=== PATIENT | male | born 1975 | race African-American/Black ===

== ENCOUNTER 2018-08-05 14:28 | Inpatient (IN) | payer MEDICARE, MEDICAID ==
[~2018-08-05] VITALS: Ht 175.3 cm; Wt 105.7 kg
[2018-08-05 16:40] VITALS: BP 159/115
[2018-08-05] MEDS ORDERED: CLONIDINE0.1 MG GT (16:44)
[2018-08-05] MEDS ORDERED: ASPIRIN-LOW81 MG ORAL (16:45)
[2018-08-05] MEDS ORDERED: FUROSEMIDE20 M1 ORAL (16:45)
[2018-08-05] MEDS ORDERED: COREG25 MG ORAL (16:46)
[2018-08-05] MEDS ORDERED: ZYLOPRIM300 MG ORAL (16:47)
[2018-08-05] MEDS ORDERED: LISINOPRIL20 MG ORAL (16:47)
[2018-08-05] MEDS ORDERED: LIPITOR80 MG ORAL (16:48)
[2018-08-05] MEDS ORDERED: ISOSORBIDE DINI20 M2 PO (16:48)
[2018-08-05] MEDS ORDERED: APRESOLINE50 MG ORAL (16:49)
[2018-08-05] MEDS ORDERED: ADVAIR 250-501 EACH INH (16:50)
--- NOTE | 2018-08-05 17:26 | History & Physical ---
History and Physical History & Physicial Dictated for Int Med-Dr jc no. [id number]. Dario Meza MD Aug 05, 2018 17:26
[2018-08-05] MEDS ORDERED: Albuterol/Ipratropium 3ml neb HHN PRN (18:30)
[2018-08-05] MEDS ORDERED: HYDROmorphone 1mg/ml Carpuject IVP PRN (18:30)
--- NOTE | 2018-08-05 18:45 | History and Physical Report ---
DATE OF ADMISSION: 08/05/2018 CHIEF COMPLAINT: The patient is a 43-year-old male, who presents with a chief complaint of shortness of breath and chest pain. HISTORY OF PRESENT ILLNESS: The patient has a history of congestive heart failure. The patient states his ejection fraction is 18%. The patient began to experience shortness of breath right after Labor Day. The patient returned from [place]. Since that time, the patient has become increasingly short of breath. The patient has a nonproductive cough. The patient has subjective fevers and chills. The patient presented initially to [facility] emergency room. The patient is transferred to [facility] for insurance purposes. The patient is admitted for shortness of breath to rule out congestive heart failure. PAST MEDICAL HISTORY: 1. Significant for congestive heart failure with an ejection fraction of 18% per the patient. 2. Chronic obstructive pulmonary disease. 3. Hypertension. 4. History of coronary artery disease, status post myocardial infarction at age 22 and again in 2013. PAST SURGICAL HISTORY: The patient denies. CURRENT MEDICATIONS: 1. Albuterol nebulized q.6 hours p.r.n. 2. ProAir 2 puffs p.o. q.i.d. p.r.n. 3. Carvedilol 25 mg p.o. twice daily. 4. Spironolactone 25 mg p.o. daily. 5. Lisinopril 20 mg p.o. twice daily. 6. Hydrochlorothiazide 25 mg p.o. daily. 7. Aspirin 81 mg p.o. daily. 8. Atorvastatin 40 mg p.o. daily. 9. Aspirin 81 mg p.o. daily. 10. Nitroglycerin 0.4 mg sublingual p.r.n. ALLERGIES: No known drug allergies. SOCIAL HISTORY: The patient is single and is disabled. The patient admits to tobacco use of one-half pack per day. The patient admits to alcohol use of 2 drinks twice weekly. The patient denies drug abuse. REVIEW OF SYSTEMS: CONSTITUTIONAL: The patient denies weight loss or weight gain. The patient complains of subjective fevers and chills as above. HEENT: The patient denies ear or throat pain. The patient denies headache. CARDIOVASCULAR: The patient complains of substernal chest pain without radiation as above. The patient denies palpitations. ABDOMEN: The patient denies nausea, vomiting, diarrhea, or constipation. GENITOURINARY: The patient denies dysuria or increased frequency of urination. NEUROMUSCULAR: The patient denies seizures or generalized weakness. PHYSICAL EXAMINATION: VITAL SIGNS: Temperature 97.4, respirations 18, pulse tachycardic at 94 to 113, and blood pressure 154 to 160/117 to 130. GENERAL: The patient is a well-developed and well-nourished male, in no apparent distress. HEENT: Eyes, pupils equal and responsive to light and accommodation. Extraocular movements are intact. NECK: Supple without lymphadenopathy. CHEST: Lungs are clear to auscultation bilaterally without wheezes or rales. CARDIOVASCULAR: Regular rhythm and rate. S1 and S2 are normal without murmurs, rubs, or gallops. ABDOMEN: Soft, nontender, and nondistended. Positive bowel sounds. No evidence of hepatosplenomegaly. Currently, no rebound or guarding noted. EXTREMITIES: Negative for clubbing, cyanosis, or edema. RECTAL/GENITAL: Refused. NEUROLOGIC: Cranial nerves II through XII are grossly intact without focal deficits. Motor strength is 5/5 bilaterally. Deep tendon reflexes are 2+ plantar. LABORATORY DATA: WBC 6.2, hemoglobin 14.7, hematocrit 43.8, and platelets 264,000. Sodium 140, potassium 3.5, chloride 109, CO2 23, BUN 18, and creatinine 1.13. Troponin 0.06. BNP elevated at 632. A chest x-ray is pending. ASSESSMENT: This is a 43-year-old male. 1. Shortness of breath. 2. Chest pain. 3. Congestive heart failure. 4. Chronic obstructive pulmonary disease. 5. Hypertension. 6. History of coronary artery disease. TREATMENT: 1. Shortness of breath. This may be secondary to an acute exacerbation of congestive heart failure. This could also be chronic obstructive pulmonary disease. A Pulmonary consultation has been obtained with Dr. Angel Diaz. A Cardiology consultation is pending with Dr. Schumacher. The patient may require an automatic implanted cardioverter defibrillator implant. 2. Chest pain. This is probably secondary to congestive heart failure as above. 3. Chronic obstructive pulmonary disease. As above, a Pulmonary consultation has been obtained with Dr. Angel Diaz. The patient will receive DuoNebs p.r.n. during the hospitalization. 4. Hypertension. Continue Coreg as above. 5. History of coronary artery disease. As above, a Cardiology consultation has been obtained with Dr. Stanley Schumacher. Serial BMP levels will be performed. Dario Meza M.D. DR: TUCKER JOB#: [id number] CC:
[2018-08-05 19:43] LABS: BASOPHILS % (AUTO) 1.4 % (0.0-2.0); EOSINOPHILS % (AUTO) 1.8 % (0.0-3.0); HEMATOCRIT 45.2 % (42.0-52.0); HEMOGLOBIN 15.5 G/DL (14.2-18.0); LYMPHOCYTES % (AUTO) 22.1 % (20.0-45.0); MEAN CORPUSCULAR VOLUME 87 FL (80-99); MONOCYTES % (AUTO) 6.9 % (1.0-10.0); NEUTROPHILS % (AUTO) 67.8 % (45.0-75.0); PLATELET COUNT 273 K/UL (150-450); RED BLOOD COUNT 5.18 M/UL (4.70-6.10); RED CELL DISTRIBUTION WIDTH 15.1 % (11.6-14.8); WHITE BLOOD COUNT 4.9 K/UL (4.8-10.8)
[2018-08-05 19:55] LABS: INR 1.1 (0.9-1.1)
[2018-08-05 20:00] VITALS: BP 154/113
[2018-08-05 20:01] LABS: ALANINE AMINOTRANSFERASE 20 U/L (12-78); ALBUMIN 3.8 G/DL (3.4-5.0); ALBUMIN/GLOBULIN RATIO 1.2 (1.0-2.7); ALKALINE PHOSPHATASE 65 U/L (46-116); ANION GAP 9 mmol/L (5-15); ASPARTATE AMINO TRANSFERASE 13 U/L (15-37); BILIRUBIN,TOTAL 1.5 MG/DL (0.2-1.0); BLOOD UREA NITROGEN 19 mg/dL (7-18); CALCIUM 8.9 MG/DL (8.5-10.1); CARBON DIOXIDE 28 MMOL/L (21-32); CHLORIDE 105 MMOL/L (98-107); CHOLESTEROL 225 MG/DL (< 200); CREATININE 1.4 MG/DL (0.55-1.30); HDL CHOLESTEROL 58 MG/DL (40-60); POTASSIUM 3.2 MMOL/L (3.5-5.1); SODIUM 142 MMOL/L (136-145); TRIGLYCERIDES 109 MG/DL (30-150)
[2018-08-05 20:04] LABS: BILIRUBIN,DIRECT 0.2 MG/DL (0.0-0.3)
[2018-08-05] MEDS: Carvedilol 25mg Tab ORAL SCH (20:38)
[2018-08-05] MEDS: Heparin 5000 units/ml inj SUBQ SCH (20:38)
[2018-08-05] MEDS: Atorvastatin 20mg tab ORAL SCH (20:39)
[2018-08-05] MEDS ORDERED: Zolpidem 5mg tab ORAL PRN ×2 (21:00)
[2018-08-05 22:14] LABS: APPEARANCE,URINE CLEAR; BILIRUBIN, URINE NEGATIVE (NEGATIVE); COLOR,URINE PALE YELLOW; GLUCOSE, URINE (UA) NEGATIVE (NEGATIVE); KETONES,URINE NEGATIVE (NEGATIVE); LEUKOCYTE ESTERASE ,URINE NEGATIVE (NEGATIVE); NITRITE,URINE NEGATIVE (NEGATIVE); PH,URINE 7 (4.5-8.0); PROTEIN,URINE NEGATIVE (NEGATIVE); UROBILINOGEN,URINE NORMAL MG/DL (0.0-1.0)
[2018-08-06] VITALS: BP 155/115
[2018-08-06 04:00] VITALS: BP 144/108
[2018-08-06 07:14] LABS: BASOPHILS % (AUTO) 1.6 % (0.0-2.0); EOSINOPHILS % (AUTO) 2.9 % (0.0-3.0); HEMATOCRIT 45.7 % (42.0-52.0); LYMPHOCYTES % (AUTO) 15.7 % (20.0-45.0); MEAN CORPUSCULAR VOLUME 88 FL (80-99); MONOCYTES % (AUTO) 9.2 % (1.0-10.0); NEUTROPHILS % (AUTO) 70.6 % (45.0-75.0); PLATELET COUNT 242 K/UL (150-450); RED BLOOD COUNT 5.21 M/UL (4.70-6.10); RED CELL DISTRIBUTION WIDTH 14.8 % (11.6-14.8); WHITE BLOOD COUNT 5.5 K/UL (4.8-10.8)
[2018-08-06 07:32] LABS: ANION GAP 9 mmol/L (5-15); BLOOD UREA NITROGEN 24 mg/dL (7-18); CALCIUM 9.1 MG/DL (8.5-10.1); CARBON DIOXIDE 26 MMOL/L (21-32); CHLORIDE 105 MMOL/L (98-107); CREATININE 1.3 MG/DL (0.55-1.30); POTASSIUM 3.7 MMOL/L (3.5-5.1); SODIUM 140 MMOL/L (136-145)
[2018-08-06 08:00] VITALS: BP 133/106
[2018-08-06] MEDS: Heparin 5000 units/ml inj SUBQ SCH ×3 (08:35→20:57)
[2018-08-06] MEDS: Lisinopril 20mg tab ORAL SCH (08:36)
[2018-08-06] MEDS: Spironolactone 25mg tab ORAL SCH (08:36)
[2018-08-06] MEDS: Carvedilol 25mg Tab ORAL SCH ×2 (08:36→20:57)
[2018-08-06] MEDS: Aspirin Baby 81mg ORAL SCH (08:36)
--- NOTE | 2018-08-06 10:03 | Diagnostic Imaging Report ---
Indication: Cough Technique: 2 views of the chest Comparison: None Findings: Lungs pleural spaces are clear. The heart is enlarged. The bones are unremarkable.. Impression: Cardiomegaly. No acute process
[2018-08-06 12:00] VITALS: BP 141/95
--- NOTE | 2018-08-06 12:35 | Consultation ---
History of Present Illness General Date patient seen: Aug 06, 2018 Present Illness HPI 43 year old male with hx of CHF, cardiomyopathy, COPD, DC, CAD was taken to [facility] by paramedics with CC of worsening sob for the last two weeks. He was rule out for DC and transferred to [facility] for further treatment. He is sitting up in the chair, looks asymptomatic and chest tightness resolved already. Allergies: Coded Allergies: No Known Allergies (Unverified , 08/05/18) Medication History Scheduled Allopurinol* (Zyloprim*), 300 MG ORAL DAILY, (Reported) Aspirin (Aspirin EC), 81 MG ORAL DAILY, (Reported) Atorvastatin (Lipitor), 40 MG ORAL BEDTIME, (Reported) Carvedilol (Coreg), 25 MG ORAL EVERY 12 HOURS, (Reported) Clonidine HCl (Clonidine HCl), 0.1 MG GT BID, (Reported) Fluticasone/Salmeterol (Advair 250-50 Diskus), 1 PUFF INH EVERY 12 HOURS, ( Reported) Furosemide* (Lasix*), 20 MG ORAL DAILY, (Reported) Hydralazine HCl (Hydralazine HCl), 50 MG ORAL EVERY 8 HOURS, (Reported) Isosorbide Dinitrate (Isosorbide Dinitrate), 20 MG PO TID, (Reported) Lisinopril (Lisinopril*), 20 MG ORAL BID, (Reported) Patient History Healthcare decision maker N Resuscitation status Full Code Advanced Directive on File No Past Medical/Surgical History Past Medical/Surgical History: (1) COPD (chronic obstructive pulmonary disease) (2) HTN (hypertension) (3) CAD (coronary artery disease) (4) Cardiomyopathy Review of Systems All Other Systems: negative except mentioned in HPI Physical Exam General Appearance: WD/WN Lines, tubes and drains: peripheral Neck: non-tender, normal alignment Respiratory/Chest: chest wall non-tender, lungs clear Cardiovascular/Chest: normal peripheral pulses, normal rate Abdomen: normal bowel sounds, soft Genitourinary/Rectal: normal genital exam Extremities: normal range of motion Last 24 Hour Vital Signs Date Time Temp Pulse Resp B/P (MAP) Pulse Ox O2 Delivery O2 Flow Rate FiO2 08/06/18 09:00 Room Air 08/06/18 08:36 133/106 08/06/18 08:36 85 133/106 08/06/18 08:00 84 08/06/18 08:00 97.5 85 20 133/106 (115) 95 97.5 08/06/18 04:00 98.0 84 20 144/108 (120) 97 98.0 08/06/18 04:00 81 08/06/18 00:00 97 08/06/18 00:00 98.2 96 20 155/115 (128) 95 98.2 08/05/18 21:00 Room Air 08/05/18 20:38 100 154/113 08/05/18 20:00 98 08/05/18 20:00 98.2 100 20 154/113 (127) 94 98.2 08/05/18 17:31 Room Air 08/05/18 16:50 102 08/05/18 16:40 97.5 96 20 159/115 (130) 97.5 Intake and Output 08/05/18 08/06/18 19:00 07:00 # Voids 1 2 Laboratory Tests Test 08/05/18 19:20 08/05/18 21:50 08/06/18 06:30 White Blood Count 4.9 K/UL (4.8-10.8) 5.5 K/UL (4.8-10.8) Red Blood Count 5.18 M/UL (4.70-6.10) 5.21 M/UL (4.70-6.10) Hemoglobin 15.5 G/DL (14.2-18.0) 15.0 G/DL (14.2-18.0) Hematocrit 45.2 % (42.0-52.0) 45.7 % (42.0-52.0) Mean Corpuscular Volume 87 FL (80-99) 88 FL (80-99) Mean Corpuscular Hemoglobin 30.0 PG (27.0-31.0) 28.8 PG (27.0-31.0) Mean Corpuscular Hemoglobin Concent 34.3 G/DL (32.0-36.0) 32.9 G/DL (32.0-36.0) Red Cell Distribution Width 15.1 % (11.6-14.8) H 14.8 % (11.6-14.8) Platelet Count 273 K/UL (150-450) 242 K/UL (150-450) Mean Platelet Volume 6.2 FL (6.5-10.1) L 6.6 FL (6.5-10.1) Neutrophils (%) (Auto) 67.8 % (45.0-75.0) 70.6 % (45.0-75.0) Lymphocytes (%) (Auto) 22.1 % (20.0-45.0) 15.7 % (20.0-45.0) L Monocytes (%) (Auto) 6.9 % (1.0-10.0) 9.2 % (1.0-10.0) Eosinophils (%) (Auto) 1.8 % (0.0-3.0) 2.9 % (0.0-3.0) Basophils (%) (Auto) 1.4 % (0.0-2.0) 1.6 % (0.0-2.0) Prothrombin Time 11.7 SEC (9.30-11.50) H Prothromb Time International Ratio 1.1 (0.9-1.1) Activated Partial Thromboplast Time 27 SEC (23-33) Sodium Level 142 MMOL/L (136-145) 140 MMOL/L (136-145) Potassium Level 3.2 MMOL/L (3.5-5.1) L 3.7 MMOL/L (3.5-5.1) Chloride Level 105 MMOL/L (98-107) 105 MMOL/L (98-107) Carbon Dioxide Level 28 MMOL/L (21-32) 26 MMOL/L (21-32) Anion Gap 9 mmol/L (5-15) 9 mmol/L (5-15) Blood Urea Nitrogen 19 mg/dL (7-18) H 24 mg/dL (7-18) H Creatinine 1.4 MG/DL (0.55-1.30) H 1.3 MG/DL (0.55-1.30) Estimat Glomerular Filtration Rate > 60 mL/min (>60) > 60 mL/min (>60) Glucose Level 144 MG/DL (74-106) H 113 MG/DL (74-106) H Calcium Level 8.9 MG/DL (8.5-10.1) 9.1 MG/DL (8.5-10.1) Total Bilirubin 1.5 MG/DL (0.2-1.0) H Direct Bilirubin 0.2 MG/DL (0.0-0.3) Aspartate Amino Transf (AST/SGOT) 13 U/L (15-37) L Alanine Aminotransferase (ALT/SGPT) 20 U/L (12-78) Alkaline Phosphatase 65 U/L (46-116) Troponin I 0.051 ng/mL (0.000-0.056) Pro-B-Type Natriuretic Peptide 1541 pg/mL (0-125) H 934 pg/mL (0-125) H Total Protein 7.0 G/DL (6.4-8.2) Albumin 3.8 G/DL (3.4-5.0) Globulin 3.2 g/dL Albumin/Globulin Ratio 1.2 (1.0-2.7) Triglycerides Level 109 MG/DL (30-150) Cholesterol Level 225 MG/DL (< 200) H LDL Cholesterol 135 mg/dL (<100) H HDL Cholesterol 58 MG/DL (40-60) Cholesterol/HDL Ratio 3.9 (3.3-4.4) Thyroid Stimulating Hormone (TSH) 0.564 uiU/mL (0.358-3.740) Urine Color Pale yellow Urine Appearance Clear Urine pH 7 (4.5-8.0) Urine Specific [place] 1.005 (1.005-1.035) Urine Protein Negative (NEGATIVE) Urine Glucose (UA) Negative (NEGATIVE) Urine Ketones Negative (NEGATIVE) Urine Blood Negative (NEGATIVE) Urine Nitrite Negative (NEGATIVE) Urine Bilirubin Negative (NEGATIVE) Urine Urobilinogen Normal MG/DL (0.0-1.0) Urine Leukocyte Esterase Negative (NEGATIVE) Height (Feet): 5 Height (Inches): 9.00 Weight (Pounds): 229 Medications Current Medications Medications (Trade) Dose Ordered Sig/Andree Route PRN Reason Start Time Stop Time Status Last Admin Dose Admin Acetaminophen (Tylenol) 650 mg Q4H PRN ORAL Mild Pain (Pain Scale 1-3) 08/05/18 18:30 [id number] 18:29 Acetaminophen (Tylenol) 650 mg Q4H PRN ORAL fever 18 18:30 10 18:29 Albuterol/ Ipratropium (Albuterol/ Ipratropium) 3 ml Q4H PRN HHN Shortness of Breath 08/05/18 18:30 08/10/18 18:29 Aspirin (ASA) 81 mg DAILY ORAL 08/06/18 09:00 09/05/18 08:59 08/06/18 08:36 Atorvastatin Calcium (Lipitor) 40 mg BEDTIME ORAL 08/05/18 21:00 09/04/18 20:59 08/05/18 20:39 Carvedilol (Coreg) 25 mg EVERY 12 HOURS ORAL 08/05/18 21:00 09/04/18 20:59 08/06/18 08:36 Dextrose (Dextrose 50%) 25 ml STAT PRN IV Hypoglycemia 08/05/18 18:30 09/04/18 18:29 Dextrose (Dextrose 50%) 50 ml STAT PRN IV Hypoglycemia 08/05/18 18:30 09/04/18 18:29 Heparin Sodium (Porcine) (Heparin 5000 units/ml) 5,000 units EVERY 12 HOURS SUBQ 08/05/18 21:00 09/04/18 20:59 Hydromorphone HCl (Dilaudid) 1 mg Q4H PRN IVP Moderate Pain (Pain Scale 4-6) 08/05/18 18:30 08/12/18 18:29 Hydromorphone HCl (Dilaudid) 2 mg Q4H PRN IVP Severe Pain (Pain Scale 7-10) 08/05/18 18:30 08/12/18 18:29 Lisinopril (Prinivil) 20 mg DAILY ORAL 08/06/18 09:00 09/05/18 08:59 08/06/18 08:36 Ondansetron HCl (Zofran) 4 mg Q6H PRN IVP Nausea & Vomiting 08/05/18 18:30 09/04/18 18:29 Pantoprazole (Protonix) 40 mg ACBREAKFAST ORAL 08/06/18 06:30 09/05/18 06:29 08/06/18 06:19 Spironolactone (Aldactone) 25 mg DAILY ORAL 08/06/18 09:00 09/05/18 08:59 08/06/18 08:36 Zolpidem Tartrate (Ambien) 5 mg HSPRN PRN ORAL Insomnia 08/05/18 21:00 08/12/18 20:59 Assessment/Plan Problem List: (1) ACS (acute coronary syndrome) ICD Codes: I24.9 - Acute ischemic heart disease, unspecified SNOMED: 317808196 (2) COPD (chronic obstructive pulmonary disease) ICD Codes: J44.9 - Chronic obstructive pulmonary disease, unspecified SNOMED: 47440150 (3) CAD (coronary artery disease) ICD Codes: I25.10 - Atherosclerotic heart disease of [place] coronary artery without angina pectoris SNOMED: 43953669 (4) Cardiomyopathy ICD Codes: I42.9 - Cardiomyopathy, unspecified SNOMED: 70928615 (5) HTN (hypertension) ICD Codes: I10 - Essential (primary) hypertension SNOMED: 12764816 Assessment/Plan f/u on Echo optimize cardiac meds cardiology evaluation respiratory treatment check BNP dvt prophylaxis. Angel Diaz MD Aug 06, 2018 12:35
--- NOTE | 2018-08-06 13:27 | Cardiac Electrophysiology PN ---
Subjective Subjective [id number] Objective Last 24 Hour Vital Signs Date Time Temp Pulse Resp B/P (MAP) Pulse Ox O2 Delivery O2 Flow Rate FiO2 08/06/18 12:00 72 08/06/18 12:00 97.7 77 20 141/95 (110) 96 97.7 08/06/18 09:00 Room Air 08/06/18 08:36 133/106 08/06/18 08:36 85 133/106 08/06/18 08:00 84 08/06/18 08:00 97.5 85 20 133/106 (115) 95 97.5 08/06/18 04:00 98.0 84 20 144/108 (120) 97 98.0 08/06/18 04:00 81 08/06/18 00:00 97 08/06/18 00:00 98.2 96 20 155/115 (128) 95 98.2 08/05/18 21:00 Room Air 08/05/18 20:38 100 154/113 08/05/18 20:00 98 08/05/18 20:00 98.2 100 20 154/113 (127) 94 98.2 08/05/18 17:31 Room Air 08/05/18 16:50 102 08/05/18 16:40 97.5 96 20 159/115 (130) 97.5 Intake and Output 08/05/18 08/06/18 19:00 07:00 # Voids 1 2 Laboratory Tests Test 08/05/18 19:20 08/05/18 21:50 08/06/18 06:30 White Blood Count 4.9 K/UL (4.8-10.8) 5.5 K/UL (4.8-10.8) Red Blood Count 5.18 M/UL (4.70-6.10) 5.21 M/UL (4.70-6.10) Hemoglobin 15.5 G/DL (14.2-18.0) 15.0 G/DL (14.2-18.0) Hematocrit 45.2 % (42.0-52.0) 45.7 % (42.0-52.0) Mean Corpuscular Volume 87 FL (80-99) 88 FL (80-99) Mean Corpuscular Hemoglobin 30.0 PG (27.0-31.0) 28.8 PG (27.0-31.0) Mean Corpuscular Hemoglobin Concent 34.3 G/DL (32.0-36.0) 32.9 G/DL (32.0-36.0) Red Cell Distribution Width 15.1 % (11.6-14.8) H 14.8 % (11.6-14.8) Platelet Count 273 K/UL (150-450) 242 K/UL (150-450) Mean Platelet Volume 6.2 FL (6.5-10.1) L 6.6 FL (6.5-10.1) Neutrophils (%) (Auto) 67.8 % (45.0-75.0) 70.6 % (45.0-75.0) Lymphocytes (%) (Auto) 22.1 % (20.0-45.0) 15.7 % (20.0-45.0) L Monocytes (%) (Auto) 6.9 % (1.0-10.0) 9.2 % (1.0-10.0) Eosinophils (%) (Auto) 1.8 % (0.0-3.0) 2.9 % (0.0-3.0) Basophils (%) (Auto) 1.4 % (0.0-2.0) 1.6 % (0.0-2.0) Prothrombin Time 11.7 SEC (9.30-11.50) H Prothromb Time International Ratio 1.1 (0.9-1.1) Activated Partial Thromboplast Time 27 SEC (23-33) Sodium Level 142 MMOL/L (136-145) 140 MMOL/L (136-145) Potassium Level 3.2 MMOL/L (3.5-5.1) L 3.7 MMOL/L (3.5-5.1) Chloride Level 105 MMOL/L (98-107) 105 MMOL/L (98-107) Carbon Dioxide Level 28 MMOL/L (21-32) 26 MMOL/L (21-32) Anion Gap 9 mmol/L (5-15) 9 mmol/L (5-15) Blood Urea Nitrogen 19 mg/dL (7-18) H 24 mg/dL (7-18) H Creatinine 1.4 MG/DL (0.55-1.30) H 1.3 MG/DL (0.55-1.30) Estimat Glomerular Filtration Rate > 60 mL/min (>60) > 60 mL/min (>60) Glucose Level 144 MG/DL (74-106) H 113 MG/DL (74-106) H Calcium Level 8.9 MG/DL (8.5-10.1) 9.1 MG/DL (8.5-10.1) Total Bilirubin 1.5 MG/DL (0.2-1.0) H Direct Bilirubin 0.2 MG/DL (0.0-0.3) Aspartate Amino Transf (AST/SGOT) 13 U/L (15-37) L Alanine Aminotransferase (ALT/SGPT) 20 U/L (12-78) Alkaline Phosphatase 65 U/L (46-116) Troponin I 0.051 ng/mL (0.000-0.056) Pro-B-Type Natriuretic Peptide 1541 pg/mL (0-125) H 934 pg/mL (0-125) H Total Protein 7.0 G/DL (6.4-8.2) Albumin 3.8 G/DL (3.4-5.0) Globulin 3.2 g/dL Albumin/Globulin Ratio 1.2 (1.0-2.7) Triglycerides Level 109 MG/DL (30-150) Cholesterol Level 225 MG/DL (< 200) H LDL Cholesterol 135 mg/dL (<100) H HDL Cholesterol 58 MG/DL (40-60) Cholesterol/HDL Ratio 3.9 (3.3-4.4) Thyroid Stimulating Hormone (TSH) 0.564 uiU/mL (0.358-3.740) Urine Color Pale yellow Urine Appearance Clear Urine pH 7 (4.5-8.0) Urine Specific [place] 1.005 (1.005-1.035) Urine Protein Negative (NEGATIVE) Urine Glucose (UA) Negative (NEGATIVE) Urine Ketones Negative (NEGATIVE) Urine Blood Negative (NEGATIVE) Urine Nitrite Negative (NEGATIVE) Urine Bilirubin Negative (NEGATIVE) Urine Urobilinogen Normal MG/DL (0.0-1.0) Urine Leukocyte Esterase Negative (NEGATIVE) Stanley Schumacher MD Aug 06, 2018 13:27
[2018-08-06 16:00] VITALS: BP 152/112
--- NOTE | 2018-08-06 17:00 | Consultation ---
DATE OF CONSULTATION: 08/06/2018 CARDIOLOGY CONSULTATION CONSULTING PHYSICIAN: Stanley Schumacher M.D. REFERRING PHYSICIAN: Mejia Hidalgo M.D. REASON FOR CONSULTATION: Congestive heart failure. HISTORY OF PRESENT ILLNESS: The patient is a 43-year-old, gentleman with history of severe nonischemic cardiomyopathy with ejection fraction of 18%, who returned from [place] and presented to [facility] emergency room complaining of shortness of breath. The patient was then transferred to [facility] for further evaluation and management. The patient states that he has had heart attacks in the past, however, denies any stent or open heart surgery. The patient was admitted and a Cardiology consultation was obtained for further evaluation. PAST MEDICAL HISTORY: As mentioned above. Congestive heart failure, chronic obstructive pulmonary disease, hypertension, and questionable coronary artery disease. MEDICATIONS: Include Coreg, Aldactone, lisinopril, hydrochlorothiazide, Lipitor, aspirin, ProAir, and albuterol. FAMILY HISTORY: Noncontributory. SOCIAL HISTORY: Denies smoking or drinking alcohol. He is single. Smokes about [id number]-day and occasionally drinks alcohol. Denies any drug use. REVIEW OF SYSTEMS: Performed and was negative other than what was mentioned in the history of present illness. PHYSICAL EXAMINATION: VITAL SIGNS: Show blood pressure of 140/95, pulse 77, respirations 18, and he is afebrile. HEAD AND NECK: Shows mild JVD. LUNGS: Decreased breath sounds. CARDIOVASCULAR: Shows regular S1 and S2 with no gallop. ABDOMEN: Soft. EXTREMITIES: A 1+ pitting edema. LABORATORY AND DIAGNOSTIC DATA: His labs show white count of 5.5, hemoglobin of 15, hematocrit 45.7, and platelet count of 242,000. Sodium 140, potassium 3.7, BUN of 24, and creatinine 1.3. Troponin is negative. BNP is 1541. ASSESSMENT/PLAN: 1. Exacerbation of congestive heart failure. The patient is already on optimized medical therapy. We will try to get a prior echocardiogram. The patient is to confirm that for how long he has had cardiomyopathy. His echocardiogram today showed ejection fraction of only 30% despite optimized medical therapy. He states that he has been offered defibrillator implantation many times, however, he was scared of getting it. Now, he is agreeable. After optimizing his heart failure therapy, we will consider prophylactic defibrillator implantation. In the meantime, continue the patient on lisinopril 20 mg daily, Aldactone 25 mg daily, Coreg 25 mg b.i.d., and Lasix. 2. Questionable coronary artery disease. His EKG showed lateral T-wave inversion. It could be due to left ventricular hypertrophy and repolarization. However, in view of possible coronary artery disease, continue aspirin, Coreg, and Lipitor. 3. Asthma. Thank you very much, Dr. Hidalgo, for allowing me to participate in the care of this patient. Please do not hesitate to contact me for any questions regarding my evaluation. Stanley Schumacher M.D. DR: SOPHIE JOB#: [id number] CC:
--- NOTE | 2018-08-06 17:57 | Internal Med Progress Note ---
Subjective Date of Service: Aug 06, 2018 Physician Name Dario Meza Attending Physician Mejia Hidalgo MD Current Medications Medications (Trade) Dose Ordered Sig/Andree Route PRN Reason Start Time Stop Time Status Last Admin Dose Admin Acetaminophen (Tylenol) 650 mg Q4H PRN ORAL Mild Pain (Pain Scale 1-3) 08/05/18 18:30 09/04/18 18:29 Acetaminophen (Tylenol) 650 mg Q4H PRN ORAL fever 08/05/18 18:30 09/04/18 18:29 Albuterol/ Ipratropium (Albuterol/ Ipratropium) 3 ml Q4H PRN HHN Shortness of Breath 08/05/18 18:30 08/10/18 18:29 Aspirin (ASA) 81 mg DAILY ORAL 08/06/18 09:00 09/05/18 08:59 08/06/18 08:36 Atorvastatin Calcium (Lipitor) 40 mg BEDTIME ORAL 08/05/18 21:00 09/04/18 20:59 08/05/18 20:39 Carvedilol (Coreg) 25 mg EVERY 12 HOURS ORAL 08/05/18 21:00 09/04/18 20:59 08/06/18 08:36 Dextrose (Dextrose 50%) 25 ml STAT PRN IV Hypoglycemia 08/05/18 18:30 09/04/18 18:29 Dextrose (Dextrose 50%) 50 ml STAT PRN IV Hypoglycemia 08/05/18 18:30 09/04/18 18:29 Furosemide (Lasix) 40 mg DAILY IV 08/07/18 09:00 09/06/18 08:59 Heparin Sodium (Porcine) (Heparin 5000 units/ml) 5,000 units EVERY 12 HOURS SUBQ 08/05/18 21:00 09/04/18 20:59 Hydromorphone HCl (Dilaudid) 1 mg Q4H PRN IVP Moderate Pain (Pain Scale 4-6) 08/05/18 18:30 08/12/18 18:29 Hydromorphone HCl (Dilaudid) 2 mg Q4H PRN IVP Severe Pain (Pain Scale 7-10) 08/05/18 18:30 08/12/18 18:29 Lisinopril (Prinivil) 20 mg DAILY ORAL 08/06/18 09:00 09/05/18 08:59 08/06/18 08:36 Ondansetron HCl (Zofran) 4 mg Q6H PRN IVP Nausea & Vomiting 08/05/18 18:30 09/04/18 18:29 Pantoprazole (Protonix) 40 mg ACBREAKFAST ORAL 08/06/18 06:30 09/05/18 06:29 08/06/18 06:19 Spironolactone (Aldactone) 25 mg DAILY ORAL 08/06/18 09:00 09/05/18 08:59 08/06/18 08:36 Zolpidem Tartrate (Ambien) 5 mg HSPRN PRN ORAL Insomnia 08/05/18 21:00 08/12/18 20:59 Allergies: Coded Allergies: No Known Allergies (Unverified , 08/05/18) ROS Limited/Unobtainable: No Constitutional: Reports: no symptoms HEENT: Reports: no symptoms Cardiovascular: Reports: chest pain Respiratory: Reports: shortness of breath Gastrointestinal/Abdominal: Reports: no symptoms Genitourinary: Reports: no symptoms Neurologic/Psychiatric: Reports: no symptoms Subjective 43 YO M admitted with shortness of breath. Now CHF. Cover for Int Med-Dr Hidalgo Objective Last Vital Signs Date Time Temp Pulse Resp B/P (MAP) Pulse Ox O2 Delivery O2 Flow Rate FiO2 08/06/18 16:00 97.0 88 18 152/112 (125) 95 97.0 08/06/18 10:15 Room Air 21 Laboratory Tests Test 08/05/18 19:20 08/05/18 21:50 08/06/18 06:30 08/06/18 17:20 White Blood Count 4.9 K/UL (4.8-10.8) 5.5 K/UL (4.8-10.8) Red Blood Count 5.18 M/UL (4.70-6.10) 5.21 M/UL (4.70-6.10) Hemoglobin 15.5 G/DL (14.2-18.0) 15.0 G/DL (14.2-18.0) Hematocrit 45.2 % (42.0-52.0) 45.7 % (42.0-52.0) Mean Corpuscular Volume 87 FL (80-99) 88 FL (80-99) Mean Corpuscular Hemoglobin 30.0 PG (27.0-31.0) 28.8 PG (27.0-31.0) Mean Corpuscular Hemoglobin Concent 34.3 G/DL (32.0-36.0) 32.9 G/DL (32.0-36.0) Red Cell Distribution Width 15.1 % (11.6-14.8) H 14.8 % (11.6-14.8) Platelet Count 273 K/UL (150-450) 242 K/UL (150-450) Mean Platelet Volume 6.2 FL (6.5-10.1) L 6.6 FL (6.5-10.1) Neutrophils (%) (Auto) 67.8 % (45.0-75.0) 70.6 % (45.0-75.0) Lymphocytes (%) (Auto) 22.1 % (20.0-45.0) 15.7 % (20.0-45.0) L Monocytes (%) (Auto) 6.9 % (1.0-10.0) 9.2 % (1.0-10.0) Eosinophils (%) (Auto) 1.8 % (0.0-3.0) 2.9 % (0.0-3.0) Basophils (%) (Auto) 1.4 % (0.0-2.0) 1.6 % (0.0-2.0) Prothrombin Time 11.7 SEC (9.30-11.50) H Prothromb Time International Ratio 1.1 (0.9-1.1) Activated Partial Thromboplast Time 27 SEC (23-33) Sodium Level 142 MMOL/L (136-145) 140 MMOL/L (136-145) Potassium Level 3.2 MMOL/L (3.5-5.1) L 3.7 MMOL/L (3.5-5.1) Chloride Level 105 MMOL/L (98-107) 105 MMOL/L (98-107) Carbon Dioxide Level 28 MMOL/L (21-32) 26 MMOL/L (21-32) Anion Gap 9 mmol/L (5-15) 9 mmol/L (5-15) Blood Urea Nitrogen 19 mg/dL (7-18) H 24 mg/dL (7-18) H Creatinine 1.4 MG/DL (0.55-1.30) H 1.3 MG/DL (0.55-1.30) Estimat Glomerular Filtration Rate > 60 mL/min (>60) > 60 mL/min (>60) Glucose Level 144 MG/DL (74-106) H 113 MG/DL (74-106) H Calcium Level 8.9 MG/DL (8.5-10.1) 9.1 MG/DL (8.5-10.1) Total Bilirubin 1.5 MG/DL (0.2-1.0) H Direct Bilirubin 0.2 MG/DL (0.0-0.3) Aspartate Amino Transf (AST/SGOT) 13 U/L (15-37) L Alanine Aminotransferase (ALT/SGPT) 20 U/L (12-78) Alkaline Phosphatase 65 U/L (46-116) Troponin I 0.051 ng/mL (0.000-0.056) 0.047 ng/mL (0.000-0.056) Pro-B-Type Natriuretic Peptide 1541 pg/mL (0-125) H 934 pg/mL (0-125) H Total Protein 7.0 G/DL (6.4-8.2) Albumin 3.8 G/DL (3.4-5.0) Globulin 3.2 g/dL Albumin/Globulin Ratio 1.2 (1.0-2.7) Triglycerides Level 109 MG/DL (30-150) Cholesterol Level 225 MG/DL (< 200) H LDL Cholesterol 135 mg/dL (<100) H HDL Cholesterol 58 MG/DL (40-60) Cholesterol/HDL Ratio 3.9 (3.3-4.4) Thyroid Stimulating Hormone (TSH) 0.564 uiU/mL (0.358-3.740) Urine Color Pale yellow Urine Appearance Clear Urine pH 7 (4.5-8.0) Urine Specific [place] 1.005 (1.005-1.035) Urine Protein Negative (NEGATIVE) Urine Glucose (UA) Negative (NEGATIVE) Urine Ketones Negative (NEGATIVE) Urine Blood Negative (NEGATIVE) Urine Nitrite Negative (NEGATIVE) Urine Bilirubin Negative (NEGATIVE) Urine Urobilinogen Normal MG/DL (0.0-1.0) Urine Leukocyte Esterase Negative (NEGATIVE) Intake and Output 08/05/18 08/06/18 19:00 07:00 # Voids 1 2 Objective PHYSICAL EXAMINATION: GENERAL: The patient is a well-developed and well-nourished male, in no apparent distress. HEENT: Eyes, pupils equal and responsive to light and accommodation. Extraocular movements are intact. NECK: Supple without lymphadenopathy. CHEST: Lungs are clear to auscultation bilaterally without wheezes or rales. CARDIOVASCULAR: Regular rhythm and rate. S1 and S2 are normal without murmurs, rubs, or gallops. ABDOMEN: Soft, nontender, and nondistended. Positive bowel sounds. No evidence of hepatosplenomegaly. Currently, no rebound or guarding noted. EXTREMITIES: Negative for clubbing, cyanosis, or edema. RECTAL/GENITAL: Refused. NEUROLOGIC: Cranial nerves II through XII are grossly intact without focal deficits. Motor strength is 5/5 bilaterally. Deep tendon reflexes are 2+ plantar. Assessment/Plan Problem List: (1) Hypercholesteremia Assessment & Plan: continue lipitor (2) Dyspnea Assessment & Plan: due to CHF and COPD (3) Chest pain (4) Cardiomyopathy (5) Congestive heart failure (CHF) Assessment & Plan: Await echocardiogram. See cardiology note. Continue lasix (6) COPD (chronic obstructive pulmonary disease) Assessment & Plan: see pulmonary note. (7) HTN (hypertension) Assessment & Plan: Uncontrolled. Continue coreg, lisinopril and spironolactone. Add norvasc (8) CAD (coronary artery disease) Status: not improved Dario Meza MD Aug 06, 2018 17:57
[2018-08-06 20:00] VITALS: BP 138/96
[2018-08-06] MEDS: Atorvastatin 20mg tab ORAL SCH (20:57)
[2018-08-07] VITALS: BP 128/76
[2018-08-07 04:00] VITALS: BP 123/86
[2018-08-07 07:48] LABS: BASOPHILS % (AUTO) 1.2 % (0.0-2.0); EOSINOPHILS % (AUTO) 3.4 % (0.0-3.0); HEMOGLOBIN 14.5 G/DL (14.2-18.0); LYMPHOCYTES % (AUTO) 27.3 % (20.0-45.0); MEAN CORPUSCULAR VOLUME 87 FL (80-99); MONOCYTES % (AUTO) 11.1 % (1.0-10.0); PLATELET COUNT 244 K/UL (150-450); RED BLOOD COUNT 5.14 M/UL (4.70-6.10); RED CELL DISTRIBUTION WIDTH 14.6 % (11.6-14.8); WHITE BLOOD COUNT 4.3 K/UL (4.8-10.8)
[2018-08-07 08:00] VITALS: BP 143/92
[2018-08-07 08:08] LABS: ALANINE AMINOTRANSFERASE 19 U/L (12-78); ALBUMIN 3.2 G/DL (3.4-5.0); ALBUMIN/GLOBULIN RATIO 0.9 (1.0-2.7); ALKALINE PHOSPHATASE 55 U/L (46-116); ANION GAP 6 mmol/L (5-15); ASPARTATE AMINO TRANSFERASE 12 U/L (15-37); BILIRUBIN,TOTAL 0.6 MG/DL (0.2-1.0); BLOOD UREA NITROGEN 22 mg/dL (7-18); CALCIUM 9.1 MG/DL (8.5-10.1); CARBON DIOXIDE 27 MMOL/L (21-32); CHLORIDE 106 MMOL/L (98-107); CREATININE 1.2 MG/DL (0.55-1.30); PHOSPHORUS 4.9 MG/DL (2.5-4.9); SODIUM 139 MMOL/L (136-145)
[2018-08-07] MEDS: Carvedilol 25mg Tab ORAL SCH ×2 (08:42→21:21)
[2018-08-07] MEDS: Aspirin Baby 81mg ORAL SCH (08:42)
[2018-08-07] MEDS: Spironolactone 25mg tab ORAL SCH (08:43)
[2018-08-07] MEDS: Lisinopril 20mg tab ORAL SCH ×2 (08:43→17:17)
[2018-08-07] MEDS: Heparin 5000 units/ml inj SUBQ SCH ×2 (08:47→21:00)
--- NOTE | 2018-08-07 09:42 | Diagnostic Imaging Report ---
Indication: Chest pain Technique: One view of the chest Comparison: 08/06/2018 Findings: The heart is borderline enlarged. Lungs and pleural spaces are clear. The aorta is tortuous. There is no significant interim change Impression: Cardiomegaly. No acute process
--- NOTE | 2018-08-07 10:43 | Pulmonology Progress Note ---
Assessment/Plan Problems: (1) Congestive heart failure (CHF) (2) COPD (chronic obstructive pulmonary disease) (3) ACS (acute coronary syndrome) (4) CAD (coronary artery disease) (5) Cardiomyopathy (6) HTN (hypertension) Assessment/Plan doing better f/u clinically cxr reviewed Echo reviewed, EF is 15% respiratory treatment titrate fio2 to sat of 92% Subjective ROS Limited/Unobtainable: No Interval Events: sittiung upo on the chair, comfortable Allergies: Coded Allergies: No Known Allergies (Unverified , 08/05/18) Objective Last 24 Hour Vital Signs Date Time Temp Pulse Resp B/P (MAP) Pulse Ox O2 Delivery O2 Flow Rate FiO2 08/07/18 09:00 Room Air 08/07/18 08:43 143/92 08/07/18 08:42 92 143/92 08/07/18 08:42 92 143/92 08/07/18 08:00 98.1 92 20 143/92 (109) 100 98.1 08/07/18 04:00 85 08/07/18 04:00 97.7 79 20 123/86 (98) 100 97.7 08/07/18 00:00 98.0 74 20 128/76 (93) 95 98.0 08/07/18 00:00 84 08/06/18 21:00 Room Air 08/06/18 20:57 89 138/96 08/06/18 20:24 89 20 99 Room Air 21 08/06/18 20:05 88 20 Room Air 21 08/06/18 20:05 21 08/06/18 20:05 88 20 98 Room Air 21 08/06/18 20:00 98.1 79 20 138/96 (110) 95 98.1 08/06/18 20:00 84 08/06/18 18:11 72 152/112 08/06/18 16:00 97.0 88 18 152/112 (125) 95 97.0 08/06/18 16:00 72 08/06/18 12:00 72 08/06/18 12:00 97.7 77 20 141/95 (110) 96 97.7 Intake and Output 08/06/18 08/07/18 19:00 07:00 Intake Total 480 ml Balance 480 ml Intake Oral 480 ml # Voids 2 2 General Appearance: WD/WN HEENT: normocephalic Respiratory/Chest: chest wall non-tender, lungs clear Cardiovascular: normal peripheral pulses, normal rate Abdomen: normal bowel sounds, soft, non tender Genitourinary: normal external genitalia Extremities: no cyanosis 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/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 II-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 grossly normal Lymphatic: no neck adenopathy Laboratory Tests 08/06/18 17:20: Troponin I 0.047 08/07/18 07:40: Troponin I 0.038, White Blood Count 4.3L, Red Blood Count 5.14, Hemoglobin 14.5 , Hematocrit 45.0, Mean Corpuscular Volume 87, Mean Corpuscular Hemoglobin 28.2 , Mean Corpuscular Hemoglobin Concent 32.2, Red Cell Distribution Width 14.6, Platelet Count 244, Mean Platelet Volume 6.2L, Neutrophils (%) (Auto) 57.0, Lymphocytes (%) (Auto) 27.3, Monocytes (%) (Auto) 11.1H, Eosinophils (%) (Auto) 3.4H, Basophils (%) (Auto) 1.2, Erythrocyte Sedimentation Rate 11, Sodium Level 139, Potassium Level 4.0, Chloride Level 106, Carbon Dioxide Level 27, Anion Gap 6, Blood Urea Nitrogen 22H, Creatinine 1.2, Estimat Glomerular Filtration Rate > 60, Glucose Level 114H, Calcium Level 9.1, Phosphorus Level 4.9, Magnesium Level 2.0, Total Bilirubin 0.6, Aspartate Amino Transf (AST/SGOT) 12L , Alanine Aminotransferase (ALT/SGPT) 19, Alkaline Phosphatase 55, Pro-B-Type Natriuretic Peptide 390H, Total Protein 6.6, Albumin 3.2L, Globulin 3.4, Albumin /Globulin Ratio 0.9L Current Medications Medications (Trade) Dose Ordered Sig/Andree Route PRN Reason Start Time Stop Time Status Last Admin Dose Admin Acetaminophen (Tylenol) 650 mg Q4H PRN ORAL Mild Pain (Pain Scale 1-3) 08/05/18 18:30 09/04/18 18:29 Acetaminophen (Tylenol) 650 mg Q4H PRN ORAL fever 08/05/18 18:30 09/04/18 18:29 Albuterol/ Ipratropium (Albuterol/ Ipratropium) 3 ml Q4H PRN HHN Shortness of Breath 08/05/18 18:30 08/10/18 18:29 08/06/18 20:14 Amlodipine Besylate (Norvasc) 5 mg DAILY ORAL 08/06/18 18:00 09/05/18 17:59 08/07/18 08:42 Aspirin (ASA) 81 mg DAILY ORAL 08/06/18 09:00 09/05/18 08:59 08/07/18 08:42 Atorvastatin Calcium (Lipitor) 40 mg BEDTIME ORAL 08/05/18 21:00 09/04/18 20:59 08/06/18 20:57 Carvedilol (Coreg) 25 mg EVERY 12 HOURS ORAL 08/05/18 21:00 09/04/18 20:59 08/07/18 08:42 Dextrose (Dextrose 50%) 25 ml STAT PRN IV Hypoglycemia 08/05/18 18:30 09/04/18 18:29 Dextrose (Dextrose 50%) 50 ml STAT PRN IV Hypoglycemia 08/05/18 18:30 09/04/18 18:29 Furosemide (Lasix) 40 mg DAILY IV 08/07/18 09:00 09/06/18 08:59 08/07/18 08:43 Heparin Sodium (Porcine) (Heparin 5000 units/ml) 5,000 units EVERY 12 HOURS SUBQ 08/05/18 21:00 09/04/18 20:59 Hydromorphone HCl (Dilaudid) 1 mg Q4H PRN IVP Moderate Pain (Pain Scale 4-6) 08/05/18 18:30 08/12/18 18:29 Hydromorphone HCl (Dilaudid) 2 mg Q4H PRN IVP Severe Pain (Pain Scale 7-10) 08/05/18 18:30 08/12/18 18:29 Lisinopril (Prinivil) 20 mg DAILY ORAL 08/06/18 09:00 09/05/18 08:59 08/07/18 08:43 Ondansetron HCl (Zofran) 4 mg Q6H PRN IVP Nausea & Vomiting 08/05/18 18:30 09/04/18 18:29 Pantoprazole (Protonix) 40 mg ACBREAKFAST ORAL 08/06/18 06:30 09/05/18 06:29 08/07/18 05:49 Spironolactone (Aldactone) 25 mg DAILY ORAL 08/06/18 09:00 09/05/18 08:59 08/07/18 08:43 Zolpidem Tartrate (Ambien) 5 mg HSPRN PRN ORAL Insomnia 08/05/18 21:00 08/12/18 20:59 Angel Diaz MD Aug 07, 2018 10:43
[2018-08-07 12:00] VITALS: BP 122/84
--- NOTE | 2018-08-07 14:47 | Cardiac Electrophysiology PN ---
Assessment/Plan Assessment/Plan 1. Exacerbation of congestive heart failure with EF 15-20%. The patient is already on optimized medical therapy. Echocardiogram at [facility] 04/[facility]/18 showed EF 10-15% He states that he has been offered defibrillator implantation many times, however, he was scared of getting it. Now, he is agreeable. Continue the patient on lisinopril 20 mg daily, Aldactone 25 mg daily, Coreg 25 mg b.i.d., and Lasix. 2. Questionable coronary artery disease. His EKG showed lateral T-wave inversion. It could be due to left ventricular hypertrophy and repolarization. However, in view of possible coronary artery disease, continue aspirin, Coreg, and Lipitor.Likely would need cardiac cath 3. Asthma. DW RN Subjective Subjective Feeling better. No CP. SOB is better.in SR Objective Last 24 Hour Vital Signs Date Time Temp Pulse Resp B/P (MAP) Pulse Ox O2 Delivery O2 Flow Rate FiO2 08/07/18 12:00 97.7 76 20 122/84 (97) 98 97.7 08/07/18 12:00 89 08/07/18 09:00 Room Air 08/07/18 08:43 143/92 08/07/18 08:42 92 143/92 08/07/18 08:42 92 143/92 08/07/18 08:00 98.1 92 20 143/92 (109) 100 98.1 08/07/18 08:00 72 08/07/18 04:00 85 08/07/18 04:00 97.7 79 20 123/86 (98) 100 97.7 08/07/18 00:00 98.0 74 20 128/76 (93) 95 98.0 08/07/18 00:00 84 08/06/18 21:00 Room Air 08/06/18 20:57 89 138/96 08/06/18 20:24 89 20 99 Room Air 21 08/06/18 20:05 88 20 Room Air 21 08/06/18 20:05 21 08/06/18 20:05 88 20 98 Room Air 21 08/06/18 20:00 98.1 79 20 138/96 (110) 95 98.1 08/06/18 20:00 84 08/06/18 18:11 72 152/112 08/06/18 16:00 97.0 88 18 152/112 (125) 95 97.0 08/06/18 16:00 72 Intake and Output 08/06/18 08/07/18 19:00 07:00 Intake Total 480 ml Balance 480 ml Intake Oral 480 ml # Voids 2 2 Laboratory Tests Test 08/06/18 17:20 08/07/18 07:40 Troponin I 0.047 ng/mL (0.000-0.056) 0.038 ng/mL (0.000-0.056) White Blood Count 4.3 K/UL (4.8-10.8) L Red Blood Count 5.14 M/UL (4.70-6.10) Hemoglobin 14.5 G/DL (14.2-18.0) Hematocrit 45.0 % (42.0-52.0) Mean Corpuscular Volume 87 FL (80-99) Mean Corpuscular Hemoglobin 28.2 PG (27.0-31.0) Mean Corpuscular Hemoglobin Concent 32.2 G/DL (32.0-36.0) Red Cell Distribution Width 14.6 % (11.6-14.8) Platelet Count 244 K/UL (150-450) Mean Platelet Volume 6.2 FL (6.5-10.1) L Neutrophils (%) (Auto) 57.0 % (45.0-75.0) Lymphocytes (%) (Auto) 27.3 % (20.0-45.0) Monocytes (%) (Auto) 11.1 % (1.0-10.0) H Eosinophils (%) (Auto) 3.4 % (0.0-3.0) H Basophils (%) (Auto) 1.2 % (0.0-2.0) Erythrocyte Sedimentation Rate 11 MM/HR (0-15) Sodium Level 139 MMOL/L (136-145) Potassium Level 4.0 MMOL/L (3.5-5.1) Chloride Level 106 MMOL/L (98-107) Carbon Dioxide Level 27 MMOL/L (21-32) Anion Gap 6 mmol/L (5-15) Blood Urea Nitrogen 22 mg/dL (7-18) H Creatinine 1.2 MG/DL (0.55-1.30) Estimat Glomerular Filtration Rate > 60 mL/min (>60) Glucose Level 114 MG/DL (74-106) H Calcium Level 9.1 MG/DL (8.5-10.1) Phosphorus Level 4.9 MG/DL (2.5-4.9) Magnesium Level 2.0 MG/DL (1.8-2.4) Total Bilirubin 0.6 MG/DL (0.2-1.0) Aspartate Amino Transf (AST/SGOT) 12 U/L (15-37) L Alanine Aminotransferase (ALT/SGPT) 19 U/L (12-78) Alkaline Phosphatase 55 U/L (46-116) Pro-B-Type Natriuretic Peptide 390 pg/mL (0-125) H Total Protein 6.6 G/DL (6.4-8.2) Albumin 3.2 G/DL (3.4-5.0) L Globulin 3.4 g/dL Albumin/Globulin Ratio 0.9 (1.0-2.7) L Objective HEAD AND NECK: Shows mild JVD. LUNGS: Decreased breath sounds. CARDIOVASCULAR: Shows regular S1 and S2 with no gallop. ABDOMEN: Soft. EXTREMITIES: 1+ pitting edema. Stanley Schumacher MD Aug 07, 2018 14:47
[2018-08-07 16:00] VITALS: BP 128/91
--- NOTE | 2018-08-07 16:02 | Internal Med Progress Note ---
Subjective Date of Service: Aug 07, 2018 Physician Name Meza,Dario Attending Physician Mejia Hidalgo MD Current Medications Medications (Trade) Dose Ordered Sig/Andree Route PRN Reason Start Time Stop Time Status Last Admin Dose Admin Acetaminophen (Tylenol) 650 mg Q4H PRN ORAL Mild Pain (Pain Scale 1-3) 08/05/18 18:30 09/04/18 18:29 Acetaminophen (Tylenol) 650 mg Q4H PRN ORAL fever 08/05/18 18:30 09/04/18 18:29 Albuterol/ Ipratropium (Albuterol/ Ipratropium) 3 ml Q4H PRN HHN Shortness of Breath 08/05/18 18:30 08/10/18 18:29 08/06/18 20:14 Aspirin (ASA) 81 mg DAILY ORAL 08/06/18 09:00 09/05/18 08:59 08/07/18 08:42 Atorvastatin Calcium (Lipitor) 40 mg BEDTIME ORAL 08/05/18 21:00 09/04/18 20:59 08/06/18 20:57 Carvedilol (Coreg) 25 mg EVERY 12 HOURS ORAL 08/05/18 21:00 09/04/18 20:59 08/07/18 08:42 Dextrose (Dextrose 50%) 25 ml STAT PRN IV Hypoglycemia 08/05/18 18:30 09/04/18 18:29 Dextrose (Dextrose 50%) 50 ml STAT PRN IV Hypoglycemia 08/05/18 18:30 09/04/18 18:29 Furosemide (Lasix) 40 mg DAILY IV 08/07/18 09:00 09/06/18 08:59 08/07/18 08:43 Heparin Sodium (Porcine) (Heparin 5000 units/ml) 5,000 units EVERY 12 HOURS SUBQ 08/05/18 21:00 09/04/18 20:59 Hydromorphone HCl (Dilaudid) 1 mg Q4H PRN IVP Moderate Pain (Pain Scale 4-6) 08/05/18 18:30 08/12/18 18:29 Hydromorphone HCl (Dilaudid) 2 mg Q4H PRN IVP Severe Pain (Pain Scale 7-10) 08/05/18 18:30 08/12/18 18:29 Lisinopril (Prinivil) 20 mg BID ORAL 08/07/18 18:00 09/05/18 08:59 Ondansetron HCl (Zofran) 4 mg Q6H PRN IVP Nausea & Vomiting 08/05/18 18:30 09/04/18 18:29 Pantoprazole (Protonix) 40 mg ACBREAKFAST ORAL 08/06/18 06:30 09/05/18 06:29 08/07/18 05:49 Spironolactone (Aldactone) 25 mg DAILY ORAL 08/06/18 09:00 09/05/18 08:59 08/07/18 08:43 Zolpidem Tartrate (Ambien) 5 mg HSPRN PRN ORAL Insomnia 08/05/18 21:00 08/12/18 20:59 Allergies: Coded Allergies: No Known Allergies (Unverified , 08/05/18) ROS Limited/Unobtainable: No Constitutional: Reports: no symptoms HEENT: Reports: no symptoms Cardiovascular: Reports: chest pain Respiratory: Reports: shortness of breath Gastrointestinal/Abdominal: Reports: no symptoms Genitourinary: Reports: no symptoms Neurologic/Psychiatric: Reports: no symptoms Subjective 43 YO M admitted with shortness of breath. Now CHF. Cover for Int Willy-Dr Hidalgo Objective Last Vital Signs Date Time Temp Pulse Resp B/P (MAP) Pulse Ox O2 Delivery O2 Flow Rate FiO2 08/07/18 12:00 97.7 76 20 122/84 (97) 98 97.7 08/07/18 09:00 Room Air 08/06/18 20:24 21 Laboratory Tests Test 08/06/18 17:20 08/07/18 07:40 Troponin I 0.047 ng/mL (0.000-0.056) 0.038 ng/mL (0.000-0.056) White Blood Count 4.3 K/UL (4.8-10.8) L Red Blood Count 5.14 M/UL (4.70-6.10) Hemoglobin 14.5 G/DL (14.2-18.0) Hematocrit 45.0 % (42.0-52.0) Mean Corpuscular Volume 87 FL (80-99) Mean Corpuscular Hemoglobin 28.2 PG (27.0-31.0) Mean Corpuscular Hemoglobin Concent 32.2 G/DL (32.0-36.0) Red Cell Distribution Width 14.6 % (11.6-14.8) Platelet Count 244 K/UL (150-450) Mean Platelet Volume 6.2 FL (6.5-10.1) L Neutrophils (%) (Auto) 57.0 % (45.0-75.0) Lymphocytes (%) (Auto) 27.3 % (20.0-45.0) Monocytes (%) (Auto) 11.1 % (1.0-10.0) H Eosinophils (%) (Auto) 3.4 % (0.0-3.0) H Basophils (%) (Auto) 1.2 % (0.0-2.0) Erythrocyte Sedimentation Rate 11 MM/HR (0-15) Sodium Level 139 MMOL/L (136-145) Potassium Level 4.0 MMOL/L (3.5-5.1) Chloride Level 106 MMOL/L (98-107) Carbon Dioxide Level 27 MMOL/L (21-32) Anion Gap 6 mmol/L (5-15) Blood Urea Nitrogen 22 mg/dL (7-18) H Creatinine 1.2 MG/DL (0.55-1.30) Estimat Glomerular Filtration Rate > 60 mL/min (>60) Glucose Level 114 MG/DL (74-106) H Calcium Level 9.1 MG/DL (8.5-10.1) Phosphorus Level 4.9 MG/DL (2.5-4.9) Magnesium Level 2.0 MG/DL (1.8-2.4) Total Bilirubin 0.6 MG/DL (0.2-1.0) Aspartate Amino Transf (AST/SGOT) 12 U/L (15-37) L Alanine Aminotransferase (ALT/SGPT) 19 U/L (12-78) Alkaline Phosphatase 55 U/L (46-116) Pro-B-Type Natriuretic Peptide 390 pg/mL (0-125) H Total Protein 6.6 G/DL (6.4-8.2) Albumin 3.2 G/DL (3.4-5.0) L Globulin 3.4 g/dL Albumin/Globulin Ratio 0.9 (1.0-2.7) L Intake and Output 08/06/18 08/07/18 19:00 07:00 Intake Total 480 ml Balance 480 ml Intake Oral 480 ml # Voids 2 2 Objective PHYSICAL EXAMINATION: GENERAL: The patient is a well-developed and well-nourished male, in no apparent distress. HEENT: Eyes, pupils equal and responsive to light and accommodation. Extraocular movements are intact. NECK: Supple without lymphadenopathy. CHEST: Lungs are clear to auscultation bilaterally without wheezes or rales. CARDIOVASCULAR: Regular rhythm and rate. S1 and S2 are normal without murmurs, rubs, or gallops. ABDOMEN: Soft, nontender, and nondistended. Positive bowel sounds. No evidence of hepatosplenomegaly. Currently, no rebound or guarding noted. EXTREMITIES: Negative for clubbing, cyanosis, or edema. RECTAL/GENITAL: Refused. NEUROLOGIC: Cranial nerves II through XII are grossly intact without focal deficits. Motor strength is 5/5 bilaterally. Deep tendon reflexes are 2+ plantar. Assessment/Plan Problem List: (1) Hypercholesteremia Assessment & Plan: continue lipitor (2) Dyspnea Assessment & Plan: due to CHF and COPD (3) Chest pain (4) Cardiomyopathy (5) Congestive heart failure (CHF) Assessment & Plan: Will require AICD.echocardiogram-LVEF=15-20%. See cardiology note. Continue lasix. Transfer to [facility] when bed available for AICD placement. Dr Rocky osorio MD. [facility] aware. (6) COPD (chronic obstructive pulmonary disease) Assessment & Plan: see pulmonary note. (7) HTN (hypertension) Assessment & Plan: Uncontrolled. Continue coreg, lisinopril and spironolactone. Add norvasc (8) CAD (coronary artery disease) Dario Meza MD Aug 07, 2018 16:02
--- NOTE | 2018-08-07 18:31 | Cardiology Report ---
APPROVED REPORT EXAM: Two-dimensional and M-mode echocardiogram with Doppler and color Doppler. INDICATION Chest Pain M-Mode DIMENSIONS IVSd2.0 (0.7-1.1cm)Left Atrium (MM)3.7 (1.6-4.0cm) LVDd6.4 (3.5-5.6cm)Aortic Root4.2 (2.0-3.7cm) PWd1.8 (0.7-1.1cm)Aortic Cusp Exc.2.1 (1.5-2.0cm) IVSs2.2 cm LVDs5.8 (2.5-4.0cm) PWs2.4 cm Mild left atrial enlargement. Global left ventricular hypokinesis ,abnormal septal motion . Normal left ventricular chamber size, systolic function and wall motion as well visualized Left ventricular ejection fraction estimated to be 15-20 %. Mild left ventricular hypertrophy by 2-D. Trace posterior pericardial effusion. All other cardiac chamber sizes are within normal limits. Focal aortic valve sclerosis with adequate cusp excursion. Thickened mitral valve leaflets with normal excursion. Mitral annulus and aortic root calcification. Pulmonic valve not well visualized. Normal tricuspid valve structure. IVC at size 1.8 cm without physiologic collapse, physiological collapse. suggestive of increased RA pressure. A color flow and spectral Doppler study was performed and revealed: No aortic regurgitation. Moderate mitral regurgitation. Mitral inflow velocities indicates possible pseudo normalization pattern implying significant left ventricular diastolic dysfunction (Grade II) Mild tricuspid regurgitation. Tricuspid systolic velocities suggests peak right ventricular systolic pressure of 39mmHg, consistent with mild pulmonary hypertension .
[2018-08-07 20:00] VITALS: BP 135/90
[2018-08-07] MEDS: Atorvastatin 20mg tab ORAL SCH (21:21)
[2018-08-08] VITALS: BP 131/97
[2018-08-08 04:00] VITALS: BP 119/77
[2018-08-08 07:45] LABS: BASOPHILS % (AUTO) 1.3 % (0.0-2.0); EOSINOPHILS % (AUTO) 3.1 % (0.0-3.0); HEMATOCRIT 44.9 % (42.0-52.0); HEMOGLOBIN 14.6 G/DL (14.2-18.0); LYMPHOCYTES % (AUTO) 28.4 % (20.0-45.0); MEAN CORPUSCULAR VOLUME 88 FL (80-99); MONOCYTES % (AUTO) 10.4 % (1.0-10.0); NEUTROPHILS % (AUTO) 56.8 % (45.0-75.0); PLATELET COUNT 263 K/UL (150-450); RED BLOOD COUNT 5.11 M/UL (4.70-6.10); RED CELL DISTRIBUTION WIDTH 14.4 % (11.6-14.8); WHITE BLOOD COUNT 4.7 K/UL (4.8-10.8)
[2018-08-08 07:51] VITALS: BP 136/99
[2018-08-08] MEDS: Carvedilol 25mg Tab ORAL SCH ×2 (07:59→20:31)
[2018-08-08] MEDS: Aspirin Baby 81mg ORAL SCH (07:59)
[2018-08-08] MEDS: Spironolactone 25mg tab ORAL SCH (07:59)
[2018-08-08] MEDS: Heparin 5000 units/ml inj SUBQ SCH ×2 (08:00→20:32)
[2018-08-08] MEDS: Lisinopril 20mg tab ORAL SCH ×2 (08:02→18:04)
--- NOTE | 2018-08-08 10:24 | Cardiac Electrophysiology PN ---
Assessment/Plan Assessment/Plan 1. 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 The patient is already on optimized medical therapy. [facility] records reviewed Echocardiogram at [facility] in [facility] on 04/24/18 showed EF 10-15% and same at [facility] since 2017 Continue the patient on lisinopril 20 mg daily, Aldactone 25 mg daily, Coreg 25 mg b.i.d., and Lasix. Did not get ICD as was doing Cocaine in the past. Says stopped it 3 months ago. Will check urine tox screen. 2. Abn ECG due to LVH and repolarization abn. No CAD based on cath per rcords from [facility] and per patient 3. Asthma. 4. Hx of cocaine use in past. Will check urine tox screen DW RN and Dr Meza Subjective Subjective Feeling better. No CP. [facility] records reviews. Has known nonischemic CMP for more than 2 years. Objective Last 24 Hour Vital Signs Date Time Temp Pulse Resp B/P (MAP) Pulse Ox O2 Delivery O2 Flow Rate FiO2 08/08/18 09:21 Room Air 08/08/18 08:02 136/99 08/08/18 07:59 83 136/99 08/08/18 07:51 98.6 83 20 136/99 (111) 94 98.6 08/08/18 04:00 97.7 85 18 119/77 (91) 94 97.7 08/08/18 04:00 84 08/08/18 00:00 97.7 85 22 131/97 (108) 97 97.7 08/08/18 00:00 84 08/07/18 21:21 85 135/90 08/07/18 21:00 Room Air 08/07/18 20:00 98.6 85 18 135/90 (105) 93 98.6 08/07/18 20:00 92 08/07/18 19:25 74 16 Room Air 21 08/07/18 17:17 128/91 08/07/18 16:00 97.7 86 20 128/91 (103) 94 97.7 08/07/18 16:00 77 08/07/18 12:00 97.7 76 20 122/84 (97) 98 97.7 08/07/18 12:00 89 Intake and Output 08/07/18 08/08/18 19:00 07:00 Intake Total 960 ml 390 ml Balance 960 ml 390 ml Intake Oral 960 ml 390 ml # Voids 2 3 Laboratory Tests Test 08/07/18 17:10 08/08/18 06:35 Troponin I 0.029 ng/mL (0.000-0.056) 0.037 ng/mL (0.000-0.056) White Blood Count 4.7 K/UL (4.8-10.8) L Red Blood Count 5.11 M/UL (4.70-6.10) Hemoglobin 14.6 G/DL (14.2-18.0) Hematocrit 44.9 % (42.0-52.0) Mean Corpuscular Volume 88 FL (80-99) Mean Corpuscular Hemoglobin 28.6 PG (27.0-31.0) Mean Corpuscular Hemoglobin Concent 32.6 G/DL (32.0-36.0) Red Cell Distribution Width 14.4 % (11.6-14.8) Platelet Count 263 K/UL (150-450) Mean Platelet Volume 6.7 FL (6.5-10.1) Neutrophils (%) (Auto) 56.8 % (45.0-75.0) Lymphocytes (%) (Auto) 28.4 % (20.0-45.0) Monocytes (%) (Auto) 10.4 % (1.0-10.0) H Eosinophils (%) (Auto) 3.1 % (0.0-3.0) H Basophils (%) (Auto) 1.3 % (0.0-2.0) Objective HEAD AND NECK: Shows mild JVD. LUNGS: Decreased breath sounds. CARDIOVASCULAR: Shows regular S1 and S2 with no gallop. ABDOMEN: Soft. EXTREMITIES: 1+ pitting edema. Stanley Schumacher MD Aug 08, 2018 10:24
--- NOTE | 2018-08-08 11:29 | Pulmonology Progress Note ---
Assessment/Plan Problems: (1) Congestive heart failure (CHF) (2) COPD (chronic obstructive pulmonary disease) (3) ACS (acute coronary syndrome) (4) CAD (coronary artery disease) (5) Cardiomyopathy (6) HTN (hypertension) Assessment/Plan no new complains doing better f/u clinically cxr reviewed Echo reviewed, EF is 15% respiratory treatment titrate fio2 to sat of 92% Subjective ROS Limited/Unobtainable: No Constitutional: Reports: no symptoms HEENT: Repors: no symptoms Respiratory: Reports: no symptoms Allergies: Coded Allergies: No Known Allergies (Unverified , 08/05/18) Objective Last 24 Hour Vital Signs Date Time Temp Pulse Resp B/P (MAP) Pulse Ox O2 Delivery O2 Flow Rate FiO2 08/08/18 09:21 Room Air 08/08/18 08:02 136/99 08/08/18 07:59 83 136/99 08/08/18 07:51 98.6 83 20 136/99 (111) 94 98.6 08/08/18 04:00 97.7 85 18 119/77 (91) 94 97.7 08/08/18 04:00 84 08/08/18 00:00 97.7 85 22 131/97 (108) 97 97.7 08/08/18 00:00 84 08/07/18 21:21 85 135/90 08/07/18 21:00 Room Air 08/07/18 20:00 98.6 85 18 135/90 (105) 93 98.6 08/07/18 20:00 92 08/07/18 19:25 74 16 Room Air 21 08/07/18 17:17 128/91 08/07/18 16:00 97.7 86 20 128/91 (103) 94 97.7 08/07/18 16:00 77 08/07/18 12:00 97.7 76 20 122/84 (97) 98 97.7 08/07/18 12:00 89 Intake and Output 08/07/18 08/08/18 19:00 07:00 Intake Total 960 ml 390 ml Balance 960 ml 390 ml Intake Oral 960 ml 390 ml # Voids 2 3 General Appearance: WD/WN HEENT: normocephalic, atraumatic Respiratory/Chest: chest wall non-tender, lungs clear Cardiovascular: normal peripheral pulses, normal rate Abdomen: normal bowel sounds, soft, non tender Genitourinary: normal external genitalia Extremities: no cyanosis Neurologic/Psychiatric: appraiser II-XII grossly normal Lymphatic: no neck adenopathy Laboratory Tests 08/07/18 17:10: Troponin I 0.029 08/08/18 06:35: Troponin I 0.037, White Blood Count 4.7L, Red Blood Count 5.11, Hemoglobin 14.6 , Hematocrit 44.9, Mean Corpuscular Volume 88, Mean Corpuscular Hemoglobin 28.6 , Mean Corpuscular Hemoglobin Concent 32.6, Red Cell Distribution Width 14.4, Platelet Count 263, Mean Platelet Volume 6.7, Neutrophils (%) (Auto) 56.8, Lymphocytes (%) (Auto) 28.4, Monocytes (%) (Auto) 10.4H, Eosinophils (%) (Auto) 3.1H, Basophils (%) (Auto) 1.3 08/08/18 10:20: Urine Opiates Screen Negative, Urine Barbiturates Screen Negative, Phencyclidine (PCP) Screen Negative, Urine Amphetamines Screen Negative, Urine Benzodiazepines Screen Negative, Urine Cocaine Screen Negative, Urine Marijuana (THC) Screen Negative Current Medications Medications (Trade) Dose Ordered Sig/Andree Route PRN Reason Start Time Stop Time Status Last Admin Dose Admin Acetaminophen (Tylenol) 650 mg Q4H PRN ORAL Mild Pain (Pain Scale 1-3) 08/05/18 18:30 09/04/18 18:29 Acetaminophen (Tylenol) 650 mg Q4H PRN ORAL fever 08/05/18 18:30 09/04/18 18:29 Albuterol/ Ipratropium (Albuterol/ Ipratropium) 3 ml Q4H PRN HHN Shortness of Breath 08/05/18 18:30 08/10/18 18:29 08/06/18 20:14 Aspirin (ASA) 81 mg DAILY ORAL 08/06/18 09:00 09/05/18 08:59 08/08/18 07:59 Atorvastatin Calcium (Lipitor) 40 mg BEDTIME ORAL 08/05/18 21:00 09/04/18 20:59 08/07/18 21:21 Carvedilol (Coreg) 25 mg EVERY 12 HOURS ORAL 08/05/18 21:00 09/04/18 20:59 08/08/18 07:59 Dextrose (Dextrose 50%) 25 ml STAT PRN IV Hypoglycemia 08/05/18 18:30 09/04/18 18:29 Dextrose (Dextrose 50%) 50 ml STAT PRN IV Hypoglycemia 08/05/18 18:30 09/04/18 18:29 Furosemide (Lasix) 40 mg DAILY IV 08/07/18 09:00 09/06/18 08:59 08/08/18 07:59 Heparin Sodium (Porcine) (Heparin 5000 units/ml) 5,000 units EVERY 12 HOURS SUBQ 08/05/18 21:00 09/04/18 20:59 08/08/18 08:00 Hydromorphone HCl (Dilaudid) 1 mg Q4H PRN IVP Moderate Pain (Pain Scale 4-6) 08/05/18 18:30 08/12/18 18:29 Hydromorphone HCl (Dilaudid) 2 mg Q4H PRN IVP Severe Pain (Pain Scale 7-10) 08/05/18 18:30 08/12/18 18:29 Lisinopril (Prinivil) 20 mg BID ORAL 08/07/18 18:00 09/05/18 08:59 08/08/18 08:02 Ondansetron HCl (Zofran) 4 mg Q6H PRN IVP Nausea & Vomiting 08/05/18 18:30 09/04/18 18:29 Pantoprazole (Protonix) 40 mg ACBREAKFAST ORAL 08/06/18 06:30 09/05/18 06:29 08/08/18 05:46 Spironolactone (Aldactone) 25 mg DAILY ORAL 08/06/18 09:00 09/05/18 08:59 08/08/18 07:59 Zolpidem Tartrate (Ambien) 5 mg HSPRN PRN ORAL Insomnia 08/05/18 21:00 08/12/18 20:59 Angel Diaz MD Aug 08, 2018 11:29
[2018-08-08 12:00] VITALS: BP_SYST 120; BP_SYST 138; BP_DIAS 78; BP_DIAS 95
[2018-08-08 15:29] VITALS: BP 123/82
--- NOTE | 2018-08-08 17:38 | Internal Med Progress Note ---
Subjective Date of Service: Aug 08, 2018 Physician Name Meza,Dario Attending Physician Mejia Hidalgo MD Current Medications Medications (Trade) Dose Ordered Sig/Andree Route PRN Reason Start Time Stop Time Status Last Admin Dose Admin Acetaminophen (Tylenol) 650 mg Q4H PRN ORAL Mild Pain (Pain Scale 1-3) 08/05/18 18:30 09/04/18 18:29 Acetaminophen (Tylenol) 650 mg Q4H PRN ORAL fever 08/05/18 18:30 09/04/18 18:29 Albuterol/ Ipratropium (Albuterol/ Ipratropium) 3 ml Q4H PRN HHN Shortness of Breath 08/05/18 18:30 08/10/18 18:29 08/06/18 20:14 Aspirin (ASA) 81 mg DAILY ORAL 08/06/18 09:00 09/05/18 08:59 08/08/18 07:59 Atorvastatin Calcium (Lipitor) 40 mg BEDTIME ORAL 08/05/18 21:00 09/04/18 20:59 08/07/18 21:21 Carvedilol (Coreg) 25 mg EVERY 12 HOURS ORAL 08/05/18 21:00 09/04/18 20:59 08/08/18 07:59 Dextrose (Dextrose 50%) 25 ml STAT PRN IV Hypoglycemia 08/05/18 18:30 09/04/18 18:29 Dextrose (Dextrose 50%) 50 ml STAT PRN IV Hypoglycemia 08/05/18 18:30 09/04/18 18:29 Furosemide (Lasix) 40 mg DAILY IV 08/07/18 09:00 09/06/18 08:59 08/08/18 07:59 Heparin Sodium (Porcine) (Heparin 5000 units/ml) 5,000 units EVERY 12 HOURS SUBQ 08/05/18 21:00 09/04/18 20:59 08/08/18 08:00 Hydromorphone HCl (Dilaudid) 1 mg Q4H PRN IVP Moderate Pain (Pain Scale 4-6) 08/05/18 18:30 08/12/18 18:29 Hydromorphone HCl (Dilaudid) 2 mg Q4H PRN IVP Severe Pain (Pain Scale 7-10) 08/05/18 18:30 08/12/18 18:29 Lisinopril (Prinivil) 20 mg BID ORAL 08/07/18 18:00 09/05/18 08:59 08/08/18 08:02 Ondansetron HCl (Zofran) 4 mg Q6H PRN IVP Nausea & Vomiting 08/05/18 18:30 09/04/18 18:29 Pantoprazole (Protonix) 40 mg ACBREAKFAST ORAL 08/06/18 06:30 09/05/18 06:29 08/08/18 05:46 Spironolactone (Aldactone) 25 mg DAILY ORAL 08/06/18 09:00 09/05/18 08:59 08/08/18 07:59 Zolpidem Tartrate (Ambien) 5 mg HSPRN PRN ORAL Insomnia 08/05/18 21:00 08/12/18 20:59 Allergies: Coded Allergies: No Known Allergies (Unverified , 08/05/18) ROS Limited/Unobtainable: No Constitutional: Reports: no symptoms HEENT: Reports: no symptoms Cardiovascular: Reports: no symptoms Respiratory: Reports: shortness of breath Gastrointestinal/Abdominal: Reports: no symptoms Genitourinary: Reports: no symptoms Neurologic/Psychiatric: Reports: no symptoms Subjective 43 YO M admitted with shortness of breath. Now CHF. Cover for Int Med-Dr Hidalgo. Transfer to [facility]-see cardiology note. Objective Last Vital Signs Date Time Temp Pulse Resp B/P (MAP) Pulse Ox O2 Delivery O2 Flow Rate FiO2 08/08/18 16:00 81 08/08/18 15:29 96.4 20 123/82 (96) 95 96.4 08/08/18 09:21 Room Air 08/07/18 19:25 21 Laboratory Tests Test 08/08/18 06:35 08/08/18 10:20 White Blood Count 4.7 K/UL (4.8-10.8) L Red Blood Count 5.11 M/UL (4.70-6.10) Hemoglobin 14.6 G/DL (14.2-18.0) Hematocrit 44.9 % (42.0-52.0) Mean Corpuscular Volume 88 FL (80-99) Mean Corpuscular Hemoglobin 28.6 PG (27.0-31.0) Mean Corpuscular Hemoglobin Concent 32.6 G/DL (32.0-36.0) Red Cell Distribution Width 14.4 % (11.6-14.8) Platelet Count 263 K/UL (150-450) Mean Platelet Volume 6.7 FL (6.5-10.1) Neutrophils (%) (Auto) 56.8 % (45.0-75.0) Lymphocytes (%) (Auto) 28.4 % (20.0-45.0) Monocytes (%) (Auto) 10.4 % (1.0-10.0) H Eosinophils (%) (Auto) 3.1 % (0.0-3.0) H Basophils (%) (Auto) 1.3 % (0.0-2.0) Troponin I 0.037 ng/mL (0.000-0.056) Urine Opiates Screen Negative (NEGATIVE) Urine Barbiturates Screen Negative (NEGATIVE) Phencyclidine (PCP) Screen Negative (NEGATIVE) Urine Amphetamines Screen Negative (NEGATIVE) Urine Benzodiazepines Screen Negative (NEGATIVE) Urine Cocaine Screen Negative (NEGATIVE) Urine Marijuana (THC) Screen Negative (NEGATIVE) Intake and Output 08/07/18 08/08/18 19:00 07:00 Intake Total 960 ml 390 ml Balance 960 ml 390 ml Intake Oral 960 ml 390 ml # Voids 2 3 Objective PHYSICAL EXAMINATION: GENERAL: The patient is a well-developed and well-nourished male, in no apparent distress. HEENT: Eyes, pupils equal and responsive to light and accommodation. Extraocular movements are intact. NECK: Supple without lymphadenopathy. CHEST: Lungs are clear to auscultation bilaterally without wheezes or rales. CARDIOVASCULAR: Regular rhythm and rate. S1 and S2 are normal without murmurs, rubs, or gallops. ABDOMEN: Soft, nontender, and nondistended. Positive bowel sounds. No evidence of hepatosplenomegaly. Currently, no rebound or guarding noted. EXTREMITIES: Negative for clubbing, cyanosis, or edema. RECTAL/GENITAL: Refused. NEUROLOGIC: Cranial nerves II through XII are grossly intact without focal deficits. Motor strength is 5/5 bilaterally. Deep tendon reflexes are 2+ plantar. Assessment/Plan Problem List: (1) Hypercholesteremia Assessment & Plan: continue lipitor (2) Dyspnea Assessment & Plan: due to CHF and COPD (3) Chest pain (4) Cardiomyopathy Assessment & Plan: Non ischemic (5) Congestive heart failure (CHF) Assessment & Plan: Will require AICD.echocardiogram-LVEF=15-20%. See cardiology note. Continue lasix. Transfer to [facility] for AICD placement held by cardiology-see note. (6) COPD (chronic obstructive pulmonary disease) Assessment & Plan: see pulmonary note. (7) HTN (hypertension) Assessment & Plan: Uncontrolled. Continue coreg, lisinopril and spironolactone. Add norvasc (8) CAD (coronary artery disease) Status: Dario Yang MD Aug 08, 2018 17:38
[2018-08-08 20:00] VITALS: BP 125/91
[2018-08-08] MEDS: Atorvastatin 20mg tab ORAL SCH (20:31)
[2018-08-09] VITALS: BP 118/77
[2018-08-09 04:00] VITALS: BP 131/88
[2018-08-09 07:41] LABS: BASOPHILS % (AUTO) 1.6 % (0.0-2.0); HEMATOCRIT 43.6 % (42.0-52.0); HEMOGLOBIN 14.1 G/DL (14.2-18.0); LYMPHOCYTES % (AUTO) 29.7 % (20.0-45.0); MEAN CORPUSCULAR VOLUME 88 FL (80-99); MONOCYTES % (AUTO) 12.3 % (1.0-10.0); NEUTROPHILS % (AUTO) 52.4 % (45.0-75.0); PLATELET COUNT 238 K/UL (150-450); RED BLOOD COUNT 4.94 M/UL (4.70-6.10); RED CELL DISTRIBUTION WIDTH 14.9 % (11.6-14.8); WHITE BLOOD COUNT 3.7 K/UL (4.8-10.8)
[2018-08-09 07:57] LABS: ANION GAP 10 mmol/L (5-15); BLOOD UREA NITROGEN 20 mg/dL (7-18); CALCIUM 8.7 MG/DL (8.5-10.1); CARBON DIOXIDE 26 MMOL/L (21-32); CHLORIDE 107 MMOL/L (98-107); CREATININE 1.3 MG/DL (0.55-1.30); POTASSIUM 3.7 MMOL/L (3.5-5.1); SODIUM 142 MMOL/L (136-145)
[2018-08-09 08:00] VITALS: BP 141/98
[2018-08-09] MEDS: Spironolactone 25mg tab ORAL SCH (09:28)
[2018-08-09] MEDS: Carvedilol 25mg Tab ORAL SCH ×2 (09:29→20:35)
[2018-08-09] MEDS: Lisinopril 20mg tab ORAL SCH ×2 (09:29→17:34)
[2018-08-09] MEDS: Aspirin Baby 81mg ORAL SCH (09:29)
[2018-08-09] MEDS: Heparin 5000 units/ml inj SUBQ SCH ×2 (09:34→20:36)
--- NOTE | 2018-08-09 09:50 | Pulmonology Progress Note ---
Assessment/Plan Assessment/Plan ASSESSMENT Acute systolic CHF exacerbation Nonischemic cardiomyopathy with ejection fraction 15-20% Hypertension Hyperlipidemia History of cocaine abuse Asthma/COPD Moderate mitral regurgitation Mild pulmonary HTN Tobacco abuse with dependency PLAN OF CARE Telemetry serial troponin negative EKG no acute ischemic changes patient was ruled out for acute MN ECHO with EF 15-20%, mild pulmonary hypertension , moderate mitral regurgitation, global LV hypokinesis Diuresis with IV Lasix Monitor volumes and cardiorenal parameters ProBNP trending down Cardio follows Anti-failure regimen with beta tatyana , PATRIZIA, Aldactone Urine tox screen negative patient reported stop using cocaine 3 months ago counseled to continue abstinence from street drug and tobacco consider AICD lipid panel with evidence of hyperlipidemia continue statin O2 prn to keep pulse ox above 92%; pulmonary toilet start Nicotine patch DVT prophylaxis case discussed and evaluated by supervising physician Subjective Allergies: Coded Allergies: No Known Allergies (Unverified , 08/05/18) Subjective denies chest intermittent SOB admits to smoking about 1 pk/day of cigarette and recreational use of cocaine, Objective Last 24 Hour Vital Signs Date Time Temp Pulse Resp B/P (MAP) Pulse Ox O2 Delivery O2 Flow Rate FiO2 08/09/18 09:29 141/98 08/09/18 09:29 84 141/98 08/09/18 08:15 91 20 Room Air 21 08/09/18 04:00 80 08/09/18 04:00 98.0 87 19 131/88 (102) 97 98.0 08/09/18 00:00 98.6 60 20 118/77 (91) 97 98.6 08/09/18 00:00 84 08/08/18 21:00 Room Air 08/08/18 20:31 85 125/91 08/08/18 20:00 97.7 75 18 125/91 (102) 94 97.7 08/08/18 20:00 85 08/08/18 19:35 83 18 Room Air 21 08/08/18 18:04 123/82 08/08/18 16:00 81 08/08/18 15:29 96.4 82 20 123/82 (96) 95 96.4 08/08/18 12:00 97.7 84 20 120/78 (92) 94 97.7 08/08/18 12:00 78 Intake and Output 08/08/18 08/09/18 19:00 07:00 Intake Total 1020 ml Balance 1020 ml Intake Oral 1020 ml # Voids 7 1 General Appearance: no acute distress, other - A/A/O x 3 morbidly obese AA male HEENT: normocephalic, atraumatic, anicteric, mucous membranes moist Respiratory/Chest: lungs clear, no respiratory distress Cardiovascular: normal rate, regular rhythm - SR on tele , no JVD Abdomen: normal bowel sounds, soft, non tender - obese Extremities: no edema Neurologic/Psychiatric: alert, oriented x 3, responsive, normal mood/affect Musculoskeletal: normal muscle bulk Laboratory Tests 08/08/18 10:20: Urine Opiates Screen Negative, Urine Barbiturates Screen Negative, Phencyclidine (PCP) Screen Negative, Urine Amphetamines Screen Negative, Urine Benzodiazepines Screen Negative, Urine Cocaine Screen Negative, Urine Marijuana (THC) Screen Negative 08/09/18 06:20: White Blood Count 3.7L, Red Blood Count 4.94, Hemoglobin 14.1L, Hematocrit 43.6 , Mean Corpuscular Volume 88, Mean Corpuscular Hemoglobin 28.5, Mean Corpuscular Hemoglobin Concent 32.2, Red Cell Distribution Width 14.9H, Platelet Count 238, Mean Platelet Volume 6.5, Neutrophils (%) (Auto) 52.4, Lymphocytes (%) (Auto) 29.7, Monocytes (%) (Auto) 12.3H, Eosinophils (%) (Auto) 4.0H, Basophils (%) (Auto) 1.6, Sodium Level 142, Potassium Level 3.7, Chloride Level 107, Carbon Dioxide Level 26, Anion Gap 10, Blood Urea Nitrogen 20H, Creatinine 1.3, Estimat Glomerular Filtration Rate > 60, Glucose Level 140H, Calcium Level 8.7 Current Medications Medications (Trade) Dose Ordered Sig/Andree Route PRN Reason Start Time Stop Time Status Last Admin Dose Admin Acetaminophen (Tylenol) 650 mg Q4H PRN ORAL Mild Pain (Pain Scale 1-3) 08/05/18 18:30 09/04/18 18:29 Acetaminophen (Tylenol) 650 mg Q4H PRN ORAL fever 08/05/18 18:30 09/04/18 18:29 Albuterol/ Ipratropium (Albuterol/ Ipratropium) 3 ml Q4H PRN HHN Shortness of Breath 08/05/18 18:30 08/10/18 18:29 08/06/18 20:14 Aspirin (ASA) 81 mg DAILY ORAL 08/06/18 09:00 09/05/18 08:59 08/09/18 09:29 Atorvastatin Calcium (Lipitor) 40 mg BEDTIME ORAL 08/05/18 21:00 09/04/18 20:59 08/08/18 20:31 Carvedilol (Coreg) 25 mg EVERY 12 HOURS ORAL 08/05/18 21:00 09/04/18 20:59 08/09/18 09:29 Dextrose (Dextrose 50%) 25 ml STAT PRN IV Hypoglycemia 08/05/18 18:30 09/04/18 18:29 Dextrose (Dextrose 50%) 50 ml STAT PRN IV Hypoglycemia 08/05/18 18:30 09/04/18 18:29 Furosemide (Lasix) 40 mg DAILY IV 08/07/18 09:00 09/06/18 08:59 08/09/18 09:28 Heparin Sodium (Porcine) (Heparin 5000 units/ml) 5,000 units EVERY 12 HOURS SUBQ 08/05/18 21:00 09/04/18 20:59 08/09/18 09:34 Hydromorphone HCl (Dilaudid) 1 mg Q4H PRN IVP Moderate Pain (Pain Scale 4-6) 08/05/18 18:30 08/12/18 18:29 Hydromorphone HCl (Dilaudid) 2 mg Q4H PRN IVP Severe Pain (Pain Scale 7-10) 08/05/18 18:30 08/12/18 18:29 Lisinopril (Prinivil) 20 mg BID ORAL 08/07/18 18:00 09/05/18 08:59 08/09/18 09:29 Ondansetron HCl (Zofran) 4 mg Q6H PRN IVP Nausea & Vomiting 08/05/18 18:30 09/04/18 18:29 Pantoprazole (Protonix) 40 mg ACBREAKFAST ORAL 08/06/18 06:30 09/05/18 06:29 08/09/18 06:47 Spironolactone (Aldactone) 25 mg DAILY ORAL 08/06/18 09:00 09/05/18 08:59 08/09/18 09:28 Zolpidem Tartrate (Ambien) 5 mg HSPRN PRN ORAL Insomnia 08/05/18 21:00 08/12/18 20:59 Elizabeth Crowder NP Aug 09, 2018 09:50
[2018-08-09 12:00] VITALS: BP 128/94
[2018-08-09] MEDS ORDERED: Albuterol/Ipratropium 3ml neb HHN PRN (12:20)
--- NOTE | 2018-08-09 13:55 | Internal Med Progress Note ---
Subjective Date of Service: Aug 09, 2018 Physician Name Dario Meza Attending Physician Mejia Hidalgo MD Current Medications Medications (Trade) Dose Ordered Sig/Andree Route PRN Reason Start Time Stop Time Status Last Admin Dose Admin Acetaminophen (Tylenol) 650 mg Q4H PRN ORAL Mild Pain (Pain Scale 1-3) 08/05/18 18:30 09/04/18 18:29 Acetaminophen (Tylenol) 650 mg Q4H PRN ORAL fever 08/05/18 18:30 09/04/18 18:29 Albuterol/ Ipratropium (Albuterol/ Ipratropium) 3 ml Q4H PRN HHN Shortness of Breath 08/09/18 12:20 08/14/18 12:19 Aspirin (ASA) 81 mg DAILY ORAL 08/06/18 09:00 09/05/18 08:59 08/09/18 09:29 Atorvastatin Calcium (Lipitor) 40 mg BEDTIME ORAL 08/05/18 21:00 09/04/18 20:59 08/08/18 20:31 Carvedilol (Coreg) 25 mg EVERY 12 HOURS ORAL 08/05/18 21:00 09/04/18 20:59 08/09/18 09:29 Dextrose (Dextrose 50%) 25 ml STAT PRN IV Hypoglycemia 08/05/18 18:30 09/04/18 18:29 Dextrose (Dextrose 50%) 50 ml STAT PRN IV Hypoglycemia 08/05/18 18:30 09/04/18 18:29 Furosemide (Lasix) 40 mg DAILY IV 08/07/18 09:00 09/06/18 08:59 08/09/18 09:28 Heparin Sodium (Porcine) (Heparin 5000 units/ml) 5,000 units EVERY 12 HOURS SUBQ 08/05/18 21:00 09/04/18 20:59 08/09/18 09:34 Hydromorphone HCl (Dilaudid) 1 mg Q4H PRN IVP Moderate Pain (Pain Scale 4-6) 08/05/18 18:30 08/12/18 18:29 Hydromorphone HCl (Dilaudid) 2 mg Q4H PRN IVP Severe Pain (Pain Scale 7-10) 08/05/18 18:30 08/12/18 18:29 Lisinopril (Prinivil) 20 mg BID ORAL 08/07/18 18:00 09/05/18 08:59 08/09/18 09:29 Nicotine (Nicoderm) 1 patch Q24H TDERMAL 08/09/18 13:00 09/08/18 12:59 08/09/18 13:07 Ondansetron HCl (Zofran) 4 mg Q6H PRN IVP Nausea & Vomiting 08/05/18 18:30 09/04/18 18:29 Pantoprazole (Protonix) 40 mg ACBREAKFAST ORAL 08/06/18 06:30 09/05/18 06:29 08/09/18 06:47 Spironolactone (Aldactone) 25 mg DAILY ORAL 08/06/18 09:00 09/05/18 08:59 08/09/18 09:28 Zolpidem Tartrate (Ambien) 5 mg HSPRN PRN ORAL Insomnia 08/05/18 21:00 08/12/18 20:59 Allergies: Coded Allergies: No Known Allergies (Unverified , 08/05/18) ROS Limited/Unobtainable: No Constitutional: Reports: no symptoms HEENT: Reports: no symptoms Cardiovascular: Reports: chest pain Respiratory: Reports: shortness of breath Gastrointestinal/Abdominal: Reports: no symptoms Genitourinary: Reports: no symptoms Neurologic/Psychiatric: Reports: no symptoms Subjective 43 YO M admitted with shortness of breath. Now CHF. Cover for Int Med-Dr Hidalgo. Transfer to [facility] held-see cardiology note-AICD to be placed at [place] Objective Last Vital Signs Date Time Temp Pulse Resp B/P (MAP) Pulse Ox O2 Delivery O2 Flow Rate FiO2 08/09/18 12:00 97.7 81 20 128/94 (105) 95 97.7 08/09/18 09:00 Room Air 08/09/18 08:15 21 Laboratory Tests Test 08/09/18 06:20 White Blood Count 3.7 K/UL (4.8-10.8) L Red Blood Count 4.94 M/UL (4.70-6.10) Hemoglobin 14.1 G/DL (14.2-18.0) L Hematocrit 43.6 % (42.0-52.0) Mean Corpuscular Volume 88 FL (80-99) Mean Corpuscular Hemoglobin 28.5 PG (27.0-31.0) Mean Corpuscular Hemoglobin Concent 32.2 G/DL (32.0-36.0) Red Cell Distribution Width 14.9 % (11.6-14.8) H Platelet Count 238 K/UL (150-450) Mean Platelet Volume 6.5 FL (6.5-10.1) Neutrophils (%) (Auto) 52.4 % (45.0-75.0) Lymphocytes (%) (Auto) 29.7 % (20.0-45.0) Monocytes (%) (Auto) 12.3 % (1.0-10.0) H Eosinophils (%) (Auto) 4.0 % (0.0-3.0) H Basophils (%) (Auto) 1.6 % (0.0-2.0) Sodium Level 142 MMOL/L (136-145) Potassium Level 3.7 MMOL/L (3.5-5.1) Chloride Level 107 MMOL/L (98-107) Carbon Dioxide Level 26 MMOL/L (21-32) Anion Gap 10 mmol/L (5-15) Blood Urea Nitrogen 20 mg/dL (7-18) H Creatinine 1.3 MG/DL (0.55-1.30) Estimat Glomerular Filtration Rate > 60 mL/min (>60) Glucose Level 140 MG/DL (74-106) H Calcium Level 8.7 MG/DL (8.5-10.1) Intake and Output 08/08/18 08/09/18 19:00 07:00 Intake Total 1020 ml Balance 1020 ml Intake Oral 1020 ml # Voids 7 1 Objective PHYSICAL EXAMINATION: GENERAL: The patient is a well-developed and well-nourished male, in no apparent distress. HEENT: Eyes, pupils equal and responsive to light and accommodation. Extraocular movements are intact. NECK: Supple without lymphadenopathy. CHEST: Lungs are clear to auscultation bilaterally without wheezes or rales. CARDIOVASCULAR: Regular rhythm and rate. S1 and S2 are normal without murmurs, rubs, or gallops. ABDOMEN: Soft, nontender, and nondistended. Positive bowel sounds. No evidence of hepatosplenomegaly. Currently, no rebound or guarding noted. EXTREMITIES: Negative for clubbing, cyanosis, or edema. RECTAL/GENITAL: Refused. NEUROLOGIC: Cranial nerves II through XII are grossly intact without focal deficits. Motor strength is 5/5 bilaterally. Deep tendon reflexes are 2+ plantar. Assessment/Plan Problem List: (1) Hypercholesteremia Assessment & Plan: continue lipitor (2) Dyspnea Assessment & Plan: due to CHF and COPD (3) Chest pain (4) Cardiomyopathy Assessment & Plan: Non ischemic (5) Congestive heart failure (CHF) Assessment & Plan: Will require AICD.echocardiogram-LVEF=15-20%. See cardiology note. Continue lasix. Transfer to [facility] for AICD placement held by cardiology-see note-AICD to be placed at [place]. (6) COPD (chronic obstructive pulmonary disease) Assessment & Plan: see pulmonary note. (7) HTN (hypertension) Assessment & Plan: Uncontrolled. Continue coreg, lisinopril and spironolactone. Add norvasc (8) CAD (coronary artery disease) Status: unchanged Dario Meza MD Aug 09, 2018 13:55
--- NOTE | 2018-08-09 13:55 | Cardiac Electrophysiology PN ---
Assessment/Plan Assessment/Plan 1. 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 The patient is already on optimized medical therapy. [facility] records reviewed Echocardiogram at [facility] in [place] on 04/24/18 showed EF 10-15% and same at [facility] since 2017 Continue the patient on lisinopril 20 mg daily, Aldactone 25 mg daily, Coreg 25 mg b.i.d., and Lasix. Did not get ICD as was doing Cocaine in the past. Says stopped it 3 months ago. Urine tox screen also negative. Will proceed with ICD implantation on Saturday. 2. Abn ECG due to LVH and repolarization abn. No CAD based on cath per records from [facility] and per patient 3. Asthma. 4. Hx of cocaine use in past. Has been clear more than 3 months and Urine tox screen is negative DW RN, Dr Hidalgo and Dr Meza Subjective Subjective SOB better. No CP. Has known nonischemic CMP for more than 2 years per [facility] records. Urine tox screen negative. . Objective Last 24 Hour Vital Signs Date Time Temp Pulse Resp B/P (MAP) Pulse Ox O2 Delivery O2 Flow Rate FiO2 08/09/18 12:00 97.7 81 20 128/94 (105) 95 97.7 08/09/18 12:00 76 08/09/18 09:29 141/98 08/09/18 09:29 84 141/98 08/09/18 09:00 Room Air 08/09/18 08:15 91 20 Room Air 21 08/09/18 08:00 86 08/09/18 08:00 98.0 84 22 141/98 (112) 96 98.0 08/09/18 04:00 80 08/09/18 04:00 98.0 87 19 131/88 (102) 97 98.0 08/09/18 00:00 98.6 60 20 118/77 (91) 97 98.6 08/09/18 00:00 84 08/08/18 21:00 Room Air 08/08/18 20:31 85 125/91 08/08/18 20:00 97.7 75 18 125/91 (102) 94 97.7 08/08/18 20:00 85 08/08/18 19:35 83 18 Room Air 21 08/08/18 18:04 123/82 08/08/18 16:00 81 08/08/18 15:29 96.4 82 20 123/82 (96) 95 96.4 Intake and Output 08/08/18 08/09/18 19:00 07:00 Intake Total 1020 ml Balance 1020 ml Intake Oral 1020 ml # Voids 7 1 Laboratory Tests Test 08/09/18 06:20 White Blood Count 3.7 K/UL (4.8-10.8) L Red Blood Count 4.94 M/UL (4.70-6.10) Hemoglobin 14.1 G/DL (14.2-18.0) L Hematocrit 43.6 % (42.0-52.0) Mean Corpuscular Volume 88 FL (80-99) Mean Corpuscular Hemoglobin 28.5 PG (27.0-31.0) Mean Corpuscular Hemoglobin Concent 32.2 G/DL (32.0-36.0) Red Cell Distribution Width 14.9 % (11.6-14.8) H Platelet Count 238 K/UL (150-450) Mean Platelet Volume 6.5 FL (6.5-10.1) Neutrophils (%) (Auto) 52.4 % (45.0-75.0) Lymphocytes (%) (Auto) 29.7 % (20.0-45.0) Monocytes (%) (Auto) 12.3 % (1.0-10.0) H Eosinophils (%) (Auto) 4.0 % (0.0-3.0) H Basophils (%) (Auto) 1.6 % (0.0-2.0) Sodium Level 142 MMOL/L (136-145) Potassium Level 3.7 MMOL/L (3.5-5.1) Chloride Level 107 MMOL/L (98-107) Carbon Dioxide Level 26 MMOL/L (21-32) Anion Gap 10 mmol/L (5-15) Blood Urea Nitrogen 20 mg/dL (7-18) H Creatinine 1.3 MG/DL (0.55-1.30) Estimat Glomerular Filtration Rate > 60 mL/min (>60) Glucose Level 140 MG/DL (74-106) H Calcium Level 8.7 MG/DL (8.5-10.1) Objective HEAD AND NECK: Shows mild JVD. LUNGS: Decreased breath sounds. CARDIOVASCULAR: Shows regular S1 and S2 with no gallop. ABDOMEN: Soft. EXTREMITIES: 1+ pitting edema. Stanley Schumacher MD Aug 09, 2018 13:55
[2018-08-09 16:00] VITALS: BP 146/108
[2018-08-09 20:00] VITALS: BP 146/103
[2018-08-09] MEDS: Atorvastatin 20mg tab ORAL SCH (20:35)
[2018-08-10] VITALS: BP 134/90
[2018-08-10 04:00] VITALS: BP 140/92
--- NOTE | 2018-08-10 07:59 | Pulmonology Progress Note ---
Assessment/Plan Assessment/Plan ASSESSMENT Acute systolic CHF exacerbation Nonischemic cardiomyopathy with ejection fraction 15-20% Hypertension Hyperlipidemia History of cocaine abuse Asthma/COPD Moderate mitral regurgitation Mild pulmonary HTN Tobacco abuse with dependency PLAN OF CARE Telemetry serial troponin negative EKG no acute ischemic changes patient was ruled out for acute [place] ECHO with EF 15-20%, mild pulmonary hypertension , moderate mitral regurgitation, global LV hypokinesis Diuresis with IV Lasix Monitor volumes and cardiorenal parameters ProBNP trending down Cardio follows Anti-failure regimen with beta tatyana , PATRIZIA, Aldactone per cardio: abnormal ECG due to LVH and repolarization abnormalities No CAD based on cath per records from [facility] and per patient Urine tox screen negative patient reported stop using cocaine 3 months ago counseled to continue abstinence from street drug and tobacco lipid panel with evidence of hyperlipidemia continue statin O2 prn to keep pulse ox above 92%; pulmonary toilet start Nicotine patch DVT prophylaxis AICD placement on Saturday case discussed and evaluated by supervising physician Subjective Allergies: Coded Allergies: No Known Allergies (Unverified , 08/05/18) Subjective denies chest intermittent SOB agreed to AICD, per cardio planned for Saturday Objective Last 24 Hour Vital Signs Date Time Temp Pulse Resp B/P (MAP) Pulse Ox O2 Delivery O2 Flow Rate FiO2 08/10/18 04:00 93 08/10/18 04:00 98.0 88 23 140/92 (108) 95 98.0 08/10/18 00:00 86 08/10/18 00:00 98.0 86 20 134/90 (105) 92 98.0 08/09/18 21:00 Room Air 08/09/18 20:35 95 146/103 08/09/18 20:00 98.1 95 21 146/103 (117) 96 98.1 08/09/18 20:00 95 08/09/18 19:44 95 20 Room Air 21 08/09/18 17:34 146/110 08/09/18 16:00 97.9 84 19 146/108 (121) 97 97.9 08/09/18 16:00 87 08/09/18 12:00 97.7 81 20 128/94 (105) 95 97.7 08/09/18 12:00 76 08/09/18 09:29 141/98 08/09/18 09:29 84 141/98 08/09/18 09:00 Room Air 08/09/18 08:15 91 20 Room Air 21 08/09/18 08:00 86 08/09/18 08:00 98.0 84 22 141/98 (112) 96 98.0 Intake and Output 08/09/18 08/10/18 19:00 07:00 Intake Total 240 ml Balance 240 ml Intake Oral 240 ml # Voids 4 Objective General Appearance: no acute distress, other - A/A/O x 3 morbidly obese AA male HEENT: normocephalic, atraumatic, anicteric, mucous membranes moist Respiratory/Chest: lungs clear, no respiratory distress Cardiovascular: normal rate, regular rhythm - SR on tele , no JVD Abdomen: normal bowel sounds, soft, non tender - obese Extremities: no edema Neurologic/Psychiatric: alert, oriented x 3, responsive, normal mood/affect Musculoskeletal: normal muscle bulk Current Medications Medications (Trade) Dose Ordered Sig/Andree Route PRN Reason Start Time Stop Time Status Last Admin Dose Admin Acetaminophen (Tylenol) 650 mg Q4H PRN ORAL Mild Pain (Pain Scale 1-3) 08/05/18 18:30 09/04/18 18:29 Acetaminophen (Tylenol) 650 mg Q4H PRN ORAL fever 08/05/18 18:30 09/04/18 18:29 Albuterol/ Ipratropium (Albuterol/ Ipratropium) 3 ml Q4H PRN HHN Shortness of Breath 08/09/18 12:20 08/14/18 12:19 Aspirin (ASA) 81 mg DAILY ORAL 08/06/18 09:00 09/05/18 08:59 08/09/18 09:29 Atorvastatin Calcium (Lipitor) 40 mg BEDTIME ORAL 08/05/18 21:00 09/04/18 20:59 08/09/18 20:35 Carvedilol (Coreg) 25 mg EVERY 12 HOURS ORAL 08/05/18 21:00 09/04/18 20:59 08/09/18 20:35 Dextrose (Dextrose 50%) 25 ml STAT PRN IV Hypoglycemia 08/05/18 18:30 09/04/18 18:29 Dextrose (Dextrose 50%) 50 ml STAT PRN IV Hypoglycemia 08/05/18 18:30 09/04/18 18:29 Furosemide (Lasix) 40 mg DAILY IV 08/07/18 09:00 09/06/18 08:59 08/09/18 09:28 Heparin Sodium (Porcine) (Heparin 5000 units/ml) 5,000 units EVERY 12 HOURS SUBQ 08/05/18 21:00 09/04/18 20:59 08/09/18 20:36 Hydromorphone HCl (Dilaudid) 1 mg Q4H PRN IVP Moderate Pain (Pain Scale 4-6) 08/05/18 18:30 08/12/18 18:29 Hydromorphone HCl (Dilaudid) 2 mg Q4H PRN IVP Severe Pain (Pain Scale 7-10) 08/05/18 18:30 08/12/18 18:29 Lisinopril (Prinivil) 20 mg BID ORAL 08/07/18 18:00 09/05/18 08:59 08/09/18 17:34 Nicotine (Nicoderm) 1 patch Q24H TDERMAL 08/09/18 13:00 09/08/18 12:59 08/09/18 13:07 Ondansetron HCl (Zofran) 4 mg Q6H PRN IVP Nausea & Vomiting 08/05/18 18:30 09/04/18 18:29 Pantoprazole (Protonix) 40 mg ACBREAKFAST ORAL 08/06/18 06:30 09/05/18 06:29 08/10/18 06:36 Spironolactone (Aldactone) 25 mg DAILY ORAL 08/06/18 09:00 09/05/18 08:59 08/09/18 09:28 Zolpidem Tartrate (Ambien) 5 mg HSPRN PRN ORAL Insomnia 08/05/18 21:00 08/12/18 20:59 Elizabeth Crowder [employer] Aug 10, 2018 07:59
[2018-08-10 08:00] VITALS: BP 134/104
[2018-08-10] MEDS: Aspirin Baby 81mg ORAL SCH (08:27)
[2018-08-10] MEDS: Spironolactone 25mg tab ORAL SCH (08:27)
[2018-08-10] MEDS: Carvedilol 25mg Tab ORAL SCH ×2 (08:27→20:48)
[2018-08-10] MEDS: Lisinopril 20mg tab ORAL SCH ×2 (08:27→17:15)
[2018-08-10] MEDS: Heparin 5000 units/ml inj SUBQ SCH ×2 (08:29→20:43)
[2018-08-10 12:00] VITALS: BP 133/87
--- NOTE | 2018-08-10 15:24 | Internal Med Progress Note ---
Subjective Physician Name Mejia Hidalgo Attending Physician Mejia Hidalgo MD Current Medications Medications (Trade) Dose Ordered Sig/Andree Route PRN Reason Start Time Stop Time Status Last Admin Dose Admin Acetaminophen (Tylenol) 650 mg Q4H PRN ORAL Mild Pain (Pain Scale 1-3) 08/05/18 18:30 09/04/18 18:29 Acetaminophen (Tylenol) 650 mg Q4H PRN ORAL fever 08/05/18 18:30 09/04/18 18:29 Albuterol/ Ipratropium (Albuterol/ Ipratropium) 3 ml Q4H PRN HHN Shortness of Breath 08/09/18 12:20 08/14/18 12:19 Aspirin (ASA) 81 mg DAILY ORAL 08/06/18 09:00 09/05/18 08:59 08/10/18 08:27 Atorvastatin Calcium (Lipitor) 40 mg BEDTIME ORAL 08/05/18 21:00 09/04/18 20:59 08/09/18 20:35 Carvedilol (Coreg) 25 mg EVERY 12 HOURS ORAL 08/05/18 21:00 09/04/18 20:59 08/10/18 08:27 Dextrose (Dextrose 50%) 25 ml STAT PRN IV Hypoglycemia 08/05/18 18:30 09/04/18 18:29 Dextrose (Dextrose 50%) 50 ml STAT PRN IV Hypoglycemia 08/05/18 18:30 09/04/18 18:29 Furosemide (Lasix) 40 mg DAILY IV 08/07/18 09:00 09/06/18 08:59 08/10/18 08:28 Heparin Sodium (Porcine) (Heparin 5000 units/ml) 5,000 units EVERY 12 HOURS SUBQ 08/05/18 21:00 09/04/18 20:59 08/10/18 08:29 Hydromorphone HCl (Dilaudid) 1 mg Q4H PRN IVP Moderate Pain (Pain Scale 4-6) 08/05/18 18:30 08/12/18 18:29 Hydromorphone HCl (Dilaudid) 2 mg Q4H PRN IVP Severe Pain (Pain Scale 7-10) 08/05/18 18:30 08/12/18 18:29 Lisinopril (Prinivil) 20 mg BID ORAL 08/07/18 18:00 09/05/18 08:59 08/10/18 08:27 Nicotine (Nicoderm) 1 patch Q24H TDERMAL 08/09/18 13:00 09/08/18 12:59 08/10/18 12:53 Ondansetron HCl (Zofran) 4 mg Q6H PRN IVP Nausea & Vomiting 08/05/18 18:30 09/04/18 18:29 Pantoprazole (Protonix) 40 mg ACBREAKFAST ORAL 08/06/18 06:30 09/05/18 06:29 08/10/18 06:36 Spironolactone (Aldactone) 25 mg DAILY ORAL 08/06/18 09:00 09/05/18 08:59 08/10/18 08:27 Zolpidem Tartrate (Ambien) 5 mg HSPRN PRN ORAL Insomnia 08/05/18 21:00 08/12/18 20:59 Allergies: Coded Allergies: No Known Allergies (Unverified , 08/05/18) Subjective awake, alert, responsive, C/O SOB, No CP Objective Last Vital Signs Date Time Temp Pulse Resp B/P (MAP) Pulse Ox O2 Delivery O2 Flow Rate FiO2 08/10/18 12:00 79 08/10/18 12:00 98.1 18 133/87 (102) 98 98.1 08/10/18 09:00 Room Air 08/09/18 19:44 21 Intake and Output 08/09/18 08/10/18 19:00 07:00 Intake Total 240 ml Balance 240 ml Intake Oral 240 ml # Voids 4 Objective General: No acute distress, awake and alert HEENT: NCAT, sclera anicteric, PERRL, EOMI. Neck: Supple, no significant jugular venous distention, Lungs: Good inspiratory effort, clear to auscultation bilaterally, no Wheeze or Rales. Heart: Regular rate and rhythm, normal S1/S2, no murmurs/gallops Abdomen: soft, nontender, nondistended. Normoactive bowel sounds, Obesity. / Rectal: Refused and deferred. Extremities: No Cyanosis , clubbing, Trace LE's edema. 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 (5) Acute on chronic Congestive heart failure (CHF) with systolic dysfunction (6) COPD (chronic obstructive pulmonary disease) (7) HTN (hypertension) (8) CAD (coronary artery disease) Plan: For ICD placement in AM Monitor labs F/u with cardiology recommendations. Mejia Hidalgo MD Aug 10, 2018 15:24
[2018-08-10 16:00] VITALS: BP 138/97
[2018-08-10 20:00] VITALS: BP 117/60
--- NOTE | 2018-08-10 20:27 | Diagnostic Imaging Report ---
APPROVED REPORT CPT Code: 39679 Present Symptoms Shortness of breath BILATERAL: Imaging reveals a patent deep venous system bilaterally. There is no evidence of thrombus within the femoral, popliteal or tibial segments. The greater saphenous veins are also within normal limits. Doppler indicates normal spontaneous flow within these segments.
[2018-08-10] MEDS: Atorvastatin 20mg tab ORAL SCH (20:48)
[2018-08-11] VITALS (11 sets, daily range): BP systolic 124–154; BP diastolic 89–110
[2018-08-11 08:06] LABS: BASOPHILS % (AUTO) 1.8 % (0.0-2.0); HEMATOCRIT 46.1 % (42.0-52.0); MEAN CORPUSCULAR VOLUME 88 FL (80-99); MONOCYTES % (AUTO) 12.6 % (1.0-10.0); NEUTROPHILS % (AUTO) 56.7 % (45.0-75.0); PLATELET COUNT 262 K/UL (150-450); RED BLOOD COUNT 5.24 M/UL (4.70-6.10); RED CELL DISTRIBUTION WIDTH 14.3 % (11.6-14.8); WHITE BLOOD COUNT 4.1 K/UL (4.8-10.8)
[2018-08-11] MEDS: Aspirin Baby 81mg ORAL SCH (08:52)
[2018-08-11] MEDS: Spironolactone 25mg tab ORAL SCH (08:52)
[2018-08-11] MEDS: Lisinopril 20mg tab ORAL SCH ×2 (08:52→18:10)
[2018-08-11] MEDS: Heparin 5000 units/ml inj SUBQ SCH ×2 (08:53→19:56)
[2018-08-11] MEDS: Carvedilol 25mg Tab ORAL SCH ×2 (08:59→20:18)
[2018-08-11 09:10] LABS: ANION GAP 8 mmol/L (5-15); BLOOD UREA NITROGEN 19 mg/dL (7-18); CARBON DIOXIDE 27 MMOL/L (21-32); CHLORIDE 106 MMOL/L (98-107); CREATININE 1.2 MG/DL (0.55-1.30); POTASSIUM 3.8 MMOL/L (3.5-5.1); SODIUM 141 MMOL/L (136-145)
--- NOTE | 2018-08-11 10:51 | Pulmonology Progress Note ---
Assessment/Plan Problems: (1) Congestive heart failure (CHF) (2) COPD (chronic obstructive pulmonary disease) (3) ACS (acute coronary syndrome) (4) CAD (coronary artery disease) (5) Cardiomyopathy (6) HTN (hypertension) Assessment/Plan awaiting ICD placement slightly nervous. doing better f/u clinically cxr reviewed Echo reviewed, EF is 15% respiratory treatment titrate fio2 to sat of 92% Subjective ROS Limited/Unobtainable: No Constitutional: Reports: no symptoms HEENT: Repors: no symptoms Respiratory: Reports: no symptoms Allergies: Coded Allergies: No Known Allergies (Unverified , 08/05/18) Objective Last 24 Hour Vital Signs Date Time Temp Pulse Resp B/P (MAP) Pulse Ox O2 Delivery O2 Flow Rate FiO2 08/11/18 08:59 79 141/104 08/11/18 08:52 141/104 08/11/18 08:00 87 08/11/18 08:00 97.3 79 20 141/104 (116) 98 97.3 08/11/18 04:00 97.7 80 20 137/100 (112) 97 97.7 08/11/18 04:00 86 08/11/18 00:00 97.0 78 20 133/95 (108) 100 97.0 08/10/18 23:30 83 08/10/18 21:00 Room Air 08/10/18 20:48 108 116/60 08/10/18 20:00 98.1 88 20 117/60 (79) 94 98.1 08/10/18 19:04 88 08/10/18 17:15 138/97 08/10/18 16:00 85 08/10/18 16:00 87 16 Room Air 21 08/10/18 16:00 98.0 82 18 138/97 (111) 95 98.0 08/10/18 12:00 79 08/10/18 12:00 98.1 87 18 133/87 (102) 98 98.1 Intake and Output 08/10/18 08/11/18 19:00 07:00 Intake Total 720 ml 360 ml Balance 720 ml 360 ml Intake Oral 720 ml 360 ml # Voids 8 3 General Appearance: WD/WN HEENT: normocephalic, atraumatic Respiratory/Chest: chest wall non-tender, lungs clear Cardiovascular: normal peripheral pulses, normal rate Abdomen: normal bowel sounds Genitourinary: normal external genitalia Skin: no rash Neurologic/Psychiatric: respiratory assistant II-XII grossly normal Laboratory Tests 08/11/18 07:25: White Blood Count 4.1L, Red Blood Count 5.24, Hemoglobin 15.0, Hematocrit 46.1, Mean Corpuscular Volume 88, Mean Corpuscular Hemoglobin 28.7, Mean Corpuscular Hemoglobin Concent 32.6, Red Cell Distribution Width 14.3, Platelet Count 262, Mean Platelet Volume 6.6, Neutrophils (%) (Auto) 56.7, Lymphocytes (%) (Auto) 26.0, Monocytes (%) (Auto) 12.6H, Eosinophils (%) (Auto) 3.0, Basophils (%) ( Auto) 1.8, Sodium Level 141, Potassium Level 3.8, Chloride Level 106, Carbon Dioxide Level 27, Anion Gap 8, Blood Urea Nitrogen 19H, Creatinine 1.2, Estimat Glomerular Filtration Rate > 60, Glucose Level 104, Calcium Level 9.0 Current Medications Medications (Trade) Dose Ordered Sig/Andree Route PRN Reason Start Time Stop Time Status Last Admin Dose Admin Acetaminophen (Tylenol) 650 mg Q4H PRN ORAL Mild Pain (Pain Scale 1-3) 08/05/18 18:30 09/04/18 18:29 Acetaminophen (Tylenol) 650 mg Q4H PRN ORAL fever 08/05/18 18:30 09/04/18 18:29 Albuterol/ Ipratropium (Albuterol/ Ipratropium) 3 ml Q4H PRN HHN Shortness of Breath 08/09/18 12:20 08/14/18 12:19 Aspirin (ASA) 81 mg DAILY ORAL 08/06/18 09:00 09/05/18 08:59 08/11/18 08:52 Atorvastatin Calcium (Lipitor) 40 mg BEDTIME ORAL 08/05/18 21:00 09/04/18 20:59 08/10/18 20:48 Carvedilol (Coreg) 25 mg EVERY 12 HOURS ORAL 08/05/18 21:00 09/04/18 20:59 08/11/18 08:59 Dextrose (Dextrose 50%) 25 ml STAT PRN IV Hypoglycemia 08/05/18 18:30 09/04/18 18:29 Dextrose (Dextrose 50%) 50 ml STAT PRN IV Hypoglycemia 08/05/18 18:30 09/04/18 18:29 Furosemide (Lasix) 40 mg DAILY IV 08/07/18 09:00 09/06/18 08:59 08/11/18 08:52 Heparin Sodium (Porcine) (Heparin 5000 units/ml) 5,000 units EVERY 12 HOURS SUBQ 08/05/18 21:00 09/04/18 20:59 08/10/18 08:29 Hydromorphone HCl (Dilaudid) 1 mg Q4H PRN IVP Moderate Pain (Pain Scale 4-6) 08/05/18 18:30 08/12/18 18:29 Hydromorphone HCl (Dilaudid) 2 mg Q4H PRN IVP Severe Pain (Pain Scale 7-10) 08/05/18 18:30 08/12/18 18:29 Lisinopril (Prinivil) 20 mg BID ORAL 08/07/18 18:00 09/05/18 08:59 08/11/18 08:52 Nicotine (Nicoderm) 1 patch Q24H TDERMAL 08/09/18 13:00 09/08/18 12:59 08/10/18 12:53 Ondansetron HCl (Zofran) 4 mg Q6H PRN IVP Nausea & Vomiting 08/05/18 18:30 09/04/18 18:29 Pantoprazole (Protonix) 40 mg ACBREAKFAST ORAL 08/06/18 06:30 09/05/18 06:29 08/10/18 06:36 Spironolactone (Aldactone) 25 mg DAILY ORAL 08/06/18 09:00 09/05/18 08:59 08/11/18 08:52 Zolpidem Tartrate (Ambien) 5 mg HSPRN PRN ORAL Insomnia 08/05/18 21:00 08/12/18 20:59 Angel Diaz MD Aug 11, 2018 10:51
--- NOTE | 2018-08-11 11:18 | Consultation ---
History of Present Illness Present Illness HPI 43-year-old male, who presents with a chief complaint of shortness of breath and chest pain Allergies: Coded Allergies: No Known Allergies (Unverified , 08/05/18) Medication History Scheduled Allopurinol* (Zyloprim*), 300 MG ORAL DAILY, (Reported) Aspirin (Aspirin EC), 81 MG ORAL DAILY, (Reported) Atorvastatin (Lipitor), 40 MG ORAL BEDTIME, (Reported) Carvedilol (Coreg), 25 MG ORAL EVERY 12 HOURS, (Reported) Clonidine HCl (Clonidine HCl), 0.1 MG GT BID, (Reported) Fluticasone/Salmeterol (Advair 250-50 Diskus), 1 PUFF INH EVERY 12 HOURS, ( Reported) Furosemide* (Lasix*), 20 MG ORAL DAILY, (Reported) Hydralazine HCl (Hydralazine HCl), 50 MG ORAL EVERY 8 HOURS, (Reported) Isosorbide Dinitrate (Isosorbide Dinitrate), 20 MG PO TID, (Reported) Lisinopril (Lisinopril*), 20 MG ORAL BID, (Reported) Patient History Healthcare decision maker N Resuscitation status Full Code Advanced Directive on File No Physical Exam Last 24 Hour Vital Signs Date Time Temp Pulse Resp B/P (MAP) Pulse Ox O2 Delivery O2 Flow Rate FiO2 08/11/18 09:00 Room Air 08/11/18 08:59 79 141/104 08/11/18 08:52 141/104 08/11/18 08:00 87 08/11/18 08:00 97.3 79 20 141/104 (116) 98 97.3 08/11/18 04:00 97.7 80 20 137/100 (112) 97 97.7 08/11/18 04:00 86 08/11/18 00:00 97.0 78 20 133/95 (108) 100 97.0 08/10/18 23:30 83 08/10/18 21:00 Room Air 08/10/18 20:48 108 116/60 08/10/18 20:00 98.1 88 20 117/60 (79) 94 98.1 08/10/18 19:04 88 08/10/18 17:15 138/97 08/10/18 16:00 85 08/10/18 16:00 87 16 Room Air 21 08/10/18 16:00 98.0 82 18 138/97 (111) 95 98.0 08/10/18 12:00 79 08/10/18 12:00 98.1 87 18 133/87 (102) 98 98.1 Intake and Output 08/10/18 08/11/18 19:00 07:00 Intake Total 720 ml 360 ml Balance 720 ml 360 ml Intake Oral 720 ml 360 ml # Voids 8 3 Laboratory Tests Test 08/11/18 07:25 White Blood Count 4.1 K/UL (4.8-10.8) L Red Blood Count 5.24 M/UL (4.70-6.10) Hemoglobin 15.0 G/DL (14.2-18.0) Hematocrit 46.1 % (42.0-52.0) Mean Corpuscular Volume 88 FL (80-99) Mean Corpuscular Hemoglobin 28.7 PG (27.0-31.0) Mean Corpuscular Hemoglobin Concent 32.6 G/DL (32.0-36.0) Red Cell Distribution Width 14.3 % (11.6-14.8) Platelet Count 262 K/UL (150-450) Mean Platelet Volume 6.6 FL (6.5-10.1) Neutrophils (%) (Auto) 56.7 % (45.0-75.0) Lymphocytes (%) (Auto) 26.0 % (20.0-45.0) Monocytes (%) (Auto) 12.6 % (1.0-10.0) H Eosinophils (%) (Auto) 3.0 % (0.0-3.0) Basophils (%) (Auto) 1.8 % (0.0-2.0) Sodium Level 141 MMOL/L (136-145) Potassium Level 3.8 MMOL/L (3.5-5.1) Chloride Level 106 MMOL/L (98-107) Carbon Dioxide Level 27 MMOL/L (21-32) Anion Gap 8 mmol/L (5-15) Blood Urea Nitrogen 19 mg/dL (7-18) H Creatinine 1.2 MG/DL (0.55-1.30) Estimat Glomerular Filtration Rate > 60 mL/min (>60) Glucose Level 104 MG/DL (74-106) Calcium Level 9.0 MG/DL (8.5-10.1) Height (Feet): 5 Height (Inches): 9.00 Weight (Pounds): 233 Medications Current Medications Medications (Trade) Dose Ordered Sig/Andree Route PRN Reason Start Time Stop Time Status Last Admin Dose Admin Acetaminophen (Tylenol) 650 mg Q4H PRN ORAL Mild Pain (Pain Scale 1-3) 08/05/18 18:30 09/04/18 18:29 Acetaminophen (Tylenol) 650 mg Q4H PRN ORAL fever 08/05/18 18:30 09/04/18 18:29 Albuterol/ Ipratropium (Albuterol/ Ipratropium) 3 ml Q4H PRN HHN Shortness of Breath 08/09/18 12:20 08/14/18 12:19 Aspirin (ASA) 81 mg DAILY ORAL 08/06/18 09:00 09/05/18 08:59 08/11/18 08:52 Atorvastatin Calcium (Lipitor) 40 mg BEDTIME ORAL 08/05/18 21:00 09/04/18 20:59 08/10/18 20:48 Carvedilol (Coreg) 25 mg EVERY 12 HOURS ORAL 08/05/18 21:00 09/04/18 20:59 08/11/18 08:59 Dextrose (Dextrose 50%) 25 ml STAT PRN IV Hypoglycemia 08/05/18 18:30 09/04/18 18:29 Dextrose (Dextrose 50%) 50 ml STAT PRN IV Hypoglycemia 08/05/18 18:30 09/04/18 18:29 Furosemide (Lasix) 40 mg DAILY IV 08/07/18 09:00 09/06/18 08:59 08/11/18 08:52 Heparin Sodium (Porcine) (Heparin 5000 units/ml) 5,000 units EVERY 12 HOURS SUBQ 08/05/18 21:00 09/04/18 20:59 08/10/18 08:29 Hydromorphone HCl (Dilaudid) 1 mg Q4H PRN IVP Moderate Pain (Pain Scale 4-6) 08/05/18 18:30 08/12/18 18:29 Hydromorphone HCl (Dilaudid) 2 mg Q4H PRN IVP Severe Pain (Pain Scale 7-10) 08/05/18 18:30 08/12/18 18:29 Lisinopril (Prinivil) 20 mg BID ORAL 08/07/18 18:00 09/05/18 08:59 08/11/18 08:52 Mirtazapine (Remeron) 15 mg BEDTIME ORAL 08/11/18 21:00 09/10/18 20:59 UNV Nicotine (Nicoderm) 1 patch Q24H TDERMAL 08/09/18 13:00 09/08/18 12:59 08/10/18 12:53 Ondansetron HCl (Zofran) 4 mg Q6H PRN IVP Nausea & Vomiting 08/05/18 18:30 09/04/18 18:29 Pantoprazole (Protonix) 40 mg ACBREAKFAST ORAL 08/06/18 06:30 09/05/18 06:29 08/10/18 06:36 Spironolactone (Aldactone) 25 mg DAILY ORAL 08/06/18 09:00 09/05/18 08:59 08/11/18 08:52 Zolpidem Tartrate (Ambien) 5 mg HSPRN PRN ORAL Insomnia 08/05/18 21:00 08/12/18 20:59 Kelsea Cardozo MD Aug 11, 2018 11:18
[2018-08-11] MEDS ORDERED: Lidocaine 1% Plain 30 ml INJ ONE ×3 (12:35→14:24)
[2018-08-11] MEDS ORDERED: LR 1000ml 1,000 ML IVLG SCH (12:57)
[2018-08-11] MEDS ORDERED: fentaNYL 100 mcg/2 mL IV PRN (13:00)
[2018-08-11] MEDS ORDERED: Meperidine 50mg/ml Inj(FOR RIGORS ONLY) IVP PRN (13:00)
[2018-08-11] MEDS ORDERED: Midazolam 2mg/2ml Inj IVP PRN (13:00)
[2018-08-11] MEDS ORDERED: Sterile Water Irrig 1000ml IRRIG ONE (13:00)
[2018-08-11] MEDS ORDERED: DiphenhydrAMINE 50mg/ml Inj IVP PRN (13:00)
[2018-08-11] MEDS ORDERED: Metoclopramide 10mg/2ml Inj IVP PRN (13:00)
[2018-08-11] MEDS ORDERED: Atropine Sulfate 0.4mg/ml inj IVP PRN (13:00)
[2018-08-11] MEDS ORDERED: Norco 5mg/325mg tab ORAL PRN (13:00)
[2018-08-11] MEDS ORDERED: Labetalol 5mg/ml 20ml vial IV PRN (13:00)
[2018-08-11] MEDS ORDERED: LORazepam Inj 2mg/ml 1ml IV PRN (13:00)
[2018-08-11] MEDS ORDERED: Hydromorphone 0.5mg/0.5ml inj IVP PRN (13:00)
[2018-08-11] MEDS ORDERED: oxyCODONE HCL/Acetaminophen 5/325mg ORAL PRN (13:00)
[2018-08-11] MEDS ORDERED: NS 275ml ONE (13:00)
[2018-08-11] MEDS ORDERED: HYDROcodone/Acetamin 7.5/325 tab ORAL PRN (13:00)
[2018-08-11] MEDS ORDERED: LR 1000ml ONE (13:00)
--- NOTE | 2018-08-11 13:05 | Anethesia Preoperative Eval ---
Anesthesia Pre-op PMH/ROS General Date of Evaluation: Aug 11, 2018 Time of Evaluation: 13:11 Anesthesiologist: Karine ASA Score: ASA 4 Mallampati Score Class I : Soft palate, uvula, fauces, pillars visible Class II: Soft palate, uvula, fauces visible Class III: Soft palate, base of uvula visible Class IV: Only hard plate visible Mallampati Classification: Class III Surgeon: Endy Diagnosis: Vonie Surgical Procedure: AICD Placemet Anesthesia History: none Social History: drug use - Cocaine Family History: no anesthesia problems Allergies: Coded Allergies: No Known Allergies (Unverified , 08/05/18) Medications: see eMAR Past Medical History Cardiovascular: Reports: HTN, CAD - CHF, other - HL Pulmonary: Reports: asthma, COPD Other: obesity Anesthesia Pre-op Phys. Exam Physician Exam Last Vital Signs Date Time Temp Pulse Resp B/P (MAP) Pulse Ox O2 Delivery O2 Flow Rate FiO2 08/11/18 09:00 Room Air 08/11/18 08:59 79 141/104 08/11/18 08:00 97.3 20 98 97.3 08/10/18 16:00 21 Constitutional: NAD Neurologic: CN 2-12 intact Cardiovascular: RRR Respiratory: CTA Gastrointestinal: S/NT/ND Airway Exam Mallampati Score: Class III MO: limited ROM: limited Teeth: missing, intact Anesthesia Pre-op A/P Labs Hematology Test 08/11/18 07:25 White Blood Count 4.1 K/UL (4.8-10.8) L Red Blood Count 5.24 M/UL (4.70-6.10) Hemoglobin 15.0 G/DL (14.2-18.0) Hematocrit 46.1 % (42.0-52.0) Mean Corpuscular Volume 88 FL (80-99) Mean Corpuscular Hemoglobin 28.7 PG (27.0-31.0) Mean Corpuscular Hemoglobin Concent 32.6 G/DL (32.0-36.0) Red Cell Distribution Width 14.3 % (11.6-14.8) Platelet Count 262 K/UL (150-450) Mean Platelet Volume 6.6 FL (6.5-10.1) Neutrophils (%) (Auto) 56.7 % (45.0-75.0) Lymphocytes (%) (Auto) 26.0 % (20.0-45.0) Monocytes (%) (Auto) 12.6 % (1.0-10.0) H Eosinophils (%) (Auto) 3.0 % (0.0-3.0) Basophils (%) (Auto) 1.8 % (0.0-2.0) Chemistry Test 08/11/18 07:25 Sodium Level 141 MMOL/L (136-145) Potassium Level 3.8 MMOL/L (3.5-5.1) Chloride Level 106 MMOL/L (98-107) Carbon Dioxide Level 27 MMOL/L (21-32) Anion Gap 8 mmol/L (5-15) Blood Urea Nitrogen 19 mg/dL (7-18) H Creatinine 1.2 MG/DL (0.55-1.30) Estimat Glomerular Filtration Rate > 60 mL/min (>60) Glucose Level 104 MG/DL (74-106) Calcium Level 9.0 MG/DL (8.5-10.1) Studies Pre-op Studies: echo - EF 10-15% Risk Assessment & Plan Assessment: ASA 4 Plan: GA Status Change Before Surgery: No Pre-Antibiotics Dru Gram Ancef IV Given Within 1 Hr of Incision: Yes Time Given: 13:26 iMna Milton MD Aug 11, 2018 13:05
--- NOTE | 2018-08-11 13:06 | Immediate Post-Op Evaluation ---
Immediate Post-Op Evalulation Immediate Post-Op Evalulation Procedure: AICD Date of Evaluation: Aug 11, 2018 Time of Evaluation: 15:07 IV Fluids: 300 LR Blood Products: 0 Estimated Blood Loss: 10 Urinary Output: 0 Blood Pressure Systolic: 133 Blood Pressure Diastolic: 91 Pulse Rate: 89 Respiratory Rate: 16 O2 Sat by Pulse Oximetry: 98 Temperature (Fahrenheit): 97.8 Pain Score (1-10): 2 Nausea: No Vomiting: No Complications 0 Patient Status: awake, reacts, patent, none Hydration Status: adequate Dru Gram Ancef IV Given Within 1 Hr of Incision: Yes Time Given: 13:26 Mina Milton MD Aug 11, 2018 13:06
--- NOTE | 2018-08-11 13:18 | Pre-Procedure Note/Attestation ---
Pre-Procedure Note/Attestation Complete Prior to Procedure Planned Procedure: left Indications for Procedure Pre-Operative Diagnosis: Severe cardiomyopathy Attestation I attest that I discussed the nature of the procedure; its benefits; risks and complications; and alternatives (and the risks and benefits of such alternatives ), prior to the procedure, with the patient (or the patient's legal loss prevention representative). I attest that, if there was a reasonable possibility of needing a blood transfusion, the patient (or the patient's legal loss prevention representative) was given the [facility] standardized written summary, pursuant to the [place] Blood Safety Act ([place] Health and Safety Code # 1645, as amended). I attest that I re-evaluated the patient just prior to the surgery and that there has been no change in the patient's H&P, except as documented below: Stanley Schumacher MD Aug 11, 2018 13:18
[2018-08-11] MEDS ORDERED: Lidocaine 1% MPF 10mg/ml 5ml ONE (13:33)
[2018-08-11] MEDS ORDERED: Alfentanil 2ml Inj ONE (13:38)
[2018-08-11] MEDS ORDERED: Sodium Chloride 10ml vial INJ ONE (13:56)
[2018-08-11] MEDS ORDERED: Propofol 200mg/20ml IV ONE (14:24)
--- NOTE | 2018-08-11 14:48 | Brief Operative Note ---
Immediate Post Operative Note Operative Note Pre-op Diagnosis: Severe cardiomyopathy Procedure: Dual chamber [employer] ICD implant dictated [id number] Post-op Diagnosis: same as pre-op Specimen: none Complications: none Condition: stable Fluids: none Estimated Blood Loss: minimal Implant(s) used?: Yes Stanley Schumacher MD Aug 11, 2018 14:48
[2018-08-11] MEDS ORDERED: Tylenol #3 tab (300mg/30mg) ORAL PRN (15:00)
[2018-08-11] MEDS ORDERED: Morphine Sulfate 2mg/ml Inj IVP PRN (15:00)
--- NOTE | 2018-08-11 15:54 | Diagnostic Imaging Report ---
Indication: Chest pain. Technique: XRAY Chest 1v Comparison: 08/07/2018 Findings: Interval placement of a left-sided dual-lead pacer/ICD with lead tips projecting over the expected regions of the right atrium and ventricle. There is no definite pneumothorax. Cardiomegaly is stable. Some borderline pulmonary vascular congestion. Linear opacities noted at the left base likely subsegmental atelectasis.. Costophrenic sulci are sharp. No acute osseous normality. Abdominal shield in place. IMPRESSION: * Interval pacer/ICD placement. No definite pneumothorax. * Stable cardiomegaly. Question interval development of very mild pulmonary vascular congestion. Correlate clinically. * Interval development of mild linear opacities at the left base thought represent subsegmental atelectasis.
--- NOTE | 2018-08-11 17:03 | Internal Med Progress Note ---
Subjective Physician Name Mejia Hidalgo Attending Physician Mejia Hidalgo MD Current Medications Medications (Trade) Dose Ordered Sig/Andree Route PRN Reason Start Time Stop Time Status Last Admin Dose Admin Acetaminophen (Tylenol) 650 mg Q6H PRN ORAL Fever/Headache/Mild Pain 08/11/18 15:00 09/10/18 14:59 Acetaminophen/ Codeine Phosphate (Tylenol #3) 1 tab Q4H PRN ORAL Moderate Pain (Pain Scale 4-6) 08/11/18 15:00 08/18/18 14:59 Albuterol/ Ipratropium (Albuterol/ Ipratropium) 3 ml Q4H PRN HHN Shortness of Breath 08/09/18 12:20 08/14/18 12:19 Aspirin (ASA) 81 mg DAILY ORAL 08/06/18 09:00 09/05/18 08:59 08/11/18 08:52 Atorvastatin Calcium (Lipitor) 40 mg BEDTIME ORAL 08/05/18 21:00 09/04/18 20:59 08/10/18 20:48 Carvedilol (Coreg) 25 mg EVERY 12 HOURS ORAL 08/05/18 21:00 09/04/18 20:59 08/11/18 08:59 Cefazolin Sodium 50 ml @ 100 mls/hr Q8HR IV 08/11/18 22:00 08/18/18 21:59 Dextrose (Dextrose 50%) 25 ml STAT PRN IV Hypoglycemia 08/05/18 18:30 09/04/18 18:29 Dextrose (Dextrose 50%) 50 ml STAT PRN IV Hypoglycemia 08/05/18 18:30 09/04/18 18:29 Furosemide (Lasix) 40 mg DAILY IV 08/07/18 09:00 09/06/18 08:59 08/11/18 08:52 Heparin Sodium (Porcine) (Heparin 5000 units/ml) 5,000 units EVERY 12 HOURS SUBQ 08/05/18 21:00 09/04/18 20:59 08/10/18 08:29 Lisinopril (Prinivil) 20 mg BID ORAL 08/07/18 18:00 09/05/18 08:59 08/11/18 08:52 Mirtazapine (Remeron) 15 mg BEDTIME ORAL 08/11/18 21:00 09/10/18 20:59 Morphine Sulfate (Morphine Sulfate) 2 mg Q1H PRN IVP Severe Pain (Pain Scale 7-10) 08/11/18 15:00 08/18/18 14:59 Nicotine (Nicoderm) 1 patch Q24H TDERMAL 08/09/18 13:00 09/08/18 12:59 08/10/18 12:53 Ondansetron HCl (Zofran) 4 mg Q6H PRN IVP Nausea & Vomiting 08/11/18 15:00 09/10/18 14:59 Pantoprazole (Protonix) 40 mg ACBREAKFAST ORAL 08/06/18 06:30 09/05/18 06:29 08/10/18 06:36 Spironolactone (Aldactone) 25 mg DAILY ORAL 08/06/18 09:00 09/05/18 08:59 08/11/18 08:52 Zolpidem Tartrate (Ambien) 5 mg HSPRN PRN ORAL Insomnia 08/05/18 21:00 08/12/18 20:59 Allergies: Coded Allergies: No Known Allergies (Unverified , 08/05/18) Subjective awake, alert, responsive, less SOB, No CP Objective Last Vital Signs Date Time Temp Pulse Resp B/P (MAP) Pulse Ox O2 Delivery O2 Flow Rate FiO2 08/11/18 15:59 98 08/11/18 15:25 97.6 18 138/102 99 Nasal Cannula 3 97.6 08/11/18 09:51 21 Laboratory Tests Test 08/11/18 07:25 White Blood Count 4.1 K/UL (4.8-10.8) L Red Blood Count 5.24 M/UL (4.70-6.10) Hemoglobin 15.0 G/DL (14.2-18.0) Hematocrit 46.1 % (42.0-52.0) Mean Corpuscular Volume 88 FL (80-99) Mean Corpuscular Hemoglobin 28.7 PG (27.0-31.0) Mean Corpuscular Hemoglobin Concent 32.6 G/DL (32.0-36.0) Red Cell Distribution Width 14.3 % (11.6-14.8) Platelet Count 262 K/UL (150-450) Mean Platelet Volume 6.6 FL (6.5-10.1) Neutrophils (%) (Auto) 56.7 % (45.0-75.0) Lymphocytes (%) (Auto) 26.0 % (20.0-45.0) Monocytes (%) (Auto) 12.6 % (1.0-10.0) H Eosinophils (%) (Auto) 3.0 % (0.0-3.0) Basophils (%) (Auto) 1.8 % (0.0-2.0) Sodium Level 141 MMOL/L (136-145) Potassium Level 3.8 MMOL/L (3.5-5.1) Chloride Level 106 MMOL/L (98-107) Carbon Dioxide Level 27 MMOL/L (21-32) Anion Gap 8 mmol/L (5-15) Blood Urea Nitrogen 19 mg/dL (7-18) H Creatinine 1.2 MG/DL (0.55-1.30) Estimat Glomerular Filtration Rate > 60 mL/min (>60) Glucose Level 104 MG/DL (74-106) Calcium Level 9.0 MG/DL (8.5-10.1) Intake and Output 08/10/18 08/11/18 19:00 07:00 Intake Total 720 ml 360 ml Balance 720 ml 360 ml Intake Oral 720 ml 360 ml # Voids 8 3 Objective General: No acute distress, awake and alert HEENT: NCAT, sclera anicteric, PERRL, EOMI. Neck: Supple, no significant jugular venous distention, Lungs: Good inspiratory effort, clear to auscultation bilaterally, no Wheeze or Rales. Heart: Regular rate and rhythm, normal S1/S2, no murmurs, AICD @ LCW Abdomen: soft, nontender, nondistended. Normoactive bowel sounds, Obesity. / Rectal: Refused and deferred. Extremities: No Cyanosis , clubbing, Trace LE's edema. 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 (5) Acute on chronic Congestive heart failure (CHF) with systolic dysfunction (6) COPD (chronic obstructive pulmonary disease) (7) HTN (hypertension) (8) CAD (coronary artery disease) Plan: For ICD placement today Monitor labs F/u with cardiology recommendations. DC Home in AM. Mejia Hidalgo MD Aug 11, 2018 17:03
--- NOTE | 2018-08-11 18:49 | Diagnostic Imaging Report ---
Indication: Intraoperative images from cardiac surgery. Technique: Single fluoroscopic intraoperative image submitted for archival the PACS Operating physician: Stanley Schumacher MD Fluoroscopy time: 174.9 seconds Total fluoroscopy dose: 44.09 mGy Findings: Single intraoperative fluoroscopic image demonstrates pacer ICD leads projecting over the expected regions of the right atrium and ventricle. No lead discontinuity is appreciated although leads are not entirely visualized. A surgical instrument overlies the central lower chest/upper abdomen. Impression: Single fluoroscopic intraoperative image submitted for archival the PACS. Please see operative report.
[2018-08-11] MEDS: Atorvastatin 20mg tab ORAL SCH (20:18)
[2018-08-11] MEDS: ceFAZolin 1gm/50ml Premix 50 ML IV SCH (21:59)
[2018-08-11] MEDS: HYDROmorphone 1mg/ml Carpuject IVP PRN (21:59)
[2018-08-12] VITALS: BP 140/93
[2018-08-12 04:00] VITALS: BP 156/98
[2018-08-12] MEDS: HYDROmorphone 1mg/ml Carpuject IVP PRN ×2 (04:07→13:09)
[2018-08-12] MEDS: ceFAZolin 1gm/50ml Premix 50 ML IV SCH (05:40)
--- NOTE | 2018-08-12 06:00 | Operative Note - Dictated ---
DATE OF OPERATION: 08/11/2018 NOTE: POOR AUDIO SURGEON: Stanley Schumacher M.D. INDICATION FOR PROCEDURE: 1. Severe nonischemic dilated cardiomyopathy, on optimized medical therapy more than a year. 2. Nonsustained ventricular tachycardia. PROCEDURE PERFORMED: 1. Dual-chamber defibrillator implantation. 2. Fluoroscopic supervision and interpretation. OPERATIVE REPORT: The patient was brought into the operating room in a fasting state after informed consent was obtained. The patient was prepped and draped in a usual fashion. Conscious sedation was provided by the anesthesiologist. After prep and drape and under sterile condition, a total of 20 mL of lidocaine was given to left prepectoralis area. An incision was made along the left deltopectoral groove. Sharp and blunt dissection was made to the level of the pectoralis fascia. The cephalic vein was isolated and the cephalic vein cutdown was performed. The right atrial and right ventricular lead was placed through this access and was placed in right atrial appendage and right ventricular apex with a sensing and pacing parameters. pectoralis fascia. A pocket was made close to the venous access and then it was irrigated with antibiotic solution. These were then connected to defibrillator pocket. The pocket was then closed in three layers using 2-0 Vicryl and Dermabond. In view of the patient's severe cardiomyopathy and risk of not coming out of ventricular fibrillation, DFT testing was not performed. FINDINGS: Defibrillator is from [employer]. It is model number is [id number], serial number [id number]. The right ventricular lead is from [employer], serial number [id number]. The right atrial lead is from [employer]. It is model number , serial number [id number]. The P-wave amplitude is 4.7 millivolts, threshold is 2 volts at 0.5 milliseconds. Impedance of 514 ohms. R-wave was 14.4 millivolts. Threshold was 0.5 volts at 0.5 milliseconds was 613 ohms. IMPRESSION: 1. Successful dual-chamber defibrillator implantation. 2. ICD was programmed to DDD with lower rate of 50 at rate of 120. The ventricular tachycardia was set at heart rates 171 beats per minute with therapy as antitachycardia pacing and then 32 joules and then 39.7 joules shock x3. The ventricular fibrillation is at heart rates of more than 214 beats per minute with antitachycardia pacing while charging and then 32 joules and then 40 joules shocks x5. Stanley Schumacher M.D. DR: SOPHIE JOB#: [id number] CC:
[2018-08-12 08:00] VITALS: BP 142/91
[2018-08-12] MEDS: Carvedilol 25mg Tab ORAL SCH (08:56)
[2018-08-12] MEDS: Spironolactone 25mg tab ORAL SCH (08:56)
[2018-08-12] MEDS: Aspirin Baby 81mg ORAL SCH (08:56)
[2018-08-12] MEDS: Lisinopril 20mg tab ORAL SCH (08:57)
[2018-08-12] MEDS: Heparin 5000 units/ml inj SUBQ SCH (09:02)
--- NOTE | 2018-08-12 09:27 | 48 Hour Post Anesthesia Eval ---
Post Anesthesia Evaluation Procedure: AICD Date of Evaluation: Aug 12, 2018 Time of Evaluation: 13:55 Blood Pressure Systolic: 142 0: 91 Pulse Rate: 73 Respiratory Rate: 20 Temperature (Fahrenheit): 96.0 O2 Sat by Pulse Oximetry: 98 Airway: patent Nausea: No Vomiting: No Pain Intensity: 0 Hydration Status: adequate Cardiopulmonary Status: Stable Mental Status/LOC: patient returned to baseline Follow-up Care/Observations: As per surgery Post-Anesthesia Complications: No anesthetic complication Follow-up care needed: N/A Fabian Vazquez MD Aug 12, 2018 09:26
[2018-08-12] MEDS ORDERED: ACETAMINOPHEN-1 EAC1 ORAL (11:29)
--- NOTE | 2018-08-12 11:32 | Pulmonology Progress Note ---
Assessment/Plan Problems: (1) Congestive heart failure (CHF) (2) COPD (chronic obstructive pulmonary disease) (3) ACS (acute coronary syndrome) (4) CAD (coronary artery disease) (5) Cardiomyopathy (6) HTN (hypertension) Assessment/Plan ICD done slightly nervous. doing better f/u clinically cxr reviewed Echo reviewed, EF is 15% respiratory treatment titrate fio2 to sat of 92% dc home when ok with cardio Subjective ROS Limited/Unobtainable: No Interval Events: tolerated ICD placement Constitutional: Reports: no symptoms Allergies: Coded Allergies: No Known Allergies (Unverified , 08/05/18) Objective Last 24 Hour Vital Signs Date Time Temp Pulse Resp B/P (MAP) Pulse Ox O2 Delivery O2 Flow Rate FiO2 08/12/18 09:26 204.8 73 20 98 08/12/18 08:57 142/91 08/12/18 08:56 73 142/91 08/12/18 08:00 96.0 73 20 142/91 (108) 98 96.0 08/12/18 04:09 86 08/12/18 04:00 98.2 82 19 156/98 (117) 96 98.2 08/12/18 00:13 88 08/12/18 00:00 98.0 79 19 140/93 (109) 94 98.0 08/11/18 21:50 98.1 87 20 154/110 (125) 93 98.1 08/11/18 21:00 Room Air 08/11/18 20:18 87 154/110 08/11/18 20:00 98.1 87 20 154/110 (125) 93 98.1 08/11/18 20:00 86 18 Nasal Cannula 2.0 28 08/11/18 20:00 88 08/11/18 18:10 138/102 08/11/18 15:59 98 08/11/18 15:25 97.6 92 18 138/102 99 Nasal Cannula 3 97.6 92 08/11/18 15:15 90 16 146/107 98 Nasal Cannula 3 90 08/11/18 15:05 88 16 130/89 100 Simple Mask 3 88 08/11/18 15:00 82 14 128/92 100 Simple Mask 3 82 08/11/18 14:56 208.0 89 16 98 08/11/18 14:53 97.8 91 12 133/91 98 Simple Mask 3 97.8 91 08/11/18 12:00 97.7 78 20 124/94 (104) 96 97.7 08/11/18 11:33 75 Intake and Output 08/11/18 08/12/18 19:00 07:00 Intake Total 350 ml 200 ml Output Total 10 ml Balance 340 ml 200 ml Intake Oral 200 ml IV Total 350 ml Output Estimated Blood Loss 10 ml # Voids 2 General Appearance: WD/WN HEENT: normocephalic, atraumatic Respiratory/Chest: chest wall non-tender, lungs clear Cardiovascular: normal peripheral pulses, normal rate Abdomen: normal bowel sounds, soft, non tender Genitourinary: normal external genitalia Skin: no lesions Neurologic/Psychiatric: no motor/sensory deficits Current Medications Medications (Trade) Dose Ordered Sig/Andree Route PRN Reason Start Time Stop Time Status Last Admin Dose Admin Acetaminophen (Tylenol) 650 mg Q6H PRN ORAL Fever/Headache/Mild Pain 08/11/18 15:00 09/10/18 14:59 Acetaminophen/ Codeine Phosphate (Tylenol #3) 1 tab Q4H PRN ORAL Moderate Pain (Pain Scale 4-6) 08/11/18 15:00 08/18/18 14:59 08/11/18 20:19 Albuterol/ Ipratropium (Albuterol/ Ipratropium) 3 ml Q4H PRN HHN Shortness of Breath 08/09/18 12:20 08/14/18 12:19 08/12/18 11:29 Aspirin (ASA) 81 mg DAILY ORAL 08/06/18 09:00 09/05/18 08:59 08/12/18 08:56 Atorvastatin Calcium (Lipitor) 40 mg BEDTIME ORAL 08/05/18 21:00 09/04/18 20:59 08/11/18 20:18 Carvedilol (Coreg) 25 mg EVERY 12 HOURS ORAL 08/05/18 21:00 09/04/18 20:59 08/12/18 08:56 Cefazolin Sodium 50 ml @ 100 mls/hr Q8HR IV 08/11/18 22:00 08/18/18 21:59 08/12/18 05:40 Dextrose (Dextrose 50%) 25 ml Q1H PRN IV Hypoglycemia 08/12/18 10:45 09/04/18 18:29 Dextrose (Dextrose 50%) 50 ml Q1H PRN IV Hypoglycemia 08/12/18 10:45 09/04/18 18:29 Furosemide (Lasix) 40 mg DAILY IV 08/07/18 09:00 09/06/18 08:59 08/12/18 08:57 Heparin Sodium (Porcine) (Heparin 5000 units/ml) 5,000 units EVERY 12 HOURS SUBQ 08/05/18 21:00 09/04/18 20:59 08/12/18 09:02 Hydromorphone HCl (Dilaudid) 1 mg Q3H PRN IVP Severe Pain (Pain Scale 7-10) 08/11/18 20:45 08/18/18 20:44 08/12/18 04:07 Lisinopril (Prinivil) 20 mg BID ORAL 08/07/18 18:00 09/05/18 08:59 08/12/18 08:57 Mirtazapine (Remeron) 15 mg BEDTIME ORAL 08/11/18 21:00 09/10/18 20:59 08/11/18 20:18 Nicotine (Nicoderm) 1 patch Q24H TDERMAL 08/09/18 13:00 09/08/18 12:59 08/10/18 12:53 Ondansetron HCl (Zofran) 4 mg Q6H PRN IVP Nausea & Vomiting 08/11/18 15:00 09/10/18 14:59 Pantoprazole (Protonix) 40 mg ACBREAKFAST ORAL 08/06/18 06:30 09/05/18 06:29 08/12/18 05:41 Spironolactone (Aldactone) 25 mg DAILY ORAL 08/06/18 09:00 09/05/18 08:59 08/12/18 08:56 Zolpidem Tartrate (Ambien) 5 mg HSPRN PRN ORAL Insomnia 08/05/18 21:00 08/12/18 20:59 Angel Diaz MD Aug 12, 2018 11:32
[2018-08-12 12:00] VITALS: BP 135/92
--- NOTE | 2018-08-12 14:43 | Cardiology Progress Note ---
Assessment/Plan Assessment/Plan 1. 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 The patient is already on optimized medical therapy. [facility] records reviewed Echocardiogram at [facility] in [place] on 04/24/18 showed EF 10-15% and same at [facility] since 2017 Continue the patient on lisinopril 20 mg daily, Aldactone 25 mg daily, Coreg 25 mg b.i.d., and Lasix. Did not get ICD as was doing Cocaine in the past. Says stopped it 3 months ago. Urine tox screen also negative. S/P ICD implantation Yesterday that was interrogated today and showed Nl Fx 2. Abn ECG due to LVH and repolarization abn. No CAD based on cath per records from [facility] and per patient 3. Asthma. 4. Hx of cocaine use in past. Has been clear more than 3 months and Urine tox screen is negative DW RN, Dr Hidalgo OK to DC Subjective Subjective No CP. Had Dual chamber SJ ICD yesterday. No syncope or presyncope. . Objective Last 24 Hour Vital Signs Date Time Temp Pulse Resp B/P (MAP) Pulse Ox O2 Delivery O2 Flow Rate FiO2 08/12/18 12:00 97.9 94 20 135/92 (106) 98 97.9 08/12/18 11:38 84 20 100 Nasal Cannula 2.0 28 08/12/18 11:30 85 08/12/18 11:29 88 22 94 Room Air 21 08/12/18 09:26 204.8 73 20 98 08/12/18 09:00 Room Air 08/12/18 08:57 142/91 08/12/18 08:56 73 142/91 08/12/18 08:45 83 20 Nasal Cannula 2.0 28 08/12/18 08:00 96.0 73 20 142/91 (108) 98 96.0 08/12/18 07:25 74 08/12/18 04:09 86 08/12/18 04:00 98.2 82 19 156/98 (117) 96 98.2 08/12/18 00:13 88 08/12/18 00:00 98.0 79 19 140/93 (109) 94 98.0 08/11/18 21:50 98.1 87 20 154/110 (125) 93 98.1 08/11/18 21:00 Room Air 08/11/18 20:18 87 154/110 08/11/18 20:00 98.1 87 20 154/110 (125) 93 98.1 08/11/18 20:00 86 18 Nasal Cannula 2.0 28 08/11/18 20:00 88 08/11/18 18:10 138/102 08/11/18 15:59 98 08/11/18 15:25 97.6 92 18 138/102 99 Nasal Cannula 3 97.6 92 08/11/18 15:15 90 16 146/107 98 Nasal Cannula 3 90 08/11/18 15:05 88 16 130/89 100 Simple Mask 3 88 08/11/18 15:00 82 14 128/92 100 Simple Mask 3 82 08/11/18 14:56 208.0 89 16 98 08/11/18 14:53 97.8 91 12 133/91 98 Simple Mask 3 97.8 91 Intake and Output 08/11/18 08/12/18 19:00 07:00 Intake Total 350 ml 200 ml Output Total 10 ml Balance 340 ml 200 ml Intake Oral 200 ml IV Total 350 ml Output Estimated Blood Loss 10 ml # Voids 2 Objective HEAD AND NECK: Shows mild JVD. LUNGS: Decreased breath sounds. CARDIOVASCULAR: Shows regular S1 and S2 with no gallop. ICD left subclavian no hematoma ABDOMEN: Soft. EXTREMITIES: 1+ pitting edema. Stanley Schumacher MD Aug 12, 2018 14:43
--- NOTE | 2018-08-12 14:59 | Internal Med Progress Note ---
Subjective Physician Name Mejia Hidalgo Attending Physician Mejia Hidalgo MD Current Medications Medications (Trade) Dose Ordered Sig/Andree Route PRN Reason Start Time Stop Time Status Last Admin Dose Admin Acetaminophen (Tylenol) 650 mg Q6H PRN ORAL Fever/Headache/Mild Pain 08/11/18 15:00 09/10/18 14:59 Acetaminophen/ Codeine Phosphate (Tylenol #3) 1 tab Q4H PRN ORAL Moderate Pain (Pain Scale 4-6) 08/11/18 15:00 08/18/18 14:59 08/11/18 20:19 Albuterol/ Ipratropium (Albuterol/ Ipratropium) 3 ml Q4H PRN HHN Shortness of Breath 08/09/18 12:20 08/14/18 12:19 08/12/18 11:29 Aspirin (ASA) 81 mg DAILY ORAL 08/06/18 09:00 09/05/18 08:59 08/12/18 08:56 Atorvastatin Calcium (Lipitor) 40 mg BEDTIME ORAL 08/05/18 21:00 09/04/18 20:59 08/11/18 20:18 Carvedilol (Coreg) 25 mg EVERY 12 HOURS ORAL 08/05/18 21:00 09/04/18 20:59 08/12/18 08:56 Cefazolin Sodium 50 ml @ 100 mls/hr Q8HR IV 08/11/18 22:00 08/18/18 21:59 08/12/18 05:40 Dextrose (Dextrose 50%) 25 ml Q1H PRN IV Hypoglycemia 08/12/18 10:45 09/04/18 18:29 Dextrose (Dextrose 50%) 50 ml Q1H PRN IV Hypoglycemia 08/12/18 10:45 09/04/18 18:29 Furosemide (Lasix) 40 mg DAILY IV 08/07/18 09:00 09/06/18 08:59 08/12/18 08:57 Heparin Sodium (Porcine) (Heparin 5000 units/ml) 5,000 units EVERY 12 HOURS SUBQ 08/05/18 21:00 09/04/18 20:59 08/12/18 09:02 Hydromorphone HCl (Dilaudid) 1 mg Q3H PRN IVP Severe Pain (Pain Scale 7-10) 08/11/18 20:45 08/18/18 20:44 08/12/18 13:09 Lisinopril (Prinivil) 20 mg BID ORAL 08/07/18 18:00 09/05/18 08:59 08/12/18 08:57 Mirtazapine (Remeron) 15 mg BEDTIME ORAL 08/11/18 21:00 09/10/18 20:59 08/11/18 20:18 Nicotine (Nicoderm) 1 patch Q24H TDERMAL 08/09/18 13:00 09/08/18 12:59 08/10/18 12:53 Ondansetron HCl (Zofran) 4 mg Q6H PRN IVP Nausea & Vomiting 08/11/18 15:00 09/10/18 14:59 Pantoprazole (Protonix) 40 mg ACBREAKFAST ORAL 08/06/18 06:30 09/05/18 06:29 08/12/18 05:41 Spironolactone (Aldactone) 25 mg DAILY ORAL 08/06/18 09:00 09/05/18 08:59 08/12/18 08:56 Zolpidem Tartrate (Ambien) 5 mg HSPRN PRN ORAL Insomnia 08/05/18 21:00 08/12/18 20:59 Allergies: Coded Allergies: No Known Allergies (Unverified , 08/05/18) Subjective awake, alert, responsive, No SOB, No CP, talking on the phone without any distress. Objective Last Vital Signs Date Time Temp Pulse Resp B/P (MAP) Pulse Ox O2 Delivery O2 Flow Rate FiO2 08/12/18 12:00 97.9 94 20 135/92 (106) 98 97.9 08/12/18 11:38 Nasal Cannula 2.0 28 Intake and Output 08/11/18 08/12/18 19:00 07:00 Intake Total 350 ml 200 ml Output Total 10 ml Balance 340 ml 200 ml Intake Oral 200 ml IV Total 350 ml Output Estimated Blood Loss 10 ml # Voids 2 Objective General: No acute distress, awake and alert HEENT: NCAT, sclera anicteric, PERRL, EOMI. Neck: Supple, no significant jugular venous distention, Lungs: Good inspiratory effort, clear to auscultation bilaterally, no Wheeze or Rales. Heart: Regular rate and rhythm, normal S1/S2, no murmurs, AICD @ LCW Abdomen: soft, nontender, nondistended. Normoactive bowel sounds, Morbid Obesity. / Rectal: Refused and deferred. Extremities: No Cyanosis , clubbing, Trace LE's edema. 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 (5) Acute on chronic Congestive heart failure (CHF) with systolic dysfunction (6) COPD (chronic obstructive pulmonary disease) (7) HTN (hypertension) (8) CAD (coronary artery disease) (9) Possible ALMAZ Plan: consider PSG as out patient Monitor labs F/u with cardiology recommendations. DC Home today F/U with my office in 1 week. Mejia Hidalgo MD Aug 12, 2018 14:59
--- NOTE | 2018-08-12 15:50 | Cardiology Report ---
APPROVED REPORT EKG Measurement Heart [id number] Normal sinus rhythm Possible Left atrial enlargement Left ventricular hypertrophy with QRS widening and repolarization abnormality Abnormal ECG
--- NOTE | 2018-08-15 12:58 | Discharge Summary ---
Discharge Summary Discharge Summary _ DATE OF ADMISSION: 08/05/2018 DATE OF DISCHARGE: 08/12/2018 REASON FOR ADMISSION: 43 years old male with past medical history of hypertension, hyperlipidemia, COPD/asthma ,congestive heart failure, cardiomyopathy, AK, history of cocaine abuse, was initially brought to [facility] with chief concern of worsening shortness of breath for the last 2 weeks. Patient was ruled out for acute AK and transferred to [facility] for further management. Patient admitted with diagnose s of shortness of breath, probably secondary to acute congestive heart failure exacerbation, COPD/asthma , cardiomyopathy, hypertension . CONSULTANTS: reacher Dr. Schumacher pulmonary Dr. Diaz psychiatrist [facility] COURSE: Patient admitted to telemetry floor. Serial troponin were negative. EKG revealed no acute ischemic changes. Patient was ruled out for acute AK. Irrigating Pump Operator and supervisor final closely followed. Echocardiogram revealed ejection fraction of 15-20% with evidence of mild pulmonary hypertension, moderate mitral regurgitation, global left ventricular hypokinesis. Patient was on diuresis with IV Lasix. Volumes and cardiorenal parameters were closely monitored. Pro BNP trended down. Anti-failure regimen with beta tatyana, PATRIZIA inhibitor, Lasix and Aldactone was continued. Patient had abnormal EKG due to left ventricular hypertrophy and repolarization abnormality, as per reacher No evidence of coronary artery disease on catheterization, done at [facility], as per reacher. Lipid panel revealed evidence of hyperlipidemia. Patient was consult on low-fat low-cholesterol diet. Statin was continued. Supplemental oxygen provided as needed to keep pulse oximetry above 92%. Pulmonary toilet provided as needed. Patient was followed up with chest x-ray. No evidence of acute COPD exacerbation or respiratory distress . Venous duplex of bilateral lower extremity revealed no evidence of acute DVT. DVT prophylaxis provided. Patient was started on Nicotine patch. Patient with history of cocaine abuse, but reported stopping using cocaine 3 months ago. Urine toxicology screen was negative. Patient subsequently undergone placement of dual-chamber defibrillator on . ICD was programmed during the surgery. The next day interrogation of AICD was done which revealed normal functioning. Patient was counseled to continue abstinence from street drugs and tobacco. Irrigating Pump Operator cleared patient for discharge. Patient was stable for discharge home. FINAL DIAGNOSES: Acute systolic congestive heart failure exacerbation Severe nonischemic dilated cardiomyopathy with ejection fraction 15-20%. Status post dual-chamber defibrillator implantation Hypertension Hyperlipidemia COPD/asthma Moderate mitral regurgitation Mild pulmonary hypertension Nonsustained ventricular tachycardia Possible obstructive sleep apnea History of cocaine abuse Tobacco abuse with dependency DISCHARGE MEDICATIONS: See Medication Reconciliation list. DISCHARGE INSTRUCTIONS: Patient was discharged home . Follow up with primary care provider in one week. Elizabeth Crowder NP Aug 15, 2018 12:57
== END 2018-08-12 15:20 | disposition home or self-care (01) | DRG 227 ==
LOC: 2E 16:15
PROC: 0JH608Z Insertion of Defibrillator Generator into Chest Subcutaneous Tissue and Fascia, Open Approach (ICD-10-PCS; principal; 2018-08-11 14:00)
PROC: 02H63KZ Insertion of Defibrillator Lead into Right Atrium, Percutaneous Approach (ICD-10-PCS; principal; 2018-08-11 14:00)
PROC: 02HK3KZ Insertion of Defibrillator Lead into Right Ventricle, Percutaneous Approach (ICD-10-PCS; principal; 2018-08-11 14:00)
DX: I11.0 Hypertensive heart disease with heart failure (principal); I24.9 Acute ischemic heart disease, unspecified; I47.2 Ventricular tachycardia; I50.23 Acute on chronic systolic (congestive) heart failure; J44.9 Chronic obstructive pulmonary disease, unspecified; I25.10 Atherosclerotic heart disease of native coronary artery without angina pectoris; I25.2 Old myocardial infarction; I42.8 Other cardiomyopathies; E78.00 Pure hypercholesterolemia, unspecified; F17.200 Nicotine dependence, unspecified, uncomplicated; G47.33 Obstructive sleep apnea (adult) (pediatric); I34.0 Nonrheumatic mitral (valve) insufficiency
CPT/HCPCS: 36415; 71045; 71046; 76001; 80048; 80053; 80061; 80307; 81003; 82248; 83735; 83880; 84100; 84443; 84484; 85025; 85610; 85651; 85730; 93005; 93306; 93970; 94003; 94150; 94640; 94664; J3490; J7620; J8499

== ENCOUNTER 2018-09-16 09:10 | Emergency (ER) | payer MEDICARE, MEDICAID ==
[~2018-09-16] VITALS: Ht 175.3 cm; Wt 108.9 kg
[~2018-09-16 09:10] MED LIST: ACETAMINOPHEN-1 EAC1 ORAL; ADVAIR 250-501 EACH INH; APRESOLINE50 MG ORAL; ASPIRIN-LOW81 MG ORAL; CLONIDINE0.1 MG GT; COREG25 MG ORAL; FUROSEMIDE20 M1 ORAL; ISOSORBIDE DINI20 M2 PO; LIPITOR80 MG ORAL; LISINOPRIL20 MG ORAL; ZYLOPRIM300 MG ORAL
[2018-09-16] MEDS ORDERED: Albuterol/Ipratropium 3ml neb HHN ONE ×2 (09:30→10:00)
[2018-09-16] MEDS ORDERED: Solu-MEDROL 125mg Inj IVP ONE (09:30)
--- NOTE | 2018-09-16 09:30 | Emergency Room Report ---
History of Present Illness General Chief Complaint: Dyspnea/Respdistress Source: Patient Present Illness HPI Patient is a 43-year-old male who presented after increased chest discomfort and difficulty breathing. Patient prior history of COPD as well as congestive heart failure. Patient states he is a smoker but hasn't smoked in the past 2 days. The patient reports having had difficulty with breathing as well as difficulty sleeping. Patient reports having prior history of sleep apnea. I he states he's been compliant with his medications as well as his diet. He denies any fever. He had nonproductive cough. He reports having increased chest discomfort.Patient presented increased pain to the right side of his chest. Allergies: Coded Allergies: No Known Allergies (Unverified , 08/05/18) Patient History Past Medical History: see triage record Reviewed Nursing Documentation: PMH: Agreed; PSxH: Agreed Nursing Documentation-PMH Past Medical History: No History, Except For Hx Cardiac Problems: Yes Hx Hypertension: Yes Hx Pacemaker: Yes - defibrilator Hx Asthma: Yes Hx COPD: Yes Review of Systems All Other Systems: negative except mentioned in HPI Physical Exam Vital Signs Date Time Temp Pulse Resp B/P (MAP) Pulse Ox O2 Delivery O2 Flow Rate FiO2 09/16/18 09:12 97.3 94 24 142/104 97 Room Air Sp02 EP Interpretation: reviewed, normal General Appearance: normal inspection, well appearing, no apparent distress, alert, GCS 15, obese, Chronically Ill Head: atraumatic ENT: normal ENT inspection, hearing grossly normal, normal voice Neck: normal inspection, full range of motion, supple, no bony tend Respiratory: normal inspection, no retraction, wheezing Cardiovascular #1: regular rate, rhythm, no edema Gastrointestinal: normal inspection, normal bowel sounds, non tender, soft, no guarding, no hernia Genitourinary: no CVA tenderness Musculoskeletal: normal inspection, back normal, normal range of motion Neurologic: normal inspection, alert, oriented x3, responsive, tractor crane operator III-XII nml as tested, speech normal Psychiatric: normal inspection, judgement/insight normal, mood/affect normal Skin: normal inspection, normal color, no rash Medical Decision Making Diagnostic Impression: Primary Impression: Chest pain Additional Impression: Congestive heart failure (CHF) ER Course The patient presented for chest pain.Differential diagnosis included but was not limited to acute coronary syndrome, pulmonary embolism, pneumonia, aortic dissection, shingles, pneumothorax, aortic dissection, esophageal rupture, pericarditis. Because of complexity of patient's case laboratory testing and imaging studies were ordered. The laboratory testing was notable for urine drug skin positive for cocaine. The patient was given breathing treatments as well as Solu-Medrol.The patient was noted to have the some evidence of fluid overload. The patient is given Ativan with improvement in his symptoms and IV Lasix. Labs Test 09/16/18 09:40 09/16/18 09:45 White Blood Count 7.6 K/UL (4.8-10.8) Red Blood Count 5.24 M/UL (4.70-6.10) Hemoglobin 14.7 G/DL (14.2-18.0) Hematocrit 45.4 % (42.0-52.0) Mean Corpuscular Volume 87 FL (80-99) Mean Corpuscular Hemoglobin 28.0 PG (27.0-31.0) Mean Corpuscular Hemoglobin Concent 32.4 G/DL (32.0-36.0) Red Cell Distribution Width 12.4 % (11.6-14.8) Platelet Count 256 K/UL (150-450) Mean Platelet Volume 6.9 FL (6.5-10.1) Neutrophils (%) (Auto) 68.7 % (45.0-75.0) Lymphocytes (%) (Auto) 18.0 % (20.0-45.0) Monocytes (%) (Auto) 8.6 % (1.0-10.0) Eosinophils (%) (Auto) 3.5 % (0.0-3.0) Basophils (%) (Auto) 1.2 % (0.0-2.0) Sodium Level 141 MMOL/L (136-145) Potassium Level 3.6 MMOL/L (3.5-5.1) Chloride Level 106 MMOL/L (98-107) Carbon Dioxide Level 25 MMOL/L (21-32) Anion Gap 10 mmol/L (5-15) Blood Urea Nitrogen 18 mg/dL (7-18) Creatinine 1.4 MG/DL (0.55-1.30) Estimat Glomerular Filtration Rate > 60 mL/min (>60) Glucose Level 135 MG/DL (74-106) Calcium Level 8.5 MG/DL (8.5-10.1) Urine Opiates Screen Negative (NEGATIVE) Urine Barbiturates Screen Negative (NEGATIVE) Phencyclidine (PCP) Screen Negative (NEGATIVE) Urine Amphetamines Screen Negative (NEGATIVE) Urine Benzodiazepines Screen Negative (NEGATIVE) Urine Cocaine Screen Positive (NEGATIVE) Urine Marijuana (THC) Screen Negative (NEGATIVE) Last Vital Signs Date Time Temp Pulse Resp B/P (MAP) Pulse Ox O2 Delivery O2 Flow Rate FiO2 09/16/18 09:12 97.3 94 24 142/104 97 Room Air Status: improved Disposition: HOME, SELF-CARE Condition: Stable Shorty Starr MD Sep 16, 2018 09:30
[2018-09-16 09:46] VITALS: BP 138/102
[2018-09-16 09:54] LABS: BASOPHILS % (AUTO) 1.2 % (0.0-2.0); EOSINOPHILS % (AUTO) 3.5 % (0.0-3.0); HEMATOCRIT 45.4 % (42.0-52.0); HEMOGLOBIN 14.7 G/DL (14.2-18.0); MEAN CORPUSCULAR VOLUME 87 FL (80-99); MONOCYTES % (AUTO) 8.6 % (1.0-10.0); NEUTROPHILS % (AUTO) 68.7 % (45.0-75.0); PLATELET COUNT 256 K/UL (150-450); RED BLOOD COUNT 5.24 M/UL (4.70-6.10); RED CELL DISTRIBUTION WIDTH 12.4 % (11.6-14.8); WHITE BLOOD COUNT 7.6 K/UL (4.8-10.8)
[2018-09-16 10:02] LABS: ANION GAP 10 mmol/L (5-15); BLOOD UREA NITROGEN 18 mg/dL (7-18); CALCIUM 8.5 MG/DL (8.5-10.1); CARBON DIOXIDE 25 MMOL/L (21-32); CHLORIDE 106 MMOL/L (98-107); CREATININE 1.4 MG/DL (0.55-1.30); POTASSIUM 3.6 MMOL/L (3.5-5.1); SODIUM 141 MMOL/L (136-145)
[2018-09-16] MEDS ORDERED: LORazepam Inj 2mg/ml 1ml IV ONE (10:15)
[2018-09-16 10:16] LABS: ALANINE AMINOTRANSFERASE 16 U/L (12-78); ALBUMIN 3.4 G/DL (3.4-5.0); ALKALINE PHOSPHATASE 64 U/L (46-116); ASPARTATE AMINO TRANSFERASE 12 U/L (15-37); BILIRUBIN,TOTAL 0.3 MG/DL (0.2-1.0); CKMB 2.4 NG/ML (0.0-3.6); CREATINE KINASE 186 U/L (26-308)
--- NOTE | 2018-09-16 11:39 | Diagnostic Imaging Report ---
Indication: Dyspnea Comparison: 08/11/2018 A single view chest radiograph was obtained. Findings: Left hemidiaphragm is elevated. The heart is enlarged. Mild pulmonary vascular congestion suspected. Asymmetric is noted on the left. IMPRESSION: Mild pulmonary vascular congestion
[2018-09-16 11:43] VITALS: BP 136/102
[2018-09-16 12:19] VITALS: BP 136/102
--- NOTE | 2018-09-16 14:56 | Cardiology Report ---
APPROVED REPORT EKG Measurement Heart [id number] MI [id number] [id number] Normal sinus rhythm Left atrial enlargement Left ventricular hypertrophy with repolarization abnormality Prolonged QT Abnormal ECG
== END 2018-09-16 12:20 | disposition home or self-care (01) ==
LOC: EMR 09:29
DX: I11.0 Hypertensive heart disease with heart failure (principal); I50.9 Heart failure, unspecified; J44.9 Chronic obstructive pulmonary disease, unspecified; Z87.891 Personal history of nicotine dependence; Z86.79 Personal history of other diseases of the circulatory system; Z95.0 Presence of cardiac pacemaker
CPT/HCPCS: 36415; 71045; 80053; 80307; 82550; 82553; 83690; 83880; 84484; 85025; 85379; 93005; 94640; 94664; 96374; 96375; 99284; J1940; J2930; J7620

== ENCOUNTER 2018-11-06 13:31 | Emergency (ER) | payer MEDICARE, MEDICAID ==
[~2018-11-06] VITALS: Ht 175.3 cm; Wt 108.9 kg
[2018-11-06] MEDS ORDERED: SPIRONOLACTONE100 MG ORAL (13:45)
[2018-11-06] MEDS ORDERED: ZANTAC150 MG ORAL (13:45)
[2018-11-06] MEDS ORDERED: JANUVIA25 MG ORAL (13:45)
[2018-11-06] MEDS ORDERED: ALLOPURINOL300 M1 ORAL (14:14)
[2018-11-06] MEDS ORDERED: ATORVASTATIN CA40 MG ORAL (14:14)
[2018-11-06] MEDS ORDERED: CARVEDILOL25 MG ORAL (14:14)
[2018-11-06] MEDS ORDERED: SPIRONOLACTONE25 MG ORAL (14:14)
[2018-11-06] MEDS ORDERED: RANITIDINE HCL300 MG ORAL (14:14)
[2018-11-06] MEDS ORDERED: FUROSEMIDE40 MG ORAL (14:14)
--- NOTE | 2018-11-06 14:14 | Emergency Room Report ---
History of Present Illness General Chief Complaint: Medication Refill Source: Patient Present Illness HPI 43-year-old male patient presents the ER complaining of need for medication refill. Patient reports he takes multiple medications for his high blood pressure and hyperlipidemia that he needs refills for. Also reports needs refill for ranitidine and allopurinol. Patient reports that his doctor's office recently moved to new office and they would not be able to see him until next week while they are still setting of the new office. Patient reports he came to the ER at the recommendation to get refill of medications. Patient denies acute complaints currently. Denies fever, chest pain, shortness of breath. Denies abdominal pain, vomiting, diarrhea. Allergies: Coded Allergies: No Known Allergies (Unverified , 11/06/18) Patient History Past Medical History: see triage record Reviewed Nursing Documentation: PMH: Agreed; PSxH: Agreed Nursing Documentation-PMH Past Medical History: No History, Except For Hx Cardiac Problems: Yes - GOUT Hx Hypertension: Yes Hx Pacemaker: Yes Hx Asthma: Yes Hx COPD: Yes Review of Systems All Other Systems: negative except mentioned in HPI Physical Exam Vital Signs Date Time Temp Pulse Resp B/P (MAP) Pulse Ox O2 Delivery O2 Flow Rate FiO2 11/06/18 13:38 98.8 97 17 161/110 94 Room Air Sp02 EP Interpretation: reviewed, normal General Appearance: well appearing, no apparent distress, alert, GCS 15, non- toxic Head: normocephalic, atraumatic Eyes: bilateral eye normal inspection, bilateral eye PERRL ENT: hearing grossly normal, normal pharynx, no angioedema, normal voice, uvula midline, moist mucus membranes Neck: full range of motion Respiratory: lungs clear, normal breath sounds, no rhonchi, no respiratory distress, no accessory muscle use, no wheezing, speaking full sentences Cardiovascular #1: regular rate, rhythm, no edema Cardiovascular #2: 2+ radial (R), 2+ radial (L) Gastrointestinal: non tender, soft, no mass, non-distended, no guarding, no rebound Musculoskeletal: back normal, digits/nails normal, gait/station normal, normal range of motion, non-tender Neurologic: alert, oriented x3, responsive, motor strength/tone normal, sensory intact Psychiatric: mood/affect normal Skin: no rash Medical Decision Making PA Attestation Dr. Starr is my supervising Physician whom patient management has been discussed with. Diagnostic Impression: Primary Impression: Encounter for medication refill ER Course Pt. presents to the ED requesting prescription refill. Multiple differentials were considered. Vital signs: are WNL, pt. is afebrile ORDERS: PE benign, patient denies acute complaints. Informed patient would provide refill of medication. Will not provide refill of medication. Contact primary care provider for further treatment. Informed patient ER cannot provide refills in the future; followup, management and prescription of long-term medications must be performed by primary care provider. ER precautions given. DISCHARGE: At this time pt is stable for d/c to home. Patient is resting comfortably, in no acute distress, nontoxic appearing, talking without difficulty. Patient to take medications as instructed Will provide with patient care instructions and any necessary prescriptions. Care plan and follow-up instructions provided. Patient instructed to follow-up with primary care provider in 3 - 5 days. Patient questions asked and answered. Patient reports understanding and agreement to treatment plan. ER precautions given. Patient instructed to return to ER immediately for any new or worsening of symptoms including but not limited to increasing SOB, persistent fever. - Please note that this Emergency Department Report was dictated using [employer]ala[employer] manager technology software, occasionally this can lead to erroneous entry secondary to interpretation by the dictation equipment. Last Vital Signs Date Time Temp Pulse Resp B/P (MAP) Pulse Ox O2 Delivery O2 Flow Rate FiO2 11/06/18 13:38 98.8 97 17 161/110 94 Room Air Disposition: HOME, SELF-CARE Condition: Stable Scripts Carvedilol* (CARVEDILOL*) 25 Mg Tablet 25 MG ORAL EVERY 12 HOURS, #15 TAB Prov: Brenden Back P.A. 11/06/18 Spironolactone* (ALDACTONE*) 25 Mg Tablet 25 MG ORAL DAILY, #15 TAB Prov: Brenden Back.A. 11/06/18 Allopurinol* (ALLOPURINOL*) 300 Mg Tablet 300 MG ORAL DAILY, #15 TAB Prov: Brenden Back.A. 11/06/18 Atorvastatin Calcium* (ATORVASTATIN CALCIUM*) 40 Mg Tablet 40 MG ORAL DAILY, #15 TAB Prov: Brenden Back.A. 11/06/18 Furosemide* (LASIX*) 40 Mg Tablet 40 MG ORAL DAILY, #15 TAB Prov: Brenden Back 11/06/18 Ranitidine Hcl (RANITIDINE HCL) 300 Mg Tablet 300 MG ORAL DAILY, #15 TAB 0 Refills Prov: Brenden Back 11/06/18 Patient Instructions: Medicine Refill at the Emergency Department Additional Instructions: Followup with primary care provider in 3 -5 days. . ER does not normally provide refills of medications, follow-up with primary care provider for further refills. Take medications as directed. Patient questions asked and answered. ER precautions given, patient instructed to return to ER immediately for any new or worsening of symptoms. Brenden Back Nov 06, 2018 14:14
[2018-11-06 14:30] VITALS: BP 154/89
[2018-11-06 14:35] VITALS: BP 154/89
== END 2018-11-06 14:35 | disposition home or self-care (01) ==
LOC: EMR 14:12
DX: Z76.0 Encounter for issue of repeat prescription (principal); I10 Essential (primary) hypertension; E78.5 Hyperlipidemia, unspecified; M10.9 Gout, unspecified; J44.9 Chronic obstructive pulmonary disease, unspecified
CPT/HCPCS: 99283

== ENCOUNTER 2019-02-11 20:07 | Inpatient (IN) | payer MEDICARE, MEDICAID ==
[~2019-02-11] VITALS: Ht 177.8 cm; Wt 106.7 kg
[~2019-02-11 20:07] MED LIST changes: +ALLOPURINOL300 M1 ORAL; +ATORVASTATIN CA40 MG ORAL; +CARVEDILOL25 MG ORAL; +FUROSEMIDE40 MG ORAL; +JANUVIA25 MG ORAL; +RANITIDINE HCL300 MG ORAL; +SPIRONOLACTONE100 MG ORAL; +SPIRONOLACTONE25 MG ORAL; +ZANTAC150 MG ORAL
[2019-02-11 20:19] VITALS: BP 153/95
--- NOTE | 2019-02-11 20:19 | NUR ---
ED Nurse Note: Patient walked into ED c/o SOB for 3 weeks. patient states he is unable to sleep. o2 saturation is 96%
[2019-02-11 20:42] LABS: EOSINOPHILS % (AUTO) 3.5 % (0.0-3.0); HEMATOCRIT 41.5 % (42.0-52.0); HEMOGLOBIN 13.4 G/DL (14.2-18.0); LYMPHOCYTES % (AUTO) 22.2 % (20.0-45.0); MEAN CORPUSCULAR VOLUME 87 FL (80-99); MONOCYTES % (AUTO) 10.9 % (1.0-10.0); NEUTROPHILS % (AUTO) 61.4 % (45.0-75.0); PLATELET COUNT 237 K/UL (150-450); RED BLOOD COUNT 4.79 M/UL (4.70-6.10); RED CELL DISTRIBUTION WIDTH 14.4 % (11.6-14.8); WHITE BLOOD COUNT 4.7 K/UL (4.8-10.8)
[2019-02-11 20:58] LABS: ANION GAP 14 mmol/L (5-15); BLOOD UREA NITROGEN 18 mg/dL (7-18); CALCIUM 8.9 MG/DL (8.5-10.1); CARBON DIOXIDE 22 MMOL/L (21-32); CHLORIDE 104 MMOL/L (98-107); CREATININE 1.3 MG/DL (0.55-1.30); POTASSIUM 3.9 MMOL/L (3.5-5.1); SODIUM 140 MMOL/L (136-145)
[2019-02-11 21:23] LABS: ALANINE AMINOTRANSFERASE 16 U/L (12-78); ALBUMIN 3.5 G/DL (3.4-5.0); ALKALINE PHOSPHATASE 60 U/L (46-116); ASPARTATE AMINO TRANSFERASE 17 U/L (15-37); BILIRUBIN,TOTAL 0.3 MG/DL (0.2-1.0); CKMB 3.2 NG/ML (0.0-3.6); CREATINE KINASE 184 U/L (26-308)
--- NOTE | 2019-02-11 21:46 | Emergency Room Report ---
History of Present Illness General Chief Complaint: Upper Respiratory Illness Source: Patient Present Illness HPI 43-year-old male presents ED for evaluation. Complaining of shortness of breath for the last few weeks. States it is worse at night when he is sleeping. Has history of CHF. States he is compliant with his medications. States he's been here recently for similar presentation. Denies chest pain. Denies fevers or chills. Denies recent drug use. Was seen by PMD Dr. Hidalgo today and referred to ED for evaluation. No other aggravating relieving factors. Denies any other associated symptoms Allergies: Coded Allergies: No Known Allergies (Unverified , 11/06/18) Patient History Past Medical History: HTN, CHF, COPD Past Surgical History: pacemaker Pertinent Family History: none Social History: Reports: drug use; Denies: smoking, alcohol use Immunizations: UTD Reviewed Nursing Documentation: PMH: Agreed; PSxH: Agreed Nursing Documentation-PMH Past Medical History: No History, Except For Hx Cardiac Problems: Yes - GOUT Hx Hypertension: Yes Hx Pacemaker: Yes Hx Asthma: Yes Hx COPD: Yes Review of Systems All Other Systems: negative except mentioned in HPI Physical Exam Vital Signs Date Time Temp Pulse Resp B/P (MAP) Pulse Ox O2 Delivery O2 Flow Rate FiO2 02/11/19 20:10 97.9 91 20 153/95 95 Room Air Sp02 EP Interpretation: reviewed, normal General Appearance: no apparent distress, alert, GCS 15, non-toxic Head: normocephalic, atraumatic Eyes: bilateral eye normal inspection, bilateral eye PERRL ENT: hearing grossly normal, normal pharynx, no angioedema, normal voice Neck: full range of motion, supple/symm/no masses Respiratory: chest non-tender, lungs clear, normal breath sounds, speaking full sentences Cardiovascular #1: regular rate, rhythm, no edema Cardiovascular #2: 2+ carotid (R), 2+ carotid (L), 2+ radial (R), 2+ radial (L) , 2+ dorsalis pedis (R), 2+ dorsalis pedis (L) Gastrointestinal: normal bowel sounds, non tender, soft, non-distended, no guarding, no rebound Rectal: deferred Genitourinary: normal inspection, no CVA tenderness Musculoskeletal: back normal, gait/station normal, normal range of motion, non- tender Neurologic: alert, oriented x3, responsive, motor strength/tone normal, sensory intact, speech normal Psychiatric: judgement/insight normal, memory normal, mood/affect normal, no suicidal/homicidal ideation Reflexes: 3+ bicep (R), 3+ bicep (L), 3+ tricep (R), 3+ tricep (L), 3+ knee (R) , 3+ knee (L) Skin: normal color, no rash, warm/dry, well hydrated Lymphatic: no adenopathy Medical Decision Making Diagnostic Impression: Primary Impression: Congestive heart failure (CHF) Qualified Codes: I50.9 - Heart failure, unspecified Additional Impression: ACS (acute coronary syndrome) ER Course Hospital Course 43-year-old male presents ED complaining of shortness of breath, Differential diagnoses include: NE/unstable angina, contusion, muscle strain, PTX, rib fracture Clinical course Patient placed on stretcher. on nuclear monitoring technician. After initial history and physical I ordered labs, EKG, chest x-ray labs reviewed- no leukocytosis, hemoglobin/hematocrit stable, creatinine elevated, troponins 0.045, BNP elevated EKG - NSR, ST depressions in lateral leads Chest x-ray- cardiomegaly, pacemaker patient does not have chest pain aspirin given. Lasix given. Case discussed with Dr. Hidalgo and he agreed to accept the patient to his service for further care and support I. I feel this is a highly complex case requiring extensive working including EKG/Rhythm strip, Xray/CT/US, Blood/urine lab work, repeat exams while in ED, and administration of strong opiates/narcotics for pain control, admission to hospital or close patient follow up. Diagnosis - CHF exacerbation, ACS admitted to telemetry in serious condition Labs Test 02/11/19 20:30 02/11/19 20:52 White Blood Count 4.7 K/UL (4.8-10.8) Red Blood Count 4.79 M/UL (4.70-6.10) Hemoglobin 13.4 G/DL (14.2-18.0) Hematocrit 41.5 % (42.0-52.0) Mean Corpuscular Volume 87 FL (80-99) Mean Corpuscular Hemoglobin 28.0 PG (27.0-31.0) Mean Corpuscular Hemoglobin Concent 32.3 G/DL (32.0-36.0) Red Cell Distribution Width 14.4 % (11.6-14.8) Platelet Count 237 K/UL (150-450) Mean Platelet Volume 6.0 FL (6.5-10.1) Neutrophils (%) (Auto) 61.4 % (45.0-75.0) Lymphocytes (%) (Auto) 22.2 % (20.0-45.0) Monocytes (%) (Auto) 10.9 % (1.0-10.0) Eosinophils (%) (Auto) 3.5 % (0.0-3.0) Basophils (%) (Auto) 2.0 % (0.0-2.0) Sodium Level 140 MMOL/L (136-145) Potassium Level 3.9 MMOL/L (3.5-5.1) Chloride Level 104 MMOL/L (98-107) Carbon Dioxide Level 22 MMOL/L (21-32) Anion Gap 14 mmol/L (5-15) Blood Urea Nitrogen 18 mg/dL (7-18) Creatinine 1.3 MG/DL (0.55-1.30) Estimat Glomerular Filtration Rate > 60 mL/min (>60) Glucose Level 112 MG/DL (74-106) Calcium Level 8.9 MG/DL (8.5-10.1) Total Bilirubin 0.3 MG/DL (0.2-1.0) Aspartate Amino Transf (AST/SGOT) 17 U/L (15-37) Alanine Aminotransferase (ALT/SGPT) 16 U/L (12-78) Alkaline Phosphatase 60 U/L (46-116) Total Creatine Kinase 184 U/L (26-308) Creatine Kinase MB 3.2 NG/ML (0.0-3.6) Creatine Kinase MB Relative Index 1.7 Troponin I 0.045 ng/mL (0.000-0.056) Pro-B-Type Natriuretic Peptide 962 pg/mL (0-125) Total Protein 6.9 G/DL (6.4-8.2) Albumin 3.5 G/DL (3.4-5.0) Globulin 3.4 g/dL Albumin/Globulin Ratio 1.0 (1.0-2.7) Urine Opiates Screen Negative (NEGATIVE) Urine Barbiturates Screen Negative (NEGATIVE) Phencyclidine (PCP) Screen Negative (NEGATIVE) Urine Amphetamines Screen Negative (NEGATIVE) Urine Benzodiazepines Screen Negative (NEGATIVE) Urine Cocaine Screen Negative (NEGATIVE) Urine Marijuana (THC) Screen Negative (NEGATIVE) EKG Diagnostic Results Rate: normal Rhythm: NSR ST Segments: other - ST depressions in lateral leads ASA given to the pt in ED: Yes Rhythm Strip Diag. Results EP Interpretation: yes Rhythm: NSR, no PVC's, no ectopy Chest X-Ray Diagnostic Results Chest X-Ray Diagnostic Results : Chest X-Ray Ordered: Yes # of Views/Limited/Complete: 1 View Indication: Shortness of Breath EP Interpretation: Yes Interpretation: no consolidation, no pneumothorax, other - pacemaker. cardiomegaly Impression: Other - chf Electronically Signed by: Electronically signed by Jesus Gordon MD Last Vital Signs Date Time Temp Pulse Resp B/P (MAP) Pulse Ox O2 Delivery O2 Flow Rate FiO2 02/11/19 20:19 97.9 91 20 153/95 95 Room Air Status: improved Disposition: ADMITTED INPATIENT Condition: Serious Referrals: Mejia Hidalgo MD (PCP) Jesus Gordon MD Feb 11, 2019 21:46
--- NOTE | 2019-02-11 21:51 | NUR ---
ED Nurse Note: telephone report given to ROMI Teran
--- NOTE | 2019-02-11 22:25 | NUR ---
ED Nurse Note: PT HAS BEEN TRASNFERRED WITH ZIGGY RN AND SUSAN RN. PT ACCOMPANIED WITH LOG SORTER. PT IS SHOWS NO DISTRESS, DENIES PAIN AT THE MOMENT, PT IS AOX4. ALL PT BELONGINGS HAVE BEEN SENT WITH PT.
[2019-02-11 22:30] VITALS: BP 145/96
--- NOTE | 2019-02-11 22:30 | NUR ---
NURSE NOTES: Received patient from OLESYA Velasquez. Patient transported from ED via gurney. Patient ambulated from gurney to bed with steady gait. Pt AO4. NAD. IV flushed and patent. Bed at lowest position; bed alarm on; side rails raised x3. Call light within reach. Oriented patient to room and unit and hospital policies. Belongings list completed with transferring RN. Discussed plan of care with pt; notified npo until diet order received from primary MD; pt compliant. Contacted MD Rocky for admitting orders; MD states to contact MD Emily. Left message for MD Emily for admitting orders; awaiting call back.
--- NOTE | 2019-02-11 23:45 | NUR ---
NURSE NOTES: 2nd attempt for admitting orders from MD Emily; awaiting call back.
[2019-02-12] VITALS: BP 152/92
--- NOTE | 2019-02-12 01:22 | NUR ---
NURSE NOTES: Left message for MD Rocky; awaiting call back. 3rd attempt to contact for admitting orders. Carla, shoe stock associate and Gordon, Nurse Commercial Stripper made aware.
[2019-02-12 04:00] VITALS: BP 140/100
[2019-02-12] MEDS: Albuterol/Ipratropium 3ml neb HHN PRN ×3 (04:25→20:14)
[2019-02-12 05:22] LABS: BASOPHILS % (AUTO) 1.5 % (0.0-2.0); EOSINOPHILS % (AUTO) 4.3 % (0.0-3.0); HEMATOCRIT 43.4 % (42.0-52.0); HEMOGLOBIN 13.9 G/DL (14.2-18.0); LYMPHOCYTES % (AUTO) 30.9 % (20.0-45.0); MEAN CORPUSCULAR VOLUME 87 FL (80-99); MONOCYTES % (AUTO) 9.7 % (1.0-10.0); NEUTROPHILS % (AUTO) 53.5 % (45.0-75.0); PLATELET COUNT 243 K/UL (150-450); RED CELL DISTRIBUTION WIDTH 14.6 % (11.6-14.8); WHITE BLOOD COUNT 4.7 K/UL (4.8-10.8)
[2019-02-12] MEDS: HydrALAZINE 50mg tab ORAL SCH ×3 (05:47→22:03)
[2019-02-12 06:02] LABS: ALANINE AMINOTRANSFERASE 15 U/L (12-78); ALBUMIN 3.6 G/DL (3.4-5.0); ALBUMIN/GLOBULIN RATIO 1.1 (1.0-2.7); ALKALINE PHOSPHATASE 55 U/L (46-116); ANION GAP 13 mmol/L (5-15); ASPARTATE AMINO TRANSFERASE 12 U/L (15-37); BILIRUBIN,TOTAL 0.4 MG/DL (0.2-1.0); BLOOD UREA NITROGEN 16 mg/dL (7-18); CALCIUM 8.8 MG/DL (8.5-10.1); CARBON DIOXIDE 25 MMOL/L (21-32); CHLORIDE 105 MMOL/L (98-107); CREATININE 1.4 MG/DL (0.55-1.30); PHOSPHORUS 4.7 MG/DL (2.5-4.9); POTASSIUM 3.6 MMOL/L (3.5-5.1); SODIUM 143 MMOL/L (136-145)
[2019-02-12] MEDS: NovoLOG Insulin Flexpen SUBQ SCH ×4 (06:30→21:00)
--- NOTE | 2019-02-12 07:05 | NUR ---
HAND-OFF: Report given to ROMI Jiang. Patient sleeping in bed NAD. Plan of care endorsed.
--- NOTE | 2019-02-12 07:06 | NUR ---
NURSE NOTES: RECEIVED PATIENT FROM Emili STORM RN. PATIENT IS LYING IN BED, ASLEEP. HOOKED TO STUDENT SERVICES VICE PRESIDENT. ON ROOM AIR. NO SIGNS OF CARRIO OR RESPI DISTRESS OF THE MOMENT. AMBULATORY. IV ON L HAND G29, SL. CALL LIGHT WITHIN REACH. BED AT LOWEST POSITION. SIDE RAILS UP. WILL CONTINUE TO MONITOR.
[2019-02-12 08:00] VITALS: BP 163/108
[2019-02-12] MEDS: Spironolactone 25mg tab ORAL SCH (08:23)
[2019-02-12] MEDS: Aspirin EC 81mg tab ORAL SCH (08:23)
[2019-02-12] MEDS: Carvedilol 12.5mg tab ORAL SCH ×2 (08:23→20:31)
--- NOTE | 2019-02-12 11:00 | NUR ---
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 SOB VS: BP 153/95, P ,91 T 97.9, RR 20, SpO2 95 WBC 4.7, Hgb 13.4, Hct 41.5, CR 1.4 IS:LASIX 40mg IV ALBUTEROL 3ml HHN APRESOLINE 50mg JANUVIA 100mG ALDACTONE 25mg COREG 12.5mg ALLOPURINOL 300mg ADMITTED TO [facility] DC PLAN RETURN HOME
--- NOTE | 2019-02-12 11:23 | Diagnostic Imaging Report ---
Indication: Dyspnea Comparison: 02/03/2019 A single view chest radiograph was obtained. Findings: No change demonstrated. Cardiomegaly demonstrated with normal vascularity. No infiltrate seen. Pacemaker noted on the left. IMPRESSION: No acute findings. Cardiomegaly
--- NOTE | 2019-02-12 11:27 | Consultation ---
History of Present Illness General Date patient seen: Feb 12, 2019 Chief Complaint: Upper Respiratory Illness Present Illness HPI 43 year old male with hx of CHF, EF of 15%, s/p ICD, cardiomyopathy, COPD, AR, CAD went to see his primary physician for worsening sob for the last three weeks. He was sent to [facility] for further evaluation. His CXR was clear. He is admitted to [facility] for further work up. He is sitting up in the chair, looks asymptomatic, has roy face, most likely because of previous prednisone use.. Allergies: Coded Allergies: No Known Allergies (Unverified , 11/06/18) Medication History Scheduled Allopurinol* (Zyloprim*), 300 MG ORAL DAILY, (Reported) Allopurinol* (Allopurinol*), 300 MG ORAL DAILY Aspirin (Aspirin EC), 81 MG ORAL DAILY, (Reported) Atorvastatin (Lipitor), 40 MG ORAL BEDTIME, (Reported) Atorvastatin Calcium* (Atorvastatin Calcium*), 40 MG ORAL DAILY Carvedilol (Coreg), 25 MG ORAL EVERY 12 HOURS, (Reported) Carvedilol* (Carvedilol*), 25 MG ORAL EVERY 12 HOURS Clonidine HCl (Clonidine HCl), 0.1 MG GT BID, (Reported) Fluticasone/Salmeterol (Advair 250-50 Diskus), 1 PUFF INH EVERY 12 HOURS, ( Reported) Furosemide* (Lasix*), 20 MG ORAL DAILY, (Reported) Furosemide* (Lasix*), 40 MG ORAL DAILY Hydralazine HCl (Hydralazine HCl), 50 MG ORAL EVERY 8 HOURS, (Reported) Isosorbide Dinitrate (Isosorbide Dinitrate), 20 MG PO TID, (Reported) Lisinopril (Lisinopril*), 20 MG ORAL BID, (Reported) Ranitidine Hcl (Ranitidine Hcl), 300 MG ORAL DAILY Ranitidine Hcl* (Zantac*), 150 MG ORAL TWICE A DAY, (Reported) Sitagliptin* (Januvia*), 100 MG ORAL DAILY, (Reported) Spironolactone* (Spironolactone*), 25 MG ORAL DAILY, (Reported) Spironolactone* (Aldactone*), 25 MG ORAL DAILY Scheduled PRN Acetaminophen With Codeine (T#3) (Tylenol #3 Tab*), 1 TAB ORAL Q4H PRN Patient History Healthcare decision maker Resuscitation status Full Code Advanced Directive on File No Past Medical/Surgical History Past Medical/Surgical History: (1) ICD (implantable cardioverter-defibrillator) in place (2) EF 15% (3) COPD (chronic obstructive pulmonary disease) (4) CAD (coronary artery disease) (5) Cardiomyopathy (6) HTN (hypertension) Review of Systems All Other Systems: negative except mentioned in HPI Physical Exam General Appearance: WD/WN, no apparent distress Lines, tubes and drains: peripheral HEENT: normocephalic, atraumatic Neck: non-tender, normal alignment, supple Respiratory/Chest: chest wall non-tender, lungs clear Cardiovascular/Chest: normal peripheral pulses Abdomen: normal bowel sounds Genitourinary/Rectal: normal genital exam Extremities: normal range of motion Neurologic: tufting creeler II-XII grossly normal Last 24 Hour Vital Signs Date Time Temp Pulse Resp B/P (MAP) Pulse Ox O2 Delivery O2 Flow Rate FiO2 02/12/19 09:00 Room Air 02/12/19 08:23 92 140/100 02/12/19 08:00 97.7 80 17 163/108 (126) 96 02/12/19 08:00 77 02/12/19 08:00 97.7 83 17 163/108 (126) 96 02/12/19 05:47 140/100 02/12/19 04:26 92 20 100 Room Air 21 02/12/19 04:15 86 20 97 Room Air 21 02/12/19 04:00 97.7 90 20 140/100 (113) 95 02/12/19 04:00 89 02/12/19 00:00 90 02/12/19 00:00 97.3 92 20 152/92 (112) 96 02/11/19 22:50 Room Air 02/11/19 22:30 90 02/11/19 22:30 97.8 96 22 145/96 (112) 95 02/11/19 22:25 97.9 92 20 145/94 95 Room Air 02/11/19 20:19 97.9 91 20 153/95 95 Room Air 02/11/19 20:19 91 20 Room Air 02/11/19 20:10 97.9 91 20 153/95 95 Room Air Laboratory Tests Test 02/11/19 20:30 02/11/19 20:52 02/12/19 03:30 White Blood Count 4.7 K/UL (4.8-10.8) L 4.7 K/UL (4.8-10.8) L Red Blood Count 4.79 M/UL (4.70-6.10) 5.00 M/UL (4.70-6.10) Hemoglobin 13.4 G/DL (14.2-18.0) L 13.9 G/DL (14.2-18.0) L Hematocrit 41.5 % (42.0-52.0) L 43.4 % (42.0-52.0) Mean Corpuscular Volume 87 FL (80-99) 87 FL (80-99) Mean Corpuscular Hemoglobin 28.0 PG (27.0-31.0) 27.8 PG (27.0-31.0) Mean Corpuscular Hemoglobin Concent 32.3 G/DL (32.0-36.0) 32.0 G/DL (32.0-36.0) Red Cell Distribution Width 14.4 % (11.6-14.8) 14.6 % (11.6-14.8) Platelet Count 237 K/UL (150-450) 243 K/UL (150-450) Mean Platelet Volume 6.0 FL (6.5-10.1) L 6.3 FL (6.5-10.1) L Neutrophils (%) (Auto) 61.4 % (45.0-75.0) 53.5 % (45.0-75.0) Lymphocytes (%) (Auto) 22.2 % (20.0-45.0) 30.9 % (20.0-45.0) Monocytes (%) (Auto) 10.9 % (1.0-10.0) H 9.7 % (1.0-10.0) Eosinophils (%) (Auto) 3.5 % (0.0-3.0) H 4.3 % (0.0-3.0) H Basophils (%) (Auto) 2.0 % (0.0-2.0) 1.5 % (0.0-2.0) Sodium Level 140 MMOL/L (136-145) 143 MMOL/L (136-145) Potassium Level 3.9 MMOL/L (3.5-5.1) 3.6 MMOL/L (3.5-5.1) Chloride Level 104 MMOL/L (98-107) 105 MMOL/L (98-107) Carbon Dioxide Level 22 MMOL/L (21-32) 25 MMOL/L (21-32) Anion Gap 14 mmol/L (5-15) 13 mmol/L (5-15) Blood Urea Nitrogen 18 mg/dL (7-18) 16 mg/dL (7-18) Creatinine 1.3 MG/DL (0.55-1.30) 1.4 MG/DL (0.55-1.30) H Estimat Glomerular Filtration Rate > 60 mL/min (>60) > 60 mL/min (>60) Glucose Level 112 MG/DL (74-106) H 102 MG/DL (74-106) Calcium Level 8.9 MG/DL (8.5-10.1) 8.8 MG/DL (8.5-10.1) Total Bilirubin 0.3 MG/DL (0.2-1.0) 0.4 MG/DL (0.2-1.0) Aspartate Amino Transf (AST/SGOT) 17 U/L (15-37) 12 U/L (15-37) L Alanine Aminotransferase (ALT/SGPT) 16 U/L (12-78) 15 U/L (12-78) Alkaline Phosphatase 60 U/L (46-116) 55 U/L (46-116) Total Creatine Kinase 184 U/L (26-308) Creatine Kinase MB 3.2 NG/ML (0.0-3.6) Creatine Kinase MB Relative Index 1.7 Troponin I 0.045 ng/mL (0.000-0.056) 0.059 ng/mL (0.000-0.056) Pro-B-Type Natriuretic Peptide 962 pg/mL (0-125) H 598 pg/mL (0-125) H Total Protein 6.9 G/DL (6.4-8.2) 7.0 G/DL (6.4-8.2) Albumin 3.5 G/DL (3.4-5.0) 3.6 G/DL (3.4-5.0) Globulin 3.4 g/dL 3.4 g/dL Albumin/Globulin Ratio 1.0 (1.0-2.7) 1.1 (1.0-2.7) Urine Opiates Screen Negative (NEGATIVE) Urine Barbiturates Screen Negative (NEGATIVE) Phencyclidine (PCP) Screen Negative (NEGATIVE) Urine Amphetamines Screen Negative (NEGATIVE) Urine Benzodiazepines Screen Negative (NEGATIVE) Urine Cocaine Screen Negative (NEGATIVE) Urine Marijuana (THC) Screen Negative (NEGATIVE) Phosphorus Level 4.7 MG/DL (2.5-4.9) Magnesium Level 1.9 MG/DL (1.8-2.4) Height (Feet): 5 Height (Inches): 10.00 Weight (Pounds): 231 Medications Current Medications Medications (Trade) Dose Ordered Sig/Andree Route PRN Reason Start Time Stop Time Status Last Admin Dose Admin Acetaminophen (Tylenol) 650 mg PRN PRN ORAL Mild Pain (Pain Scale 1-3) 02/11/19 23:30 Albuterol/ Ipratropium (Albuterol/ Ipratropium) 3 ml Q4H PRN HHN Shortness of Breath 02/12/19 02:30 02/17/19 02:29 02/12/19 04:25 Allopurinol (Allopurinol) 300 mg DAILY ORAL 02/12/19 09:00 03/14/19 08:59 02/12/19 08:24 Aspirin (Ecotrin) 81 mg DAILY ORAL 02/12/19 09:00 03/14/19 08:59 02/12/19 08:23 Atorvastatin Calcium (Lipitor) 40 mg BEDTIME ORAL 02/12/19 21:00 03/14/19 20:59 Carvedilol (Coreg) 12.5 mg EVERY 12 HOURS ORAL 02/12/19 09:00 03/14/19 08:59 02/12/19 08:23 Dextrose (Dextrose 50%) 25 ml Q30M PRN IV Hypoglycemia 02/12/19 02:30 03/14/19 02:29 Dextrose (Dextrose 50%) 50 ml Q30M PRN IV Hypoglycemia 02/12/19 02:30 03/14/19 02:29 Furosemide (Lasix) 40 mg BID ORAL 02/12/19 09:00 03/14/19 08:59 02/12/19 08:24 Heparin Sodium (Porcine) (Heparin 5000 units/ml) 5,000 units Q8HR SUBQ 02/12/19 14:00 03/14/19 13:59 Hydralazine HCl (Apresoline) 50 mg EVERY 8 HOURS ORAL 02/12/19 06:00 03/14/19 05:59 02/12/19 05:47 Insulin Aspart (NovoLOG) BEFORE MEALS AND HS SUBQ 02/12/19 06:30 03/14/19 06:29 Iopamidol (Isovue-370 150ml) 150 ml NOW PRN INJ Radiology Procedure 02/12/19 11:30 02/14/19 11:17 UNV Sitagliptin Phosphate (Januvia) 100 mg DAILY@0630 ORAL 02/12/19 06:30 03/14/19 06:29 02/12/19 05:47 Spironolactone (Aldactone) 25 mg DAILY ORAL 02/12/19 09:00 03/14/19 08:59 02/12/19 08:23 Assessment/Plan Problem List: (1) Dyspnea ICD Codes: R06.00 - Dyspnea, unspecified SNOMED: 781707519 (2) COPD (chronic obstructive pulmonary disease) ICD Codes: J44.9 - Chronic obstructive pulmonary disease, unspecified SNOMED: 12133416 (3) CAD (coronary artery disease) ICD Codes: I25.10 - Atherosclerotic heart disease of [place] coronary artery without angina pectoris SNOMED: 98749132 (4) Cardiomyopathy ICD Codes: I42.9 - Cardiomyopathy, unspecified SNOMED: 70853760 (5) HTN (hypertension) ICD Codes: I10 - Essential (primary) hypertension SNOMED: 90429719 (6) EF 15% (7) ICD (implantable cardioverter-defibrillator) in place ICD Codes: Z95.810 - Presence of automatic (implantable) cardiac defibrillator SNOMED: 882782067 Assessment/Plan Pt is short of breath, CXR is clear and he doesn't have any wheezing or rhonchi , therefore I will order a CTA to rule out thromboembolic disease hold laxis for now, since creatinine jumped to 1.5 after receiving IV lasix in ER Cardiology assessment. dvt prophylaxis respiratory treatment check electrolytes check sputum Angel Diaz MD Feb 12, 2019 11:27
[2019-02-12] MEDS ORDERED: Promethazine/Codeine 5ml UD ORAL PRN (11:30)
[2019-02-12] MEDS ORDERED: Isovue-370 150ml vial INJ PRN (11:30)
[2019-02-12 12:00] VITALS: BP 145/105
--- NOTE | 2019-02-12 13:30 | NUR ---
NURSE NOTES: PATIENT BROUGHT DOWN FOR CTA. BACK TO UNIT. NO SIGNS OF DISTRESS. WILL CONTINUE TO MONITOR.
--- NOTE | 2019-02-12 14:28 | Diagnostic Imaging Report ---
Indication: Chest pain Technique: Continuous helical transaxial imaging of the chest was obtained from the thoracic inlet to the upper abdomen during rapid intravenous contrast administration. Arterial phase of enhancement obtained. Coronal 2-D reformats were also obtained and maximum intensity projection images in multiple planes. Study obtained in a Siemens sensation [address] Automatic Exposure Control was utilized. Total Dose length Product (DLP): 1041.[address] Dose Index Volume (CTDIvol): 28.38 mGy Comparison: None Findings: The pulmonary artery is somewhat poorly opacified but shows no filling defects. There is no adenopathy, pleural or pericardial effusions are identified. There is no aortic dissection or aneurysm identified within the chest. The lungs are clear. Visualized part of the upper abdomen is unremarkable. There is a small left thyroid nodule. Impression: No obvious pulmonary embolus. Limited bolus. Tiny left thyroid nodule The CT scanner at [facility] is accredited by the [employer] and the scans are performed using dose optimization techniques as appropriate to a performed exam including Automatic Exposure control.
[2019-02-12] MEDS: Heparin 5000 units/ml inj SUBQ SCH ×2 (14:53→22:00)
[2019-02-12 16:00] VITALS: BP 158/108
--- NOTE | 2019-02-12 16:45 | History & Physical ---
History and Physical History & Physicial Dictated for Int Med-Dr Hidalgo no. [id number]. Dario Meza MD Feb 12, 2019 16:45
--- NOTE | 2019-02-12 19:21 | NUR ---
HAND-OFF: Report given to Emili Arreguin RN.
--- NOTE | 2019-02-12 19:22 | NUR ---
NURSE NOTES: Received bedside report from ROMI Jiang.Patient stable,A&Ox4,SR on consumer loan underwriter,tolerated r/air well,no c/o pain,no respiratory distress noted,BS active in all quadrants,bed secured,call light within a reach,will continue to monitor and follow POC.
[2019-02-12 20:00] VITALS: BP 154/122
[2019-02-12] MEDS: Theophylline ER 100mg ORAL SCH (20:30)
[2019-02-12] MEDS: Atorvastatin 20mg tab ORAL SCH (20:31)
--- NOTE | 2019-02-12 23:30 | History and Physical Report ---
DATE OF ADMISSION: 02/11/2019 CHIEF COMPLAINT: The patient is a 43-year-old male with history of congestive heart failure, status post automatic implantable cardioverter defibrillator implantation in July 2018, presents with chief complaint of shortness of breath and cough. HISTORY OF PRESENT ILLNESS: The patient was admitted to [facility] in July 2018. The patient is status post automatic implantable cardioverter defibrillator on 08/11/2018. Please see history and physical and discharge summary dictated at that time. The patient states history of present illness began approximately three weeks ago. The patient began to experience cough. The patient states he also had shortness of breath, which is worse at night. The patient is unable to lie flat. The patient presented to [facility] emergency room. The patient was admitted for acute exacerbation of congestive heart failure. REVIEW OF SYSTEMS: CONSTITUTIONAL: The patient denies weight loss or weight gain. The patient denies fevers or chills. HEENT: The patient denies ear or throat pain. The patient denies headache. CARDIOVASCULAR: The patient denies palpitations or chest pain. CHEST: The patient complains of shortness of breath as above. The patient complains of nonproductive cough. ABDOMEN: The patient denies nausea, vomiting, diarrhea, or constipation. GENITOURINARY: The patient denies dysuria or increased frequency of urination. NEUROMUSCULAR: The patient denies seizures or generalized weakness. PAST MEDICAL HISTORY: Significant for: 1. Congestive heart failure, status post AICD placement in July of 2018. 2. Chronic obstructive pulmonary disease. 3. Hypertension. 4. History of coronary artery disease, status post myocardial infarction at age 22 and again in 2013. PAST SURGICAL HISTORY: Significant for automatic implantable cardioversion defibrillator on 08/11/[address] Stanley Schumacher. CURRENT MEDICATIONS: 1. Tylenol No. 3 one tablet p.o. q.6 h. p.r.n. 2. Allopurinol 300 mg one tablet p.o. daily. 3. Aspirin 81 mg one tablet p.o. daily. 4. Lipitor 80 mg p.o. at bedtime. 5. Carvedilol 25 mg one tablet p.o. twice daily. 6. Clonidine 0.1 mg p.o. twice daily. 7. Advair 250/50 one puff p.o. twice daily. 8. Lasix 20 mg p.o. daily. 9. Hydralazine 50 mg p.o. three times daily. 10. Isosorbide dinitrate 20 mg p.o. three times daily. 11. Lisinopril 20 mg p.o. twice daily. 12. Zantac 300 mg p.o. at bedtime. 13. Januvia 25 mg p.o. daily. 14. Spironolactone 25 mg p.o. daily. ALLERGIES: No known drug allergies. SOCIAL HISTORY: The patient is single and is disabled. The patient admits to tobacco use of one-half pack per day. The patient admits to alcohol use of two drinks twice weekly. The patient denies drug abuse. PHYSICAL EXAMINATION: VITAL SIGNS: Temperature 97.9, respirations 20, pulse 91, blood pressure 153/95, and pulse oximetry 95% on room air. GENERAL: The patient is well-developed and well-nourished slightly obese male, in no apparent distress. HEENT: Eyes, pupils are equal and responsive to light and accommodation. Extraocular movements are intact. NECK: Supple without lymphadenopathy. CHEST: Few crackles at bilateral bases. Otherwise, clear to auscultation without wheezes or rales. CARDIOVASCULAR: Slightly tachycardic. Regular rate, regular rhythm. S1, S2 normal without murmurs, rubs, or gallops. ABDOMEN: Soft, nontender, and nondistended. Positive bowel sounds. No evidence of hepatosplenomegaly. Currently, no rebound or guarding noted. EXTREMITIES: Negative for clubbing, cyanosis, or edema. RECTAL/GENITAL: Refused. NEUROLOGIC: Cranial nerves II through XII are grossly intact without focal deficits. Motor strength is 5/5 bilaterally. Deep tendon reflexes are 2+. LABORATORY STUDIES: WBC 4.7, hemoglobin 13.4, hematocrit 41.5, platelets 237,000. Sodium 140, potassium 3.9, chloride 104, CO2 20, BUN 18, creatinine 1.3, and glucose 112. BNP elevated at 962. Troponin elevated at 0.045. Chest x-ray was reported as cardiomegaly with normal vascularity. The CT scan of the chest is pending. ASSESSMENT: This is a 43-year-old male: 1. Shortness of breath. 2. Cough. 3. Congestive heart failure, acute exacerbation. 4. Coronary artery disease. 5. Chronic obstructive pulmonary disease. 6. Hypertension. 7. Automatic implantable cardioverter defibrillator in situ. TREATMENT: 1. Shortness of breath/cough/congestive heart failure, acute exacerbation. A Cardiology consultation has been obtained with Dr. Stanley Schumacher. BNP is not significantly elevated. Shortness of breath and cough may be secondary to acute exacerbation of congestive heart failure. Await CT scan of the chest. A Pulmonary consultation has been obtained with Dr. Angel Diaz. We will follow recommendations of Pulmonary and Cardiology. 2. Chronic obstructive pulmonary disease. Continue Advair as above. The patient has been placed on DuoNebs two puffs p.r.n. 3. Hypertension. Continue Coreg as above. 4. AICD in situ. Dario Meza M.D. DR: [facility] JOB#: [id number] CC:
[2019-02-13] VITALS (7 sets, daily range): BP systolic 143–159; BP diastolic 101–117
[2019-02-13 05:33] LABS: BASOPHILS % (AUTO) 1.8 % (0.0-2.0); EOSINOPHILS % (AUTO) 4.2 % (0.0-3.0); HEMATOCRIT 43.3 % (42.0-52.0); LYMPHOCYTES % (AUTO) 31.4 % (20.0-45.0); MEAN CORPUSCULAR VOLUME 87 FL (80-99); MONOCYTES % (AUTO) 9.8 % (1.0-10.0); NEUTROPHILS % (AUTO) 52.8 % (45.0-75.0); PLATELET COUNT 273 K/UL (150-450); RED BLOOD COUNT 4.99 M/UL (4.70-6.10); RED CELL DISTRIBUTION WIDTH 14.8 % (11.6-14.8); WHITE BLOOD COUNT 4.3 K/UL (4.8-10.8)
[2019-02-13] MEDS: Heparin 5000 units/ml inj SUBQ SCH ×3 (05:39→22:15)
[2019-02-13] MEDS: NovoLOG Insulin Flexpen SUBQ SCH ×4 (05:39→21:00)
[2019-02-13] MEDS: HydrALAZINE 50mg tab ORAL SCH ×3 (05:39→22:14)
[2019-02-13 05:56] LABS: ANION GAP 11 mmol/L (5-15); BLOOD UREA NITROGEN 24 mg/dL (7-18); CALCIUM 8.8 MG/DL (8.5-10.1); CARBON DIOXIDE 25 MMOL/L (21-32); CHLORIDE 104 MMOL/L (98-107); CREATININE 1.5 MG/DL (0.55-1.30); POTASSIUM 3.6 MMOL/L (3.5-5.1); SODIUM 140 MMOL/L (136-145)
--- NOTE | 2019-02-13 06:00 | NUR ---
NURSE NOTES: Transfer pt to Tele 202-2,no respiratory distress noted,no c/o pain, tolerated r/air well,belongings list signed,report given to ROMI Ha.
--- NOTE | 2019-02-13 06:05 | NUR ---
NURSE NOTES: Received pt from SDU via hospital bed. Received report from ROMI Braga. Pt is awake, AOx4. SR on the taxation consultant. VS stable. In no acute distress. IV line intact and patent. Oriented to new room and unit. Bed in lowest position, call light within reach. Will continue plan of care.
--- NOTE | 2019-02-13 07:21 | NUR ---
HAND-OFF: Report given to ROMI Rendon.
[2019-02-13] MEDS: Aspirin EC 81mg tab ORAL SCH (08:56)
[2019-02-13] MEDS: Theophylline ER 100mg ORAL SCH ×2 (08:56→21:21)
[2019-02-13] MEDS: Carvedilol 12.5mg tab ORAL SCH ×2 (08:56→21:22)
[2019-02-13] MEDS: Spironolactone 25mg tab ORAL SCH (08:57)
--- NOTE | 2019-02-13 11:42 | Pulmonology Progress Note ---
Assessment/Plan Problems: (1) Dyspnea (2) COPD (chronic obstructive pulmonary disease) (3) CAD (coronary artery disease) (4) Cardiomyopathy (5) HTN (hypertension) (6) EF 15% (7) ICD (implantable cardioverter-defibrillator) in place Assessment/Plan CTA was negative for PE troponin is positive creatinine is up. awaiting cardiology f/u no short of breath might have ALMAZ Subjective ROS Limited/Unobtainable: No Constitutional: Reports: no symptoms HEENT: Repors: no symptoms Respiratory: Reports: no symptoms Allergies: Coded Allergies: No Known Allergies (Unverified , 11/06/18) Objective Last 24 Hour Vital Signs Date Time Temp Pulse Resp B/P (MAP) Pulse Ox O2 Delivery O2 Flow Rate FiO2 02/13/19 09:00 Room Air 02/13/19 08:56 85 158/116 02/13/19 07:52 98.9 85 20 158/116 (130) 98 02/13/19 07:25 81 18 Room Air 21 02/13/19 06:15 98.5 77 20 146/116 (126) 100 02/13/19 05:39 159/116 02/13/19 04:00 98.6 83 20 159/116 (130) 100 02/13/19 03:37 94 02/13/19 00:40 98.1 92 20 143/101 (115) 100 02/12/19 23:35 94 02/12/19 22:03 157/101 02/12/19 21:00 Room Air 02/12/19 20:31 86 154/122 02/12/19 20:20 81 18 99 Room Air 21 02/12/19 20:16 80 20 98 Room Air 21 02/12/19 20:14 83 18 Room Air 21 02/12/19 20:00 97.8 86 22 154/122 (133) 98 02/12/19 19:10 96 02/12/19 16:00 84 02/12/19 16:00 97.9 90 20 158/108 (125) 95 02/12/19 14:51 145/105 02/12/19 12:00 97.5 82 18 145/105 (118) 97 02/12/19 11:55 86 20 100 Room Air 21 02/12/19 11:52 85 20 Room Air 21 02/12/19 11:50 87 02/12/19 11:49 85 20 99 Room Air 21 Intake and Output 02/12/19 02/13/19 18:59 06:59 Intake Total 500 ml 1000 ml Balance 500 ml 1000 ml Intake Oral 500 ml 1000 ml # Voids 4 3 General Appearance: WD/WN HEENT: normocephalic, atraumatic Respiratory/Chest: chest wall non-tender, lungs clear Cardiovascular: normal peripheral pulses, normal rate Abdomen: normal bowel sounds, soft, non tender Genitourinary: normal external genitalia Extremities: no cyanosis Skin: no rash Neurologic/Psychiatric: umbrella cutter II-XII grossly normal Lymphatic: no neck adenopathy Microbiology Date/Time Source Procedure Growth Status 02/12/19 20:00 Sputum Gram Stain - Final Resulted 02/12/19 20:00 Sputum Sputum Culture Pending Resulted Laboratory Tests 02/13/19 03:40: White Blood Count 4.3L, Red Blood Count 4.99, Hemoglobin 14.0L, Hematocrit 43.3 , Mean Corpuscular Volume 87, Mean Corpuscular Hemoglobin 28.1, Mean Corpuscular Hemoglobin Concent 32.4, Red Cell Distribution Width 14.8, Platelet Count 273, Mean Platelet Volume 6.4L, Neutrophils (%) (Auto) 52.8, Lymphocytes ( %) (Auto) 31.4, Monocytes (%) (Auto) 9.8, Eosinophils (%) (Auto) 4.2H, Basophils (%) (Auto) 1.8, Sodium Level 140, Potassium Level 3.6, Chloride Level 104, Carbon Dioxide Level 25, Anion Gap 11, Blood Urea Nitrogen 24H, Creatinine 1.5H, Estimat Glomerular Filtration Rate > 60, Glucose Level 88, Calcium Level 8.8, Pro-B-Type Natriuretic Peptide 508H Current Medications Medications (Trade) Dose Ordered Sig/Andree Route PRN Reason Start Time Stop Time Status Last Admin Dose Admin Acetaminophen (Tylenol) 650 mg PRN PRN ORAL Mild Pain (Pain Scale 1-3) 02/11/19 23:30 Albuterol/ Ipratropium (Albuterol/ Ipratropium) 3 ml Q4H PRN HHN Shortness of Breath 02/12/19 02:30 02/17/19 02:29 02/12/19 20:14 Allopurinol (Allopurinol) 300 mg DAILY ORAL 02/12/19 09:00 03/14/19 08:59 02/13/19 08:56 Aspirin (Ecotrin) 81 mg DAILY ORAL 02/12/19 09:00 03/14/19 08:59 02/13/19 08:56 Atorvastatin Calcium (Lipitor) 40 mg BEDTIME ORAL 02/12/19 21:00 03/14/19 20:59 02/12/19 20:31 Carvedilol (Coreg) 12.5 mg EVERY 12 HOURS ORAL 02/12/19 09:00 03/14/19 08:59 02/13/19 08:56 Dextrose (Dextrose 50%) 25 ml Q30M PRN IV Hypoglycemia 02/12/19 02:30 03/14/19 02:29 Dextrose (Dextrose 50%) 50 ml Q30M PRN IV Hypoglycemia 02/12/19 02:30 03/14/19 02:29 Furosemide (Lasix) 40 mg BID ORAL 02/12/19 09:00 03/14/19 08:59 02/13/19 08:56 Heparin Sodium (Porcine) (Heparin 5000 units/ml) 5,000 units Q8HR SUBQ 02/12/19 14:00 03/14/19 13:59 02/12/19 14:53 Hydralazine HCl (Apresoline) 50 mg EVERY 8 HOURS ORAL 02/12/19 06:00 03/14/19 05:59 02/13/19 05:39 Insulin Aspart (NovoLOG) BEFORE MEALS AND HS SUBQ 02/12/19 06:30 03/14/19 06:29 Iopamidol (Isovue-370 150ml) 150 ml NOW PRN INJ Radiology Procedure 02/12/19 11:30 02/14/19 11:17 Nicotine (Nicoderm) 1 patch Q24H TDERMAL 02/12/19 21:00 03/14/19 20:59 Promethazine HCl/ Codeine (Phenergan with Codeine) 5 ml Q4H PRN ORAL For Cough 02/12/19 11:30 03/14/19 11:29 Sitagliptin Phosphate (Januvia) 100 mg DAILY@0630 ORAL 02/12/19 06:30 03/14/19 06:29 02/12/19 05:47 Spironolactone (Aldactone) 25 mg DAILY ORAL 02/12/19 09:00 03/14/19 08:59 02/13/19 08:57 Theophylline (Taqueria-Dur) 100 mg EVERY 12 HOURS ORAL 02/12/19 21:00 03/14/19 20:59 02/13/19 08:56 Angel Diaz MD Feb 13, 2019 11:42
--- NOTE | 2019-02-13 12:12 | NUR ---
Social Work This Sw met with patient due to substance abuse (positive for Cocaine). Patient admitted to abuse of Cocaine and in agreement with quitting. Patient lives alone, currently on SSI (denied homelessness). Patient stating he has a history of depression, but does not want any medications for this, currently does not verbalize any suicidal ideations. Patient plans to discharge to home, will follow up with N.A meetings (this SW provided list of substance abuse counseling/resources). This SW provided patient with education regarding health risks involved with substance abuse as well.
--- NOTE | 2019-02-13 14:22 | Cardiac Electrophysiology PN ---
Subjective Subjective [id number]. Dr Flores Objective Last 24 Hour Vital Signs Date Time Temp Pulse Resp B/P (MAP) Pulse Ox O2 Delivery O2 Flow Rate FiO2 02/13/19 13:45 156/109 02/13/19 11:52 98.0 91 20 156/109 (125) 99 02/13/19 09:00 Room Air 02/13/19 08:56 85 158/116 02/13/19 07:52 98.9 85 20 158/116 (130) 98 02/13/19 07:25 81 18 Room Air 21 02/13/19 06:15 98.5 77 20 146/116 (126) 100 02/13/19 05:39 159/116 02/13/19 04:00 98.6 83 20 159/116 (130) 100 02/13/19 03:37 94 02/13/19 00:40 98.1 92 20 143/101 (115) 100 02/12/19 23:35 94 02/12/19 22:03 157/101 02/12/19 21:00 Room Air 02/12/19 20:31 86 154/122 02/12/19 20:20 81 18 99 Room Air 21 02/12/19 20:16 80 20 98 Room Air 21 02/12/19 20:14 83 18 Room Air 21 02/12/19 20:00 97.8 86 22 154/122 (133) 98 02/12/19 19:10 96 02/12/19 16:00 84 02/12/19 16:00 97.9 90 20 158/108 (125) 95 02/12/19 14:51 145/105 Intake and Output 02/12/19 02/13/19 18:59 06:59 Intake Total 500 ml 1000 ml Balance 500 ml 1000 ml Intake Oral 500 ml 1000 ml # Voids 4 3 Laboratory Tests Test 02/13/19 03:40 White Blood Count 4.3 K/UL (4.8-10.8) L Red Blood Count 4.99 M/UL (4.70-6.10) Hemoglobin 14.0 G/DL (14.2-18.0) L Hematocrit 43.3 % (42.0-52.0) Mean Corpuscular Volume 87 FL (80-99) Mean Corpuscular Hemoglobin 28.1 PG (27.0-31.0) Mean Corpuscular Hemoglobin Concent 32.4 G/DL (32.0-36.0) Red Cell Distribution Width 14.8 % (11.6-14.8) Platelet Count 273 K/UL (150-450) Mean Platelet Volume 6.4 FL (6.5-10.1) L Neutrophils (%) (Auto) 52.8 % (45.0-75.0) Lymphocytes (%) (Auto) 31.4 % (20.0-45.0) Monocytes (%) (Auto) 9.8 % (1.0-10.0) Eosinophils (%) (Auto) 4.2 % (0.0-3.0) H Basophils (%) (Auto) 1.8 % (0.0-2.0) Sodium Level 140 MMOL/L (136-145) Potassium Level 3.6 MMOL/L (3.5-5.1) Chloride Level 104 MMOL/L (98-107) Carbon Dioxide Level 25 MMOL/L (21-32) Anion Gap 11 mmol/L (5-15) Blood Urea Nitrogen 24 mg/dL (7-18) H Creatinine 1.5 MG/DL (0.55-1.30) H Estimat Glomerular Filtration Rate > 60 mL/min (>60) Glucose Level 88 MG/DL (74-106) Calcium Level 8.8 MG/DL (8.5-10.1) Pro-B-Type Natriuretic Peptide 508 pg/mL (0-125) H Microbiology Date/Time Source Procedure Growth Status 02/12/19 20:00 Sputum Gram Stain - Final Resulted 02/12/19 20:00 Sputum Sputum Culture Pending Resulted Stanley Schumacher MD Feb 13, 2019 14:22
[2019-02-13] MEDS: Albuterol/Ipratropium 3ml neb HHN PRN (15:36)
--- NOTE | 2019-02-13 17:30 | Internal Med Progress Note ---
Subjective Date of Service: Feb 13, 2019 Physician Name Dario Meza Attending Physician Mejia Hidalgo MD Current Medications Medications (Trade) Dose Ordered Sig/Andree Route PRN Reason Start Time Stop Time Status Last Admin Dose Admin Acetaminophen (Tylenol) 650 mg PRN PRN ORAL Mild Pain (Pain Scale 1-3) 02/11/19 23:30 Albuterol/ Ipratropium (Albuterol/ Ipratropium) 3 ml Q4H PRN HHN Shortness of Breath 02/12/19 02:30 02/17/19 02:29 02/13/19 15:36 Allopurinol (Allopurinol) 300 mg DAILY ORAL 02/12/19 09:00 03/14/19 08:59 02/13/19 08:56 Aspirin (Ecotrin) 81 mg DAILY ORAL 02/12/19 09:00 03/14/19 08:59 02/13/19 08:56 Atorvastatin Calcium (Lipitor) 40 mg BEDTIME ORAL 02/12/19 21:00 03/14/19 20:59 02/12/19 20:31 Carvedilol (Coreg) 12.5 mg EVERY 12 HOURS ORAL 02/12/19 09:00 03/14/19 08:59 02/13/19 08:56 Dextrose (Dextrose 50%) 25 ml Q30M PRN IV Hypoglycemia 02/12/19 02:30 03/14/19 02:29 Dextrose (Dextrose 50%) 50 ml Q30M PRN IV Hypoglycemia 02/12/19 02:30 03/14/19 02:29 Furosemide (Lasix) 40 mg BID ORAL 02/12/19 09:00 03/14/19 08:59 02/13/19 17:02 Heparin Sodium (Porcine) (Heparin 5000 units/ml) 5,000 units Q8HR SUBQ 02/12/19 14:00 03/14/19 13:59 02/13/19 13:46 Hydralazine HCl (Apresoline) 50 mg EVERY 8 HOURS ORAL 02/12/19 06:00 03/14/19 05:59 02/13/19 13:45 Insulin Aspart (NovoLOG) BEFORE MEALS AND HS SUBQ 02/12/19 06:30 03/14/19 06:29 Iopamidol (Isovue-370 150ml) 150 ml NOW PRN INJ Radiology Procedure 02/12/19 11:30 02/14/19 11:17 Lisinopril (Prinivil) 20 mg DAILY ORAL 02/14/19 09:00 03/16/19 08:59 Nicotine (Nicoderm) 1 patch Q24H TDERMAL 02/12/19 21:00 03/14/19 20:59 Promethazine HCl/ Codeine (Phenergan with Codeine) 5 ml Q4H PRN ORAL For Cough 02/12/19 11:30 03/14/19 11:29 Sitagliptin Phosphate (Januvia) 100 mg DAILY@0630 ORAL 02/12/19 06:30 03/14/19 06:29 02/12/19 05:47 Spironolactone (Aldactone) 25 mg DAILY ORAL 02/12/19 09:00 03/14/19 08:59 02/13/19 08:57 Theophylline (Taqueria-Dur) 100 mg EVERY 12 HOURS ORAL 02/12/19 21:00 03/14/19 20:59 02/13/19 08:56 Allergies: Coded Allergies: No Known Allergies (Unverified , 11/06/18) ROS Limited/Unobtainable: No Constitutional: Reports: no symptoms HEENT: Reports: no symptoms Cardiovascular: Reports: no symptoms Respiratory: Reports: cough, shortness of breath Gastrointestinal/Abdominal: Reports: no symptoms Genitourinary: Reports: no symptoms Neurologic/Psychiatric: Reports: no symptoms Subjective 43 YO M admitted with cough and shortness of breath. Now CHF. Cover for Int Willy-DR Hidalgo Objective Last Vital Signs Date Time Temp Pulse Resp B/P (MAP) Pulse Ox O2 Delivery O2 Flow Rate FiO2 02/13/19 16:00 93 02/13/19 15:48 96.4 20 153/111 (125) 97 02/13/19 15:47 Room Air 21 Laboratory Tests Test 02/13/19 03:40 White Blood Count 4.3 K/UL (4.8-10.8) L Red Blood Count 4.99 M/UL (4.70-6.10) Hemoglobin 14.0 G/DL (14.2-18.0) L Hematocrit 43.3 % (42.0-52.0) Mean Corpuscular Volume 87 FL (80-99) Mean Corpuscular Hemoglobin 28.1 PG (27.0-31.0) Mean Corpuscular Hemoglobin Concent 32.4 G/DL (32.0-36.0) Red Cell Distribution Width 14.8 % (11.6-14.8) Platelet Count 273 K/UL (150-450) Mean Platelet Volume 6.4 FL (6.5-10.1) L Neutrophils (%) (Auto) 52.8 % (45.0-75.0) Lymphocytes (%) (Auto) 31.4 % (20.0-45.0) Monocytes (%) (Auto) 9.8 % (1.0-10.0) Eosinophils (%) (Auto) 4.2 % (0.0-3.0) H Basophils (%) (Auto) 1.8 % (0.0-2.0) Sodium Level 140 MMOL/L (136-145) Potassium Level 3.6 MMOL/L (3.5-5.1) Chloride Level 104 MMOL/L (98-107) Carbon Dioxide Level 25 MMOL/L (21-32) Anion Gap 11 mmol/L (5-15) Blood Urea Nitrogen 24 mg/dL (7-18) H Creatinine 1.5 MG/DL (0.55-1.30) H Estimat Glomerular Filtration Rate > 60 mL/min (>60) Glucose Level 88 MG/DL (74-106) Calcium Level 8.8 MG/DL (8.5-10.1) Pro-B-Type Natriuretic Peptide 508 pg/mL (0-125) H Microbiology Date/Time Source Procedure Growth Status 02/12/19 20:00 Sputum Gram Stain - Final Resulted 02/12/19 20:00 Sputum Sputum Culture Pending Resulted Intake and Output 02/12/19 02/13/19 19:00 07:00 Intake Total 500 ml 1000 ml Balance 500 ml 1000 ml Intake Oral 500 ml 1000 ml # Voids 4 3 Objective PHYSICAL EXAMINATION: GENERAL: The patient is well-developed and well-nourished slightly obese male, in no apparent distress. HEENT: Eyes, pupils are equal and responsive to light and accommodation. Extraocular movements are intact. NECK: Supple without lymphadenopathy. CHEST: Few crackles at bilateral bases. Otherwise, clear to auscultation without wheezes or rales. CARDIOVASCULAR: Slightly tachycardic. Regular rate, regular rhythm. S1, S2 normal without murmurs, rubs, or gallops. ABDOMEN: Soft, nontender, and nondistended. Positive bowel sounds. No evidence of hepatosplenomegaly. Currently, no rebound or guarding noted. EXTREMITIES: Negative for clubbing, cyanosis, or edema. RECTAL/GENITAL: Refused. NEUROLOGIC: Cranial nerves II through XII are grossly intact without focal deficits. Motor strength is 5/5 bilaterally. Deep tendon reflexes are 2+. Assessment/Plan Assessment/Plan ASSESSMENT: This is a 43-year-old male: 1. Shortness of breath. 2. Cough. 3. Congestive heart failure, acute exacerbation. 4. Coronary artery disease. 5. Chronic obstructive pulmonary disease. 6. Hypertension. 7. Automatic implantable cardioverter defibrillator in situ. TREATMENT: 1. Shortness of breath/cough/congestive heart failure, acute exacerbation. Echo: LVEF=15-20%. A Cardiology consultation has been obtained with Dr. Stanley Schumacher. BNP is not significantly elevated. Shortness of breath and cough may be secondary to acute exacerbation of congestive heart failure. A Pulmonary consultation has been obtained with Dr. Angel Diaz. We will follow recommendations of Pulmonary and Cardiology. 2. Chronic obstructive pulmonary disease. Continue Advair as above. The patient has been placed on DuoNebs two puffs p.r.n. 3. Hypertension. Continue Coreg as above. 4. AICD in situ. Dario Meza MD Feb 13, 2019 17:30
--- NOTE | 2019-02-13 19:18 | NUR ---
NURSE NOTES: Received report from ROMI Rendon. Pt is awake and resting in bed. IV site intact and patent. Bed in lowest position, call light within reach. Will continue with plan of care.
--- NOTE | 2019-02-13 20:39 | NUR ---
CASE MANAGEMENT: REVIEW SI: COPD . CAD . CHF T 96.4 HR 80 RR 20 BP 156/109 SAT 97% ROOM AIR WBC 4.3 BUN 24 CR 1.5 BNP 508 IS: LISINOPRIL PO QD THEOPHYLLINE PO Q12HR HEPARIN SQ Q8HR ECOTRIN PQ QD LASIX PO BID LASIX PO BID ALDACTONE PO QD ALBUTEROL HHN Q4HR TELEMETRY UNIT STATUS DCP: PATIENT IS FROM HOME
--- NOTE | 2019-02-13 21:15 | Consultation ---
DATE OF CONSULTATION: 02/13/2019 CARDIOLOGY CONSULTATION CONSULTING PHYSICIAN: Stanley Schumacher M.D. REFERRING PHYSICIAN: Mejia Hidalgo M.D. REASON FOR CONSULTATION: Management of congestive heart failure and evaluation of the patient's defibrillator. HISTORY OF PRESENT ILLNESS: The patient is a 43-year-old gentleman with history of severe nonischemic dilated cardiomyopathy with ejection fraction of around 15% since 2017 based on the review of his records. The patient had admission at [facility] in July of 2018 and underwent a dual-chamber [employer] defibrillator implantation by ca on 08/11/2018. The patient's cardiac catheterization at [facility] showed no evidence of coronary artery disease. The patient presented to the emergency room with increasing shortness of breath. The patient, however, has seen his primary care doctor over the last two weeks for his shortness of breath. The patient was admitted and a Cardiology consultation was obtained for further evaluation. REVIEW OF SYSTEMS: Negative other than what was mentioned in the history of present illness. PAST MEDICAL HISTORY: 1. Severe cardiomyopathy with ejection fraction of 15%. 2. Normal coronaries. 3. History of [employer] defibrillator implantation. 4. Chronic obstructive pulmonary disease. 5. Hypertension. FAMILY HISTORY: Noncontributory. SOCIAL HISTORY: Lives at home and started doing cocaine again recently. PHYSICAL EXAMINATION: VITAL SIGNS: Show blood pressure is 156/109, pulse 91, respirations 18, and temperature 98. HEAD AND NECK: Shows mild JVD. LUNGS: Coarse rhonchi. CARDIOVASCULAR: Shows regular S1 and S2 with no gallop with defibrillator in the left subclavian. ABDOMEN: Soft. EXTREMITIES: A 1+ pitting edema. LABORATORY AND DIAGNOSTIC DATA: His EKG shows sinus rhythm with left ventricular hypertrophy and repolarization abnormalities. His urine toxicology screen on this admission is negative and on 02/03/2019 was positive. His sodium is 140, potassium 3.6, BUN of 24, creatinine 1.5, and glucose of 88. Troponin 0.045 and 0.059. His INR is 1.1. White count is 4.2, hemoglobin of 14, hematocrit of 43, and platelet count is 273,000. ASSESSMENT AND PLAN: 1. Shortness of breath. 2. Exacerbation of congestive heart failure in this patient with ejection fraction of only 15%. His BNP was around 1000. Continue Coreg 12.5 mg b.i.d. and Lasix 40 mg IV b.i.d., and Aldactone 25 mg daily. His creatinine is 1.3. I would put him on lisinopril 20 mg daily. He is also on hydralazine 50 mg every 8 hours. 3. Status post [employer] defibrillator implantation. ICD will be re-interrogated for further evaluation. 4. History of cocaine use in the past, but he stopped before he got defibrillator, but recently started again. 5. Left ventricular hypertrophy. 6. History of asthma. 7. cardiac catheterization at [facility]. Thank you very much for allowing me to participate in the care of this patient. Please do not hesitate to contact me for any questions regarding my evaluation. Stanley Schumacher M.D. DR: SOPHIE JOB#: [id number] CC:
[2019-02-13] MEDS: Atorvastatin 20mg tab ORAL SCH (21:21)
[2019-02-14] VITALS: BP 148/105
[2019-02-14 04:00] VITALS: BP 148/101
[2019-02-14] MEDS: HydrALAZINE 50mg tab ORAL SCH ×2 (06:06→14:00)
[2019-02-14] MEDS: Heparin 5000 units/ml inj SUBQ SCH ×2 (06:08→14:00)
[2019-02-14] MEDS: NovoLOG Insulin Flexpen SUBQ SCH ×2 (06:19→11:29)
[2019-02-14 07:14] LABS: BASOPHILS % (AUTO) 1.5 % (0.0-2.0); HEMATOCRIT 47.2 % (42.0-52.0); HEMOGLOBIN 15.2 G/DL (14.2-18.0); LYMPHOCYTES % (AUTO) 27.4 % (20.0-45.0); MEAN CORPUSCULAR VOLUME 87 FL (80-99); MONOCYTES % (AUTO) 12.8 % (1.0-10.0); NEUTROPHILS % (AUTO) 55.4 % (45.0-75.0); PLATELET COUNT 272 K/UL (150-450); RED BLOOD COUNT 5.43 M/UL (4.70-6.10); RED CELL DISTRIBUTION WIDTH 14.3 % (11.6-14.8); WHITE BLOOD COUNT 4.1 K/UL (4.8-10.8)
--- NOTE | 2019-02-14 07:30 | NUR ---
HAND-OFF: Report given to ROMI Mcclain. Endorsed plan of care.
--- NOTE | 2019-02-14 07:33 | NUR ---
NURSE NOTES: Received report from Bar/RN, Patient awake and alert, No sign of distress/SOB noted. IV intact, Bed in low Position, Call light within reach. Will continue plan of care.
[2019-02-14 07:42] LABS: ALANINE AMINOTRANSFERASE 15 U/L (12-78); ALBUMIN 3.8 G/DL (3.4-5.0); ALKALINE PHOSPHATASE 60 U/L (46-116); ANION GAP 12 mmol/L (5-15); ASPARTATE AMINO TRANSFERASE 12 U/L (15-37); BILIRUBIN,TOTAL 0.8 MG/DL (0.2-1.0); BLOOD UREA NITROGEN 16 mg/dL (7-18); CALCIUM 8.8 MG/DL (8.5-10.1); CARBON DIOXIDE 27 MMOL/L (21-32); CHLORIDE 102 MMOL/L (98-107); CREATININE 1.3 MG/DL (0.55-1.30); PHOSPHORUS 3.9 MG/DL (2.5-4.9); POTASSIUM 3.2 MMOL/L (3.5-5.1); SODIUM 141 MMOL/L (136-145)
[2019-02-14 08:00] VITALS: BP 147/102
[2019-02-14] MEDS: Carvedilol 12.5mg tab ORAL SCH (08:27)
[2019-02-14] MEDS: Aspirin EC 81mg tab ORAL SCH (08:28)
[2019-02-14] MEDS: Theophylline ER 100mg ORAL SCH (08:28)
[2019-02-14] MEDS: Spironolactone 25mg tab ORAL SCH (08:28)
[2019-02-14] MEDS ORDERED: Lisinopril 20mg tab ORAL SCH (09:00)
[2019-02-14 12:00] VITALS: BP 144/113
--- NOTE | 2019-02-14 12:41 | Pulmonology Progress Note ---
Assessment/Plan Problems: (1) Dyspnea (2) COPD (chronic obstructive pulmonary disease) (3) CAD (coronary artery disease) (4) Cardiomyopathy (5) HTN (hypertension) (6) EF 15% (7) ICD (implantable cardioverter-defibrillator) in place Assessment/Plan CTA was negative for PE troponin was positive, negative now creatinine is up. awaiting cardiology f/u no short of breath might have ALMAZ feeling better, wants to go home Subjective ROS Limited/Unobtainable: No Constitutional: Reports: no symptoms HEENT: Repors: no symptoms Allergies: Coded Allergies: No Known Allergies (Unverified , 11/06/18) Objective Last 24 Hour Vital Signs Date Time Temp Pulse Resp B/P (MAP) Pulse Ox O2 Delivery O2 Flow Rate FiO2 02/14/19 09:00 Room Air 02/14/19 08:27 147/102 02/14/19 08:27 85 147/102 02/14/19 08:00 98.5 85 19 147/102 (117) 95 02/14/19 07:51 80 18 Room Air 02/14/19 06:06 140/110 02/14/19 04:00 80 02/14/19 04:00 98.1 80 20 148/101 (117) 98 02/14/19 00:00 82 02/14/19 00:00 98.2 82 20 148/105 (119) 95 02/13/19 22:14 172/108 02/13/19 21:22 87 155/117 02/13/19 21:00 Room Air 02/13/19 20:00 93 02/13/19 20:00 98.1 93 20 155/117 (130) 92 02/13/19 19:36 84 18 Room Air 21 02/13/19 16:00 93 02/13/19 15:48 96.4 80 20 153/111 (125) 97 02/13/19 15:47 89 19 99 Room Air 21 02/13/19 15:36 85 18 97 Room Air 02/13/19 13:45 156/109 Intake and Output 02/13/19 02/14/19 19:00 07:00 Intake Total 630 ml Output Total 400 ml 400 ml Balance 230 ml -400 ml Intake Oral 630 ml Output Urine Total 400 ml 400 ml # Voids 3 General Appearance: WD/WN HEENT: normocephalic, anicteric Respiratory/Chest: chest wall non-tender, lungs clear Cardiovascular: normal peripheral pulses, regular rhythm Abdomen: normal bowel sounds, soft, non tender, no organomegaly Neurologic/Psychiatric: 3d artist II-XII grossly normal Lymphatic: no neck adenopathy Microbiology Date/Time Source Procedure Growth Status 02/12/19 20:00 Sputum Gram Stain - Final Resulted 02/12/19 20:00 Sputum Sputum Culture - Preliminary NORMAL UPPER RESPIRATORY SCARLETT PRESENT Resulted Laboratory Tests 02/14/19 05:15: White Blood Count 4.1L, Red Blood Count 5.43, Hemoglobin 15.2, Hematocrit 47.2, Mean Corpuscular Volume 87, Mean Corpuscular Hemoglobin 28.0, Mean Corpuscular Hemoglobin Concent 32.2, Red Cell Distribution Width 14.3, Platelet Count 272, Mean Platelet Volume 6.9, Neutrophils (%) (Auto) 55.4, Lymphocytes (%) (Auto) 27.4, Monocytes (%) (Auto) 12.8H, Eosinophils (%) (Auto) 3.0, Basophils (%) ( Auto) 1.5, Erythrocyte Sedimentation Rate 8, Sodium Level 141, Potassium Level 3.2L, Chloride Level 102, Carbon Dioxide Level 27, Anion Gap 12, Blood Urea Nitrogen 16, Creatinine 1.3, Estimat Glomerular Filtration Rate > 60, Glucose Level 84, Calcium Level 8.8, Phosphorus Level 3.9, Magnesium Level 2.1, Total Bilirubin 0.8, Aspartate Amino Transf (AST/SGOT) 12L, Alanine Aminotransferase ( ALT/SGPT) 15, Alkaline Phosphatase 60, Troponin I 0.036, Pro-B-Type Natriuretic Peptide 366H, Total Protein 7.5, Albumin 3.8, Globulin 3.7, Albumin/Globulin Ratio 1.0 Current Medications Medications (Trade) Dose Ordered Sig/Andree Route PRN Reason Start Time Stop Time Status Last Admin Dose Admin Acetaminophen (Tylenol) 650 mg PRN PRN ORAL Mild Pain (Pain Scale 1-3) 02/11/19 23:30 Albuterol/ Ipratropium (Albuterol/ Ipratropium) 3 ml Q4H PRN HHN Shortness of Breath 02/12/19 02:30 02/17/19 02:29 02/13/19 15:36 Allopurinol (Allopurinol) 300 mg DAILY ORAL 02/12/19 09:00 03/14/19 08:59 02/14/19 08:27 Aspirin (Ecotrin) 81 mg DAILY ORAL 02/12/19 09:00 03/14/19 08:59 02/14/19 08:28 Atorvastatin Calcium (Lipitor) 40 mg BEDTIME ORAL 02/12/19 21:00 03/14/19 20:59 02/13/19 21:21 Carvedilol (Coreg) 12.5 mg EVERY 12 HOURS ORAL 02/12/19 09:00 03/14/19 08:59 02/14/19 08:27 Dextrose (Dextrose 50%) 25 ml Q30M PRN IV Hypoglycemia 02/12/19 02:30 03/14/19 02:29 Dextrose (Dextrose 50%) 50 ml Q30M PRN IV Hypoglycemia 02/12/19 02:30 03/14/19 02:29 Furosemide (Lasix) 40 mg BID ORAL 02/12/19 09:00 03/14/19 08:59 02/14/19 08:33 Heparin Sodium (Porcine) (Heparin 5000 units/ml) 5,000 units Q8HR SUBQ 02/12/19 14:00 03/14/19 13:59 02/14/19 06:08 Hydralazine HCl (Apresoline) 50 mg EVERY 8 HOURS ORAL 02/12/19 06:00 03/14/19 05:59 02/14/19 06:06 Insulin Aspart (NovoLOG) BEFORE MEALS AND HS SUBQ 02/12/19 06:30 03/14/19 06:29 Lisinopril (Prinivil) 20 mg DAILY ORAL 02/14/19 09:00 03/16/19 08:59 02/14/19 08:27 Nicotine (Nicoderm) 1 patch Q24H TDERMAL 02/12/19 21:00 03/14/19 20:59 Promethazine HCl/ Codeine (Phenergan with Codeine) 5 ml Q4H PRN ORAL For Cough 02/12/19 11:30 03/14/19 11:29 Sitagliptin Phosphate (Januvia) 100 mg DAILY@0630 ORAL 02/12/19 06:30 03/14/19 06:29 02/14/19 06:20 Spironolactone (Aldactone) 25 mg DAILY ORAL 02/12/19 09:00 03/14/19 08:59 02/14/19 08:28 Theophylline (Taqueria-Dur) 100 mg EVERY 12 HOURS ORAL 02/12/19 21:00 03/14/19 20:59 02/14/19 08:28 Angel Diaz MD Feb 14, 2019 12:41
--- NOTE | 2019-02-14 13:39 | Physician Query ---
--------- THIS DOCUMENT IS A PERMANENT PART OF THE MEDICAL RECORD --------- PLEASE COMPLETE THE DOCUMENT BEFORE SIGNING Dear Dr. SHIPMAN Date: 02/14/19 Copy Worker/CDS Name: Alysha GREENE Copy Worker / CDS Phone # Exercise your independent professional judgment when responding to query. Question asked do not imply a particular answer is desired/expected Clinical Documentation States: "Congestive Heart Failure, Acute exacerbation" -- documented in H&P "Exacerbation of congestive heart failure in this patient with ejection fraction of only 15%. His BNP was around 1000." -- documented in cardiology consultation note Clinical Findings Show: BNP= 962, 598 pg/ml Echocardiogram = LVEF = 15-20% Diuretic = Furosemide 450 mg IV Please Clarify: Acuity [] Acute [] Chronic [] Acute on Chronic Type [] Systolic [] Diastolic [] Systolic & Diastolic (Combined) [] Left Heart failure [] Other: Etiology [] CHF due to Hypertension [] Cardiomyopathy [] Valvular Heart Disease [] Coronary Artery Disease [] Unable to determine [] Other: Condition Present on Admission: [] Yes [] No []Clinically Undeterminable Please also document in your Progress Notes and/or Discharge Summary and indicate if the condition was present on admission. MARCELO SHIPMAN M.D, DATE & TIME [facility]
--- NOTE | 2019-02-14 13:40 | NUR ---
NURSE NOTES: Discharge instruction given and patient verbalized understanding.Inventory check done, Belonging given to patient. Heart monitor and IV removed, Skin intact. No sign of distress/SOB noted. Patient is in stable condition. Offered for taxi voucher but Patient refuse taxi voucher. Escorted to outside the building, and patient walked to the street.
[2019-02-14 14:00] VITALS: BP 144/113
--- NOTE | 2019-02-15 11:43 | Cardiology Report ---
APPROVED REPORT EXAM: Two-dimensional and M-mode echocardiogram with Doppler and color Doppler. INDICATION Congestive Heart Failure M-Mode DIMENSIONS IVSd1.1 (0.7-1.1cm)Left Atrium (MM)4.3 (1.6-4.0cm) LVDd7.0 (3.5-5.6cm)Aortic Root3.7 (2.0-3.7cm) PWd1.4 (0.7-1.1cm)Aortic Cusp Exc.2.2 (1.5-2.0cm) LVDs5.8 (2.5-4.0cm) PWs1.5 cm Moderate left ventricular enlargement. Global left ventricular hypokinesis. Abnormal septal motion. Left ventricular ejection fraction estimated to be 15-20 %. Increased E point-interventricular septal separation c/w left ventricular dysfunction. Moderate left ventricular hypertrophy. No evidence of pericardial effusion. Moderate left atrial enlargement. Mild right atrial enlargement. Right ventricular chamber size is within normal limits. Focal aortic valve sclerosis with adequate cusp excursion. Thickened mitral valve leaflets with normal excursion. Mitral annulus and aortic root calcification. Pulmonic valve not well visualized. Normal tricuspid valve structure. IVC dilated at 2.1 cm with slight physiologic collapse. Pacemaker wire present in the right side chambers. A color flow and spectral Doppler study was performed and revealed: Trace aortic regurgitation. Moderate to severe mitral regurgitation. Can not determine left ventricular diastolic function by mitral diastolic velocities due to arrhythmia. Trace to mild tricuspid regurgitation. Tricuspid systolic velocities suggests peak right ventricular systolic pressure of 26 mmHg. Pulmonic regurgitation present.
--- NOTE | 2019-02-17 13:06 | Discharge Summary ---
Discharge Summary Discharge Summary _ DATE OF ADMISSION: 02/11/1919 DATE OF DISCHARGE: 02/14/2019 DISCHARGED BY: Dr. Hidalgo REASON FOR ADMISSION: 43 years old male with past medical history of hypertension, COPD, CHF, pacemaker, presented to emergency room for evaluation. Patient was complaining of shortness of breath for the last few weeks. Patient reported shortness of breath , worse at night , when he was sleeping. Patient reported compliance with medication. He denied chest pain. He denied fever and chills. He denied recent drug use. Patient was seen by primary care provider and was referred to emergency room for further evaluation. Upon evaluation vital signs revealed elevated blood pressure 153/95. Laboratory workup revealed no leukocytosis, stable hemoglobin and hematocrit. Stable electrolytes . BUN 18 ,creatinine 1.3 , stable LFT ,CK 184. Troponin- 0.045. Second troponin -0.059. Pro BNP 962. Urine toxicology screen was negative. EKG revealed sinus rhythm with ST depression in lateral leads. Chest x-ray revealed cardiomegaly , pacemaker, no acute findings. In emergency department patient received aspirin, Lasix and was admitted to telemetry floor for further management. CONSULTANTS: clinical transplant coordinator Dr. Jalloh pulmonary Dr. Diaz [facility] COURSE: Patient admitted to telemetry floor. Third troponin was negative. Hr Business Partner Consultant and tie up worker closely followed. Echocardiogram revealed global left ventricular hypokinesis and abnormal septal motion with moderate left ventricular enlargement. Left ventricular ejection fraction estimated to be 15-20%. No evidence of pericardial effusion. Moderate left ventricular hypertrophy. Increased E-point interventricular septal separation , consistent with left ventricular dysfunction. Right ventricular systolic pressure of 26. CTA of the chest revealed no obvious pulmonary embolism. Patient was continued on antiplatelet therapy with aspirin. Anti-failure medication regimen continued , including with beta-tatyana, diuretic( Aldactone and Lasix) and PATRIZIA inhibitor. Blood pressure was managed with beta-tatyana , PATRIZIA inhibitor and hydralazine. Patient with known severe cardiomyopathy. Patient will need interrogation of defibrillator , which can be done as an outpatient. Patient stopped using cocaine prior to getting a defibrillator, but recently started again. Current urine toxicology screen was negative , but on prior admission on it was positive . Patient was counseled on abstinence from cocaine use. Cardiac catheterization at [facility] revealed normal coronary arteries. Cds Sales Advisor closely followed. Supplemental oxygen provided as needed to keep pulse oximetry above 92%. Pulmonary toilet was on standby as needed. Patient was counseled on smoking cessation and started on nicotine patch. Trial of theophylline started. Antitussive provided as needed. Sputum culture was negative. Patient may have obstructive sleep apnea. Sleep study was recommended as outpatient. Volumes and cardiorenal parameters were closely monitored. Pro BNP from initial 962 down to 366. Pain management was addressed. Supportive care provided. Patient clinically stabilized and was ready for discharge home. FINAL DIAGNOSES: CHF with acute exacerbation, combined systolic and diastolic Severe cardiomyopathy with ejection fraction 15-20% Implantable cardioverter/defibrillator in place COPD Hypertension History of cocaine use DISCHARGE MEDICATIONS: See Medication Reconciliation list. DISCHARGE INSTRUCTIONS: Patient was discharged home . Follow up with primary care provider in one week. I have been assigned to dictate discharge summary for this account. I was not involved in the patient's management. Elizabeth Crowder NP Feb 17, 2019 13:06
== END 2019-02-14 13:40 | disposition home or self-care (01) | DRG 293 ==
LOC: EMR 20:25 → EDBEDREQ 20:31 → 2W 21:24 → EDBEDREQ 21:42 → 2W 02-12 04:14 → 2E 02-13 06:10
DX: I11.0 Hypertensive heart disease with heart failure (principal); I50.43 Acute on chronic combined systolic (congestive) and diastolic (congestive) heart failure; Z95.810 Presence of automatic (implantable) cardiac defibrillator; I10 Essential (primary) hypertension; I25.10 Atherosclerotic heart disease of native coronary artery without angina pectoris; J44.9 Chronic obstructive pulmonary disease, unspecified; I42.9 Cardiomyopathy, unspecified; I25.2 Old myocardial infarction; Z79.82 Long term (current) use of aspirin; F14.10 Cocaine abuse, uncomplicated
CPT/HCPCS: 36415; 71045; 71275; 80048; 80053; 80307; 82550; 82553; 82962; 83735; 83880; 84100; 84484; 85025; 85651; 87070; 87205; 93005; 93306; 94640; 94664; 96374; 99285; J1815; J7620

== ENCOUNTER 2019-03-29 09:38 | Inpatient (IN) | payer MEDICARE, MEDICAID ==
[~2019-03-29] VITALS: Ht 177.8 cm; Wt 107.5 kg
[~2019-03-29 09:38] MED LIST changes: -CLONIDINE0.1 MG GT; +CLONIDINE0.1 MG PO
--- NOTE | 2019-03-29 09:56 | NUR ---
ED Nurse Note: Pt came into the ER w/ complaints of SOB x 4 days. Pt is also complainign of chest pain due to coughing. Pt is rating the pain a 10/10. Non radiating. Pt is sating at 94% on RA upon arrival to the ED. Pt has a hx of COPD and HTN. Pt is A + O x4. Ambulatory. Skin warm to touch.
[2019-03-29 09:57] VITALS: BP 187/134
[2019-03-29] MEDS ORDERED: PREDNISONE20 MG ORAL (09:59)
--- NOTE | 2019-03-29 10:04 | Emergency Room Report ---
History of Present Illness General Chief Complaint: Dyspnea/Respdistress Source: Patient Present Illness HPI Patient presents with complaints of shortness of breath reports that ongoing for the past several days Also generally not feeling well and feeling fatigued patient reports increased cough Worsening short of breath with laying flat or any exertion Patient on review of medical records has significant cardiac disease with EF of 15% Denies any active chest pain denies recent travel Allergies: Coded Allergies: No Known Allergies (Unverified , 11/06/18) Patient History Past Medical History: see triage record Pertinent Family History: none Reviewed Nursing Documentation: PMH: Agreed; PSxH: Agreed Nursing Documentation-PMH Hx Cardiac Problems: Yes - chf Hx Hypertension: Yes Hx Pacemaker: Yes - defibrilator Hx Asthma: Yes Hx COPD: Yes Hx Cerebrovascular Accident: Yes - 2014 Review of Systems All Other Systems: negative except mentioned in HPI Physical Exam Vital Signs Date Time Temp Pulse Resp B/P (MAP) Pulse Ox O2 Delivery O2 Flow Rate FiO2 03/29/19 09:46 98.1 107 24 91 Room Air 03/29/19 09:57 94 03/29/19 09:57 187/134 Sp02 EP Interpretation: reviewed, normal General Appearance: mild distress - Short of breath Head: normocephalic, atraumatic Eyes: bilateral eye PERRL, bilateral eye EOMI ENT: hearing grossly normal, normal pharynx, TMs + canals normal, uvula midline Neck: full range of motion, supple, no meningismus, no bony tend Respiratory: no retraction, no accessory muscle use, crackles - Bilaterally Cardiovascular #1: normal peripheral pulses, regular rate, rhythm, no gallop, no JVD, no murmur Gastrointestinal: normal bowel sounds, non tender, soft, no mass, no organomegaly, non-distended, no guarding, no hernia, no pulsatile mass, no rebound Genitourinary: no CVA tenderness Musculoskeletal: normal inspection Neurologic: oriented x3, responsive, manager safe III-XII nml as tested, motor strength/ tone normal, sensory intact Psychiatric: mood/affect normal Skin: other - Facial edema and mild lower extremity Lymphatic: normal inspection, no adenopathy Medical Decision Making Diagnostic Impression: Primary Impression: Dyspnea Additional Impression: Acute CHF ER Course Patient is a fairly complex patient with multiple differential to consideration including but not limited to cardiac cardiopulmonary and vascular emergencies Patient's x-ray shows mild congestion Patient also has previous workup revealing ef of 15% which is significantly concerning Patient provided with diuretics at this time is refusing BiPAP and requires further inpatient care Labs Test 03/29/19 10:15 White Blood Count 5.4 K/UL (4.8-10.8) Red Blood Count 4.77 M/UL (4.70-6.10) Hemoglobin 12.7 G/DL (14.2-18.0) Hematocrit 40.1 % (42.0-52.0) Mean Corpuscular Volume 84 FL (80-99) Mean Corpuscular Hemoglobin 26.6 PG (27.0-31.0) Mean Corpuscular Hemoglobin Concent 31.6 G/DL (32.0-36.0) Red Cell Distribution Width 14.5 % (11.6-14.8) Platelet Count 253 K/UL (150-450) Mean Platelet Volume 6.1 FL (6.5-10.1) Neutrophils (%) (Auto) 72.6 % (45.0-75.0) Lymphocytes (%) (Auto) 15.5 % (20.0-45.0) Monocytes (%) (Auto) 8.6 % (1.0-10.0) Eosinophils (%) (Auto) 2.1 % (0.0-3.0) Basophils (%) (Auto) 1.3 % (0.0-2.0) Sodium Level 145 MMOL/L (136-145) Potassium Level 3.6 MMOL/L (3.5-5.1) Chloride Level 110 MMOL/L (98-107) Carbon Dioxide Level 25 MMOL/L (21-32) Anion Gap 10 mmol/L (5-15) Blood Urea Nitrogen 23 mg/dL (7-18) Creatinine 1.5 MG/DL (0.55-1.30) Estimat Glomerular Filtration Rate > 60 mL/min (>60) Glucose Level 121 MG/DL (74-106) Calcium Level 8.5 MG/DL (8.5-10.1) Total Bilirubin 0.8 MG/DL (0.2-1.0) Aspartate Amino Transf (AST/SGOT) 20 U/L (15-37) Alanine Aminotransferase (ALT/SGPT) 26 U/L (12-78) Alkaline Phosphatase 54 U/L (46-116) Total Creatine Kinase 207 U/L (26-308) Creatine Kinase MB 3.6 NG/ML (0.0-3.6) Creatine Kinase MB Relative Index 1.7 Troponin I 0.079 ng/mL (0.000-0.056) Pro-B-Type Natriuretic Peptide 3147 pg/mL (0-125) Total Protein 6.7 G/DL (6.4-8.2) Albumin 3.4 G/DL (3.4-5.0) Globulin 3.3 g/dL Albumin/Globulin Ratio 1.0 (1.0-2.7) Lipase 202 U/L (73-393) Urine Opiates Screen Negative (NEGATIVE) Urine Barbiturates Screen Negative (NEGATIVE) Phencyclidine (PCP) Screen Negative (NEGATIVE) Urine Amphetamines Screen Negative (NEGATIVE) Urine Benzodiazepines Screen Negative (NEGATIVE) Urine Cocaine Screen Negative (NEGATIVE) Urine Marijuana (THC) Screen Negative (NEGATIVE) Rhythm Strip Diag. Results EP Interpretation: yes Rate: 77 Rhythm: NSR, no PVC's, no ectopy Chest X-Ray Diagnostic Results Chest X-Ray Diagnostic Results : Chest X-Ray Ordered: Yes # of Views/Limited/Complete: 1 View Indication: Shortness of Breath EP Interpretation: Yes Interpretation: no consolidation, no effusion, other - Cardiomegaly, pulmonary congestion Impression: Other - pulmonary congestion Electronically Signed by: Petr Lee DO Last Vital Signs Date Time Temp Pulse Resp B/P (MAP) Pulse Ox O2 Delivery O2 Flow Rate FiO2 03/29/19 09:57 98.0 113 35 187/134 94 Room Air 94 Status: improved Disposition: ADMITTED INPATIENT Condition: Serious Petr Lee DO March 29, 2019 10:04
--- NOTE | 2019-03-29 10:22 | NUR ---
ED Nurse Note: Xray at the bedside.
[2019-03-29 10:25] LABS: BASOPHILS % (AUTO) 1.3 % (0.0-2.0); EOSINOPHILS % (AUTO) 2.1 % (0.0-3.0); HEMATOCRIT 40.1 % (42.0-52.0); HEMOGLOBIN 12.7 G/DL (14.2-18.0); LYMPHOCYTES % (AUTO) 15.5 % (20.0-45.0); MEAN CORPUSCULAR VOLUME 84 FL (80-99); MONOCYTES % (AUTO) 8.6 % (1.0-10.0); NEUTROPHILS % (AUTO) 72.6 % (45.0-75.0); PLATELET COUNT 253 K/UL (150-450); RED BLOOD COUNT 4.77 M/UL (4.70-6.10); RED CELL DISTRIBUTION WIDTH 14.5 % (11.6-14.8); WHITE BLOOD COUNT 5.4 K/UL (4.8-10.8)
[2019-03-29 10:33] LABS: ANION GAP 10 mmol/L (5-15); BLOOD UREA NITROGEN 23 mg/dL (7-18); CALCIUM 8.5 MG/DL (8.5-10.1); CARBON DIOXIDE 25 MMOL/L (21-32); CHLORIDE 110 MMOL/L (98-107); CREATININE 1.5 MG/DL (0.55-1.30); POTASSIUM 3.6 MMOL/L (3.5-5.1); SODIUM 145 MMOL/L (136-145)
[2019-03-29] MEDS ORDERED: Nitroglycerin 2% oint pkt TOPIC ONE (10:45)
[2019-03-29 10:58] LABS: ALANINE AMINOTRANSFERASE 26 U/L (12-78); ALBUMIN 3.4 G/DL (3.4-5.0); ALKALINE PHOSPHATASE 54 U/L (46-116); ASPARTATE AMINO TRANSFERASE 20 U/L (15-37); BILIRUBIN,TOTAL 0.8 MG/DL (0.2-1.0); CKMB 3.6 NG/ML (0.0-3.6); CREATINE KINASE 207 U/L (26-308)
--- NOTE | 2019-03-29 10:59 | NUR ---
ED Nurse Note: Room received but labs still pending. Will continue to monitor.
--- NOTE | 2019-03-29 11:08 | NUR ---
CASE MANAGEMENT: INITIAL REVIEW 03/29/2019 44 YO M PRESENTED TO OUR ED FROM HOME CC: DYSPNEA PMHx: CHF. HTN. PACER. ASTHMA. COPD. CVA. SI:ACUTE CHF T 98.1 HR 107 RR 24 B/P 187/134 SATS 91% ON RA CL 110 BUN 23 CR 1.5 GLU 121 TROPONIN 0.079 BNP 3147 IS: LASIX IV X1 NITRO BID TOP X1 TYLENOL PO X1 PATIENT ADMITTED TO TELE 03/29/2019 @ 1041 DCP: PATIENT TO BE DISCHARGED TO HOME ONCE MEDICALLY CLEARED. PLAN OF CARE: BIPAP
--- NOTE | 2019-03-29 11:13 | NUR ---
ED Nurse Note: Gave telephone report to ROMI Mcclain.
[2019-03-29 12:00] VITALS: BP 178/135
[2019-03-29] MEDS ORDERED: Miralax 17gm pkt ORAL PRN (12:00)
--- NOTE | 2019-03-29 12:00 | NUR ---
NURSE NOTES: Patient transferred from ED, and received report from Ailin/RN, Patient in stable condition, No acute distress noted at this time. Belonging check done, Heart monitor placed. Bed in lowest position and locked. Call light within reach. Will continue plan of care.
--- NOTE | 2019-03-29 12:13 | NUR ---
ED Nurse Note: Pt transferred to tele unit. No acute distress noted. Left ER w/ all belongings.
[2019-03-29] MEDS: HydrALAZINE 50mg tab ORAL SCH ×2 (14:02→20:41)
[2019-03-29 16:00] VITALS: BP 176/114
[2019-03-29] MEDS: NovoLOG Insulin Flexpen SUBQ SCH ×2 (16:23→20:54)
--- NOTE | 2019-03-29 16:45 | History & Physical ---
History and Physical History & Physicial Dictated for Int Med-Dr Hidalgo no. [id number]. Dario Meza MD March 29, 2019 16:45
--- NOTE | 2019-03-29 17:45 | History and Physical Report ---
DATE OF ADMISSION: 03/29/2019 CHIEF COMPLAINT: The patient is a 44-year-old male, who presents with chief complaint of shortness of breath, cough, and chest pain. HISTORY OF PRESENT ILLNESS: The patient was admitted to [facility] from 02/11/2019 to 02/14/2019 with congestive heart failure exacerbation. Please see history and physical and discharge summary dictated at that time. The patient has a left ventricular ejection fraction of 15% to 20%. The patient is status post AICD placement in July [address] Stanley Schumacher. The patient states history of present illness began five days previously. The patient states he began to experience shortness of breath and a nonproductive cough. The patient states shortness of breath has kept him from sleeping. The patient has to sleep on several pillows under his head. The patient presented to [facility]. The patient is admitted for shortness of breath to rule out acute exacerbation of congestive heart failure. REVIEW OF SYSTEMS: CONSTITUTIONAL: The patient denies weight loss or weight gain. The patient denies fevers or chills. HEENT: The patient denies ear or throat pain. The patient denies headache. CARDIOVASCULAR: The patient denies palpitations. The patient complains of chest pain as above. CHEST: The patient complains of shortness of breath as above. The patient denies wheezes. ABDOMEN: The patient denies nausea, vomiting, diarrhea, or constipation. GENITOURINARY: The patient denies dysuria or increased frequency of urination. NEUROMUSCULAR: The patient denies seizures or generalized weakness. PAST MEDICAL HISTORY: Significant for: 1. Congestive heart failure, status post AICD placement in July 2018. 2. Chronic obstructive pulmonary disease. 3. Hypertension. 4. History of coronary artery disease, status post myocardial infarction at age 22 and again in 2013. PAST SURGICAL HISTORY: Significant for AICD placement on 08/11/[address] Stanley Schumacher. CURRENT MEDICATIONS: 1. Allopurinol 300 mg one tablet p.o. daily. 2. Aspirin 81 mg p.o. daily. 3. Atorvastatin 40 mg p.o. nightly. 4. Coreg 25 mg p.o. twice daily. 5. Clonidine 0.1 mg p.o. twice daily. 6. Advair 250/50 mcg one puff p.o. twice daily. 7. Lasix 20 mg p.o. daily. 8. Hydralazine 50 mg one tablet p.o. q.8 h. p.r.n. 9. Isosorbide dinitrate 20 mg p.o. three times daily. 10. Lisinopril 20 mg p.o. twice daily. 11. Prednisone 20 mg p.o. twice daily. 12. Ranitidine 300 mg p.o. nightly. 13. Sitagliptin 100 mg p.o. daily. 14. Spironolactone 25 mg p.o. daily. ALLERGIES: No known drug allergies. SOCIAL HISTORY: The patient is single and is disabled. The patient admits to tobacco use of one and half pack per day. The patient admits to alcohol use of two drinks twice weekly. The patient denies drug abuse. PHYSICAL EXAMINATION: VITAL SIGNS: Temperature 98.0 degrees, respirations 35, pulse 113, and blood pressure 187/134. GENERAL: The patient is a well-developed and well-nourished male, in no apparent distress. HEENT: Eyes, pupils equal and responsive to light and accommodation. Extraocular movements are intact. NECK: Supple without lymphadenopathy. CHEST: Decreased breath sounds in the left base. Otherwise, clear to auscultation without wheezes or rales. CARDIOVASCULAR: Regular rate. S1 and S2 are normal without murmurs, rubs, or gallops. ABDOMEN: Soft, nontender, nondistended. Positive bowel sounds. No evidence of hepatosplenomegaly. Currently, no rebound or guarding noted. EXTREMITIES: Negative for clubbing, cyanosis, edema. RECTAL: Not performed. GENITAL: Not performed. NEUROLOGIC: Cranial nerves II through XII are grossly intact without focal deficits. Motor strength is 5/5 bilaterally intact. Deep tendon reflexes are 2+ plantar. LABORATORY AND DIAGNOSTIC DATA: Laboratory studies, WBC 5.5, hemoglobin 12.2, hematocrit 40.1, and platelets 252,000. Sodium 145, potassium 3.6, chloride 110, CO2 25, BUN 23, creatinine 1.5, and glucose 121. Troponin elevated at 0.079. BNP elevated at 3147. Chest x-ray is pending. ASSESSMENT: This is a 44-year-old male with: 1. Shortness of breath. 2. Chest pain. 3. Acute exacerbation of congestive heart failure. 4. Chronic obstructive pulmonary disease. 5. Hypertension. 6. Coronary artery disease. 7. Hypercholesterolemia. 8. Automatic implantable cardioverter-defibrillator in situ. TREATMENT: 1. Shortness of breath/chest pain/congestive heart failure. Cardiology consultation has been obtained with Dr. Stanley Schumacher. We will follow recommendations of Cardiology. The patient is currently receiving intravenous Lasix. 2. Chronic obstructive pulmonary disease. A Pulmonary consultation has been obtained with Dr. Angel Diaz. The patient is currently receiving DuoNebs every four hours. 3. Hypertension. Continue Coreg as above. 4. Hypercholesterolemia. Continue atorvastatin as above. Dario Meza M.D. DR: Jose JOB#: [id number] CC:
--- NOTE | 2019-03-29 19:00 | NUR ---
NURSE NOTES: Dr. Diaz is aware of high blood pressure and Troponin. No new order at this time.
--- NOTE | 2019-03-29 19:45 | NUR ---
HAND-OFF: Report given to Samantha/RN, Patient awake and alert,No acute distress noted. Family at bed side. Endorsed plan of care.
--- NOTE | 2019-03-29 19:50 | NUR ---
NURSE NOTES: Received pt from ROMI Mcclain. Pt awake, alert, and talkative. Bed in lowest position. Family at bedside. Pt sob with htn. Will give meds and call RT for breathing treatment. Pt refuses Bipap. Will continue to monitor and recheck vitals.
[2019-03-29 20:20] VITALS: BP 173/127
[2019-03-29] MEDS: Albuterol/Ipratropium 3ml neb HHN PRN (20:28)
[2019-03-29] MEDS: Carvedilol 25mg Tab ORAL SCH (20:41)
[2019-03-29] MEDS: Heparin 5000 units/ml inj SUBQ SCH (20:54)
--- NOTE | 2019-03-29 21:05 | NUR ---
NURSE NOTES: Called and left a message with Dr. Hidalgo regarding pts sob and htn. Awaiting call back.
[2019-03-29] MEDS ORDERED: HydrALAZINE 50mg tab ORAL PRN (22:45)
[2019-03-30] VITALS (8 sets, daily range): BP systolic 141–171; BP diastolic 104–125
--- NOTE | 2019-03-30 | NUR ---
NURSE NOTES: cALLED AND left a message with Dr. Schumacher regarding pts troponin. He ordered repeat troponin and EKG. Will input order and will continue to monitor.
[2019-03-30] MEDS: Albuterol/Ipratropium 3ml neb HHN PRN (02:56)
[2019-03-30 05:03] LABS: BASOPHILS % (AUTO) 1.6 % (0.0-2.0); EOSINOPHILS % (AUTO) 2.7 % (0.0-3.0); HEMATOCRIT 42.1 % (42.0-52.0); HEMOGLOBIN 13.4 G/DL (14.2-18.0); LYMPHOCYTES % (AUTO) 19.6 % (20.0-45.0); MEAN CORPUSCULAR VOLUME 84 FL (80-99); NEUTROPHILS % (AUTO) 69.2 % (45.0-75.0); PLATELET COUNT 284 K/UL (150-450); RED BLOOD COUNT 5.01 M/UL (4.70-6.10); RED CELL DISTRIBUTION WIDTH 14.5 % (11.6-14.8); WHITE BLOOD COUNT 5.7 K/UL (4.8-10.8)
[2019-03-30 05:32] LABS: ANION GAP 13 mmol/L (5-15); BLOOD UREA NITROGEN 23 mg/dL (7-18); CALCIUM 9.2 MG/DL (8.5-10.1); CARBON DIOXIDE 27 MMOL/L (21-32); CHLORIDE 104 MMOL/L (98-107); CREATININE 1.4 MG/DL (0.55-1.30); POTASSIUM 3.5 MMOL/L (3.5-5.1); SODIUM 143 MMOL/L (136-145)
[2019-03-30] MEDS: HydrALAZINE 50mg tab ORAL SCH ×3 (06:11→20:41)
[2019-03-30] MEDS: NovoLOG Insulin Flexpen SUBQ SCH ×4 (06:15→20:43)
[2019-03-30] MEDS: Albuterol/Ipratropium 3ml neb HHN SCH ×5 (07:31→23:04)
--- NOTE | 2019-03-30 07:40 | NUR ---
NURSE NOTES: Received report from Samantha LLANOS. aox4, No c/o pain in chest due to cough. Noted ST with 104/min. Bed in lowest position and locked. IV site in RAC 20g SL intact patent. Pt in bed awake. On 2LPM via N/C . Will continue to plan of care.
--- NOTE | 2019-03-30 08:02 | NUR ---
HAND-OFF: Report given to ROMI Hernandez. Pt stable.
[2019-03-30] MEDS: HYDROcodone/Acetamin 5/325 tab ORAL PRN ×2 (08:19→19:17)
[2019-03-30] MEDS: Heparin 5000 units/ml inj SUBQ SCH ×2 (08:21→20:44)
--- NOTE | 2019-03-30 08:47 | NUR ---
RADIOLOGY DEPT., CHEST X-RAY.-P.DYE
[2019-03-30] MEDS: Carvedilol 25mg Tab ORAL SCH ×2 (09:00→20:42)
--- NOTE | 2019-03-30 12:05 | Diagnostic Imaging Report ---
Indication: Dyspnea Comparison: 03/29/2019 A single view chest radiograph was obtained. Findings: Mild pulmonary vascular prominence noted, unchanged. The heart is borderline enlarged. Pacemaker again noted on the left. IMPRESSION: No overt CHF or other acute findings.
--- NOTE | 2019-03-30 12:27 | Internal Med Progress Note ---
Subjective Date of Service: March 30, 2019 Physician Name Dario Meza Attending Physician Mejia Hidalgo MD Current Medications Medications (Trade) Dose Ordered Sig/Andree Route PRN Reason Start Time Stop Time Status Last Admin Dose Admin Acetaminophen (Tylenol) 650 mg Q4H PRN ORAL T>100.5 03/29/19 12:00 04/28/19 11:59 Acetaminophen/ Hydrocodone Bitart ([place] 5/325) 1 tab Q6H PRN ORAL pain 4-10 03/30/19 07:15 04/06/19 07:14 03/30/19 08:19 Albuterol/ Ipratropium (Albuterol/ Ipratropium) 3 ml Q4HRT HHN 03/30/19 08:00 04/04/19 07:59 03/30/19 11:11 Allopurinol (Allopurinol) 300 mg DAILY ORAL 03/30/19 09:00 04/29/19 08:59 03/30/19 08:19 Carvedilol (Coreg) 25 mg EVERY 12 HOURS ORAL 03/29/19 21:00 04/28/19 20:59 03/30/19 09:00 Dextrose (Dextrose 50%) 25 ml Q30M PRN IV Hypoglycemia 03/29/19 12:00 04/28/19 11:59 Dextrose (Dextrose 50%) 50 ml Q30M PRN IV Hypoglycemia 03/29/19 12:00 04/28/19 11:59 Furosemide (Lasix) 40 mg Q8H IV 03/29/19 18:00 04/28/19 17:59 03/30/19 10:19 Heparin Sodium (Porcine) (Heparin 5000 units/ml) 5,000 units EVERY 12 HOURS SUBQ 03/29/19 21:00 04/28/19 20:59 03/30/19 08:21 Hydralazine HCl (Apresoline) 50 mg EVERY 8 HOURS ORAL 03/29/19 14:00 04/28/19 13:59 03/30/19 06:11 Hydralazine HCl (Apresoline) 50 mg Q6H PRN ORAL for sbp>160 03/29/19 22:45 04/28/19 22:44 Insulin Aspart (NovoLOG) BEFORE MEALS AND HS SUBQ 03/29/19 16:30 04/28/19 16:29 Ondansetron HCl (Zofran) 4 mg Q6H PRN IVP Nausea & Vomiting 03/29/19 12:00 04/28/19 11:59 Polyethylene Glycol (Miralax) 17 gm DAILYPRN PRN ORAL Constipation 03/29/19 12:00 04/28/19 11:59 Sitagliptin Phosphate (Januvia) 100 mg DAILY ORAL 03/30/19 09:00 04/29/19 08:59 03/30/19 08:19 Temazepam (Restoril) 15 mg HSPRN PRN ORAL Insomnia 03/29/19 21:00 04/05/19 20:59 Allergies: Coded Allergies: No Known Allergies (Unverified , 11/06/18) ROS Limited/Unobtainable: No Constitutional: Reports: no symptoms HEENT: Reports: no symptoms Cardiovascular: Reports: no symptoms Respiratory: Reports: shortness of breath Gastrointestinal/Abdominal: Reports: no symptoms Genitourinary: Reports: no symptoms Neurologic/Psychiatric: Reports: no symptoms Subjective 44 YO M admitted with shortness of breath and chest pain. Now kirstie heart failure. Cover for Int Med-Dr Hidalgo. Objective Last Vital Signs Date Time Temp Pulse Resp B/P (MAP) Pulse Ox O2 Delivery O2 Flow Rate FiO2 03/30/19 12:00 95 03/30/19 11:21 16 99 Nasal Cannula 2.0 28 03/30/19 09:00 153/121 03/30/19 08:00 97.6 Laboratory Tests Test 03/29/19 16:03 03/29/19 21:50 03/30/19 04:15 Troponin I 0.075 ng/mL (0.000-0.056) 0.107 ng/mL (0.000-0.056) 0.091 ng/mL (0.000-0.056) White Blood Count 5.7 K/UL (4.8-10.8) Red Blood Count 5.01 M/UL (4.70-6.10) Hemoglobin 13.4 G/DL (14.2-18.0) L Hematocrit 42.1 % (42.0-52.0) Mean Corpuscular Volume 84 FL (80-99) Mean Corpuscular Hemoglobin 26.7 PG (27.0-31.0) L Mean Corpuscular Hemoglobin Concent 31.8 G/DL (32.0-36.0) L Red Cell Distribution Width 14.5 % (11.6-14.8) Platelet Count 284 K/UL (150-450) Mean Platelet Volume 6.5 FL (6.5-10.1) Neutrophils (%) (Auto) 69.2 % (45.0-75.0) Lymphocytes (%) (Auto) 19.6 % (20.0-45.0) L Monocytes (%) (Auto) 7.0 % (1.0-10.0) Eosinophils (%) (Auto) 2.7 % (0.0-3.0) Basophils (%) (Auto) 1.6 % (0.0-2.0) Sodium Level 143 MMOL/L (136-145) Potassium Level 3.5 MMOL/L (3.5-5.1) Chloride Level 104 MMOL/L (98-107) Carbon Dioxide Level 27 MMOL/L (21-32) Anion Gap 13 mmol/L (5-15) Blood Urea Nitrogen 23 mg/dL (7-18) H Creatinine 1.4 MG/DL (0.55-1.30) H Estimat Glomerular Filtration Rate > 60 mL/min (>60) Glucose Level 100 MG/DL (74-106) Calcium Level 9.2 MG/DL (8.5-10.1) Intake and Output 03/29/19 03/30/19 19:00 07:00 Intake Total 550 ml 350 ml Balance 550 ml 350 ml Intake Oral 550 ml 350 ml # Voids 5 2 # Bowel Movements 1 Objective PHYSICAL EXAMINATION: GENERAL: The patient is a well-developed and well-nourished male, in no apparent distress. HEENT: Eyes, pupils equal and responsive to light and accommodation. Extraocular movements are intact. NECK: Supple without lymphadenopathy. CHEST: Decreased breath sounds in the left base. Otherwise, clear to auscultation without wheezes or rales. CARDIOVASCULAR: Regular rate. S1 and S2 are normal without murmurs, rubs, or gallops. ABDOMEN: Soft, nontender, nondistended. Positive bowel sounds. No evidence of hepatosplenomegaly. Currently, no rebound or guarding noted. EXTREMITIES: Negative for clubbing, cyanosis, edema. RECTAL: Not performed. GENITAL: Not performed. NEUROLOGIC: Cranial nerves II through XII are grossly intact without focal deficits. Motor strength is 5/5 bilaterally intact. Deep tendon reflexes are 2+ plantar. Assessment/Plan Assessment/Plan ASSESSMENT: This is a 44-year-old male with: 1. Shortness of breath. 2. Chest pain. 3. Acute exacerbation of congestive heart failure. 4. Chronic obstructive pulmonary disease. 5. Hypertension. 6. Coronary artery disease. 7. Hypercholesterolemia. 8. Automatic implantable cardioverter-defibrillator in situ. TREATMENT: 1. Shortness of breath/chest pain/congestive heart failure. LVEF=15-20%. A Cardiology consultation has been obtained with Dr. Stanley Schumacher. We will follow recommendations of Cardiology. The patient is currently receiving intravenous Lasix. 2. Chronic obstructive pulmonary disease. A Pulmonary consultation has been obtained with Dr. Angel Diaz. The patient is currently receiving DuoNebs every four hours. 3. Hypertension. Continue Coreg as above. 4. Hypercholesterolemia. Continue atorvastatin as above. Dario Meza MD March 30, 2019 12:27
--- NOTE | 2019-03-30 13:26 | Consultation ---
History of Present Illness General Date patient seen: March 30, 2019 Chief Complaint: Dyspnea/Respdistress Present Illness HPI 44 year old male with hx of CHF, EF of 15%, s/p ICD, cardiomyopathy, COPD, [place], CAD presented to ER with CC of worsening sob for the last three weeks, episodes of cough and with greenish phlegm . His CXR showed cardiomegaly with usual ICD wires. He is admitted to telemetry for further work up. He is sitting up in the bed, looks asymptomatic with occasional cough. Allergies: Coded Allergies: No Known Allergies (Unverified , 11/06/18) Medication History Scheduled Allopurinol* (Zyloprim*), 300 MG ORAL DAILY, (Reported) Allopurinol* (Allopurinol*), 300 MG ORAL DAILY Aspirin (Aspirin EC), 81 MG ORAL DAILY, (Reported) Atorvastatin (Lipitor), 40 MG ORAL BEDTIME, (Reported) Atorvastatin Calcium* (Atorvastatin Calcium*), 40 MG ORAL DAILY Carvedilol (Coreg), 25 MG ORAL EVERY 12 HOURS, (Reported) Carvedilol* (Carvedilol*), 25 MG ORAL EVERY 12 HOURS Clonidine HCl (Clonidine HCl), 0.1 MG GT BID, (Reported) Fluticasone/Salmeterol (Advair 250-50 Diskus), 1 PUFF INH EVERY 12 HOURS, ( Reported) Furosemide* (Lasix*), 20 MG ORAL DAILY, (Reported) Furosemide* (Lasix*), 40 MG ORAL DAILY Hydralazine HCl (Hydralazine HCl), 50 MG ORAL EVERY 8 HOURS, (Reported) Isosorbide Dinitrate (Isosorbide Dinitrate), 20 MG PO TID, (Reported) Lisinopril (Lisinopril*), 20 MG ORAL BID, (Reported) Prednisone* (Prednisone*), 20 MG ORAL TWICE A DAY, (Reported) Ranitidine Hcl (Ranitidine Hcl), 300 MG ORAL DAILY Ranitidine Hcl* (Zantac*), 150 MG ORAL TWICE A DAY, (Reported) Sitagliptin* (Januvia*), 100 MG ORAL DAILY, (Reported) Spironolactone* (Spironolactone*), 25 MG ORAL DAILY, (Reported) Spironolactone* (Aldactone*), 25 MG ORAL DAILY Scheduled PRN Acetaminophen With Codeine (T#3) (Tylenol #3 Tab*), 1 TAB ORAL Q4H PRN Patient History Healthcare decision maker Resuscitation status Full Code Advanced Directive on File No Past Medical/Surgical History Past Medical/Surgical History: (1) EF 15% (2) ICD (implantable cardioverter-defibrillator) in place (3) Cardiomyopathy (4) CAD (coronary artery disease) (5) COPD (chronic obstructive pulmonary disease) Review of Systems Respiratory: Reports: shortness of breath, sputum All Other Systems: negative except mentioned in HPI Physical Exam General Appearance: WD/WN, no apparent distress Lines, tubes and drains: peripheral HEENT: normocephalic, atraumatic Neck: non-tender, normal alignment Respiratory/Chest: chest wall non-tender, lungs clear Cardiovascular/Chest: normal peripheral pulses, normal rate Abdomen: normal bowel sounds, non tender Genitourinary/Rectal: normal genital exam Extremities: normal range of motion Skin Exam: normal pigmentation Last 24 Hour Vital Signs Date Time Temp Pulse Resp B/P (MAP) Pulse Ox O2 Delivery O2 Flow Rate FiO2 03/30/19 13:15 141/104 03/30/19 12:00 98.1 98 20 141/104 (116) 98 03/30/19 12:00 95 03/30/19 11:21 90 16 99 Nasal Cannula 2.0 28 03/30/19 11:11 28 03/30/19 11:11 83 18 99 Nasal Cannula 2.0 28 03/30/19 09:00 97 153/121 03/30/19 09:00 Nasal Cannula 2.0 03/30/19 08:00 97.6 98 20 153/121 (132) 97 03/30/19 08:00 97 03/30/19 07:40 101 16 99 Nasal Cannula 2.0 28 03/30/19 07:30 Nasal Cannula 2.0 28 03/30/19 07:30 99 18 96 Nasal Cannula 2.0 28 03/30/19 07:30 28 03/30/19 07:30 96 Nasal Cannula 2.0 28 03/30/19 06:11 171/125 03/30/19 04:00 101 03/30/19 04:00 97.8 94 20 171/125 (140) 96 03/30/19 03:21 98 20 99 Nasal Cannula 2.0 28 03/30/19 03:21 28 03/30/19 03:02 96 20 97 Nasal Cannula 2.0 28 03/30/19 02:36 99 153/115 (128) 03/30/19 00:00 98.4 98 20 165/118 (134) 97 03/30/19 00:00 92 03/29/19 21:00 Nasal Cannula 2.0 03/29/19 20:44 108 22 97 Nasal Cannula 2.0 28 03/29/19 20:41 173/127 03/29/19 20:41 103 173/127 03/29/19 20:35 Nasal Cannula 2.0 28 03/29/19 20:35 28 03/29/19 20:34 95 Nasal Cannula 2.0 27 03/29/19 20:32 103 22 95 Nasal Cannula 2.0 28 03/29/19 20:20 98.1 104 20 173/127 (142) 98 03/29/19 16:00 108 03/29/19 16:00 98.7 104 32 176/114 (134) 99 03/29/19 14:02 165/135 Intake and Output 03/29/19 03/30/19 19:00 07:00 Intake Total 550 ml 350 ml Balance 550 ml 350 ml Intake Oral 550 ml 350 ml # Voids 5 2 # Bowel Movements 1 Laboratory Tests Test 03/29/19 16:03 03/29/19 21:50 03/30/19 04:15 Troponin I 0.075 ng/mL (0.000-0.056) 0.107 ng/mL (0.000-0.056) 0.091 ng/mL (0.000-0.056) White Blood Count 5.7 K/UL (4.8-10.8) Red Blood Count 5.01 M/UL (4.70-6.10) Hemoglobin 13.4 G/DL (14.2-18.0) L Hematocrit 42.1 % (42.0-52.0) Mean Corpuscular Volume 84 FL (80-99) Mean Corpuscular Hemoglobin 26.7 PG (27.0-31.0) L Mean Corpuscular Hemoglobin Concent 31.8 G/DL (32.0-36.0) L Red Cell Distribution Width 14.5 % (11.6-14.8) Platelet Count 284 K/UL (150-450) Mean Platelet Volume 6.5 FL (6.5-10.1) Neutrophils (%) (Auto) 69.2 % (45.0-75.0) Lymphocytes (%) (Auto) 19.6 % (20.0-45.0) L Monocytes (%) (Auto) 7.0 % (1.0-10.0) Eosinophils (%) (Auto) 2.7 % (0.0-3.0) Basophils (%) (Auto) 1.6 % (0.0-2.0) Sodium Level 143 MMOL/L (136-145) Potassium Level 3.5 MMOL/L (3.5-5.1) Chloride Level 104 MMOL/L (98-107) Carbon Dioxide Level 27 MMOL/L (21-32) Anion Gap 13 mmol/L (5-15) Blood Urea Nitrogen 23 mg/dL (7-18) H Creatinine 1.4 MG/DL (0.55-1.30) H Estimat Glomerular Filtration Rate > 60 mL/min (>60) Glucose Level 100 MG/DL (74-106) Calcium Level 9.2 MG/DL (8.5-10.1) Height (Feet): 5 Height (Inches): 10.00 Weight (Pounds): 242 Medications Current Medications Medications (Trade) Dose Ordered Sig/Andree Route PRN Reason Start Time Stop Time Status Last Admin Dose Admin Acetaminophen (Tylenol) 650 mg Q4H PRN ORAL T>100.5 03/29/19 12:00 04/28/19 11:59 Acetaminophen/ Hydrocodone Bitart ([place] 5/325) 1 tab Q6H PRN ORAL pain 4-10 03/30/19 07:15 04/06/19 07:14 03/30/19 08:19 Albuterol/ Ipratropium (Albuterol/ Ipratropium) 3 ml Q4HRT HHN 03/30/19 08:00 04/04/19 07:59 03/30/19 11:11 Allopurinol (Allopurinol) 300 mg DAILY ORAL 03/30/19 09:00 04/29/19 08:59 03/30/19 08:19 Carvedilol (Coreg) 25 mg EVERY 12 HOURS ORAL 03/29/19 21:00 04/28/19 20:59 03/30/19 09:00 Dextrose (Dextrose 50%) 25 ml Q30M PRN IV Hypoglycemia 03/29/19 12:00 04/28/19 11:59 Dextrose (Dextrose 50%) 50 ml Q30M PRN IV Hypoglycemia 03/29/19 12:00 04/28/19 11:59 Furosemide (Lasix) 40 mg Q8H IV 03/29/19 18:00 04/28/19 17:59 03/30/19 10:19 Heparin Sodium (Porcine) (Heparin 5000 units/ml) 5,000 units EVERY 12 HOURS SUBQ 03/29/19 21:00 04/28/19 20:59 03/30/19 08:21 Hydralazine HCl (Apresoline) 50 mg EVERY 8 HOURS ORAL 03/29/19 14:00 04/28/19 13:59 03/30/19 13:15 Hydralazine HCl (Apresoline) 50 mg Q6H PRN ORAL for sbp>160 03/29/19 22:45 04/28/19 22:44 Insulin Aspart (NovoLOG) BEFORE MEALS AND HS SUBQ 03/29/19 16:30 04/28/19 16:29 Levofloxacin 100 ml @ 100 mls/hr Q24H IVPB 03/30/19 13:30 04/06/19 13:29 UNV Ondansetron HCl (Zofran) 4 mg Q6H PRN IVP Nausea & Vomiting 03/29/19 12:00 04/28/19 11:59 Polyethylene Glycol (Miralax) 17 gm DAILYPRN PRN ORAL Constipation 03/29/19 12:00 04/28/19 11:59 Promethazine HCl/ Codeine (Phenergan with Codeine) 5 ml Q4H PRN ORAL For Cough 03/30/19 13:30 04/29/19 13:29 UNV Sitagliptin Phosphate (Januvia) 100 mg DAILY ORAL 03/30/19 09:00 04/29/19 08:59 03/30/19 08:19 Temazepam (Restoril) 15 mg HSPRN PRN ORAL Insomnia 03/29/19 21:00 04/05/19 20:59 Theophylline (Taqueria-Dur) 100 mg EVERY 12 HOURS ORAL 5/13/19 21:00 04/29/19 20:59 UNV Assessment/Plan Problem List: (1) Acute respiratory failure ICD Codes: J96.00 - Acute respiratory failure, unspecified whether with hypoxia or hypercapnia SNOMED: 79687616 (2) Acute bronchitis ICD Codes: J20.9 - Acute bronchitis, unspecified SNOMED: 51286866 (3) Acute CHF ICD Codes: I50.9 - Heart failure, unspecified SNOMED: 58850737 (4) EF 15% (5) ICD (implantable cardioverter-defibrillator) in place ICD Codes: Z95.810 - Presence of automatic (implantable) cardiac defibrillator SNOMED: 868129121 Assessment/Plan: check sputum c/s IV abx titrate fio2 to sat of 92% check BNP and cxr in am antitussives dvt prophylaxis Angel Diaz MD March 30, 2019 13:26
[2019-03-30] MEDS: Promethazine/Codeine 5ml UD ORAL PRN ×2 (13:51→20:42)
--- NOTE | 2019-03-30 18:05 | Consultation ---
History of Present Illness General Date patient seen: March 30, 2019 Time patient seen: 17:57 Chief Complaint: Dyspnea/Respdistress Present Illness HPI 44 year old male presents to ER w/ complaints of SOB x 4 days. Pt is also complainig of chest pain due to coughing. Pt has a hx of CHF. CAD s/p [place] age 22 and in 2013 HTN. PACER. ASTHMA. COPD. CVA. initial labs TROPONIN 0.079 BNP 3147 The patient has a left ventricular ejection fraction of 15% to 20%. The patient is status post AICD placement in July [address] Stanley Schumacher. no chest pain. CXR Mild pulmonary vascular prominence noted, Allergies: Coded Allergies: No Known Allergies (Unverified , 11/06/18) Medication History Scheduled Allopurinol* (Zyloprim*), 300 MG ORAL DAILY, (Reported) Allopurinol* (Allopurinol*), 300 MG ORAL DAILY Aspirin (Aspirin EC), 81 MG ORAL DAILY, (Reported) Atorvastatin (Lipitor), 40 MG ORAL BEDTIME, (Reported) Atorvastatin Calcium* (Atorvastatin Calcium*), 40 MG ORAL DAILY Carvedilol (Coreg), 25 MG ORAL EVERY 12 HOURS, (Reported) Carvedilol* (Carvedilol*), 25 MG ORAL EVERY 12 HOURS Clonidine HCl (Clonidine HCl), 0.1 MG GT BID, (Reported) Fluticasone/Salmeterol (Advair 250-50 Diskus), 1 PUFF INH EVERY 12 HOURS, ( Reported) Furosemide* (Lasix*), 20 MG ORAL DAILY, (Reported) Furosemide* (Lasix*), 40 MG ORAL DAILY Hydralazine HCl (Hydralazine HCl), 50 MG ORAL EVERY 8 HOURS, (Reported) Isosorbide Dinitrate (Isosorbide Dinitrate), 20 MG PO TID, (Reported) Lisinopril (Lisinopril*), 20 MG ORAL BID, (Reported) Prednisone* (Prednisone*), 20 MG ORAL TWICE A DAY, (Reported) Ranitidine Hcl (Ranitidine Hcl), 300 MG ORAL DAILY Ranitidine Hcl* (Zantac*), 150 MG ORAL TWICE A DAY, (Reported) Sitagliptin* (Januvia*), 100 MG ORAL DAILY, (Reported) Spironolactone* (Spironolactone*), 25 MG ORAL DAILY, (Reported) Spironolactone* (Aldactone*), 25 MG ORAL DAILY Scheduled PRN Acetaminophen With Codeine (T#3) (Tylenol #3 Tab*), 1 TAB ORAL Q4H PRN Patient History Healthcare decision maker Resuscitation status Full Code Advanced Directive on File No Review of Systems Constitutional: Reports: no symptoms Eye: Reports: no symptoms ENT: Reports: no symptoms Respiratory: Reports: orthopnea, shortness of breath, wheezing, ARENAS Cardiovascular: Reports: no symptoms Gastrointestinal: Reports: no symptoms Genitourinary: Reports: no symptoms Musculoskeletal: Reports: no symptoms Skin: Reports: no symptoms Psychiatric: Reports: no symptoms Neurological: Reports: no symptoms Endocrine: Reports: no symptoms Hematologic/Lymphatic: Reports: no symptoms Physical Exam General Appearance: no apparent distress Lines, tubes and drains: peripheral HEENT: normocephalic, atraumatic, anicteric, mucous membranes moist, PERRL Neck: non-tender, normal alignment, supple, normal inspection Cardiovascular/Chest: regular rhythm, tachycardia, systolic murmur, gallop/S4, pacemaker/AICD Abdomen: normal bowel sounds, non tender, soft, no organomegaly, no mass, hepatomegaly Extremities: non-tender, normal inspection, no calf tenderness, moderate edema 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 II-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 grossly normal, no motor/sensory deficits Last 24 Hour Vital Signs Date Time Temp Pulse Resp B/P (MAP) Pulse Ox O2 Delivery O2 Flow Rate FiO2 03/30/19 16:00 97.2 92 20 154/114 (127) 99 03/30/19 16:00 92 03/30/19 15:16 93 16 99 Nasal Cannula 2.0 28 03/30/19 15:06 86 18 99 Nasal Cannula 2.0 28 03/30/19 15:06 28 03/30/19 13:15 141/104 03/30/19 12:00 98.1 98 20 141/104 (116) 98 03/30/19 12:00 95 03/30/19 11:21 90 16 99 Nasal Cannula 2.0 28 03/30/19 11:11 28 03/30/19 11:11 83 18 99 Nasal Cannula 2.0 28 03/30/19 09:00 97 153/121 03/30/19 09:00 Nasal Cannula 2.0 03/30/19 08:00 97.6 98 20 153/121 (132) 97 03/30/19 08:00 97 03/30/19 07:40 101 16 99 Nasal Cannula 2.0 28 03/30/19 07:30 Nasal Cannula 2.0 28 03/30/19 07:30 99 18 96 Nasal Cannula 2.0 28 03/30/19 07:30 28 03/30/19 07:30 96 Nasal Cannula 2.0 28 03/30/19 06:11 171/125 03/30/19 04:00 101 03/30/19 04:00 97.8 94 20 171/125 (140) 96 03/30/19 03:21 98 20 99 Nasal Cannula 2.0 03/30/19 03:21 28 03/30/19 03:02 96 20 97 Nasal Cannula 2.0 03/30/19 02:36 99 153/115 (128) 03/30/19 00:00 98.4 98 20 165/118 (134) 97 03/30/19 00:00 92 03/29/19 21:00 Nasal Cannula 2.0 03/29/19 20:44 108 22 97 Nasal Cannula 2.0 03/29/19 20:41 173/127 03/29/19 20:41 103 173/127 03/29/19 20:35 Nasal Cannula 2.0 28 03/29/19 20:35 28 03/29/19 20:34 95 Nasal Cannula 2.0 03/29/19 20:32 103 22 95 Nasal Cannula 2.0 03/29/19 20:20 98.1 104 20 173/127 (142) 98 Intake and Output 03/29/19 03/30/19 19:00 07:00 Intake Total 550 ml 350 ml Balance 550 ml 350 ml Intake Oral 550 ml 350 ml # Voids 5 2 # Bowel Movements 1 Laboratory Tests Test 03/29/19 21:50 03/30/19 04:15 Troponin I 0.107 ng/mL (0.000-0.056) 0.091 ng/mL (0.000-0.056) White Blood Count 5.7 K/UL (4.8-10.8) Red Blood Count 5.01 M/UL (4.70-6.10) Hemoglobin 13.4 G/DL (14.2-18.0) L Hematocrit 42.1 % (42.0-52.0) Mean Corpuscular Volume 84 FL (80-99) Mean Corpuscular Hemoglobin 26.7 PG (27.0-31.0) L Mean Corpuscular Hemoglobin Concent 31.8 G/DL (32.0-36.0) L Red Cell Distribution Width 14.5 % (11.6-14.8) Platelet Count 284 K/UL (150-450) Mean Platelet Volume 6.5 FL (6.5-10.1) Neutrophils (%) (Auto) 69.2 % (45.0-75.0) Lymphocytes (%) (Auto) 19.6 % (20.0-45.0) L Monocytes (%) (Auto) 7.0 % (1.0-10.0) Eosinophils (%) (Auto) 2.7 % (0.0-3.0) Basophils (%) (Auto) 1.6 % (0.0-2.0) Sodium Level 143 MMOL/L (136-145) Potassium Level 3.5 MMOL/L (3.5-5.1) Chloride Level 104 MMOL/L (98-107) Carbon Dioxide Level 27 MMOL/L (21-32) Anion Gap 13 mmol/L (5-15) Blood Urea Nitrogen 23 mg/dL (7-18) H Creatinine 1.4 MG/DL (0.55-1.30) H Estimat Glomerular Filtration Rate > 60 mL/min (>60) Glucose Level 100 MG/DL (74-106) Calcium Level 9.2 MG/DL (8.5-10.1) Height (Feet): 5 Height (Inches): 10.00 Weight (Pounds): 242 Medications Current Medications Medications (Trade) Dose Ordered Sig/Andree Route PRN Reason Start Time Stop Time Status Last Admin Dose Admin Acetaminophen (Tylenol) 650 mg Q4H PRN ORAL T>100.5 03/29/19 12:00 04/28/19 11:59 Acetaminophen/ Hydrocodone Bitart ([place] 5/325) 1 tab Q6H PRN ORAL pain 4-10 03/30/19 07:15 04/06/19 07:14 03/30/19 08:19 Albuterol/ Ipratropium (Albuterol/ Ipratropium) 3 ml Q4HRT HHN 03/30/19 08:00 04/04/19 07:59 03/30/19 15:06 Allopurinol (Allopurinol) 300 mg DAILY ORAL 03/30/19 09:00 04/29/19 08:59 03/30/19 08:19 Carvedilol (Coreg) 25 mg EVERY 12 HOURS ORAL 03/29/19 21:00 04/28/19 20:59 03/30/19 09:00 Dextrose (Dextrose 50%) 25 ml Q30M PRN IV Hypoglycemia 03/29/19 12:00 04/28/19 11:59 Dextrose (Dextrose 50%) 50 ml Q30M PRN IV Hypoglycemia 03/29/19 12:00 04/28/19 11:59 Heparin Sodium (Porcine) (Heparin 5000 units/ml) 5,000 units EVERY 12 HOURS SUBQ 03/29/19 21:00 04/28/19 20:59 03/30/19 08:21 Hydralazine HCl (Apresoline) 50 mg EVERY 8 HOURS ORAL 03/29/19 14:00 04/28/19 13:59 03/30/19 13:15 Hydralazine HCl (Apresoline) 50 mg Q6H PRN ORAL for sbp>160 03/29/19 22:45 04/28/19 22:44 Insulin Aspart (NovoLOG) BEFORE MEALS AND HS SUBQ 03/29/19 16:30 04/28/19 16:29 Levofloxacin 100 ml @ 100 mls/hr Q24H IVPB 03/30/19 15:00 04/06/19 14:59 03/30/19 15:12 Ondansetron HCl (Zofran) 4 mg Q6H PRN IVP Nausea & Vomiting 03/29/19 12:00 04/28/19 11:59 Polyethylene Glycol (Miralax) 17 gm DAILYPRN PRN ORAL Constipation 03/29/19 12:00 04/28/19 11:59 Promethazine HCl/ Codeine (Phenergan with Codeine) 5 ml Q4H PRN ORAL For Cough 03/30/19 13:30 04/29/19 13:29 03/30/19 13:51 Sitagliptin Phosphate (Januvia) 100 mg DAILY ORAL 03/30/19 09:00 04/29/19 08:59 03/30/19 08:19 Temazepam (Restoril) 15 mg HSPRN PRN ORAL Insomnia 03/29/19 21:00 04/05/19 20:59 Theophylline (Taqueria-Dur) 100 mg EVERY 12 HOURS ORAL 03/30/19 21:00 04/29/19 20:59 Assessment/Plan Status: stable Assessment/Plan: Assessment: (1) Acute respiratory failure (2) Acute bronchitis (3) Acute CHF (4) EF 15% (5) ICD (implantable cardioverter-defibrillator) in place (6) Hypertension (7) COPD (8) Coronary disease (9) Systolic CHF exacerbation Plan: Aspirin Statin ICD interrogation Coreg 25 mg BID Add aldactone 25 mg daily Add ACEI for afterload reduction lasix to reduce filling pressures Optimitize respiratory status Fluids/salt restriction daily [facility] cru[facility] March 30, 2019 18:05
--- NOTE | 2019-03-30 19:17 | NUR ---
HAND-OFF: Report given to Samantha LLANOS. Pt remains stable.
--- NOTE | 2019-03-30 19:26 | NUR ---
NURSE NOTES: Received pt from ROMI Hernandez. Pt awake, alert, and c/o pain. Pt verbalized that Margaret wasnt addressing his pain. Called and left a message with Dr. Hidalgo asking for something stronger. Awaiting call back. Bed in lowest position. Call light within reach. Will continue to monitor.
[2019-03-30] MEDS ORDERED: HYDROmorphone 1mg/ml Carpuject IVP PRN (20:15)
--- NOTE | 2019-03-30 20:16 | NUR ---
NURSE NOTES: Called and left a message with Dr. Diaz regarding pts pain. He gave orders for dilaudid 1mg q4 prn. Will input order and will continue to monitor.
[2019-03-30] MEDS ORDERED: HYDROcodone/Acetamin 5/325 tab ORAL PRN (20:30)
[2019-03-30] MEDS: Theophylline ER 100mg ORAL SCH (20:42)
[2019-03-30] MEDS: HYDROmorphone 1mg/ml Carpuject IVP PRN (20:43)
[2019-03-31] VITALS: BP 151/108
[2019-03-31] MEDS: Promethazine/Codeine 5ml UD ORAL PRN ×5 (00:53→23:23)
[2019-03-31] MEDS: HYDROmorphone 1mg/ml Carpuject IVP PRN ×5 (00:53→23:29)
[2019-03-31] MEDS: Albuterol/Ipratropium 3ml neb HHN SCH ×6 (02:49→23:15)
[2019-03-31 04:00] VITALS: BP 151/121
[2019-03-31] MEDS: HydrALAZINE 50mg tab ORAL SCH ×3 (05:24→21:01)
[2019-03-31] MEDS: NovoLOG Insulin Flexpen SUBQ SCH ×4 (05:27→21:02)
--- NOTE | 2019-03-31 07:05 | NUR ---
NURSE NOTES: Received report from Samantha LLANOS. aox4, No c/o pain. Rhythm with SR with BBB reported during power and recovery shift engineer. Bed in lowest position and locked. IV site in R hand 20g SL intact patent. Pt awake and sitting in bed. On 2LPM via N/C . Will continue to plan of care.
--- NOTE | 2019-03-31 07:17 | NUR ---
HAND-OFF: Report given to ROMI Hernandez. Pt stable.
[2019-03-31 07:18] LABS: BASOPHILS % (AUTO) 1.2 % (0.0-2.0); EOSINOPHILS % (AUTO) 4.1 % (0.0-3.0); HEMATOCRIT 43.7 % (42.0-52.0); HEMOGLOBIN 14.3 G/DL (14.2-18.0); LYMPHOCYTES % (AUTO) 17.3 % (20.0-45.0); MEAN CORPUSCULAR VOLUME 82 FL (80-99); MONOCYTES % (AUTO) 10.1 % (1.0-10.0); NEUTROPHILS % (AUTO) 67.3 % (45.0-75.0); PLATELET COUNT 297 K/UL (150-450); RED BLOOD COUNT 5.31 M/UL (4.70-6.10); RED CELL DISTRIBUTION WIDTH 14.2 % (11.6-14.8); WHITE BLOOD COUNT 5.7 K/UL (4.8-10.8)
[2019-03-31 07:31] LABS: ALANINE AMINOTRANSFERASE 25 U/L (12-78); ALBUMIN 3.5 G/DL (3.4-5.0); ALBUMIN/GLOBULIN RATIO 0.9 (1.0-2.7); ALKALINE PHOSPHATASE 61 U/L (46-116); ANION GAP 10 mmol/L (5-15); ASPARTATE AMINO TRANSFERASE 17 U/L (15-37); BLOOD UREA NITROGEN 32 mg/dL (7-18); CALCIUM 9.2 MG/DL (8.5-10.1); CARBON DIOXIDE 27 MMOL/L (21-32); CHLORIDE 103 MMOL/L (98-107); CREATININE 1.7 MG/DL (0.55-1.30); POTASSIUM 3.6 MMOL/L (3.5-5.1); SODIUM 140 MMOL/L (136-145)
[2019-03-31 08:00] VITALS: BP 156/115
[2019-03-31] MEDS: Carvedilol 25mg Tab ORAL SCH ×2 (08:16→21:00)
[2019-03-31] MEDS: Spironolactone 25mg tab ORAL SCH (08:16)
[2019-03-31] MEDS: Theophylline ER 100mg ORAL SCH ×2 (08:17→21:01)
[2019-03-31] MEDS: Heparin 5000 units/ml inj SUBQ SCH ×2 (08:18→21:02)
[2019-03-31] MEDS ORDERED: Enalapril 2.5mg tab ORAL SCH (09:00)
--- NOTE | 2019-03-31 09:07 | NUR ---
RADIOLOGY DEPT., CHEST X-RAY DONE.-P.DYE
--- NOTE | 2019-03-31 09:30 | NUR ---
CASE MANAGEMENT:REVIEW 03/31/19 SI: ACUTE BRONCHITIS. CHF W/EF 15% . COPD AICD 98.0 104 20 156/115 99% ON 2L/NC BUN+32 CR+1.7 TROPONIN(+) 0.091 IS: IV LEVAQUIN Q24 ALDACTONE PO QD VASOTEC PO QD ROCKY-DUR PO Q12 DUONEB HHN Q4HR RTC COREG PO Q12 HEPARIN SQ Q12 HYDRALAZINE PO Q8HRS : TELEMETRY STATUS DCP: PATIENT IS FROM HOME IV DILAUDID Q4HRS PRN
--- NOTE | 2019-03-31 09:52 | Diagnostic Imaging Report ---
Indication: Dyspnea Comparison: 03/30/2019 A single view chest radiograph was obtained. Findings: Cardiomegaly is stable. Lungs are essentially clear. Pacemaker noted on the left. 2 leads are noted again without change in appearance configuration. IMPRESSION: No significant change from the prior examination done one day earlier.
[2019-03-31 12:00] VITALS: BP 140/99
--- NOTE | 2019-03-31 12:01 | Pulmonology Progress Note ---
Assessment/Plan Problems: (1) Acute respiratory failure (2) Acute bronchitis (3) Acute CHF (4) EF 15% (5) ICD (implantable cardioverter-defibrillator) in place Assessment/Plan improving lasix on hold check electrolytes Renal evaluation for increasing bun/creatinine less cough with antitussives Subjective ROS Limited/Unobtainable: No Constitutional: Reports: no symptoms HEENT: Repors: no symptoms Respiratory: Reports: no symptoms Allergies: Coded Allergies: No Known Allergies (Unverified , 11/06/18) Objective Last 24 Hour Vital Signs Date Time Temp Pulse Resp B/P (MAP) Pulse Ox O2 Delivery O2 Flow Rate FiO2 03/31/19 10:50 106 18 100 Room Air 21 03/31/19 10:38 80 16 97 Room Air 21 03/31/19 10:38 28 03/31/19 08:47 Nasal Cannula 2.0 03/31/19 08:16 156/115 03/31/19 08:16 104 156/115 03/31/19 08:00 98.0 104 20 156/115 (129) 96 03/31/19 08:00 86 03/31/19 06:55 102 20 99 Room Air 21 03/31/19 06:46 84 16 98 Room Air 21 03/31/19 06:46 98 Room Air 21 03/31/19 06:46 28 03/31/19 05:24 151/121 03/31/19 04:00 98.6 86 24 151/121 (131) 93 03/31/19 04:00 91 03/31/19 02:59 100 20 98 Room Air 21 03/31/19 02:50 98 22 94 Room Air 21 03/31/19 02:50 21 03/31/19 00:00 98.0 98 20 151/108 (122) 92 03/31/19 00:00 95 03/30/19 23:14 98 22 98 Room Air 21 03/30/19 23:04 21 03/30/19 23:04 103 24 96 Room Air 21 03/30/19 21:00 Nasal Cannula 2.0 03/30/19 20:42 99 149/111 03/30/19 20:41 149/111 03/30/19 20:40 99 149/111 (124) 03/30/19 20:00 93 03/30/19 20:00 97.9 98 20 155/124 (134) 94 03/30/19 19:12 88 18 98 Nasal Cannula 2.0 28 03/30/19 19:05 96 Nasal Cannula 2.0 28 03/30/19 19:05 Nasal Cannula 2.0 28 03/30/19 19:03 21 03/30/19 19:03 78 20 92 Room Air 21 03/30/19 16:00 97.2 92 20 154/114 (127) 99 03/30/19 16:00 92 03/30/19 15:16 93 16 99 Nasal Cannula 2.0 28 03/30/19 15:06 86 18 99 Nasal Cannula 2.0 28 03/30/19 15:06 28 03/30/19 13:15 141/104 03/30/19 12:00 98.1 98 20 141/104 (116) 98 03/30/19 12:00 95 Intake and Output 03/30/19 03/31/19 19:00 07:00 Intake Total 760 ml Balance 760 ml Intake Oral 660 ml IV Total 100 ml # Voids 3 # Bowel Movements 1 1 General Appearance: WD/WN HEENT: normocephalic, atraumatic Respiratory/Chest: chest wall non-tender, lungs clear Cardiovascular: normal peripheral pulses, normal rate Abdomen: normal bowel sounds, soft, non tender Genitourinary: normal external genitalia Extremities: no clubbing Skin: no rash Neurologic/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: 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 II-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 grossly normal Laboratory Tests 03/31/19 06:48: White Blood Count 5.7, Red Blood Count 5.31, Hemoglobin 14.3, Hematocrit 43.7, Mean Corpuscular Volume 82, Mean Corpuscular Hemoglobin 27.0, Mean Corpuscular Hemoglobin Concent 32.8, Red Cell Distribution Width 14.2, Platelet Count 297, Mean Platelet Volume 6.2L, Neutrophils (%) (Auto) 67.3, Lymphocytes (%) (Auto) 17.3L, Monocytes (%) (Auto) 10.1H, Eosinophils (%) (Auto) 4.1H, Basophils (%) ( Auto) 1.2, Sodium Level 140, Potassium Level 3.6, Chloride Level 103, Carbon Dioxide Level 27, Anion Gap 10, Blood Urea Nitrogen 32H, Creatinine 1.7H, Estimat Glomerular Filtration Rate 53.8, Glucose Level 107H, Calcium Level 9.2, Total Bilirubin 1.0, Aspartate Amino Transf (AST/SGOT) 17, Alanine Aminotransferase (ALT/SGPT) 25, Alkaline Phosphatase 61, Pro-B-Type Natriuretic Peptide 972H, Total Protein 7.3, Albumin 3.5, Globulin 3.8, Albumin/Globulin Ratio 0.9L Current Medications Medications (Trade) Dose Ordered Sig/Andree Route PRN Reason Start Time Stop Time Status Last Admin Dose Admin Acetaminophen (Tylenol) 650 mg Q4H PRN ORAL T>100.5 03/29/19 12:00 04/28/19 11:59 Acetaminophen/ Hydrocodone Bitart ([place] 5/325) 1 tab Q6H PRN ORAL pain 4-6 03/30/19 20:30 04/06/19 07:14 Albuterol/ Ipratropium (Albuterol/ Ipratropium) 3 ml Q4HRT HHN 03/30/19 08:00 04/04/19 07:59 03/31/19 10:38 Allopurinol (Allopurinol) 300 mg DAILY ORAL 03/30/19 09:00 04/29/19 08:59 03/31/19 08:16 Carvedilol (Coreg) 25 mg EVERY 12 HOURS ORAL 03/29/19 21:00 04/28/19 20:59 03/31/19 08:16 Dextrose (Dextrose 50%) 25 ml Q30M PRN IV Hypoglycemia 03/29/19 12:00 04/28/19 11:59 Dextrose (Dextrose 50%) 50 ml Q30M PRN IV Hypoglycemia 03/29/19 12:00 04/28/19 11:59 Enalapril Maleate (Vasotec) 2.5 mg DAILY ORAL 03/31/19 09:00 04/30/19 08:59 03/31/19 08:16 Heparin Sodium (Porcine) (Heparin 5000 units/ml) 5,000 units EVERY 12 HOURS SUBQ 03/29/19 21:00 04/28/19 20:59 03/31/19 08:18 Hydralazine HCl (Apresoline) 50 mg EVERY 8 HOURS ORAL 03/29/19 14:00 04/28/19 13:59 03/31/19 05:24 Hydralazine HCl (Apresoline) 50 mg Q6H PRN ORAL for sbp>160 03/29/19 22:45 04/28/19 22:44 Hydromorphone HCl (Dilaudid) 1 mg Q4H PRN IVP PAIN 7-10 03/30/19 20:30 04/06/19 20:14 03/31/19 09:51 Insulin Aspart (NovoLOG) BEFORE MEALS AND HS SUBQ 03/29/19 16:30 04/28/19 16:29 Levofloxacin 100 ml @ 100 mls/hr Q24H IVPB 03/30/19 15:00 04/06/19 14:59 03/30/19 15:12 Ondansetron HCl (Zofran) 4 mg Q6H PRN IVP Nausea & Vomiting 03/29/19 12:00 04/28/19 11:59 Polyethylene Glycol (Miralax) 17 gm DAILYPRN PRN ORAL Constipation 03/29/19 12:00 04/28/19 11:59 Promethazine HCl/ Codeine (Phenergan with Codeine) 5 ml Q4H PRN ORAL For Cough 03/30/19 13:30 04/29/19 13:29 03/31/19 09:51 Sitagliptin Phosphate (Januvia) 100 mg DAILY ORAL 03/30/19 09:00 04/29/19 08:59 03/31/19 08:15 Spironolactone (Aldactone) 25 mg DAILY ORAL 03/31/19 09:00 04/30/19 08:59 03/31/19 08:16 Temazepam (Restoril) 15 mg HSPRN PRN ORAL Insomnia 03/29/19 21:00 04/05/19 20:59 Theophylline (Taqueria-Dur) 100 mg EVERY 12 HOURS ORAL 03/30/19 21:00 04/29/19 20:59 03/31/19 08:17 Angel Diaz MD March 31, 2019 12:01
--- NOTE | 2019-03-31 12:39 | Physician Query ---
--------- THIS DOCUMENT IS A PERMANENT PART OF THE MEDICAL RECORD --------- PLEASE COMPLETE THE DOCUMENT BEFORE SIGNING Dear Dr. 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 Question asked do not imply a particular answer is desired/expected Clinical Documentation States: 44 yo male with history of hypertension, admitted in acute exacerbation of congestive heart failure and COPD 03/29 Creatinine 1.5 BUN 23 GFR >60 03/30 Creatinine 1.4 BUN 23 GFR >60 03/31 Creatinine 1.7 BUN 32 GFR 53.8 Medications include: IVF, IV lasix, Spironolactone, Carvedilol, Hydralazine Please Clarify the significance of the above lab values: [] Acute renal failure with CKD (please specify stage) [X] Acute kidney injury [] ATN [] CKD (please specify stage) [] Other: []Unknown Condition Present on Admission: [X] Yes [] No []Clinically Undeterminable Please also document in your Progress Notes and/or Discharge Summary and indicate if the condition was present on admission. Signature Date MTDD
--- NOTE | 2019-03-31 12:41 | Cardiology Report ---
APPROVED REPORT EXAM: Two-dimensional and M-mode echocardiogram with Doppler and color Doppler. INDICATION Left Ventricular Function M-Mode DIMENSIONS IVSd2.1 (0.7-1.1cm)Left Atrium (MM)5.9 (1.6-4.0cm) LVDd5.9 (3.5-5.6cm)Aortic Root3.7 (2.0-3.7cm) PWd2.1 (0.7-1.1cm)Aortic Cusp Exc.2.3 (1.5-2.0cm) LVDs5.5 (2.5-4.0cm) PWs2.2 cm Mild left ventricular enlargement. Global left ventricular hypokinesis. Left ventricular ejection fraction estimated to be 20-25 %. Moderate left ventricular hypertrophy. No evidence of pericardial effusion. Moderate left atrial enlargement. Mild right atrial enlargement. Right ventricular chamber sizes is within normal limits. Focal aortic valve sclerosis with adequate cusp excursion. Thickened mitral valve leaflets with normal excursion. Mild mitral annulus and aortic root calcification. Normal pulmonic valve structure. Normal tricuspid valve structure. IVC dilated at 2.3 cm without physiological collapse, suggestive of increased RA pressure. pacing wire in RV A color flow and spectral Doppler study was performed and revealed: Trace aortic insufficiency. Moderate to severe mitral regurgitation. Mitral inflow indicates increased left atrial pressure, suggestive restrictive pattern (Grade III). Mild to moderate tricuspid regurgitation. Tricuspid systolic velocities suggests peak right ventricular systolic pressure of 70 mmHg, consistent with severe pulmonary hypertension. Moderate pulmonic regurgitation present.
--- NOTE | 2019-03-31 15:26 | Cardiac Electrophysiology PN ---
Subjective Subjective [id number] Objective Last 24 Hour Vital Signs Date Time Temp Pulse Resp B/P (MAP) Pulse Ox O2 Delivery O2 Flow Rate FiO2 03/31/19 14:11 140/99 03/31/19 12:00 80 03/31/19 12:00 97.6 87 20 140/99 (113) 96 03/31/19 10:50 106 18 100 Room Air 21 03/31/19 10:38 80 16 97 Room Air 21 03/31/19 10:38 28 03/31/19 08:47 Nasal Cannula 2.0 03/31/19 08:16 156/115 03/31/19 08:16 104 156/115 03/31/19 08:00 98.0 104 20 156/115 (129) 96 03/31/19 08:00 86 03/31/19 06:55 102 20 99 Room Air 21 03/31/19 06:46 84 16 98 Room Air 21 03/31/19 06:46 98 Room Air 21 03/31/19 06:46 28 03/31/19 05:24 151/121 03/31/19 04:00 98.6 86 24 151/121 (131) 93 03/31/19 04:00 91 03/31/19 02:59 100 20 98 Room Air 21 03/31/19 02:50 98 22 94 Room Air 21 03/31/19 02:50 21 03/31/19 00:00 98.0 98 20 151/108 (122) 92 03/31/19 00:00 95 03/30/19 23:14 98 22 98 Room Air 21 03/30/19 23:04 21 03/30/19 23:04 103 24 96 Room Air 21 03/30/19 21:00 Nasal Cannula 2.0 03/30/19 20:42 99 149/111 03/30/19 20:41 149/111 03/30/19 20:40 99 149/111 (124) 03/30/19 20:00 93 03/30/19 20:00 97.9 98 20 155/124 (134) 94 03/30/19 19:12 88 18 98 Nasal Cannula 2.0 28 03/30/19 19:05 96 Nasal Cannula 2.0 28 03/30/19 19:05 Nasal Cannula 2.0 28 03/30/19 19:03 21 03/30/19 19:03 78 20 92 Room Air 21 03/30/19 16:00 97.2 92 20 154/114 (127) 99 03/30/19 16:00 92 Intake and Output 03/30/19 03/31/19 19:00 07:00 Intake Total 760 ml Balance 760 ml Intake Oral 660 ml IV Total 100 ml # Voids 3 # Bowel Movements 1 1 Laboratory Tests Test 03/31/19 06:48 White Blood Count 5.7 K/UL (4.8-10.8) Red Blood Count 5.31 M/UL (4.70-6.10) Hemoglobin 14.3 G/DL (14.2-18.0) Hematocrit 43.7 % (42.0-52.0) Mean Corpuscular Volume 82 FL (80-99) Mean Corpuscular Hemoglobin 27.0 PG (27.0-31.0) Mean Corpuscular Hemoglobin Concent 32.8 G/DL (32.0-36.0) Red Cell Distribution Width 14.2 % (11.6-14.8) Platelet Count 297 K/UL (150-450) Mean Platelet Volume 6.2 FL (6.5-10.1) L Neutrophils (%) (Auto) 67.3 % (45.0-75.0) Lymphocytes (%) (Auto) 17.3 % (20.0-45.0) L Monocytes (%) (Auto) 10.1 % (1.0-10.0) H Eosinophils (%) (Auto) 4.1 % (0.0-3.0) H Basophils (%) (Auto) 1.2 % (0.0-2.0) Sodium Level 140 MMOL/L (136-145) Potassium Level 3.6 MMOL/L (3.5-5.1) Chloride Level 103 MMOL/L (98-107) Carbon Dioxide Level 27 MMOL/L (21-32) Anion Gap 10 mmol/L (5-15) Blood Urea Nitrogen 32 mg/dL (7-18) H Creatinine 1.7 MG/DL (0.55-1.30) H Estimat Glomerular Filtration Rate 53.8 mL/min (>60) Glucose Level 107 MG/DL (74-106) H Calcium Level 9.2 MG/DL (8.5-10.1) Total Bilirubin 1.0 MG/DL (0.2-1.0) Aspartate Amino Transf (AST/SGOT) 17 U/L (15-37) Alanine Aminotransferase (ALT/SGPT) 25 U/L (12-78) Alkaline Phosphatase 61 U/L (46-116) Pro-B-Type Natriuretic Peptide 972 pg/mL (0-125) H Total Protein 7.3 G/DL (6.4-8.2) Albumin 3.5 G/DL (3.4-5.0) Globulin 3.8 g/dL Albumin/Globulin Ratio 0.9 (1.0-2.7) L Microbiology Date/Time Source Procedure Growth Status 03/30/19 17:00 Sputum Gram Stain - Final Resulted 03/30/19 17:00 Sputum Sputum Culture Pending Resulted Stanley Schumacher MD March 31, 2019 15:26
[2019-03-31 16:00] VITALS: BP 128/97
--- NOTE | 2019-03-31 17:03 | Internal Med Progress Note ---
Subjective Date of Service: March 31, 2019 Physician Name Dario Meza Attending Physician Mejia Hidalgo MD Current Medications Medications (Trade) Dose Ordered Sig/Andree Route PRN Reason Start Time Stop Time Status Last Admin Dose Admin Acetaminophen (Tylenol) 650 mg Q4H PRN ORAL T>100.5 03/29/19 12:00 04/28/19 11:59 Acetaminophen/ Hydrocodone Bitart ([place] 5/325) 1 tab Q6H PRN ORAL pain 4-6 03/30/19 20:30 04/06/19 07:14 Albuterol/ Ipratropium (Albuterol/ Ipratropium) 3 ml Q4HRT HHN 03/30/19 08:00 04/04/19 07:59 03/31/19 15:31 Allopurinol (Allopurinol) 300 mg DAILY ORAL 03/30/19 09:00 04/29/19 08:59 03/31/19 08:16 Carvedilol (Coreg) 25 mg EVERY 12 HOURS ORAL 03/29/19 21:00 04/28/19 20:59 03/31/19 08:16 Dextrose (Dextrose 50%) 25 ml Q30M PRN IV Hypoglycemia 03/29/19 12:00 04/28/19 11:59 Dextrose (Dextrose 50%) 50 ml Q30M PRN IV Hypoglycemia 03/29/19 12:00 04/28/19 11:59 Heparin Sodium (Porcine) (Heparin 5000 units/ml) 5,000 units EVERY 12 HOURS SUBQ 03/29/19 21:00 04/28/19 20:59 03/31/19 08:18 Hydralazine HCl (Apresoline) 50 mg EVERY 8 HOURS ORAL 03/29/19 14:00 04/28/19 13:59 03/31/19 14:11 Hydralazine HCl (Apresoline) 50 mg Q6H PRN ORAL for sbp>160 03/29/19 22:45 04/28/19 22:44 Hydromorphone HCl (Dilaudid) 1 mg Q4H PRN IVP PAIN 7-10 03/30/19 20:30 04/06/19 20:14 03/31/19 09:51 Insulin Aspart (NovoLOG) BEFORE MEALS AND HS SUBQ 03/29/19 16:30 04/28/19 16:29 03/31/19 12:48 Isosorbide Mononitrate (Imdur) 30 mg DAILY ORAL 04/01/19 09:00 05/01/19 08:59 Levofloxacin 100 ml @ 100 mls/hr Q24H IVPB 03/30/19 15:00 04/06/19 14:59 03/31/19 14:11 Ondansetron HCl (Zofran) 4 mg Q6H PRN IVP Nausea & Vomiting 03/29/19 12:00 04/28/19 11:59 Polyethylene Glycol (Miralax) 17 gm DAILYPRN PRN ORAL Constipation 03/29/19 12:00 04/28/19 11:59 Promethazine HCl/ Codeine (Phenergan with Codeine) 5 ml Q4H PRN ORAL For Cough 03/30/19 13:30 04/29/19 13:29 03/31/19 09:51 Sitagliptin Phosphate (Januvia) 100 mg DAILY ORAL 03/30/19 09:00 04/29/19 08:59 03/31/19 08:15 Spironolactone (Aldactone) 25 mg DAILY ORAL 03/31/19 09:00 04/30/19 08:59 03/31/19 08:16 Temazepam (Restoril) 15 mg HSPRN PRN ORAL Insomnia 03/29/19 21:00 04/05/19 20:59 Theophylline (Taqueria-Dur) 100 mg EVERY 12 HOURS ORAL 03/30/19 21:00 04/29/19 20:59 03/31/19 08:17 Allergies: Coded Allergies: No Known Allergies (Unverified , 11/06/18) ROS Limited/Unobtainable: No Constitutional: Reports: no symptoms HEENT: Reports: no symptoms Cardiovascular: Reports: chest pain Respiratory: Reports: shortness of breath Gastrointestinal/Abdominal: Reports: no symptoms Genitourinary: Reports: no symptoms Subjective 44 YO M admitted with shortness of breath and chest pain. Now kirstie heart failure. Cover for Lucho Aguilera-Dr Hidalgo. Objective Last Vital Signs Date Time Temp Pulse Resp B/P (MAP) Pulse Ox O2 Delivery O2 Flow Rate FiO2 03/31/19 16:00 96.9 87 20 128/97 (107) 100 03/31/19 15:10 Room Air 21 03/31/19 08:47 2.0 Laboratory Tests Test 03/31/19 06:48 White Blood Count 5.7 K/UL (4.8-10.8) Red Blood Count 5.31 M/UL (4.70-6.10) Hemoglobin 14.3 G/DL (14.2-18.0) Hematocrit 43.7 % (42.0-52.0) Mean Corpuscular Volume 82 FL (80-99) Mean Corpuscular Hemoglobin 27.0 PG (27.0-31.0) Mean Corpuscular Hemoglobin Concent 32.8 G/DL (32.0-36.0) Red Cell Distribution Width 14.2 % (11.6-14.8) Platelet Count 297 K/UL (150-450) Mean Platelet Volume 6.2 FL (6.5-10.1) L Neutrophils (%) (Auto) 67.3 % (45.0-75.0) Lymphocytes (%) (Auto) 17.3 % (20.0-45.0) L Monocytes (%) (Auto) 10.1 % (1.0-10.0) H Eosinophils (%) (Auto) 4.1 % (0.0-3.0) H Basophils (%) (Auto) 1.2 % (0.0-2.0) Sodium Level 140 MMOL/L (136-145) Potassium Level 3.6 MMOL/L (3.5-5.1) Chloride Level 103 MMOL/L (98-107) Carbon Dioxide Level 27 MMOL/L (21-32) Anion Gap 10 mmol/L (5-15) Blood Urea Nitrogen 32 mg/dL (7-18) H Creatinine 1.7 MG/DL (0.55-1.30) H Estimat Glomerular Filtration Rate 53.8 mL/min (>60) Glucose Level 107 MG/DL (74-106) H Calcium Level 9.2 MG/DL (8.5-10.1) Total Bilirubin 1.0 MG/DL (0.2-1.0) Aspartate Amino Transf (AST/SGOT) 17 U/L (15-37) Alanine Aminotransferase (ALT/SGPT) 25 U/L (12-78) Alkaline Phosphatase 61 U/L (46-116) Pro-B-Type Natriuretic Peptide 972 pg/mL (0-125) H Total Protein 7.3 G/DL (6.4-8.2) Albumin 3.5 G/DL (3.4-5.0) Globulin 3.8 g/dL Albumin/Globulin Ratio 0.9 (1.0-2.7) L Microbiology Date/Time Source Procedure Growth Status 03/30/19 17:00 Sputum Gram Stain - Final Resulted 03/30/19 17:00 Sputum Sputum Culture Pending Resulted Intake and Output 03/30/19 03/31/19 19:00 07:00 Intake Total 760 ml Balance 760 ml Intake Oral 660 ml IV Total 100 ml # Voids 3 # Bowel Movements 1 1 Objective PHYSICAL EXAMINATION: GENERAL: The patient is a well-developed and well-nourished male, in no apparent distress. HEENT: Eyes, pupils equal and responsive to light and accommodation. Extraocular movements are intact. NECK: Supple without lymphadenopathy. CHEST: Decreased breath sounds in the left base. Otherwise, clear to auscultation without wheezes or rales. CARDIOVASCULAR: Regular rate. S1 and S2 are normal without murmurs, rubs, or gallops. ABDOMEN: Soft, nontender, nondistended. Positive bowel sounds. No evidence of hepatosplenomegaly. Currently, no rebound or guarding noted. EXTREMITIES: Negative for clubbing, cyanosis, edema. RECTAL: Not performed. GENITAL: Not performed. NEUROLOGIC: Cranial nerves II through XII are grossly intact without focal deficits. Motor strength is 5/5 bilaterally intact. Deep tendon reflexes are 2+ plantar. Assessment/Plan Assessment/Plan ASSESSMENT: This is a 44-year-old male with: 1. Shortness of breath. 2. Chest pain. 3. Acute exacerbation of congestive heart failure. 4. Chronic obstructive pulmonary disease. 5. Hypertension. 6. Coronary artery disease. 7. Hypercholesterolemia. 8. Automatic implantable cardioverter-defibrillator in situ. 9. Elevated troponin TREATMENT: 1. Shortness of breath/chest pain/congestive heart failure. LVEF=15-20%. A Cardiology consultation has been obtained with Dr. Stanley Schumacher. We will follow recommendations of Cardiology. The patient is currently receiving intravenous Lasix. 2. Chronic obstructive pulmonary disease. A Pulmonary consultation has been obtained with Dr. Angel Diaz. The patient is currently receiving DuoNebs every four hours. 3. Hypertension. Continue Coreg as above. 4. Hypercholesterolemia. Continue atorvastatin as above. 5. Pacemaker interrogation Dario Meza MD March 31, 2019 17:03
--- NOTE | 2019-03-31 19:40 | NUR ---
HAND-OFF: Report given to Latha LLANOS. Pt remains stable.
--- NOTE | 2019-03-31 19:44 | NUR ---
NURSE NOTES: Received patient from ROMI Hernandez. Will continue plan of care.
[2019-03-31] MEDS ORDERED: ATORVASTATIN CA40 MG ORAL (19:49)
[2019-03-31] MEDS ORDERED: SPIRONOLACTONE25 MG ORAL (19:49)
[2019-03-31] MEDS ORDERED: CENTRUM MEN'S1 EACH PO (19:51)
[2019-03-31 20:00] VITALS: BP 139/106
[2019-04-01] VITALS (7 sets, daily range): BP systolic 138–162; BP diastolic 97–123
--- NOTE | 2019-04-01 00:15 | Consultation ---
DATE OF CONSULTATION: 03/31/2019 CARDIAC ELECTROPHYSIOLOGY CONSULTATION CONSULTING PHYSICIAN: Stanley Schumacher M.D. REFERRING PHYSICIAN: Mejia Hidalgo M.D. REASON FOR CONSULTATION: Evaluation of the patient's defibrillator. 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 His cardiac catheterization at [facility] showed no evidence of coronary artery disease. The patient was in my office for the ICD follow-up recently as well. The patient presented to the emergency room complaining of increasing shortness of breath and dyspnea on exertion. The patient was admitted and cardiac electrophysiology consultation was requested for further evaluation of defibrillator. REVIEW OF SYSTEMS: Review of systems was negative other than what was mentioned in the history of present illness. PAST MEDICAL HISTORY: As mentioned above. FAMILY HISTORY: Noncontributory. SOCIAL HISTORY: He lives at home. Does not smoke or drink alcohol. PHYSICAL EXAMINATION: VITAL SIGNS: Blood pressure is 140/99, pulse is 87, respirations 18, and temperature 97.6. HEAD AND NECK: Showed positive JVD. LUNGS: Coarse rhonchi. CARDIOVASCULAR: Shows regular S1 and S2 with no gallop. Defibrillator in the left subclavian intact and sealed. ABDOMEN: Soft. EXTREMITIES: Trace pitting edema. DIAGNOSTIC DATA: His echocardiogram showed ejection fraction of only 15%. LABORATORY AND DIAGNOSTIC STUDIES: His EKG showed sinus rhythm with left atrial enlargement and left ventricular hypertrophy with the QRS duration 160 milliseconds. LABORATORY DATA: Labs show white count 5.7, hemoglobin 14.2, hematocrit of 43.2, and platelet count is 297,000. Sodium is 140, potassium is 3.6, BUN of 32, and creatinine 1.7. Troponin is 0.07 and 0.1 and 0.09. ASSESSMENT AND PLAN: 1. Troponin leak. This is due to presence of renal failure with creatinine 1.7. The patient already had cardiac catheterization at [facility] that showed no evidence of coronary artery disease. 2. Status post [place] defibrillator implantation by [place] in July of 2018. The ICD will be interrogated for further evaluation. 3. Congestive heart failure exacerbation. Continue Aldactone 25 mg daily, Coreg 25 mg b.i.d., hydralazine 50 mg every 8 hours, and add Isordil to his medical regimen. Avoid PATRIZIA inhibitor and angiotensin-receptor blockers in view of renal failure. 4. Chronic kidney disease. 5. Chronic obstructive pulmonary disease. Thank you very much for allowing me to participate in the care of this patient. Please do not hesitate to contact me for any questions regarding my evaluation. Stanley Schumacher M.D. DR: SOPHIE JOB#: [id number] CC:
[2019-04-01] MEDS: Albuterol/Ipratropium 3ml neb HHN SCH ×6 (03:29→23:18)
[2019-04-01] MEDS: NovoLOG Insulin Flexpen SUBQ SCH ×4 (05:56→22:10)
[2019-04-01] MEDS: HydrALAZINE 50mg tab ORAL SCH ×3 (05:57→17:50)
[2019-04-01] MEDS: Promethazine/Codeine 5ml UD ORAL PRN (05:57)
[2019-04-01] MEDS: HYDROmorphone 1mg/ml Carpuject IVP PRN ×2 (05:57→12:27)
[2019-04-01 07:03] LABS: ANION GAP 10 mmol/L (5-15); BLOOD UREA NITROGEN 34 mg/dL (7-18); CARBON DIOXIDE 26 MMOL/L (21-32); CHLORIDE 102 MMOL/L (98-107); CREATININE 1.5 MG/DL (0.55-1.30); POTASSIUM 3.9 MMOL/L (3.5-5.1); SODIUM 138 MMOL/L (136-145)
[2019-04-01 07:10] LABS: BASOPHILS % (AUTO) 1.4 % (0.0-2.0); EOSINOPHILS % (AUTO) 6.9 % (0.0-3.0); HEMATOCRIT 42.4 % (42.0-52.0); HEMOGLOBIN 13.5 G/DL (14.2-18.0); LYMPHOCYTES % (AUTO) 27.3 % (20.0-45.0); MEAN CORPUSCULAR VOLUME 84 FL (80-99); MONOCYTES % (AUTO) 11.5 % (1.0-10.0); PLATELET COUNT 278 K/UL (150-450); RED BLOOD COUNT 5.02 M/UL (4.70-6.10); RED CELL DISTRIBUTION WIDTH 14.3 % (11.6-14.8); WHITE BLOOD COUNT 4.2 K/UL (4.8-10.8)
--- NOTE | 2019-04-01 07:10 | NUR ---
HAND-OFF: Report given to ROMI Mace. Patient is stable
--- NOTE | 2019-04-01 08:00 | NUR ---
NURSE NOTES: Pt awake/alert in bed, breathing easily on 2 lpm nasal cannula, denies SOB and denies pain at this time. Lungs diminished with crackle in both bases. Vital signs stable with SR @ 105 on monitor. IV access right hand flushed with 10 ml NS and locked. Bed left in low position, side rails up x 2 and call light left near pt's hand.
[2019-04-01] MEDS: Carvedilol 25mg Tab ORAL SCH ×2 (08:54→21:37)
[2019-04-01] MEDS: Imdur 30mg tab ORAL SCH (08:54)
[2019-04-01] MEDS: Theophylline ER 100mg ORAL SCH ×2 (08:54→21:38)
[2019-04-01] MEDS: Spironolactone 25mg tab ORAL SCH (08:54)
[2019-04-01] MEDS: Heparin 5000 units/ml inj SUBQ SCH ×2 (08:56→21:40)
--- NOTE | 2019-04-01 09:03 | NUR ---
CASE MANAGEMENT:REVIEW 04/01/19 SI: ACUTE BRONCHITIS. CHF W/EF 15% . COPD AICD. ELEVATED TROPONIN 97.3 102 22 152/113 99% ON RA BUN+34 CR+1.5 IS: IV LEVAQUIN Q24 IMDUR PO QD ALDACTONE PO QD ROCKY-DUR PO Q12 DUONEB HHN Q4HRS RTC COREG PO Q12 HEPARIN SQ Q12 HYDRALAZINE PO Q8HRS IV DILAUDID Q4HRS PRN : TELEMETRY STATUS DCP: PATIENT IS FROM HOME
--- NOTE | 2019-04-01 11:34 | Consultation ---
Consult Note Consult Note asked to eval fo rising Cr admitted via ER on 03/29 for [facility]: Chief Complaint: Dyspnea/Respdistress Patient presents with complaints of shortness of breath reports that ongoing for the past several days Also generally not feeling well and feeling fatigued patient reports increased cough Worsening short of breath with laying flat or any exertion Patient on review of medical records has significant cardiac disease with EF of 15% Denies any active chest pain denies recent travel No Known Allergies (Unverified , 11/06/18) Hx Cardiac Problems: Yes - chf Hx Hypertension: Yes Hx Pacemaker: Yes - defibrilator Hx Asthma: Yes Hx COPD: Yes Hx Cerebrovascular Accident: Yes - 2014 interviewed examined Cr 1.4 to 1.7 now 1.5 Assessment/Plan Acute on chronic Renal failure Cardiomyopathy with low Ej Fx of 20 % COPD / Asthma Cocaine Abuse s/p OH HTN OOC check UA , no UA since admission Adjust BP meds monitor renal parameters avoid Nephrotoxics Per orders Jonn Moore MD April 01, 2019 11:33
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
[2019-04-01 12:05] LABS: CHOLESTEROL 159 MG/DL (< 200); HDL CHOLESTEROL 40 MG/DL (40-60); TRIGLYCERIDES 132 MG/DL (30-150)
--- NOTE | 2019-04-01 14:02 | Cardiac Electrophysiology PN ---
Assessment/Plan Assessment/Plan 1. Troponin leak. This is due to presence of renal failure with creatinine 1.7. The patient already had cardiac catheterization at [facility] that showed no evidence of coronary artery disease. 2. Status post [employer] defibrillator implantation by me in July of 2018. The ICD will be interrogated for further evaluation. 3. Congestive heart failure exacerbation. Continue Aldactone 25 mg daily, Coreg 25 mg b.i.d., hydralazine 50 mg every 6 hours, and Isordil 30 daily. Avoid PATRIZIA inhibitor and angiotensin-receptor blockers in view of renal failure. 4. HTN on Current CHF meds and Clonidine 0.1 bid 5. Chronic kidney disease. 6. Chronic obstructive pulmonary disease. SABA RN Subjective Subjective Alert in NAD. No CP or SOB.In SR Objective Last 24 Hour Vital Signs Date Time Temp Pulse Resp B/P (MAP) Pulse Ox O2 Delivery O2 Flow Rate FiO2 04/01/19 13:52 152/113 04/01/19 12:21 152/113 04/01/19 10:59 107 22 100 Nasal Cannula 2.0 04/01/19 10:47 109 22 98 Nasal Cannula 2.0 04/01/19 09:00 Nasal Cannula 2.0 04/01/19 08:54 152/113 04/01/19 08:54 102 152/113 04/01/19 08:00 98.5 82 20 158/114 (129) 96 04/01/19 08:00 94 04/01/19 07:39 102 22 99 Room Air 21 04/01/19 07:34 101 22 91 Room Air 21 04/01/19 07:34 91 Room Air 21 04/01/19 07:34 Room Air 21 04/01/19 05:57 152/113 04/01/19 04:00 97.3 96 20 152/113 (126) 95 04/01/19 03:43 89 18 98 Room Air 21 04/01/19 03:29 88 18 92 Room Air 21 04/01/19 03:29 21 04/01/19 03:28 98 04/01/19 00:00 98.7 97 20 146/111 (123) 92 03/31/19 23:31 85 18 98 Nasal Cannula 2.0 28 03/31/19 23:26 97 03/31/19 23:16 21 03/31/19 23:16 88 18 92 Room Air 21 03/31/19 21:01 139/106 03/31/19 21:00 102 139/106 03/31/19 21:00 Nasal Cannula 2.0 03/31/19 20:00 99.8 102 22 139/106 (117) 93 03/31/19 19:41 99 03/31/19 19:37 99 18 98 Room Air 21 03/31/19 19:26 94 18 95 Room Air 21 03/31/19 19:26 95 Room Air 21 03/31/19 19:26 Room Air 21 03/31/19 19:26 21 03/31/19 16:00 93 03/31/19 16:00 96.9 87 20 128/97 (107) 100 03/31/19 15:10 110 22 100 Room Air 21 03/31/19 15:00 82 20 96 Room Air 21 03/31/19 15:00 28 03/31/19 14:11 140/99 Intake and Output 03/31/19 04/01/19 19:00 07:00 Intake Total 1290 ml 500 ml Balance 1290 ml 500 ml Intake Oral 1290 ml 500 ml # Voids 6 2 Laboratory Tests Test 04/01/19 05:20 White Blood Count 4.2 K/UL (4.8-10.8) L Red Blood Count 5.02 M/UL (4.70-6.10) Hemoglobin 13.5 G/DL (14.2-18.0) L Hematocrit 42.4 % (42.0-52.0) Mean Corpuscular Volume 84 FL (80-99) Mean Corpuscular Hemoglobin 26.9 PG (27.0-31.0) L Mean Corpuscular Hemoglobin Concent 31.9 G/DL (32.0-36.0) L Red Cell Distribution Width 14.3 % (11.6-14.8) Platelet Count 278 K/UL (150-450) Mean Platelet Volume 5.9 FL (6.5-10.1) L Neutrophils (%) (Auto) 53.0 % (45.0-75.0) Lymphocytes (%) (Auto) 27.3 % (20.0-45.0) Monocytes (%) (Auto) 11.5 % (1.0-10.0) H Eosinophils (%) (Auto) 6.9 % (0.0-3.0) H Basophils (%) (Auto) 1.4 % (0.0-2.0) Sodium Level 138 MMOL/L (136-145) Potassium Level 3.9 MMOL/L (3.5-5.1) Chloride Level 102 MMOL/L (98-107) Carbon Dioxide Level 26 MMOL/L (21-32) Anion Gap 10 mmol/L (5-15) Blood Urea Nitrogen 34 mg/dL (7-18) H Creatinine 1.5 MG/DL (0.55-1.30) H Estimat Glomerular Filtration Rate > 60 mL/min (>60) Glucose Level 83 MG/DL (74-106) Hemoglobin A1c 6.3 % (4.3-6.0) H Uric Acid 7.9 MG/DL (2.6-7.2) H Calcium Level 9.0 MG/DL (8.5-10.1) Triglycerides Level 132 MG/DL (30-150) Cholesterol Level 159 MG/DL (< 200) LDL Cholesterol 97 mg/dL (<100) HDL Cholesterol 40 MG/DL (40-60) Cholesterol/HDL Ratio 4.0 (3.3-4.4) Microbiology Date/Time Source Procedure Growth Status 03/30/19 17:00 Sputum Gram Stain - Final Resulted 03/30/19 17:00 Sputum Sputum Culture - Preliminary NORMAL UPPER RESPIRATORY SCARLETT AT 24 ... Resulted Objective HEAD AND NECK: Showed positive JVD. LUNGS: Coarse rhonchi. CARDIOVASCULAR: Shows regular S1 and S2 with no gallop. Defibrillator in the left subclavian intact and sealed. ABDOMEN: Soft. EXTREMITIES: Trace pitting edema. Stanley Schumacher MD April 01, 2019 14:02
--- NOTE | 2019-04-01 14:24 | NUR ---
RD ASSESSMENT & RECOMMENDATIONS SEE CARE ACTIVITY FOR COMPLETE ASSESSMENT DAILY ESTIMATED NEEDS: Needs based on CHF, obesity/ 84kg abw 23-28 kcals/kg 7730-2131 total kcals 1-1.3 g protein/kg 84-109 g total protein 20-22 mL/kg 3549-1860 total fluid mLs NUTRITION DIAGNOSIS: Decreased sodium intake needs R/T cardiac dx as evidenced by CHF dx w/ EF 15%, elev BNP (3147->942). CURRENT DIET:CCHO MED PO DIET RECOMMENDATIONS: LOW NA, texture as tolerated ADDITIONAL RECOMMENDATIONS: * Daily standing wt : CHF dx * A1C for eval of glycemic control- pt denies h/o DM. * Monitor BGs closely, need for carb controlled diet * Monitor lytes closely w/ diuretics, replete as needed
--- NOTE | 2019-04-01 19:00 | NUR ---
NURSE NOTES: RECEIVED PATIENT FAVIAN RN. PT IN BED WITH NO ACUTE DISTRESS. BED AT ITS LOWEST POSITION, CALL LIGHT IN REACH AND x3 BED RAILS UP. WILL CONTINUE TO MONITOR.
--- NOTE | 2019-04-01 19:10 | Internal Med Progress Note ---
Subjective Date of Service: April 01, 2019 Physician Name Dario Meza Attending Physician Mejia Hidalgo MD Current Medications Medications (Trade) Dose Ordered Sig/Andree Route PRN Reason Start Time Stop Time Status Last Admin Dose Admin Acetaminophen (Tylenol) 650 mg Q4H PRN ORAL T>100.5 03/29/19 12:00 04/28/19 11:59 Acetaminophen/ Hydrocodone Bitart ([place] 5/325) 1 tab Q6H PRN ORAL pain 4-6 03/30/19 20:30 04/06/19 07:14 Albuterol/ Ipratropium (Albuterol/ Ipratropium) 3 ml Q4HRT HHN 03/30/19 08:00 04/04/19 07:59 04/01/19 15:24 Allopurinol (Allopurinol) 300 mg DAILY ORAL 03/30/19 09:00 04/29/19 08:59 04/01/19 08:54 Carvedilol (Coreg) 25 mg EVERY 12 HOURS ORAL 03/29/19 21:00 04/28/19 20:59 04/01/19 08:54 Clonidine HCl (Catapres Tab) 0.1 mg EVERY 8 HOURS ORAL 04/01/19 14:00 05/01/19 13:59 04/01/19 13:52 Clonidine HCl (Catapres Tab) 0.1 mg Q4H PRN ORAL bp over 160 syst and 100 diast 04/01/19 11:45 05/01/19 11:44 Dextrose (Dextrose 50%) 25 ml Q30M PRN IV Hypoglycemia 03/29/19 12:00 04/28/19 11:59 Dextrose (Dextrose 50%) 50 ml Q30M PRN IV Hypoglycemia 03/29/19 12:00 04/28/19 11:59 Heparin Sodium (Porcine) (Heparin 5000 units/ml) 5,000 units EVERY 12 HOURS SUBQ 03/29/19 21:00 04/28/19 20:59 04/01/19 08:56 Hydralazine HCl (Apresoline) 50 mg EVERY 6 HOURS ORAL 04/01/19 12:00 04/28/19 13:59 04/01/19 17:50 Hydromorphone HCl (Dilaudid) 1 mg Q4H PRN IVP PAIN 7-10 03/30/19 20:30 04/06/19 20:14 04/01/19 12:27 Insulin Aspart (NovoLOG) BEFORE MEALS AND HS SUBQ 03/29/19 16:30 04/28/19 16:29 03/31/19 21:02 Isosorbide Mononitrate (Imdur) 30 mg DAILY ORAL 04/01/19 09:00 05/01/19 08:59 04/01/19 08:54 Levofloxacin (Levaquin) 500 mg QHS ORAL 04/01/19 21:00 04/06/19 20:59 Ondansetron HCl (Zofran) 4 mg Q6H PRN IVP Nausea & Vomiting 03/29/19 12:00 04/28/19 11:59 Pantoprazole (Protonix) 40 mg EVERY 12 HOURS ORAL 04/01/19 21:00 05/01/19 20:59 Polyethylene Glycol (Miralax) 17 gm DAILYPRN PRN ORAL Constipation 03/29/19 12:00 04/28/19 11:59 Promethazine HCl/ Codeine (Phenergan with Codeine) 5 ml Q4H PRN ORAL For Cough 03/30/19 13:30 04/29/19 13:29 04/01/19 05:57 Sitagliptin Phosphate (Januvia) 100 mg DAILY ORAL 03/30/19 09:00 04/29/19 08:59 04/01/19 08:54 Spironolactone (Aldactone) 25 mg DAILY ORAL 03/31/19 09:00 04/30/19 08:59 04/01/19 08:54 Temazepam (Restoril) 15 mg HSPRN PRN ORAL Insomnia 03/29/19 21:00 04/05/19 20:59 Theophylline (Taqueria-Dur) 100 mg EVERY 12 HOURS ORAL 03/30/19 21:00 04/29/19 20:59 04/01/19 08:54 Allergies: Coded Allergies: No Known Allergies (Unverified , 11/06/18) ROS Limited/Unobtainable: No Constitutional: Reports: no symptoms HEENT: Reports: no symptoms Cardiovascular: Reports: chest pain Respiratory: Reports: shortness of breath Gastrointestinal/Abdominal: Reports: no symptoms Genitourinary: Reports: no symptoms Neurologic/Psychiatric: Reports: no symptoms Subjective 44 YO M admitted with shortness of breath and chest pain. Now kirstie heart failure. Cover for Int Willy-Dr Hidalgo. Objective Last Vital Signs Date Time Temp Pulse Resp B/P (MAP) Pulse Ox O2 Delivery O2 Flow Rate FiO2 04/01/19 17:50 138/97 04/01/19 16:00 97.9 98 22 95 04/01/19 15:34 Nasal Cannula 2.0 28 Laboratory Tests Test 04/01/19 05:20 White Blood Count 4.2 K/UL (4.8-10.8) L Red Blood Count 5.02 M/UL (4.70-6.10) Hemoglobin 13.5 G/DL (14.2-18.0) L Hematocrit 42.4 % (42.0-52.0) Mean Corpuscular Volume 84 FL (80-99) Mean Corpuscular Hemoglobin 26.9 PG (27.0-31.0) L Mean Corpuscular Hemoglobin Concent 31.9 G/DL (32.0-36.0) L Red Cell Distribution Width 14.3 % (11.6-14.8) Platelet Count 278 K/UL (150-450) Mean Platelet Volume 5.9 FL (6.5-10.1) L Neutrophils (%) (Auto) 53.0 % (45.0-75.0) Lymphocytes (%) (Auto) 27.3 % (20.0-45.0) Monocytes (%) (Auto) 11.5 % (1.0-10.0) H Eosinophils (%) (Auto) 6.9 % (0.0-3.0) H Basophils (%) (Auto) 1.4 % (0.0-2.0) Sodium Level 138 MMOL/L (136-145) Potassium Level 3.9 MMOL/L (3.5-5.1) Chloride Level 102 MMOL/L (98-107) Carbon Dioxide Level 26 MMOL/L (21-32) Anion Gap 10 mmol/L (5-15) Blood Urea Nitrogen 34 mg/dL (7-18) H Creatinine 1.5 MG/DL (0.55-1.30) H Estimat Glomerular Filtration Rate > 60 mL/min (>60) Glucose Level 83 MG/DL (74-106) Hemoglobin A1c 6.3 % (4.3-6.0) H Uric Acid 7.9 MG/DL (2.6-7.2) H Calcium Level 9.0 MG/DL (8.5-10.1) Triglycerides Level 132 MG/DL (30-150) Cholesterol Level 159 MG/DL (< 200) LDL Cholesterol 97 mg/dL (<100) HDL Cholesterol 40 MG/DL (40-60) Cholesterol/HDL Ratio 4.0 (3.3-4.4) Microbiology Date/Time Source Procedure Growth Status 03/30/19 17:00 Sputum Gram Stain - Final Resulted 03/30/19 17:00 Sputum Sputum Culture - Preliminary NORMAL UPPER RESPIRATORY SCARLETT AT 24 ... Resulted Intake and Output 03/31/19 04/01/19 19:00 07:00 Intake Total 1290 ml 500 ml Balance 1290 ml 500 ml Intake Oral 1290 ml 500 ml # Voids 6 2 Objective PHYSICAL EXAMINATION: GENERAL: The patient is a well-developed and well-nourished male, in no apparent distress. HEENT: Eyes, pupils equal and responsive to light and accommodation. Extraocular movements are intact. NECK: Supple without lymphadenopathy. CHEST: Decreased breath sounds in the left base. Otherwise, clear to auscultation without wheezes or rales. CARDIOVASCULAR: Regular rate. S1 and S2 are normal without murmurs, rubs, or gallops. ABDOMEN: Soft, nontender, nondistended. Positive bowel sounds. No evidence of hepatosplenomegaly. Currently, no rebound or guarding noted. EXTREMITIES: Negative for clubbing, cyanosis, edema. RECTAL: Not performed. GENITAL: Not performed. NEUROLOGIC: Cranial nerves II through XII are grossly intact without focal deficits. Motor strength is 5/5 bilaterally intact. Deep tendon reflexes are 2+ plantar. Assessment/Plan Assessment/Plan ASSESSMENT: This is a 44-year-old male with: 1. Shortness of breath. 2. Chest pain. 3. Acute exacerbation of congestive heart failure. 4. Chronic obstructive pulmonary disease. 5. Hypertension. 6. Coronary artery disease. 7. Hypercholesterolemia. 8. Automatic implantable cardioverter-defibrillator in situ. 9. Elevated troponin TREATMENT: 1. Shortness of breath/chest pain/congestive heart failure. LVEF=15-20%. A Cardiology consultation has been obtained with Dr. Stanley Schumacher. We will follow recommendations of Cardiology. The patient is currently receiving intravenous Lasix. 2. Chronic obstructive pulmonary disease. A Pulmonary consultation has been obtained with Dr. Angel Diaz. The patient is currently receiving DuoNebs every four hours. 3. Hypertension. Continue Coreg as above. 4. Hypercholesterolemia. Continue atorvastatin as above. 5. ICD interrogation Dario Meza MD April 01, 2019 19:10
[2019-04-01] MEDS ORDERED: Levofloxacin 500mg tab ORAL SCH (21:00)
--- NOTE | 2019-04-01 23:00 | NUR ---
HAND-OFF: Report given to CORTEZ LLANOS.
--- NOTE | 2019-04-01 23:02 | NUR ---
NURSE NOTES: Received report from ROMI Adams. Patient sitting in bed awake watching TV showing no signs of acute distress. Respiration even and non labored on room air. No SOB noted. IV line patent and intact. Bed in lowest position, and wheels locked. Call light within reach. All needs attended and met will continue plan of care.
[2019-04-02] VITALS: BP 139/103
[2019-04-02] MEDS: HydrALAZINE 50mg tab ORAL SCH ×3 (00:32→12:10)
[2019-04-02] MEDS: Albuterol/Ipratropium 3ml neb HHN SCH ×4 (03:18→15:31)
[2019-04-02] MEDS: HYDROmorphone 1mg/ml Carpuject IVP PRN ×3 (03:23→12:37)
[2019-04-02 04:00] VITALS: BP 143/116
[2019-04-02] MEDS: NovoLOG Insulin Flexpen SUBQ SCH ×2 (06:19→11:30)
[2019-04-02 06:24] LABS: BASOPHILS % (AUTO) 1.4 % (0.0-2.0); EOSINOPHILS % (AUTO) 7.9 % (0.0-3.0); HEMOGLOBIN 12.8 G/DL (14.2-18.0); LYMPHOCYTES % (AUTO) 25.5 % (20.0-45.0); MEAN CORPUSCULAR VOLUME 84 FL (80-99); MONOCYTES % (AUTO) 9.6 % (1.0-10.0); NEUTROPHILS % (AUTO) 55.6 % (45.0-75.0); PLATELET COUNT 268 K/UL (150-450); RED BLOOD COUNT 4.75 M/UL (4.70-6.10); RED CELL DISTRIBUTION WIDTH 14.6 % (11.6-14.8); WHITE BLOOD COUNT 4.3 K/UL (4.8-10.8)
[2019-04-02 06:25] LABS: ANION GAP 8 mmol/L (5-15); BLOOD UREA NITROGEN 23 mg/dL (7-18); CALCIUM 8.9 MG/DL (8.5-10.1); CARBON DIOXIDE 27 MMOL/L (21-32); CHLORIDE 105 MMOL/L (98-107); CREATININE 1.3 MG/DL (0.55-1.30); SODIUM 140 MMOL/L (136-145)
--- NOTE | 2019-04-02 07:25 | NUR ---
HAND-OFF: Report given to ROMI Fitzpatrick.
--- NOTE | 2019-04-02 07:28 | NUR ---
NURSE NOTES: Received report from ROMI Virk. Patient is in stable condition. Patient denies any pain/discomfort at this time. Patient is eating breakfast. Will continue plan of care.
[2019-04-02 08:00] VITALS: BP 135/100
[2019-04-02] MEDS: Carvedilol 25mg Tab ORAL SCH (08:11)
[2019-04-02] MEDS: Spironolactone 25mg tab ORAL SCH (08:11)
[2019-04-02] MEDS: Theophylline ER 100mg ORAL SCH (08:11)
[2019-04-02] MEDS: Imdur 30mg tab ORAL SCH (08:11)
[2019-04-02] MEDS: Heparin 5000 units/ml inj SUBQ SCH (08:19)
--- NOTE | 2019-04-02 09:47 | Cardiac Electrophysiology PN ---
Assessment/Plan Assessment/Plan 1. Troponin leak. Due to renal failure with creatinine 1.7. Cardiac catheterization at [facility] showed no evidence of coronary artery disease. 2. Status post [employer] defibrillator implantation by me in July of 2018. The ICD interrogated and showed Nl Fx 3. Congestive heart failure exacerbation. Continue Aldactone 25 mg daily, Coreg 25 mg b.i.d., hydralazine 50 mg qid, and Isordil 30 daily. Avoid PATRIZIA inhibitor and angiotensin-receptor blockers in view of renal failure. 4. HTN on Current CHF meds and Clonidine 0.1 bid 5. Chronic kidney disease. 6. Chronic obstructive pulmonary disease. SABA RN DC planning today Subjective Subjective Alert in NAD. No CP or SOB.In SR. No VT. DC planning today Objective Last 24 Hour Vital Signs Date Time Temp Pulse Resp B/P (MAP) Pulse Ox O2 Delivery O2 Flow Rate FiO2 04/02/19 09:00 Room Air 04/02/19 08:11 135/100 04/02/19 08:11 86 135/100 04/02/19 08:00 100 04/02/19 08:00 98.5 86 19 135/100 (112) 95 04/02/19 07:12 101 18 99 Room Air 21 04/02/19 07:02 Room Air 21 04/02/19 07:02 95 Room Air 04/02/19 06:59 98 20 95 Room Air 21 04/02/19 06:16 143/116 04/02/19 06:16 143/116 04/02/19 04:00 97.6 103 20 143/116 (125) 98 04/02/19 04:00 95 04/02/19 03:29 103 20 98 Room Air 21 04/02/19 03:18 103 22 95 Room Air 04/02/19 00:32 139/103 04/02/19 00:00 97.9 95 22 139/103 (115) 98 04/02/19 00:00 92 04/01/19 23:28 96 20 99 Room Air 21 04/01/19 23:18 96 20 95 Nasal Cannula 2.0 28 04/01/19 23:12 98.5 2 21 141/103 (116) 95 04/01/19 21:38 162/123 04/01/19 21:37 106 162/123 04/01/19 21:00 Nasal Cannula 2.0 04/01/19 20:00 98.3 2 20 162/123 (136) 95 04/01/19 20:00 103 04/01/19 19:50 102 22 98 Room Air 21 04/01/19 19:40 Nasal Cannula 2.0 28 04/01/19 19:40 99 20 94 Room Air 21 04/01/19 19:40 94 Room Air 21 04/01/19 17:50 138/97 04/01/19 16:00 97.9 98 22 138/97 (111) 95 04/01/19 16:00 92 04/01/19 15:34 100 20 100 Nasal Cannula 2.0 28 04/01/19 15:25 102 22 98 Nasal Cannula 2.0 28 04/01/19 13:52 152/113 04/01/19 12:21 152/113 04/01/19 12:00 98.1 92 18 143/107 (119) 94 04/01/19 12:00 98 04/01/19 10:59 107 22 100 Nasal Cannula 2.0 28 04/01/19 10:47 109 22 98 Nasal Cannula 2.0 28 Intake and Output 04/01/19 04/02/19 18:59 06:59 Intake Total 300 ml Balance 300 ml Intake Oral 300 ml # Voids 2 3 Laboratory Tests Test 04/02/19 05:00 White Blood Count 4.3 K/UL (4.8-10.8) L Red Blood Count 4.75 M/UL (4.70-6.10) Hemoglobin 12.8 G/DL (14.2-18.0) L Hematocrit 40.0 % (42.0-52.0) L Mean Corpuscular Volume 84 FL (80-99) Mean Corpuscular Hemoglobin 26.9 PG (27.0-31.0) L Mean Corpuscular Hemoglobin Concent 32.0 G/DL (32.0-36.0) Red Cell Distribution Width 14.6 % (11.6-14.8) Platelet Count 268 K/UL (150-450) Mean Platelet Volume 5.8 FL (6.5-10.1) L Neutrophils (%) (Auto) 55.6 % (45.0-75.0) Lymphocytes (%) (Auto) 25.5 % (20.0-45.0) Monocytes (%) (Auto) 9.6 % (1.0-10.0) Eosinophils (%) (Auto) 7.9 % (0.0-3.0) H Basophils (%) (Auto) 1.4 % (0.0-2.0) Sodium Level 140 MMOL/L (136-145) Potassium Level 4.0 MMOL/L (3.5-5.1) Chloride Level 105 MMOL/L (98-107) Carbon Dioxide Level 27 MMOL/L (21-32) Anion Gap 8 mmol/L (5-15) Blood Urea Nitrogen 23 mg/dL (7-18) H Creatinine 1.3 MG/DL (0.55-1.30) Estimat Glomerular Filtration Rate > 60 mL/min (>60) Glucose Level 81 MG/DL (74-106) Calcium Level 8.9 MG/DL (8.5-10.1) Microbiology Date/Time Source Procedure Growth Status 03/30/19 17:00 Sputum Gram Stain - Final Complete 03/30/19 17:00 Sputum Sputum Culture - Final NORMAL UPPER RESPIRATORY SCARLETT PRESENT Complete Objective HEAD AND NECK: Positive JVD. LUNGS: Coarse rhonchi. CARDIOVASCULAR: Regular S1 and S2 with no gallop. ICD in the left subclavian intact and sealed. ABDOMEN: Soft. EXTREMITIES: Trace pitting edema. Stanley Schumacher MD April 02, 2019 09:47
[2019-04-02 10:27] LABS: APPEARANCE,URINE CLEAR; BILIRUBIN, URINE NEGATIVE (NEGATIVE); COLOR,URINE PALE YELLOW; GLUCOSE, URINE (UA) NEGATIVE (NEGATIVE); KETONES,URINE NEGATIVE (NEGATIVE); LEUKOCYTE ESTERASE ,URINE NEGATIVE (NEGATIVE); NITRITE,URINE NEGATIVE (NEGATIVE); PH,URINE 6 (4.5-8.0); PROTEIN,URINE NEGATIVE (NEGATIVE); UROBILINOGEN,URINE NORMAL MG/DL (0.0-1.0)
--- NOTE | 2019-04-02 10:50 | Pulmonology Progress Note ---
Assessment/Plan Problems: (1) Acute respiratory failure (2) Acute bronchitis (3) Acute CHF (4) EF 15% (5) ICD (implantable cardioverter-defibrillator) in place Assessment/Plan improving, ready to go home need sleep study creatinine decreasing check electrolytes less cough with antitussives dc planning for am Subjective ROS Limited/Unobtainable: No Interval Events: doing better Allergies: Coded Allergies: No Known Allergies (Unverified , 11/06/18) Objective Last 24 Hour Vital Signs Date Time Temp Pulse Resp B/P (MAP) Pulse Ox O2 Delivery O2 Flow Rate FiO2 04/02/19 10:45 102 18 99 Room Air 21 04/02/19 10:34 98 18 100 Room Air 21 04/02/19 09:00 Room Air 04/02/19 08:11 135/100 04/02/19 08:11 86 135/100 04/02/19 08:00 100 04/02/19 08:00 98.5 86 19 135/100 (112) 95 04/02/19 07:12 101 18 99 Room Air 21 04/02/19 07:02 Room Air 21 04/02/19 07:02 95 Room Air 21 04/02/19 06:59 98 20 95 Room Air 21 04/02/19 06:16 143/116 04/02/19 06:16 143/116 04/02/19 04:00 97.6 103 20 143/116 (125) 98 04/02/19 04:00 95 04/02/19 03:29 103 20 98 Room Air 21 04/02/19 03:18 103 22 95 Room Air 21 04/02/19 00:32 139/103 04/02/19 00:00 97.9 95 22 139/103 (115) 98 04/02/19 00:00 92 04/01/19 23:28 96 20 99 Room Air 21 04/01/19 23:18 96 20 95 Nasal Cannula 2.0 28 04/01/19 23:12 98.5 2 21 141/103 (116) 95 04/01/19 21:38 162/123 04/01/19 21:37 106 162/123 04/01/19 21:00 Nasal Cannula 2.0 04/01/19 20:00 98.3 2 20 162/123 (136) 95 04/01/19 20:00 103 04/01/19 19:50 102 22 98 Room Air 21 04/01/19 19:40 Nasal Cannula 2.0 28 04/01/19 19:40 99 20 94 Room Air 21 04/01/19 19:40 94 Room Air 21 04/01/19 17:50 138/97 04/01/19 16:00 97.9 98 22 138/97 (111) 95 04/01/19 16:00 92 04/01/19 15:34 100 20 100 Nasal Cannula 2.0 28 04/01/19 15:25 102 22 98 Nasal Cannula 2.0 28 04/01/19 13:52 152/113 04/01/19 12:21 152/113 04/01/19 12:00 98.1 92 18 143/107 (119) 94 04/01/19 12:00 98 04/01/19 10:59 107 22 100 Nasal Cannula 2.0 28 Intake and Output 04/01/19 04/02/19 18:59 06:59 Intake Total 300 ml Balance 300 ml Intake Oral 300 ml # Voids 2 3 Objective doing better HEENT: normocephalic, atraumatic Respiratory/Chest: chest wall non-tender, lungs clear, normal breath sounds Cardiovascular: normal peripheral pulses, normal rate Abdomen: normal bowel sounds, soft, non tender Genitourinary: normal external genitalia Extremities: no cyanosis Skin: no lesions Neurologic/Psychiatric: sort line II-XII grossly normal Microbiology Date/Time Source Procedure Growth Status 03/30/19 17:00 Sputum Gram Stain - Final Complete 03/30/19 17:00 Sputum Sputum Culture - Final NORMAL UPPER RESPIRATORY SCARLETT PRESENT Complete Laboratory Tests 04/02/19 05:00: White Blood Count 4.3L, Red Blood Count 4.75, Hemoglobin 12.8L, Hematocrit 40.0L , Mean Corpuscular Volume 84, Mean Corpuscular Hemoglobin 26.9L, Mean Corpuscular Hemoglobin Concent 32.0, Red Cell Distribution Width 14.6, Platelet Count 268, Mean Platelet Volume 5.8L, Neutrophils (%) (Auto) 55.6, Lymphocytes ( %) (Auto) 25.5, Monocytes (%) (Auto) 9.6, Eosinophils (%) (Auto) 7.9H, Basophils (%) (Auto) 1.4, Sodium Level 140, Potassium Level 4.0, Chloride Level 105, Carbon Dioxide Level 27, Anion Gap 8, Blood Urea Nitrogen 23H, Creatinine 1.3, Estimat Glomerular Filtration Rate > 60, Glucose Level 81, Calcium Level 8.9 04/02/19 10:00: Urine Color Pale yellow, Urine Appearance Clear, Urine pH 6, Urine Specific [place] 1.020, Urine Protein Negative, Urine Glucose (UA) Negative, Urine Ketones Negative, Urine Blood Negative, Urine Nitrite Negative, Urine Bilirubin Negative, Urine Urobilinogen Normal, Urine Leukocyte Esterase Negative, Urine RBC [Pending], Urine WBC [Pending], Urine Squamous Epithelial Cells [Pending], Urine Bacteria [Pending] Current Medications Medications (Trade) Dose Ordered Sig/Andree Route PRN Reason Start Time Stop Time Status Last Admin Dose Admin Acetaminophen (Tylenol) 650 mg Q4H PRN ORAL T>100.5 03/29/19 12:00 04/28/19 11:59 Acetaminophen/ Hydrocodone Bitart ([place] 5/325) 1 tab Q6H PRN ORAL pain 4-6 03/30/19 20:30 04/06/19 07:14 04/01/19 21:55 Albuterol/ Ipratropium (Albuterol/ Ipratropium) 3 ml Q4HRT HHN 03/30/19 08:00 04/04/19 07:59 04/02/19 10:34 Allopurinol (Allopurinol) 300 mg DAILY ORAL 03/30/19 09:00 04/29/19 08:59 04/02/19 08:11 Carvedilol (Coreg) 25 mg EVERY 12 HOURS ORAL 03/29/19 21:00 04/28/19 20:59 04/02/19 08:11 Clonidine HCl (Catapres Tab) 0.1 mg EVERY 8 HOURS ORAL 04/01/19 14:00 05/01/19 13:59 04/02/19 06:16 Clonidine HCl (Catapres Tab) 0.1 mg Q4H PRN ORAL bp over 160 syst and 100 diast 04/01/19 11:45 05/01/19 11:44 Dextrose (Dextrose 50%) 25 ml Q30M PRN IV Hypoglycemia 03/29/19 12:00 04/28/19 11:59 Dextrose (Dextrose 50%) 50 ml Q30M PRN IV Hypoglycemia 03/29/19 12:00 04/28/19 11:59 Heparin Sodium (Porcine) (Heparin 5000 units/ml) 5,000 units EVERY 12 HOURS SUBQ 03/29/19 21:00 04/28/19 20:59 04/02/19 08:19 Hydralazine HCl (Apresoline) 50 mg EVERY 6 HOURS ORAL 04/01/19 12:00 04/28/19 13:59 04/02/19 06:16 Hydromorphone HCl (Dilaudid) 1 mg Q4H PRN IVP PAIN 7-10 03/30/19 20:30 04/06/19 20:14 04/02/19 08:25 Insulin Aspart (NovoLOG) BEFORE MEALS AND HS SUBQ 03/29/19 16:30 04/28/19 16:29 04/02/19 06:19 Isosorbide Mononitrate (Imdur) 30 mg DAILY ORAL 04/01/19 09:00 05/01/19 08:59 04/02/19 08:11 Levofloxacin (Levaquin) 500 mg QHS ORAL 04/01/19 21:00 04/06/19 20:59 04/01/19 21:39 Ondansetron HCl (Zofran) 4 mg Q6H PRN IVP Nausea & Vomiting 03/29/19 12:00 04/28/19 11:59 Pantoprazole (Protonix) 40 mg EVERY 12 HOURS ORAL 04/01/19 21:00 05/01/19 20:59 04/02/19 08:11 Polyethylene Glycol (Miralax) 17 gm DAILYPRN PRN ORAL Constipation 03/29/19 12:00 04/28/19 11:59 Promethazine HCl/ Codeine (Phenergan with Codeine) 5 ml Q4H PRN ORAL For Cough 03/30/19 13:30 04/29/19 13:29 04/01/19 05:57 Sitagliptin Phosphate (Januvia) 100 mg DAILY ORAL 03/30/19 09:00 04/29/19 08:59 04/02/19 08:11 Spironolactone (Aldactone) 25 mg DAILY ORAL 03/31/19 09:00 04/30/19 08:59 04/02/19 08:11 Temazepam (Restoril) 15 mg HSPRN PRN ORAL Insomnia 5/12/19 21:00 04/05/19 20:59 Theophylline (Taqueria-Dur) 100 mg EVERY 12 HOURS ORAL 03/30/19 21:00 04/29/19 20:59 04/02/19 08:11 Angel Diaz MD April 02, 2019 10:50
[2019-04-02 12:00] VITALS: BP 129/102
--- NOTE | 2019-04-02 14:05 | Nephrology Progress Note ---
Assessment/Plan Problem List: (1) Renal failure (ARF), acute on chronic (2) Congestive heart failure (CHF) Assessment: cardiomyopathy (3) HTN (hypertension) (4) Elevated hemoglobin A1c measurement Assessment Acute on chronic Renal failure Cardiomyopathy with low Ej Fx of 20 % COPD / Asthma Cocaine Abuse s/p [place] HTN OOC elevated A1c Plan check UA , wnl Adjust BP meds monitor renal parameters avoid Nephrotoxics Subjective ROS Limited/Unobtainable: No Constitutional: Reports: malaise Objective Objective Last 24 Hour Vital Signs Date Time Temp Pulse Resp B/P (MAP) Pulse Ox O2 Delivery O2 Flow Rate FiO2 04/02/19 13:20 146/101 04/02/19 12:10 129/102 04/02/19 12:00 100 04/02/19 12:00 97.0 89 23 129/102 (111) 100 04/02/19 10:45 102 18 99 Room Air 21 04/02/19 10:34 98 18 100 Room Air 21 04/02/19 09:00 Room Air 04/02/19 08:11 135/100 04/02/19 08:11 86 135/100 04/02/19 08:00 100 04/02/19 08:00 98.5 86 19 135/100 (112) 95 04/02/19 07:12 101 18 99 Room Air 21 04/02/19 07:02 Room Air 21 04/02/19 07:02 95 Room Air 21 04/02/19 06:59 98 20 95 Room Air 21 04/02/19 06:16 143/116 04/02/19 06:16 143/116 04/02/19 04:00 97.6 103 20 143/116 (125) 98 04/02/19 04:00 95 04/02/19 03:29 103 20 98 Room Air 21 04/02/19 03:18 103 22 95 Room Air 21 04/02/19 00:32 139/103 04/02/19 00:00 97.9 95 22 139/103 (115) 98 04/02/19 00:00 92 04/01/19 23:28 96 20 99 Room Air 21 04/01/19 23:18 96 20 95 Nasal Cannula 2.0 28 04/01/19 23:12 98.5 2 21 141/103 (116) 95 5/15/19 21:38 162/123 04/01/19 21:37 106 162/123 04/01/19 21:00 Nasal Cannula 2.0 04/01/19 20:00 98.3 2 20 162/123 (136) 95 04/01/19 20:00 103 04/01/19 19:50 102 22 98 Room Air 21 04/01/19 19:40 Nasal Cannula 2.0 28 04/01/19 19:40 99 20 94 Room Air 21 04/01/19 19:40 94 Room Air 21 04/01/19 17:50 138/97 04/01/19 16:00 97.9 98 22 138/97 (111) 95 04/01/19 16:00 92 04/01/19 15:34 100 20 100 Nasal Cannula 2.0 28 04/01/19 15:25 102 22 98 Nasal Cannula 2.0 28 Intake and Output 04/01/19 04/02/19 19:00 07:00 Intake Total 300 ml Balance 300 ml Intake Oral 300 ml # Voids 2 3 Laboratory Tests 04/02/19 05:00: White Blood Count 4.3L, Red Blood Count 4.75, Hemoglobin 12.8L, Hematocrit 40.0L , Mean Corpuscular Volume 84, Mean Corpuscular Hemoglobin 26.9L, Mean Corpuscular Hemoglobin Concent 32.0, Red Cell Distribution Width 14.6, Platelet Count 268, Mean Platelet Volume 5.8L, Neutrophils (%) (Auto) 55.6, Lymphocytes ( %) (Auto) 25.5, Monocytes (%) (Auto) 9.6, Eosinophils (%) (Auto) 7.9H, Basophils (%) (Auto) 1.4, Sodium Level 140, Potassium Level 4.0, Chloride Level 105, Carbon Dioxide Level 27, Anion Gap 8, Blood Urea Nitrogen 23H, Creatinine 1.3, Estimat Glomerular Filtration Rate > 60, Glucose Level 81, Calcium Level 8.9 04/02/19 10:00: Urine Color Pale yellow, Urine Appearance Clear, Urine pH 6, Urine Specific [place] 1.020, Urine Protein Negative, Urine Glucose (UA) Negative, Urine Ketones Negative, Urine Blood Negative, Urine Nitrite Negative, Urine Bilirubin Negative, Urine Urobilinogen Normal, Urine Leukocyte Esterase Negative, Urine RBC 0, Urine WBC 0, Urine Squamous Epithelial Cells None, Urine Bacteria Occasional Height (Feet): 5 Height (Inches): 10.00 Weight (Pounds): 237 General Appearance: no apparent distress Cardiovascular: tachycardia Respiratory/Chest: decreased breath sounds Abdomen: distended Objective no change Jonn Moore MD April 02, 2019 14:05
[2019-04-02 15:11] VITALS: BP 128/92
--- NOTE | 2019-04-02 15:45 | NUR ---
NURSE NOTES: AICD interrogating done. He said it is perfect and working good.
--- NOTE | 2019-04-02 15:56 | NUR ---
NURSE NOTES: Discharge instruction given and patient verbalized understanding. Inventory check done. Removed phototypesetting equipment monitor and IV line. No bleeding noted on IV site. No SOB/distress noted. Patient denies any pain/discomfort.
--- NOTE | 2019-04-02 16:06 | NUR ---
NURSE NOTES: Patient is discharged with stable condition via [employer].
[2019-04-03] MEDS ORDERED: Imdur 30mg tab ORAL SCH (09:00)
--- NOTE | 2019-04-03 10:51 | Discharge Summary ---
Discharge Summary Discharge Summary _ DATE OF ADMISSION: 03/29/2019 DATE OF DISCHARGE: 04/02/2019 ADMITTING MD: Dr. Mejia Hidalgo DISCHARGED BY: Dr. Angel Diaz CONSULTANTS: Dr. Angel Schumacher [facility] HOSPITAL COURSE: Patient is a 44-year-old -[place] male, presented with chief complaint of shortness of breath, cough and chest pain. 18 through 02/14/2019 due to congestive heart failure exacerbation. Patient had a left ventricular ejection fraction of 15% to 20%. The patient is status post AICD placement in July [address] Stanley Schumacher. Patient stated he began to experience shortness of breath and nonproductive cough. He had shortness of breath that kept him from sleeping. Patient had to sleep on several pillows under his head. He was not feeling well and was feeling fatigued with increased cough. He had worsening of shortness of breath when laying flat. He denied any recent travel. He has past medical history significant for CHF, status post AICD placement in 2017, COPD, hypertension, diseases status post [place] at age 22 and again in 2013. On evaluation at ED, blood pressure was elevated to 187/134. He was saturating 91% on room air. Blood work showed WBC of 5.4, hemoglobin 12.7, hematocrit 40. Sodium 145, potassium 3.6 chloride 110. BUN was elevated to 23, creatinine to 1.5. Troponin was elevated to 0.079. proBNP 3147. Urine drug screen was negative. EKG showed sinus rhythm at a rate of 77, with no PVCs, no ectopy. Chest x-ray showed pulmonary congestion. He was given Lasix. He was given Nitropaste. Patient refused BiPAP. He was then admitted for evaluation of shortness of breath/chest pain/acute exacerbation of CHF and COPD. Patient was admitted to telemetry. He was continued on Coreg and atorvastatin. He was given IV Lasix. He was placed on DuoNeb treatment. He was given antitussives. Supervisor Furnace Room and power plant assistant were consulted. He was given statin and aspirin. He was continued on Coreg 25 mg twice daily. Aldactone 25 mg daily was added. He was given Lasix to reduce filling pressures. Antihypertensives were titrated. He was eventually given hydralazine 50 mg every 8 hours and Isordil. He was advised fluid and salt restriction. BUN and creatinine was noted to be rising. Lasix was placed on hold. Project Management Consultant was consulted. Urinalysis was essentially negative. Kidney function was monitored. Patient had elevated troponin. Troponin levels were 0.07, 0.1, 0.09, possibly troponin leak. This could be due to presence of renal failure. Patient already had cardiac catheterization done at [facility] showed no evidence of coronary artery disease. He had [place] defibrillator implantation. ICD interrogation done was normal. FINAL DIAGNOSES: Acute on chronic renal failure Acute bronchitis Acute CHF in exacerbation Troponin leak due to renal failure [place] implantable cardioverter defibrillator in place Cardiomyopathy with low ejection fraction COPD/asthma Hypertension, [id number] Status post [place] Elevated A1c Hypercholesterolemia DISPOSITION: Patient was discharged home. DISCHARGE MEDICATIONS: Refer to Discharge Medication List. DISCHARGE INSTRUCTIONS: Follow-up in a week. I have been assigned to complete a discharge summary on this account, I was not involved with the patient's management. Vane Cunningham NP April 03, 2019 10:51
== END 2019-04-02 16:06 | disposition home or self-care (01) | DRG 291 ==
LOC: EMR 10:38 → 2E 10:41 → EDBEDREQ 10:58 → 2E 12:04
DX: I13.0 Hypertensive heart and chronic kidney disease with heart failure and stage 1 through stage 4 chronic kidney disease, or unspecified chronic kidney disease (principal); J96.00 Acute respiratory failure, unspecified whether with hypoxia or hypercapnia; I50.23 Acute on chronic systolic (congestive) heart failure; J44.1 Chronic obstructive pulmonary disease with (acute) exacerbation; N17.9 Acute kidney failure, unspecified; N18.9 Chronic kidney disease, unspecified; Z95.810 Presence of automatic (implantable) cardiac defibrillator; Z79.82 Long term (current) use of aspirin; F17.200 Nicotine dependence, unspecified, uncomplicated; J20.9 Acute bronchitis, unspecified; I25.2 Old myocardial infarction; E78.00 Pure hypercholesterolemia, unspecified
CPT/HCPCS: 36415; 71045; 80048; 80053; 80061; 80307; 81001; 82550; 82553; 82962; 83036; 83690; 83880; 84484; 84550; 85025; 87070; 87205; 93005; 93306; 93970; 94640; 94760; 96374; 99285; J1815; J7620

== ENCOUNTER 2019-06-05 14:50 | Inpatient (IN) | payer MEDICARE, MEDICAID ==
[2019-06-05] VITALS (19 sets, daily range): BP systolic 85–127; BP diastolic 57–90
[~2019-06-05] VITALS: Ht 177.8 cm; Wt 101.2 kg
[~2019-06-05 14:50] MED LIST changes: +CENTRUM MEN'S1 EACH PO; +PREDNISONE20 MG ORAL
--- NOTE | 2019-06-05 15:04 | NUR ---
ED Nurse Note: PT WALKED IN DUE TO HEADACHE AND BP THIS MORNING BP 78/40. DENIES CP OR DIZZINESS. HX OF DM. PT WAS DISCHARGED FROM [facility] YESTERDAY. PT IS AAO X4, AMBULATORY BUT NOTED SLURRING OF SPEECH AND DROWSINESS. BS IS 128 AT BED SIDE.
--- NOTE | 2019-06-05 15:32 | NUR ---
ED Nurse Note: COLLECTE DBLOOD/URINE THEN SENT.
[2019-06-05 15:35] LABS: BASOPHILS % (AUTO) 2.2 % (0.0-2.0); EOSINOPHILS % (AUTO) 0.5 % (0.0-3.0); HEMATOCRIT 44.7 % (42.0-52.0); HEMOGLOBIN 14.4 G/DL (14.2-18.0); LYMPHOCYTES % (AUTO) 11.7 % (20.0-45.0); MEAN CORPUSCULAR VOLUME 82 FL (80-99); MONOCYTES % (AUTO) 9.5 % (1.0-10.0); NEUTROPHILS % (AUTO) 76.1 % (45.0-75.0); PLATELET COUNT 236 K/UL (150-450); RED BLOOD COUNT 5.47 M/UL (4.70-6.10); RED CELL DISTRIBUTION WIDTH 15.3 % (11.6-14.8); WHITE BLOOD COUNT 7.2 K/UL (4.8-10.8)
[2019-06-05 15:40] LABS: APPEARANCE,URINE CLEAR; BILIRUBIN, URINE NEGATIVE (NEGATIVE); GLUCOSE, URINE (UA) NEGATIVE (NEGATIVE); KETONES,URINE NEGATIVE (NEGATIVE); LEUKOCYTE ESTERASE ,URINE NEGATIVE (NEGATIVE); NITRITE,URINE NEGATIVE (NEGATIVE); PH,URINE 6.5 (4.5-8.0); PROTEIN,URINE 3+ (NEGATIVE); UROBILINOGEN,URINE 1 MG/DL (0.0-1.0)
[2019-06-05] MEDS ORDERED: Lidocaine 1% Plain 30 ml INJ ONE (15:45)
--- NOTE | 2019-06-05 15:45 | Diagnostic Imaging Report ---
. Indication: Cough Technique: One view of the chest Comparison: 03/31/2019 Findings: Lungs and pleural spaces are clear. The heart is enlarged. There is a left chest bifocal AICD. No significant interim change Impression: No acute process
[2019-06-05 15:46] LABS: COLOR,URINE YELLOW
[2019-06-05 15:47] LABS: ANION GAP 13 mmol/L (5-15); BLOOD UREA NITROGEN 15 mg/dL (7-18); CALCIUM 9.7 MG/DL (8.5-10.1); CARBON DIOXIDE 25 MMOL/L (21-32); CHLORIDE 103 MMOL/L (98-107); CREATININE 1.8 MG/DL (0.55-1.30); SODIUM 141 MMOL/L (136-145)
--- NOTE | 2019-06-05 15:47 | NUR ---
ED Nurse Note: PT TAKEN TO CT.
--- NOTE | 2019-06-05 15:50 | Emergency Room Report ---
History of Present Illness General Chief Complaint: General Complaint Source: Patient Present Illness HPI Patient presents with complaints of altered mental status and weakness patient appears to have just been discharged from a nursing facility Patient has a difficult time providing full history he reports that he feels similar to when he had his concussion Feels lightheaded Patient presents hypotensive And on review of medications at bedside appears to be on multiple medications review of history reveals Recent hospitalization was significantly deteriorated EF approximately 10 to 12 % on previous exams Patient is sluggish response to physical stimuli History of present illness is limited given to the critical presentation Allergies: Coded Allergies: Cultivated Oat Pollen (Unverified Allergy, Unknown, 06/06/19) Dust (Unverified Allergy, Unknown, 06/06/19) PINEAPPLE (Unverified Allergy, Unknown, 06/06/19) WOOL (Unverified Allergy, Unknown, 06/06/19) Patient History Limited by: medical condition Past Medical History: see triage record Reviewed Nursing Documentation: PMH: Agreed; PSxH: Agreed Nursing Documentation-PMH Past Medical History: No History, Except For Hx Cardiac Problems: Yes - chf Hx Hypertension: Yes Hx Pacemaker: Yes - defibrilator Hx Asthma: Yes Hx COPD: Yes Hx Cerebrovascular Accident: Yes - 2014 Review of Systems All Other Systems: limited - Other than the ones mentioned in the history of present illness all others are reviewed however they do stay limited due to the patient's mental status Physical Exam Vital Signs Date Time Temp Pulse Resp B/P (MAP) Pulse Ox O2 Delivery O2 Flow Rate FiO2 06/05/19 14:54 97.5 91 20 75/44 (54) 91 Room Air Sp02 EP Interpretation: reviewed, abnormal - 91% on room air which is low on 2 L nasal cannula patient saturating at 95% which is normal General Appearance: mild distress - Appears mildly agitated Head: normocephalic, atraumatic Eyes: bilateral eye PERRL, bilateral eye EOMI ENT: other - Pallor, voice normal Neck: supple Respiratory: no retraction, no accessory muscle use, crackles - bilaterally Cardiovascular #1: regular rate, rhythm, no edema Gastrointestinal: non tender, soft Musculoskeletal: other - Patient does not follow all commands however localizes towards stimuli on both upper extremity Neurologic: responsive - To physical and verbal stimuli appears confused Skin: pallor Lymphatic: no adenopathy Procedures Critical Care Time Critical Care Time 50 minutes for multiple re-evaluations critical presentation concern for cardiopulmonary arrest not including any procedural time Central Line Central Line : Consent: Emergent Central Line Lumen: triple Maximal Sterile Barrier Tech: yes cap, yes mask, yes sterile gown, yes sterile gloves, yes large sterile sheet, yes hand hygiene, yes chlorhexidine prep Central Line Postion: femoral (R) Anesthesia: Lidocaine cc's of anesthesia: 3 Complications: none Central Line Post Position: sutured Attempts: One Patient Tolerated: Well Complications: None Medical Decision Making Diagnostic Impression: Primary Impression: Hypotension Additional Impressions: EF 15% Dyspnea ACS (acute coronary syndrome) ER Course Patient is a fairly complex patient with multiple differential to consideration including but not limited to cardiac cardiopulmonary and vascular emergencies After further questioning patient also does admit to using PCP Patient's presentation is extremely concerning with hypotensive findings Also patient has significantly poor EF and significant CHF limiting the amount of IV hydration the patient can receive and therefore requiring Pressor medication to improve blood pressure Patient admitted to ICU for further care and critical condition Labs Test 06/05/19 15:15 06/05/19 15:30 06/05/19 16:05 06/05/19 16:45 White Blood Count 7.2 K/UL (4.8-10.8) Red Blood Count 5.47 M/UL (4.70-6.10) Hemoglobin 14.4 G/DL (14.2-18.0) Hematocrit 44.7 % (42.0-52.0) Mean Corpuscular Volume 82 FL (80-99) Mean Corpuscular Hemoglobin 26.4 PG (27.0-31.0) Mean Corpuscular Hemoglobin Concent 32.3 G/DL (32.0-36.0) Red Cell Distribution Width 15.3 % (11.6-14.8) Platelet Count 236 K/UL (150-450) Mean Platelet Volume 5.5 FL (6.5-10.1) Neutrophils (%) (Auto) 76.1 % (45.0-75.0) Lymphocytes (%) (Auto) 11.7 % (20.0-45.0) Monocytes (%) (Auto) 9.5 % (1.0-10.0) Eosinophils (%) (Auto) 0.5 % (0.0-3.0) Basophils (%) (Auto) 2.2 % (0.0-2.0) Sodium Level 141 MMOL/L (136-145) Potassium Level 4.0 MMOL/L (3.5-5.1) Chloride Level 103 MMOL/L (98-107) Carbon Dioxide Level 25 MMOL/L (21-32) Anion Gap 13 mmol/L (5-15) Blood Urea Nitrogen 15 mg/dL (7-18) Creatinine 1.8 MG/DL (0.55-1.30) Estimat Glomerular Filtration Rate 50.4 mL/min (>60) Glucose Level 132 MG/DL (74-106) Lactic Acid Level 2.90 mmol/L (0.4-2.0) 2.40 mmol/L (0.66-2.22) Calcium Level 9.7 MG/DL (8.5-10.1) Total Bilirubin 0.5 MG/DL (0.2-1.0) Aspartate Amino Transf (AST/SGOT) 18 U/L (15-37) Alanine Aminotransferase (ALT/SGPT) 13 U/L (12-78) Alkaline Phosphatase 87 U/L (46-116) Total Creatine Kinase 262 U/L (26-308) Creatine Kinase MB 2.6 NG/ML (0.0-3.6) Creatine Kinase MB Relative Index 0.9 Troponin I 0.022 ng/mL (0.000-0.056) Pro-B-Type Natriuretic Peptide 6580 pg/mL (0-125) Total Protein 8.0 G/DL (6.4-8.2) Albumin 4.1 G/DL (3.4-5.0) Globulin 3.9 g/dL Albumin/Globulin Ratio 1.1 (1.0-2.7) Lipase 416 U/L (73-393) Urine Color Yellow Urine Appearance Clear Urine pH 6.5 (4.5-8.0) Urine Specific [place] 1.015 (1.005-1.035) Urine Protein 3+ (NEGATIVE) Urine Glucose (UA) Negative (NEGATIVE) Urine Ketones Negative (NEGATIVE) Urine Blood 2+ (NEGATIVE) Urine Nitrite Negative (NEGATIVE) Urine Bilirubin Negative (NEGATIVE) Urine Urobilinogen 1 MG/DL (0.0-1.0) Urine Leukocyte Esterase Negative (NEGATIVE) Urine RBC 5-10 /HPF (0 - 0) Urine WBC 0-2 /HPF (0 - 0) Urine Squamous Epithelial Cells Moderate /LPF (NONE/OCC) Urine Bacteria None /HPF (NONE) Urine Opiates Screen Negative (NEGATIVE) Urine Barbiturates Screen Negative (NEGATIVE) Phencyclidine (PCP) Screen Positive (NEGATIVE) Urine Amphetamines Screen Negative (NEGATIVE) Urine Benzodiazepines Screen Negative (NEGATIVE) Urine Cocaine Screen Negative (NEGATIVE) Urine Marijuana (THC) Screen Negative (NEGATIVE) Arterial Blood pH 7.367 (7.350-7.450) Arterial Blood Partial Pressure CO2 34.3 mmHg (35.0-45.0) Arterial Blood Partial Pressure O2 92.9 mmHg (75.0-100.0) Arterial Blood HCO3 19.3 mmol/L (22.0-26.0) Arterial Blood Oxygen Saturation 96.3 % (95-100) Arterial Blood Base Excess -5.2 (-2-2) Tam Test Positive Test 06/06/19 00:21 06/06/19 06:00 06/07/19 05:07 06/08/19 03:15 Lactic Acid Level 1.30 mmol/L (0.4-2.0) 1.20 mmol/L (0.4-2.0) Sodium Level 140 MMOL/L (136-145) 138 MMOL/L (136-145) 140 MMOL/L (136-145) Potassium Level 3.6 MMOL/L (3.5-5.1) 3.5 MMOL/L (3.5-5.1) 3.7 MMOL/L (3.5-5.1) Chloride Level 103 MMOL/L (98-107) 103 MMOL/L (98-107) 101 MMOL/L (98-107) Carbon Dioxide Level 25 MMOL/L (21-32) 29 MMOL/L (21-32) 30 MMOL/L (21-32) Anion Gap 12 mmol/L (5-15) 6 mmol/L (5-15) 9 mmol/L (5-15) Blood Urea Nitrogen 17 mg/dL (7-18) 13 mg/dL (7-18) 14 mg/dL (7-18) Creatinine 1.3 MG/DL (0.55-1.30) 1.0 MG/DL (0.55-1.30) 1.0 MG/DL (0.55-1.30) Estimat Glomerular Filtration Rate > 60 mL/min (>60) > 60 mL/min (>60) > 60 mL/min (>60) Glucose Level 102 MG/DL (74-106) 93 MG/DL (74-106) 98 MG/DL (74-106) Calcium Level 9.2 MG/DL (8.5-10.1) 9.5 MG/DL (8.5-10.1) 10.4 MG/DL (8.5-10.1) Troponin I 0.045 ng/mL (0.000-0.056) 0.033 ng/mL (0.000-0.056) White Blood Count 4.8 K/UL (4.8-10.8) 5.1 K/UL (4.8-10.8) Red Blood Count 5.37 M/UL (4.70-6.10) 5.99 M/UL (4.70-6.10) Hemoglobin 14.2 G/DL (14.2-18.0) 15.5 G/DL (14.2-18.0) Hematocrit 44.6 % (42.0-52.0) 49.5 % (42.0-52.0) Mean Corpuscular Volume 83 FL (80-99) 83 FL (80-99) Mean Corpuscular Hemoglobin 26.5 PG (27.0-31.0) 25.9 PG (27.0-31.0) Mean Corpuscular Hemoglobin Concent 31.9 G/DL (32.0-36.0) 31.3 G/DL (32.0-36.0) Red Cell Distribution Width 16.2 % (11.6-14.8) 16.0 % (11.6-14.8) Platelet Count 210 K/UL (150-450) 230 K/UL (150-450) Mean Platelet Volume 5.7 FL (6.5-10.1) 6.3 FL (6.5-10.1) Neutrophils (%) (Auto) 61.3 % (45.0-75.0) 60.3 % (45.0-75.0) Lymphocytes (%) (Auto) 24.0 % (20.0-45.0) 19.4 % (20.0-45.0) Monocytes (%) (Auto) 10.5 % (1.0-10.0) 15.2 % (1.0-10.0) Eosinophils (%) (Auto) 3.0 % (0.0-3.0) 2.3 % (0.0-3.0) Basophils (%) (Auto) 1.2 % (0.0-2.0) 2.8 % (0.0-2.0) Pro-B-Type Natriuretic Peptide 140 pg/mL (0-125) 335 pg/mL (0-125) EKG Diagnostic Results Rate: normal Rhythm: NSR ST Segments: other - Nonspecific ST changes Rhythm Strip Diag. Results EP Interpretation: yes Rate: 75 Rhythm: NSR, no PVC's, no ectopy Chest X-Ray Diagnostic Results Chest X-Ray Diagnostic Results : Chest X-Ray Ordered: Yes # of Views/Limited/Complete: 1 View Indication: Chest Pain EP Interpretation: Yes Interpretation: no consolidation, no effusion, no pneumothorax Impression: No acute disease - Cardiomegaly, leads in place Electronically Signed by: Petr Lee DO CT/MRI/US Diagnostic Results CT/MRI/US Diagnostic Results : Impression CT head no acute disease Last Vital Signs Date Time Temp Pulse Resp B/P (MAP) Pulse Ox O2 Delivery O2 Flow Rate FiO2 06/05/19 15:05 97.5 88 17 94/60 97 Room Air Status: improved Disposition: ADMITTED INPATIENT Condition: Critical Referrals: NON PHYSICIAN (PCP) Petr Lee DO Jun 05, 2019 15:50
--- NOTE | 2019-06-05 15:57 | NUR ---
ED Nurse Note: PT CAME BACK FROM CT.
--- NOTE | 2019-06-05 16:00 | NUR ---
ED Nurse Note: RN ASSISTED WITH INSERTION OF CENTRAL LINE OF RIGHT FEMORAL BY DR SWEENEY. CONSENT FOR PROCEDURE SIGNED BY PT.
[2019-06-05 16:01] LABS: ALANINE AMINOTRANSFERASE 13 U/L (12-78); ALBUMIN 4.1 G/DL (3.4-5.0); ALBUMIN/GLOBULIN RATIO 1.1 (1.0-2.7); ALKALINE PHOSPHATASE 87 U/L (46-116); ASPARTATE AMINO TRANSFERASE 18 U/L (15-37); BILIRUBIN,TOTAL 0.5 MG/DL (0.2-1.0); CKMB 2.6 NG/ML (0.0-3.6); CREATINE KINASE 262 U/L (26-308)
[2019-06-05] MEDS ORDERED: Albuterol/Ipratropium 3ml neb HHN PRN (16:30)
[2019-06-05] MEDS ORDERED: DOPamine 400mg/250ml 250 ML IV ONE (16:30)
[2019-06-05] MEDS ORDERED: Miralax 17gm pkt ORAL PRN (16:30)
--- NOTE | 2019-06-05 16:31 | Diagnostic Imaging Report ---
Indications: Headache, hypotension Technique: Spiral acquisitions obtained through the brain. Angled axial and coronal 5 x 5 mm slices were reconstructed. Total dose length product 1432.39 mGycm. CTDI vol(s) 70.38 mGy. Dose reduction achieved using automated exposure control Comparison: None. Findings: No acute intracranial hemorrhage or edema, mass effect, nor midline shift. Normal barnett-white differentiation. Normal-sized ventricles and extra axial CSF spaces. Visualized orbits and sinuses are unremarkable. Intact calvarium. Impression: Negative The CT scanner at [facility] is accredited by the [employer] and the scans are performed using protocols designed to limit radiation exposure to as low as reasonably achievable to attain images of sufficient resolution adequate for diagnostic evaluation.
--- NOTE | 2019-06-05 16:34 | NUR ---
ED Nurse Note: STARTED DOPAMINE DRIP AT 2MCG/KG/MIN PER ERMD ORDER. WILL CONTINUE TO MONITOR.
[2019-06-05] MEDS ORDERED: FAMOTIDINE40 MG ORAL (16:37)
[2019-06-05] MEDS ORDERED: AMLODIPINE BESY10 MG ORAL (16:37)
[2019-06-05] MEDS ORDERED: TRADJENTA5 MG PO (16:37)
[2019-06-05] MEDS ORDERED: METFORMIN HCL1000 M1 ORAL (16:37)
[2019-06-05] MEDS ORDERED: LORAZEPAM2 MG ORAL (16:37)
[2019-06-05] MEDS ORDERED: GABAPENTIN300 MG ORAL (16:37)
[2019-06-05] MEDS ORDERED: TRAMADOL HCL50 MG ORAL (16:37)
[2019-06-05] MEDS ORDERED: LISINOPRIL20 MG ORAL (16:37)
--- NOTE | 2019-06-05 16:50 | NUR ---
ED Nurse Note: PT IS SNORING TOO LOUD AND STILL VERY SLEEPY. DOPAMINE DRIP STILL RUNNING AT 2MCG/KG/MIN. VSS.
--- NOTE | 2019-06-05 16:50 | NUR ---
ED Nurse Note: REPEAT LACTIC ACID SENT TO LAB.
--- NOTE | 2019-06-05 17:00 | NUR ---
ED Nurse Note: US STAFF AT THE BED SIDE FOR VENOUS DUPLEX SCAN.
--- NOTE | 2019-06-05 17:00 | NUR ---
NURSE NOTES: RECEVED CALL FROM KENO WRITER / RUNNERROMI RODRIGUEZ. PT FROM HOME, RECENT D/C FROM SNF. LOW BP, CONFUSION. CURRENT BP PER RN 99/60, DOPAMINE DRIP GOING AT 2MCG/KG/HR VIA CENTRAL FEMORAL. USES URINAL, CONTINENT. NO WOUNDS NOTED. A FEBRILE, IJM CHEST AICD. LACTIC ACID REFLEX PENDING. WILL BE BRINGING PT UOP SHORTLY. AWAITING PT ARRIVAL
--- NOTE | 2019-06-05 17:07 | NUR ---
ED Nurse Note: REPORT GIVEN TO LI LLANOS OF ICU.
--- NOTE | 2019-06-05 17:43 | NUR ---
ED Nurse Note: PATIENT'S MEDICATIONS LOCKED IN MEDICATION BOX IN ED. WITNESSED BY TRENTON LLANOS. PHARMACY AWARE.
--- NOTE | 2019-06-05 17:56 | NUR ---
NURSE NOTES: pt arrived on unit via gurney. able to transfer to bed, with minimal assist. pt verbal aaox3. some confusion noted. opens eyes spontaneously. c/o pain 10/10 headache. Pt connected to fertilizer mixer HR 90, BP 105/59, RR 21, 02SAT 963%. Afebrile. 97.0 ax temp. Pt on 2L NC. Bilateral lungs diminished. No secretions, very congested, stuffy nose. Abdomen round, distended. pt r/o bm yesterday, hard. Bladder non distended. Voids using urinal per SHORT FILLER BUNCH MACHINE OPERATOR. Rt femoral TLC, dressing dry and intact,mild drainage. running dopamine drip at 2mcg/kg /hr. skin intact. Call light within reach. Fall precautions in place. Bed alarm on. Informed of plan of care, reoriented to room and unit, pt states understanding. completing meal brought up from ER. standard and fall precautions in place. Will continue to monitor.
--- NOTE | 2019-06-05 18:30 | NUR ---
NURSE NOTES: Called MD Diaz, pt c/o headache 08/27, stuffy nose. on 2l nc sating 100%, on dopamine 2mch, bp 100/78, 97.3 temp ax. diet ccho medium, any fluids. received order to input dobutamine, morphine 2mg ivp q4h duplex lower extremities, diet ccho medium, no fluids. Phenergen w/ codeine 5ml q6hr prn, heparin 5,00units sc q12hr, Protonix 40mg ivp daily
[2019-06-05] MEDS ORDERED: DOBUTamine 250mg/250ml Premix 250 ML IV SCH (19:02)
--- NOTE | 2019-06-05 19:08 | NUR ---
[id number] in chart Addendum: 06/05/19 at 1910 by Lisette Yarbrough RN Amended: Links added.
--- NOTE | 2019-06-05 19:15 | NUR ---
NURSE NOTES: Endorsement received from ROMI Knox. Patient admitted from ER. Asleep, arousable per name. Able to communicate needs. Oriented x3. On oxygen 2 LPM per nasal cannula. Noted with heavy snoring while asleep, saturation 100%. With right femoral TLC and left AC g20. On Dopamine 2mcg/kg/min. Head of bed elevated, locked and in low position. Bed alarm on, call light within reach.
[2019-06-05] MEDS ORDERED: Promethazine/Codeine 5ml UD ORAL PRN (19:30)
--- NOTE | 2019-06-05 20:00 | NUR ---
NURSE NOTES: Patient seen and examined by Dr. Hidalgo.
--- NOTE | 2019-06-05 20:01 | NUR ---
NURSE NOTES: Dopamine discontinued, started on Dobutamine 4mcg/kg/min. Will titrate accordingly
[2019-06-05] MEDS: DOBUTamine 250mg/250ml Premix 250 ML IV SCH (20:08)
--- NOTE | 2019-06-05 20:22 | History & Physical ---
History and Physical History & Physicial job # [id number] Mejia Hidalgo MD Jun 05, 2019 20:21
[2019-06-05] MEDS ORDERED: Carvedilol 25mg Tab ORAL SCH (21:00)
[2019-06-05] MEDS ORDERED: Heparin 5000 units/ml inj SUBQ SCH (21:00)
[2019-06-05] MEDS: Heparin 5000 units/ml inj SUBQ SCH (21:20)
[2019-06-05] MEDS: NovoLOG Insulin Flexpen SUBQ SCH (21:20)
--- NOTE | 2019-06-05 21:30 | History and Physical Report ---
DATE OF ADMISSION: 06/05/2019 CHIEF COMPLAINT: Weakness, shortness of breath. HISTORY OF PRESENT ILLNESS: This is a 44-year-old gentleman with past medical history significant for severe cardiomyopathy with ejection fraction of 15 to 20%. The patient has a history of congestive heart failure with reduced ejection fraction, status post AICD in July [address] Stanley Schumacher, history of COPD, hypertension, coronary artery disease, status post myocardial infarction at the age of 22 who has presented to the hospital complaining about shortness of breath, weakness, fatigue. The patient was recently discharged from the [place], [place] and was on medication; however at home, the patient was found to be weak, more altered than usual, and feels lightheaded. Shortly after initial evaluation, the patient was presented to the emergency room. Upon arrival to emergency room, the patient was noted to be hypotensive with blood pressure of 75/44 and subsequently the patient was admitted to ICU on dobutamine drip. PAST MEDICAL HISTORY/PAST SURGICAL HISTORY: As above history of congestive heart failure with severe systolic dysfunction with reduced ejection fraction, status post of AICD placement July [address] Stanley Schumacher, COPD, hypertension, diabetes type 2, coronary artery disease, status post myocardial infarction. MEDICATIONS AT HOME: Significant for allopurinol, aspirin, atorvastatin, Coreg, clonidine, Advair, Lasix, hydralazine, isosorbide, lisinopril, prednisone, ranitidine, Januvia, spironolactone. ALLERGIES: No known drug allergies. SOCIAL HISTORY: The patient is disabled, still smokes one and a half pack a day. Drinks 2 alcoholic drinks twice a week. Denies any substance abuse. FAMILY HISTORY: Noncontributory. REVIEW OF SYSTEMS: Mostly as above. Denies any dysuria, frequency, hematuria. Denies any hemoptysis, hematochezia. Denies any bright red blood per rectum. PHYSICAL EXAMINATION: VITAL SIGNS: On admission, temperature 97.5, pulse of 91, respirations 20, blood pressure 75/44. GENERAL: The patient awake, responsive, but lethargic and sleepy. HEAD AND NECK: Pupils are reactive to light. Extraocular movements intact. Neck was supple. No JVD. LUNGS: Good air entry with no wheezing or rales. HEART: S1, S2. Regular rhythm. Distant heart sounds. AICD was noted in left-sided chest wall. ABDOMEN: Soft, nondistended, nontender. Morbidly obese. EXTREMITIES: No cyanosis, clubbing, edema. NEUROLOGIC: Cranial nerves II through XII grossly intact. Motor is 5/5 in all extremities. Gait is intact. RECTAL: Refused and deferred. GENITOURINARY: Refused and deferred. PSYCHIATRIC: Mood and affect is intact. LABORATORY DATA: Laboratory on admission chest x-ray showed AICD on left side of chest wall with cardiomegaly. Congestion of the chest was noted with possible CHF. The patient had a CT of the head was done, negative. No acute finding. WBC of 7.2, hemoglobin 14, hematocrit 44, platelets is 236. Sodium 141, potassium 4.0, chloride 103, bicarb 25, BUN 15, creatinine 1.8, glucose is 132. Lactic acid is 2.90, repeat was 2.40. First troponin 0.022. ProBNP of 6580. Lipase is 146. Urine is +3 protein, +2 blood, 5 to 10 rbc's, negative nitrites, negative leukocytes. Urine drug screen positive for phencyclidine. EKG normal sinus rhythm, ventricular rate of 90 with left atrial enlargement, left ventricular hypertrophy. No ST elevation was noted. The patient has ST depression in the leads V4 through V6. T-wave inversion in lead I, lead II, and pericardial leads of V3 through V6. Inverted T-wave in the aVL as well as aVF. ASSESSMENT: 1. Hypotension, most likely secondary to acute heart failure. 2. Ischemic cardiomyopathy. 3. Acute on chronic congestive heart failure with systolic dysfunction with a reduced ejection fraction. 4. Status post AICD. 5. History of hypertension, presently hypotensive. 6. COPD. 7. Diabetes type 2. 8. Coronary artery disease with prior history of myocardial infarction. 9. Morbid obesity. 10. Presumed obstructive sleep apnea. PLAN: Admit the patient to ICU. We will resume home medications. Follow up with Cardiology consultation with Dr. Stanley Schumacher as well as Pulmonary consultation with Dr. Angel Diaz. We will follow up with the dobutamine drip, Lasix IV. Monitor laboratory. Code status is Full Code. DVT prophylaxis, heparin subcutaneous. Mejia Hidalgo M.D. DR: DONNELL JOB#: [id number] CC:
--- NOTE | 2019-06-05 22:30 | NUR ---
NURSE NOTES: Patient's family at bedside. Patient reported 9/10 head ache. PRN morphine given.
[2019-06-05] MEDS: Morphine Sulfate 2mg/ml Inj(IV/IM USE ONLY) IVP PRN (22:34)
[2019-06-06] VITALS (45 sets, daily range): BP systolic 88–136; BP diastolic 41–94
--- NOTE | 2019-06-06 | NUR ---
NURSE NOTES: Patient periodically wakes up, watching TV. On dobutamine 6mcg/kg/min. Able to use urinal, passed 300ml yellowish urine. Bed locked and in low position. Call light within reach.
--- NOTE | 2019-06-06 02:30 | NUR ---
NURSE NOTES: Patient asleep. Good urine output.
[2019-06-06] MEDS: DOBUTamine 250mg/250ml Premix 250 ML IV SCH ×2 (02:49→11:15)
--- NOTE | 2019-06-06 04:30 | NUR ---
NURSE NOTES: Assisted patient with sponge bath, change of linens. Patient tolerated activity
[2019-06-06] MEDS: NovoLOG Insulin Flexpen SUBQ SCH ×4 (05:42→20:17)
--- NOTE | 2019-06-06 06:00 | NUR ---
NURSE NOTES: Dobutamine decreased to 6mcg/kg/min
--- NOTE | 2019-06-06 07:00 | NUR ---
HAND-OFF: Report given to ROMI Padilla .
[2019-06-06 07:04] LABS: ANION GAP 12 mmol/L (5-15); BLOOD UREA NITROGEN 17 mg/dL (7-18); CALCIUM 9.2 MG/DL (8.5-10.1); CARBON DIOXIDE 25 MMOL/L (21-32); CHLORIDE 103 MMOL/L (98-107); CREATININE 1.3 MG/DL (0.55-1.30); POTASSIUM 3.6 MMOL/L (3.5-5.1); SODIUM 140 MMOL/L (136-145)
--- NOTE | 2019-06-06 07:15 | NUR ---
NURSE NOTES: Received pt from ROMI Enrique. Francia/Ox4, denies any discomfort at this time. Patient report good sleep. 2LNC, SPo2 96%. Breathing even and unlabored. bilateral breath sounds clear. Sinus rhythm on manager data warehousing; HR 90. AICD on left upper chest noted. LAC 20G, hep lock. Right femoral TLC running Dobutamine @ 4mcg/kg/hr. BP 110/78. Bed locked, alarmed and in lowest position. Will continue plan of care.
[2019-06-06] MEDS: Heparin 5000 units/ml inj SUBQ SCH ×2 (08:41→20:16)
[2019-06-06] MEDS: Morphine Sulfate 2mg/ml Inj(IV/IM USE ONLY) IVP PRN (08:47)
--- NOTE | 2019-06-06 08:55 | NUR ---
NURSE NOTES: Tolerated 75% of breakfast meal. Patient voided 1000ml in urinal, clear pale yellow. C/O of CP 8/10, Morphine 2mg IVP given as per ordered. Will reassess pain in 30 mins.
[2019-06-06] MEDS ORDERED: Pantoprazole Inj IVP SCH (09:00)
--- NOTE | 2019-06-06 09:54 | Consultation ---
History of Present Illness General Date patient seen: Jun 06, 2019 Time patient seen: 09:00 Chief Complaint: chest pain, SOB, Referring physician: dr Hidalgo Reason for Consultation: SOB with chest pain Present Illness HPI 44 years old male with PMH of severe CM, CHF, status post AICD in 2018, COPD/ asthma, HTN, CAD, status post UT at age of 22, presented to the hospital complaining of shortness of breath , weakness and fatigue. Patient was recently discharged from [facility]. Upon presentation patient was also noted to have ltered mental status. He had a difficult time providing history. He reported lightheadedness. Upon evaluation vital signs revealed hypotension with blood pressure 75/44. pulse oximetry was 91% on room air. Laboratory work-up revealed no leukocytosis and stable hemoglobin hematocrit. Lactic acid 2.9. BUN 15, creatinine 1.8. Stable electrolytes. Troponin - 0.022. proBNP 6580. EKG revealed ST depression in the leads V4 through V6, TWI in leads I , II and V3 through V6. TWI also in aVL and aVF. Lipase 416. Urine toxicology screen was positive for phencyclidine. Urinalysis revealed no evidence of UTI. Chest x-ray revealed no acute cardiopulmonary pathology , evidence of bifocal AICD in the left chest noted. CT of the head revealed no acute intracranial pathology. Patient started on dobutamine drip and admitted to ICU for further management. Patient seen this morning in ICU. Blood pressure improving pressor, patient still on dobutamine. Patient awake alert, oriented and able to provide history. He denied chest pain, but admits to intermittent shortness of breath, no cough , no hemoptysis, no leg edema, still some lightheadedness and dizziness, but improved compared with yesterday. Allergies: Coded Allergies: Cultivated Oat Pollen (Unverified Allergy, Unknown, 06/06/19) Dust (Unverified Allergy, Unknown, 06/06/19) PINEAPPLE (Unverified Allergy, Unknown, 06/06/19) WOOL (Unverified Allergy, Unknown, 06/06/19) Medication History Scheduled Allopurinol* (Allopurinol*), 300 MG ORAL DAILY Amlodipine Besylate* (Amlodipine Besylate*), 10 MG ORAL DAILY, (Reported) Aspirin (Aspirin EC), 81 MG ORAL BEDTIME, (Reported) Atorvastatin Calcium* (Atorvastatin Calcium*), 40 MG ORAL BEDTIME, (Reported) Carvedilol (Coreg), 25 MG ORAL EVERY 12 HOURS, (Reported) Clonidine Hcl* (Catapres*), 0.3 MG ORAL BID, (Reported) Famotidine (Famotidine), 40 MG ORAL DAILY, (Reported) Furosemide* (Lasix*), 20 MG ORAL DAILY, (Reported) Gabapentin* (Gabapentin*), 300 MG ORAL THREE TIMES A DAY, (Reported) Hydralazine Hcl* (Hydralazine Hcl*), 100 MG ORAL EVERY 8 HOURS, (Reported) Insulin Lispro (Humalog), 0 SUBQ AC+HS, (Reported) Ipratropium/Albuterol Sulfate (DuoNeb 0.5-3(2.5)mg/3ml), 3 ML HHN Q4HR, ( Reported) Isosorbide Dinitrate* (Isordil*), 40 MG ORAL EVERY 8 HOURS, (Reported) Linagliptin (Tradjenta), 5 MG PO DAILY, (Reported) Lisinopril (Lisinopril*), 20 MG ORAL TWICE A DAY, (Reported) Metformin Hcl* (Metformin Hcl*), 1,000 MG ORAL BID, (Reported) Multivitamin With Minerals (Multivitamins With Minerals*), 1 TAB ORAL DAILY, ( Reported) Spironolactone* (Aldactone*), 25 MG ORAL DAILY, (Reported) Scheduled PRN Acetaminophen* (Acetaminophen 325MG Tablet*), 650 MG ORAL Q4H PRN for Mild Pain/ Temp > 100.5, (Reported) Bisacodyl (Dulcolax), 10 MG RC DAILY PRN for Constipation, (Reported) Clonidine Hcl* (Catapres*), 0.2 MG ORAL Q4HR PRN for For High Blood Pressure, ( Reported) Loratadine (Loratadine), 10 MG PO DAILY PRN for Itching, (Reported) Lorazepam* (Lorazepam*), 2 MG ORAL QHS PRN for INSOMNIA, RESTLESSNESS, (Reported ) Magnesium Hydroxide* (Milk Of Magnesia*), 30 ML ORAL DAILY PRN for Constipation, (Reported) Na Phos,M-B/Na Phos,Di-Ba* (Fleet Enema*), 133 ML RECTAL EVERY 72 HOURS PRN for Constipation, (Reported) Tramadol Hcl* (Ultram*), 50 MG ORAL Q6H PRN for Moderate Pain (Pain Scale 4-6), (Reported) Discontinued Medications Acetaminophen With Codeine (T#3) (Tylenol #3 Tab*), 1 TAB ORAL Q4H PRN Discontinued Reason: Therapy completed Fluticasone/Salmeterol (Advair 250-50 Diskus), 1 PUFF INH EVERY 12 HOURS, ( Reported) Discontinued Reason: Therapy completed Prednisone* (Prednisone*), 20 MG ORAL TWICE A DAY, (Reported) Discontinued Reason: Therapy completed Ranitidine Hcl (Ranitidine Hcl), 300 MG ORAL DAILY Discontinued Reason: Therapy completed Sitagliptin* (Januvia*), 100 MG ORAL DAILY, (Reported) Discontinued Reason: Therapy completed Patient History History Provided By: Patient Healthcare decision maker Resuscitation status Full Code Advanced Directive on File Past Medical/Surgical History Past Medical/Surgical History: (1) HTN (hypertension) (2) Congestive heart failure (CHF) (3) COPD (chronic obstructive pulmonary disease) (4) CAD (coronary artery disease) (5) Cardiomyopathy (6) Hypercholesteremia Review of Systems Constitutional: Reports: weakness Eye: Reports: no symptoms ENT: Reports: no symptoms Respiratory: Reports: see HPI Cardiovascular: Reports: see HPI Gastrointestinal: Reports: no symptoms Genitourinary: Reports: no symptoms Musculoskeletal: Reports: no symptoms Psychiatric: Reports: no symptoms Neurological: Reports: dizziness, other - Lightheadedness Endocrine: Reports: no symptoms Hematologic/Lymphatic: Reports: no symptoms Physical Exam General Appearance: no apparent distress, other - A/A/O obese AA male Lines, tubes and drains: peripheral HEENT: normocephalic, atraumatic, anicteric, mucous membranes moist, PERRL Neck: non-tender, supple - thick, trachea midline Respiratory/Chest: chest wall non-tender, no respiratory distress, no accessory muscle use, crackles/rales - few scattered bibasialr crackles Cardiovascular/Chest: normal rate, regular rhythm, pacemaker/AICD - Left sided AICD Abdomen: normal bowel sounds, non tender - obese, soft Extremities: normal range of motion, non-tender, no calf tenderness, normal capillary refill Skin Exam: warm/dry Neurologic: no motor/sensory deficits, alert, oriented x 3, responsive, normal mood/affect Musculoskeletal: normal muscle bulk Last 24 Hour Vital Signs Date Time Temp Pulse Resp B/P (MAP) Pulse Ox O2 Delivery O2 Flow Rate FiO2 06/06/19 09:17 98.0 06/06/19 08:40 81 105/85 06/06/19 08:00 Nasal Cannula 2.0 06/06/19 06:45 81 19 105/85 (92) 100 06/06/19 06:30 81 15 130/72 (91) 99 06/06/19 06:15 83 13 112/76 (88) 99 06/06/19 06:00 80 24 131/74 (93) 98 06/06/19 05:45 80 21 135/80 (98) 99 06/06/19 05:30 79 21 135/93 (107) 97 06/06/19 05:00 80 17 121/89 (100) 99 06/06/19 04:30 89 22 110/77 (88) 99 06/06/19 04:00 Nasal Cannula 2.0 06/06/19 04:00 98.0 82 23 106/63 (77) 99 06/06/19 04:00 81 06/06/19 03:30 84 24 127/59 (81) 94 06/06/19 03:00 82 26 115/83 (94) 99 06/06/19 02:49 88/63 06/06/19 02:30 85 22 88/63 (71) 99 06/06/19 02:00 88 25 95/41 (59) 96 06/06/19 01:30 87 22 108/74 (85) 97 06/06/19 01:00 93 20 117/74 (88) 98 06/06/19 00:30 92 20 122/85 (97) 97 06/06/19 00:15 91 15 115/73 (87) 100 06/06/19 00:00 93 06/06/19 00:00 98.9 89 20 107/83 (91) 100 06/06/19 00:00 Nasal Cannula 2.0 06/05/19 23:30 90 24 112/79 (90) 99 06/05/19 23:15 95 25 120/83 (95) 99 06/05/19 23:00 97 20 114/64 (81) 99 06/05/19 22:30 95 18 116/87 (97) 97 06/05/19 22:15 88 20 127/90 (102) 98 06/05/19 22:00 88 22 117/70 (86) 98 06/05/19 21:45 92 22 117/73 (88) 95 06/05/19 21:30 94 22 99/73 (82) 100 06/05/19 21:18 90 91/57 06/05/19 21:15 94 22 114/80 (91) 100 06/05/19 21:00 92 20 91/57 (68) 100 06/05/19 20:45 92 20 85/62 (70) 100 06/05/19 20:30 89 20 104/63 (77) 100 06/05/19 20:15 88 20 104/73 (83) 100 06/05/19 20:08 87/61 06/05/19 20:00 98.7 89 20 107/72 (84) 100 06/05/19 20:00 Nasal Cannula 2.0 06/05/19 20:00 87 06/05/19 19:56 85/60 06/05/19 19:45 88 21 87/61 (70) 100 06/05/19 19:30 88 21 85/60 (68) 100 06/05/19 18:47 76 18 97 Nasal Cannula 2.0 28 06/05/19 18:47 97 Nasal Cannula 2.0 28 06/05/19 18:17 Nasal Cannula 2.0 06/05/19 17:50 98.0 84 15 112/70 96 Nasal Cannula 3.0 06/05/19 17:09 98.3 90 18 99/62 94 Nasal Cannula 3.0 06/05/19 16:34 90/70 06/05/19 16:23 98.0 86 15 90/70 98 Nasal Cannula 3.0 06/05/19 15:05 97.5 88 17 94/60 97 Room Air 06/05/19 15:04 91 20 Room Air 06/05/19 14:54 97.5 91 20 75/44 (54) 91 Room Air Intake and Output 06/05/19 06/06/19 19:00 07:00 Intake Total 1000 ml 369.041 ml Output Total 2400 ml Balance 1000 ml -2030.959 ml Intake Oral 0 ml IV Total 1000 ml 369.041 ml Output Urine Total 2400 ml # Voids 1 Laboratory Tests Test 06/05/19 15:15 06/05/19 15:30 06/05/19 16:05 06/05/19 16:45 White Blood Count 7.2 K/UL (4.8-10.8) Red Blood Count 5.47 M/UL (4.70-6.10) Hemoglobin 14.4 G/DL (14.2-18.0) Hematocrit 44.7 % (42.0-52.0) Mean Corpuscular Volume 82 FL (80-99) Mean Corpuscular Hemoglobin 26.4 PG (27.0-31.0) L Mean Corpuscular Hemoglobin Concent 32.3 G/DL (32.0-36.0) Red Cell Distribution Width 15.3 % (11.6-14.8) H Platelet Count 236 K/UL (150-450) Mean Platelet Volume 5.5 FL (6.5-10.1) L Neutrophils (%) (Auto) 76.1 % (45.0-75.0) H Lymphocytes (%) (Auto) 11.7 % (20.0-45.0) L Monocytes (%) (Auto) 9.5 % (1.0-10.0) Eosinophils (%) (Auto) 0.5 % (0.0-3.0) Basophils (%) (Auto) 2.2 % (0.0-2.0) H Sodium Level 141 MMOL/L (136-145) Potassium Level 4.0 MMOL/L (3.5-5.1) Chloride Level 103 MMOL/L (98-107) Carbon Dioxide Level 25 MMOL/L (21-32) Anion Gap 13 mmol/L (5-15) Blood Urea Nitrogen 15 mg/dL (7-18) Creatinine 1.8 MG/DL (0.55-1.30) H Estimat Glomerular Filtration Rate 50.4 mL/min (>60) Glucose Level 132 MG/DL (74-106) H Lactic Acid Level 2.90 mmol/L (0.4-2.0) H 2.40 mmol/L (0.66-2.22) H Calcium Level 9.7 MG/DL (8.5-10.1) Total Bilirubin 0.5 MG/DL (0.2-1.0) Aspartate Amino Transf (AST/SGOT) 18 U/L (15-37) Alanine Aminotransferase (ALT/SGPT) 13 U/L (12-78) Alkaline Phosphatase 87 U/L (46-116) Total Creatine Kinase 262 U/L (26-308) Creatine Kinase MB 2.6 NG/ML (0.0-3.6) Creatine Kinase MB Relative Index 0.9 Troponin I 0.022 ng/mL (0.000-0.056) Pro-B-Type Natriuretic Peptide 6580 pg/mL (0-125) H Total Protein 8.0 G/DL (6.4-8.2) Albumin 4.1 G/DL (3.4-5.0) Globulin 3.9 g/dL Albumin/Globulin Ratio 1.1 (1.0-2.7) Lipase 416 U/L (73-393) H Urine Color Yellow Urine Appearance Clear Urine pH 6.5 (4.5-8.0) Urine Specific Cowley 1.015 (1.005-1.035) Urine Protein 3+ (NEGATIVE) H Urine Glucose (UA) Negative (NEGATIVE) Urine Ketones Negative (NEGATIVE) Urine Blood 2+ (NEGATIVE) H Urine Nitrite Negative (NEGATIVE) Urine Bilirubin Negative (NEGATIVE) Urine Urobilinogen 1 MG/DL (0.0-1.0) H Urine Leukocyte Esterase Negative (NEGATIVE) Urine RBC 5-10 /HPF (0 - 0) H Urine WBC 0-2 /HPF (0 - 0) Urine Squamous Epithelial Cells Moderate /LPF (NONE/OCC) H Urine Bacteria None /HPF (NONE) Urine Opiates Screen Negative (NEGATIVE) Urine Barbiturates Screen Negative (NEGATIVE) Phencyclidine (PCP) Screen Positive (NEGATIVE) H Urine Amphetamines Screen Negative (NEGATIVE) Urine Benzodiazepines Screen Negative (NEGATIVE) Urine Cocaine Screen Negative (NEGATIVE) Urine Marijuana (THC) Screen Negative (NEGATIVE) Arterial Blood pH 7.367 (7.350-7.450) Arterial Blood Partial Pressure CO2 34.3 mmHg (35.0-45.0) L Arterial Blood Partial Pressure O2 92.9 mmHg (75.0-100.0) Arterial Blood HCO3 19.3 mmol/L (22.0-26.0) L Arterial Blood Oxygen Saturation 96.3 % (95-100) Arterial Blood Base Excess -5.2 (-2-2) L Tam Test Positive Test 7/20/19 00:21 06/06/19 06:00 Lactic Acid Level 1.30 mmol/L (0.4-2.0) 1.20 mmol/L (0.4-2.0) Sodium Level 140 MMOL/L (136-145) Potassium Level 3.6 MMOL/L (3.5-5.1) Chloride Level 103 MMOL/L (98-107) Carbon Dioxide Level 25 MMOL/L (21-32) Anion Gap 12 mmol/L (5-15) Blood Urea Nitrogen 17 mg/dL (7-18) Creatinine 1.3 MG/DL (0.55-1.30) Estimat Glomerular Filtration Rate > 60 mL/min (>60) Glucose Level 102 MG/DL (74-106) Calcium Level 9.2 MG/DL (8.5-10.1) Troponin I 0.045 ng/mL (0.000-0.056) Height (Feet): 5 Height (Inches): 10.00 Weight (Pounds): 226 Medications Current Medications Medications (Trade) Dose Ordered Sig/Andree Route PRN Reason Start Time Stop Time Status Last Admin Dose Admin Acetaminophen (Tylenol) 650 mg Q4H PRN ORAL Fever 06/05/19 16:30 07/05/19 16:29 Albuterol/ Ipratropium (Albuterol/ Ipratropium) 3 ml Q4H PRN HHN Shortness of Breath 06/05/19 16:30 06/10/19 16:29 Allopurinol (Allopurinol) 300 mg DAILY ORAL 06/06/19 09:00 07/06/19 08:59 06/06/19 08:40 Carvedilol (Coreg) 3.125 mg EVERY 12 HOURS ORAL 06/05/19 21:00 07/05/19 20:59 06/06/19 08:40 Chlorhexidine Gluconate (Luz-Hex 2%) 1 applic DAILY@1999 TOPIC 06/06/19 20:00 07/06/19 19:59 Dextrose (Dextrose 50%) 25 ml Q30M PRN IV Hypoglycemia 06/05/19 16:30 07/05/19 16:29 Dextrose (Dextrose 50%) 50 ml Q30M PRN IV Hypoglycemia 06/05/19 16:30 07/05/19 16:29 Dobutamine HCl 250 ml @ 0 mls/hr Q24H IV 06/05/19 20:06 07/05/19 20:05 06/06/19 02:49 Furosemide (Lasix) 40 mg EVERY 8 HOURS IV 06/05/19 22:00 07/05/19 21:59 06/06/19 05:42 Heparin Sodium (Porcine) (Heparin 5000 units/ml) 5,000 units EVERY 12 HOURS SUBQ 06/05/19 21:00 07/05/19 20:59 06/06/19 08:41 Insulin Aspart (NovoLOG) BEFORE MEALS AND HS SUBQ 06/05/19 21:00 07/05/19 20:59 06/05/19 21:20 Morphine Sulfate (Morphine Sulfate) 2 mg Q4H PRN IVP For Pain 06/05/19 19:00 06/12/19 18:59 06/06/19 08:47 Ondansetron HCl (Zofran) 4 mg Q6H PRN IVP Nausea & Vomiting 06/05/19 16:30 07/05/19 16:29 Pantoprazole (Protonix) 40 mg DAILY IVP 06/06/19 09:00 07/06/19 08:59 06/06/19 08:40 Polyethylene Glycol (Miralax) 17 gm DAILYPRN PRN ORAL Constipation 06/05/19 16:30 07/05/19 16:29 Promethazine HCl/ Codeine (Phenergan with Codeine) 5 ml Q6H PRN ORAL For Cough 06/05/19 19:30 07/05/19 19:29 Sitagliptin Phosphate (Januvia) 100 mg DAILY ORAL 06/06/19 09:00 07/06/19 08:59 06/06/19 08:40 Temazepam (Restoril) 15 mg HSPRN PRN ORAL Insomnia 06/05/19 16:30 06/12/19 16:29 Assessment/Plan Status Narrative ASSESSMENT shock acute on chronic systolic and diastolic CHF exacerbation Non-ischemic cardiomyopathy Status post AICD placement in 2018 COPD/asthma CAD, history of UT Acute kidney injury-resolved Lactic acidosis Acute toxic metabolic encephalopathy- resolved DM Morbid obesity Presumed ALMAZ Substance abuse /PCP PLAN OF CARE ICU status Dobutamine gtt, titrate to keep mean arterial BP above 65 Closely monitor hemodynamic status Diuresis with IV Lasix, with close monitoring of volumes and cardiorenal parameters O2 titrate as needed, HHN Venous duplex DVT prophylaxis Cardio eval pending serial troponin negative, ECG revealed no acute ischemic changes, this pt ruled out for acute UT CP likely due to acute CHF last ECHO in 04/05 with rEF 20-25%, grade 3 diastolic dysfunction, moderate LVH and moderate to severe mitral regurgitation guideline directed medical therapy for CHF- resume when BP stabilized with BB, PATRIZIA abd diuretic CT head negative AMS resolved, liekly due to shock and probably PCP Monitor renal parameters, lytes , correct electrolytes as needed. SARAH resolved Urine toxicology screen positive for phencyclidine Counseled on abstinence from illicit street drugs GI prophylaxis BS management with Januvia and SSI Supportive care case discussed and evaluated by supervising physician Elizabeth Crowder NP Jun 06, 2019 09:54
--- NOTE | 2019-06-06 10:29 | NUR ---
NURSE NOTES: electrical electronics technician at bedside to do arterial duplex. Per MANDY Johnson, Dr Diaz wants both venous and arterial duplex to be done to R/O DVT. Venous duplex done already.
[2019-06-06] MEDS ORDERED: NS 275ml ONE (10:59)
--- NOTE | 2019-06-06 12:54 | NUR ---
NURSE NOTES: BP 128/78, turned off Dobutamine. Patient tolerated lunch meal well, ate 80%. States he feels much better.
--- NOTE | 2019-06-06 13:43 | Cardiology Progress Note ---
Assessment/Plan Assessment/Plan hypotension related to med dcm dm htn substance abuse icd hx bp now betetr reswuem acie adn coreg and aldactoen gradually aopvid clonidine and hydralazine unless uncontrolled htn avodi toabbo and drugs and etoh [id number] Objective Last 24 Hour Vital Signs Date Time Temp Pulse Resp B/P (MAP) Pulse Ox O2 Delivery O2 Flow Rate FiO2 06/06/19 13:30 84 19 112/84 (93) 98 06/06/19 13:00 85 19 116/89 (98) 96 06/06/19 12:30 77 19 128/83 (98) 97 06/06/19 12:15 77 19 125/77 (93) 97 06/06/19 12:00 Nasal Cannula 2.0 06/06/19 12:00 98.9 78 19 122/74 (90) 97 06/06/19 12:00 80 06/06/19 11:45 77 19 124/74 (91) 97 06/06/19 11:30 77 19 121/80 (94) 97 06/06/19 11:15 81 19 121/80 (94) 97 06/06/19 11:15 112/74 06/06/19 11:00 83 19 114/80 (91) 97 06/06/19 10:30 81 19 112/74 (87) 98 06/06/19 10:00 83 19 119/72 (88) 99 06/06/19 09:30 89 19 114/82 (93) 100 06/06/19 09:17 98.0 06/06/19 09:00 86 19 123/79 (94) 100 06/06/19 08:40 81 105/85 06/06/19 08:30 88 18 128/82 (97) 100 06/06/19 08:00 81 06/06/19 08:00 88 19 107/79 (88) 100 06/06/19 08:00 Nasal Cannula 2.0 06/06/19 07:30 89 17 121/90 (100) 100 06/06/19 07:00 82 20 112/82 (92) 98 06/06/19 06:45 81 19 105/85 (92) 100 06/06/19 06:30 81 15 130/72 (91) 99 06/06/19 06:15 83 13 112/76 (88) 99 7/20/19 06:00 80 24 131/74 (93) 98 06/06/19 05:45 80 21 135/80 (98) 99 06/06/19 05:30 79 21 135/93 (107) 97 06/06/19 05:00 80 17 121/89 (100) 99 06/06/19 04:30 89 22 110/77 (88) 99 06/06/19 04:00 Nasal Cannula 2.0 06/06/19 04:00 98.0 82 23 106/63 (77) 99 06/06/19 04:00 81 06/06/19 03:30 84 24 127/59 (81) 94 06/06/19 03:00 82 26 115/83 (94) 99 06/06/19 02:49 88/63 06/06/19 02:30 85 22 88/63 (71) 99 06/06/19 02:00 88 25 95/41 (59) 96 06/06/19 01:30 87 22 108/74 (85) 97 06/06/19 01:00 93 20 117/74 (88) 98 06/06/19 00:30 92 20 122/85 (97) 97 06/06/19 00:15 91 15 115/73 (87) 100 06/06/19 00:00 93 06/06/19 00:00 98.9 89 20 107/83 (91) 100 06/06/19 00:00 Nasal Cannula 2.0 06/05/19 23:30 90 24 112/79 (90) 99 06/05/19 23:15 95 25 120/83 (95) 99 06/05/19 23:00 97 20 114/64 (81) 99 06/05/19 22:30 95 18 116/87 (97) 97 06/05/19 22:15 88 20 127/90 (102) 98 06/05/19 22:00 88 22 117/70 (86) 98 06/05/19 21:45 92 22 117/73 (88) 95 06/05/19 21:30 94 22 99/73 (82) 100 06/05/19 21:18 90 91/57 06/05/19 21:15 94 22 114/80 (91) 100 06/05/19 21:00 92 20 91/57 (68) 100 06/05/19 20:45 92 20 85/62 (70) 100 06/05/19 20:30 89 20 104/63 (77) 100 06/05/19 20:15 88 20 104/73 (83) 100 06/05/19 20:08 87/61 06/05/19 20:00 98.7 89 20 107/72 (84) 100 06/05/19 20:00 Nasal Cannula 2.0 06/05/19 20:00 87 06/05/19 19:56 85/60 06/05/19 19:45 88 21 87/61 (70) 100 06/05/19 19:30 88 21 85/60 (68) 100 06/05/19 18:47 76 18 97 Nasal Cannula 2.0 28 06/05/19 18:47 97 Nasal Cannula 2.0 28 06/05/19 18:17 Nasal Cannula 2.0 06/05/19 17:50 98.0 84 15 112/70 96 Nasal Cannula 3.0 06/05/19 17:09 98.3 90 18 99/62 94 Nasal Cannula 3.0 06/05/19 16:34 90/70 06/05/19 16:23 98.0 86 15 90/70 98 Nasal Cannula 3.0 06/05/19 15:05 97.5 88 17 94/60 97 Room Air 06/05/19 15:04 91 20 Room Air 06/05/19 14:54 97.5 91 20 75/44 (54) 91 Room Air Intake and Output 06/05/19 06/06/19 19:00 07:00 Intake Total 1000 ml 393.644 ml Output Total 2400 ml Balance 1000 ml -2006.356 ml Intake Oral 0 ml IV Total 1000 ml 393.644 ml Output Urine Total 2400 ml # Voids 1 Laboratory Tests Test 06/05/19 15:15 06/05/19 15:30 06/05/19 16:05 06/05/19 16:45 White Blood Count 7.2 K/UL (4.8-10.8) Red Blood Count 5.47 M/UL (4.70-6.10) Hemoglobin 14.4 G/DL (14.2-18.0) Hematocrit 44.7 % (42.0-52.0) Mean Corpuscular Volume 82 FL (80-99) Mean Corpuscular Hemoglobin 26.4 PG (27.0-31.0) L Mean Corpuscular Hemoglobin Concent 32.3 G/DL (32.0-36.0) Red Cell Distribution Width 15.3 % (11.6-14.8) H Platelet Count 236 K/UL (150-450) Mean Platelet Volume 5.5 FL (6.5-10.1) L Neutrophils (%) (Auto) 76.1 % (45.0-75.0) H Lymphocytes (%) (Auto) 11.7 % (20.0-45.0) L Monocytes (%) (Auto) 9.5 % (1.0-10.0) Eosinophils (%) (Auto) 0.5 % (0.0-3.0) Basophils (%) (Auto) 2.2 % (0.0-2.0) H Sodium Level 141 MMOL/L (136-145) Potassium Level 4.0 MMOL/L (3.5-5.1) Chloride Level 103 MMOL/L (98-107) Carbon Dioxide Level 25 MMOL/L (21-32) Anion Gap 13 mmol/L (5-15) Blood Urea Nitrogen 15 mg/dL (7-18) Creatinine 1.8 MG/DL (0.55-1.30) H Estimat Glomerular Filtration Rate 50.4 mL/min (>60) Glucose Level 132 MG/DL (74-106) H Lactic Acid Level 2.90 mmol/L (0.4-2.0) H 2.40 mmol/L (0.66-2.22) H Calcium Level 9.7 MG/DL (8.5-10.1) Total Bilirubin 0.5 MG/DL (0.2-1.0) Aspartate Amino Transf (AST/SGOT) 18 U/L (15-37) Alanine Aminotransferase (ALT/SGPT) 13 U/L (12-78) Alkaline Phosphatase 87 U/L (46-116) Total Creatine Kinase 262 U/L (26-308) Creatine Kinase MB 2.6 NG/ML (0.0-3.6) Creatine Kinase MB Relative Index 0.9 Troponin I 0.022 ng/mL (0.000-0.056) Pro-B-Type Natriuretic Peptide 6580 pg/mL (0-125) H Total Protein 8.0 G/DL (6.4-8.2) Albumin 4.1 G/DL (3.4-5.0) Globulin 3.9 g/dL Albumin/Globulin Ratio 1.1 (1.0-2.7) Lipase 416 U/L (73-393) H Urine Color Yellow Urine Appearance Clear Urine pH 6.5 (4.5-8.0) Urine Specific [place] 1.015 (1.005-1.035) Urine Protein 3+ (NEGATIVE) H Urine Glucose (UA) Negative (NEGATIVE) Urine Ketones Negative (NEGATIVE) Urine Blood 2+ (NEGATIVE) H Urine Nitrite Negative (NEGATIVE) Urine Bilirubin Negative (NEGATIVE) Urine Urobilinogen 1 MG/DL (0.0-1.0) H Urine Leukocyte Esterase Negative (NEGATIVE) Urine RBC 5-10 /HPF (0 - 0) H Urine WBC 0-2 /HPF (0 - 0) Urine Squamous Epithelial Cells Moderate /LPF (NONE/OCC) H Urine Bacteria None /HPF (NONE) Urine Opiates Screen Negative (NEGATIVE) Urine Barbiturates Screen Negative (NEGATIVE) Phencyclidine (PCP) Screen Positive (NEGATIVE) H Urine Amphetamines Screen Negative (NEGATIVE) Urine Benzodiazepines Screen Negative (NEGATIVE) Urine Cocaine Screen Negative (NEGATIVE) Urine Marijuana (THC) Screen Negative (NEGATIVE) Arterial Blood pH 7.367 (7.350-7.450) Arterial Blood Partial Pressure CO2 34.3 mmHg (35.0-45.0) L Arterial Blood Partial Pressure O2 92.9 mmHg (75.0-100.0) Arterial Blood HCO3 19.3 mmol/L (22.0-26.0) L Arterial Blood Oxygen Saturation 96.3 % (95-100) Arterial Blood Base Excess -5.2 (-2-2) L Tam Test Positive Test 06/06/19 00:21 06/06/19 06:00 Lactic Acid Level 1.30 mmol/L (0.4-2.0) 1.20 mmol/L (0.4-2.0) Sodium Level 140 MMOL/L (136-145) Potassium Level 3.6 MMOL/L (3.5-5.1) Chloride Level 103 MMOL/L (98-107) Carbon Dioxide Level 25 MMOL/L (21-32) Anion Gap 12 mmol/L (5-15) Blood Urea Nitrogen 17 mg/dL (7-18) Creatinine 1.3 MG/DL (0.55-1.30) Estimat Glomerular Filtration Rate > 60 mL/min (>60) Glucose Level 102 MG/DL (74-106) Calcium Level 9.2 MG/DL (8.5-10.1) Troponin I 0.045 ng/mL (0.000-0.056) Uvaldo Syed MD Jun 06, 2019 13:43
--- NOTE | 2019-06-06 14:15 | Internal Med Progress Note ---
Subjective Date of Service: Jun 06, 2019 Physician Name Dario Meza Attending Physician Mejia Hidalgo MD Current Medications Medications (Trade) Dose Ordered Sig/Andree Route PRN Reason Start Time Stop Time Status Last Admin Dose Admin Acetaminophen (Tylenol) 650 mg Q4H PRN ORAL Fever 06/05/19 16:30 07/05/19 16:29 Albuterol/ Ipratropium (Albuterol/ Ipratropium) 3 ml Q4H PRN HHN Shortness of Breath 06/05/19 16:30 06/10/19 16:29 Allopurinol (Allopurinol) 300 mg DAILY ORAL 06/06/19 09:00 07/06/19 08:59 06/06/19 08:40 Atorvastatin Calcium (Lipitor) 40 mg BEDTIME ORAL 06/06/19 21:00 07/06/19 20:59 Carvedilol (Coreg) 3.125 mg EVERY 12 HOURS ORAL 06/05/19 21:00 07/05/19 20:59 06/06/19 08:40 Chlorhexidine Gluconate (Luz-Hex 2%) 1 applic DAILY@2000 TOPIC 06/06/19 20:00 07/06/19 19:59 Dextrose (Dextrose 50%) 25 ml Q30M PRN IV Hypoglycemia 06/05/19 16:30 07/05/19 16:29 Dextrose (Dextrose 50%) 50 ml Q30M PRN IV Hypoglycemia 06/05/19 16:30 07/05/19 16:29 Dobutamine HCl 250 ml @ 0 mls/hr Q24H IV 06/05/19 20:06 07/05/19 20:05 06/06/19 11:15 Furosemide (Lasix) 40 mg DAILY ORAL 06/07/19 09:00 07/07/19 08:59 Heparin Sodium (Porcine) (Heparin 5000 units/ml) 5,000 units EVERY 12 HOURS SUBQ 06/05/19 21:00 07/05/19 20:59 06/06/19 08:41 Insulin Aspart (NovoLOG) BEFORE MEALS AND HS SUBQ 06/05/19 21:00 07/05/19 20:59 06/05/19 21:20 Lisinopril (Zestril) 10 mg TWICE A DAY ORAL 06/06/19 18:00 07/06/19 17:59 Morphine Sulfate (Morphine Sulfate) 2 mg Q4H PRN IVP For Pain 06/05/19 19:00 06/12/19 18:59 06/06/19 08:47 Ondansetron HCl (Zofran) 4 mg Q6H PRN IVP Nausea & Vomiting 06/05/19 16:30 07/05/19 16:29 Pantoprazole (Protonix) 40 mg DAILY IVP 06/06/19 09:00 07/06/19 08:59 06/06/19 08:40 Polyethylene Glycol (Miralax) 17 gm DAILYPRN PRN ORAL Constipation 06/05/19 16:30 07/05/19 16:29 Promethazine HCl/ Codeine (Phenergan with Codeine) 5 ml Q6H PRN ORAL For Cough 06/05/19 19:30 07/05/19 19:29 Sitagliptin Phosphate (Januvia) 100 mg DAILY ORAL 06/06/19 09:00 07/06/19 08:59 06/06/19 08:40 Spironolactone (Aldactone) 25 mg DAILY ORAL 06/07/19 09:00 07/07/19 08:59 Temazepam (Restoril) 15 mg HSPRN PRN ORAL Insomnia 06/05/19 16:30 06/12/19 16:29 Allergies: Coded Allergies: No Known Allergies (Unverified , 11/06/18) ROS Limited/Unobtainable: No Constitutional: Reports: no symptoms HEENT: Reports: no symptoms Cardiovascular: Reports: no symptoms Respiratory: Reports: shortness of breath Gastrointestinal/Abdominal: Reports: no symptoms Genitourinary: Reports: no symptoms Neurologic/Psychiatric: Reports: no symptoms Subjective 44 YO M admitted with shortness of breath. Now CHF. Cover for Int Willy-Dr Hidalgo. ICU Objective Last Vital Signs Date Time Temp Pulse Resp B/P (MAP) Pulse Ox O2 Delivery O2 Flow Rate FiO2 06/06/19 13:30 84 19 112/84 (93) 98 06/06/19 12:00 Nasal Cannula 2.0 06/06/19 12:00 98.9 06/05/19 18:47 28 Laboratory Tests Test 06/05/19 15:15 06/05/19 15:30 06/05/19 16:05 06/05/19 16:45 White Blood Count 7.2 K/UL (4.8-10.8) Red Blood Count 5.47 M/UL (4.70-6.10) Hemoglobin 14.4 G/DL (14.2-18.0) Hematocrit 44.7 % (42.0-52.0) Mean Corpuscular Volume 82 FL (80-99) Mean Corpuscular Hemoglobin 26.4 PG (27.0-31.0) L Mean Corpuscular Hemoglobin Concent 32.3 G/DL (32.0-36.0) Red Cell Distribution Width 15.3 % (11.6-14.8) H Platelet Count 236 K/UL (150-450) Mean Platelet Volume 5.5 FL (6.5-10.1) L Neutrophils (%) (Auto) 76.1 % (45.0-75.0) H Lymphocytes (%) (Auto) 11.7 % (20.0-45.0) L Monocytes (%) (Auto) 9.5 % (1.0-10.0) Eosinophils (%) (Auto) 0.5 % (0.0-3.0) Basophils (%) (Auto) 2.2 % (0.0-2.0) H Sodium Level 141 MMOL/L (136-145) Potassium Level 4.0 MMOL/L (3.5-5.1) Chloride Level 103 MMOL/L (98-107) Carbon Dioxide Level 25 MMOL/L (21-32) Anion Gap 13 mmol/L (5-15) Blood Urea Nitrogen 15 mg/dL (7-18) Creatinine 1.8 MG/DL (0.55-1.30) H Estimat Glomerular Filtration Rate 50.4 mL/min (>60) Glucose Level 132 MG/DL (74-106) H Lactic Acid Level 2.90 mmol/L (0.4-2.0) H 2.40 mmol/L (0.66-2.22) H Calcium Level 9.7 MG/DL (8.5-10.1) Total Bilirubin 0.5 MG/DL (0.2-1.0) Aspartate Amino Transf (AST/SGOT) 18 U/L (15-37) Alanine Aminotransferase (ALT/SGPT) 13 U/L (12-78) Alkaline Phosphatase 87 U/L (46-116) Total Creatine Kinase 262 U/L (26-308) Creatine Kinase MB 2.6 NG/ML (0.0-3.6) Creatine Kinase MB Relative Index 0.9 Troponin I 0.022 ng/mL (0.000-0.056) Pro-B-Type Natriuretic Peptide 6580 pg/mL (0-125) H Total Protein 8.0 G/DL (6.4-8.2) Albumin 4.1 G/DL (3.4-5.0) Globulin 3.9 g/dL Albumin/Globulin Ratio 1.1 (1.0-2.7) Lipase 416 U/L (73-393) H Urine Color Yellow Urine Appearance Clear Urine pH 6.5 (4.5-8.0) Urine Specific [place] 1.015 (1.005-1.035) Urine Protein 3+ (NEGATIVE) H Urine Glucose (UA) Negative (NEGATIVE) Urine Ketones Negative (NEGATIVE) Urine Blood 2+ (NEGATIVE) H Urine Nitrite Negative (NEGATIVE) Urine Bilirubin Negative (NEGATIVE) Urine Urobilinogen 1 MG/DL (0.0-1.0) H Urine Leukocyte Esterase Negative (NEGATIVE) Urine RBC 5-10 /HPF (0 - 0) H Urine WBC 0-2 /HPF (0 - 0) Urine Squamous Epithelial Cells Moderate /LPF (NONE/OCC) H Urine Bacteria None /HPF (NONE) Urine Opiates Screen Negative (NEGATIVE) Urine Barbiturates Screen Negative (NEGATIVE) Phencyclidine (PCP) Screen Positive (NEGATIVE) H Urine Amphetamines Screen Negative (NEGATIVE) Urine Benzodiazepines Screen Negative (NEGATIVE) Urine Cocaine Screen Negative (NEGATIVE) Urine Marijuana (THC) Screen Negative (NEGATIVE) Arterial Blood pH 7.367 (7.350-7.450) Arterial Blood Partial Pressure CO2 34.3 mmHg (35.0-45.0) L Arterial Blood Partial Pressure O2 92.9 mmHg (75.0-100.0) Arterial Blood HCO3 19.3 mmol/L (22.0-26.0) L Arterial Blood Oxygen Saturation 96.3 % (95-100) Arterial Blood Base Excess -5.2 (-2-2) L Tam Test Positive Test 06/06/19 00:21 06/06/19 06:00 Lactic Acid Level 1.30 mmol/L (0.4-2.0) 1.20 mmol/L (0.4-2.0) Sodium Level 140 MMOL/L (136-145) Potassium Level 3.6 MMOL/L (3.5-5.1) Chloride Level 103 MMOL/L (98-107) Carbon Dioxide Level 25 MMOL/L (21-32) Anion Gap 12 mmol/L (5-15) Blood Urea Nitrogen 17 mg/dL (7-18) Creatinine 1.3 MG/DL (0.55-1.30) Estimat Glomerular Filtration Rate > 60 mL/min (>60) Glucose Level 102 MG/DL (74-106) Calcium Level 9.2 MG/DL (8.5-10.1) Troponin I 0.045 ng/mL (0.000-0.056) Intake and Output 06/05/19 06/06/19 19:00 07:00 Intake Total 1000 ml 393.644 ml Output Total 2400 ml Balance 1000 ml -2006.356 ml Intake Oral 0 ml IV Total 1000 ml 393.644 ml Output Urine Total 2400 ml # Voids 1 Objective PHYSICAL EXAMINATION: GENERAL: The patient awake, responsive, but lethargic and sleepy. HEAD AND NECK: Pupils are reactive to light. Extraocular movements intact. Neck was supple. No JVD. LUNGS: Good air entry with no wheezing or rales. HEART: S1, S2. Regular rhythm. Distant heart sounds. AICD was noted in left-sided chest wall. ABDOMEN: Soft, nondistended, nontender. Morbidly obese. EXTREMITIES: No cyanosis, clubbing, edema. NEUROLOGIC: Cranial nerves II through XII grossly intact. Motor is 5/5 in all extremities. Gait is intact. RECTAL: Refused and deferred. GENITOURINARY: Refused and deferred. PSYCHIATRIC: Mood and affect is intact. Assessment/Plan Assessment/Plan ASSESSMENT: 1. Hypotension, most likely secondary to acute heart failure. 2. Ischemic cardiomyopathy. 3. Acute on chronic congestive heart failure with systolic dysfunction with a reduced ejection fraction. 4. Status post AICD. 5. History of hypertension, presently hypotensive. 6. COPD. 7. Diabetes type 2. 8. Coronary artery disease with prior history of myocardial infarction. 9. Morbid obesity. 10. Presumed obstructive sleep apnea. PLAN: 1. Admit the patient to ICU. 2. Cardiology consultation with Dr. Stanley Schumacher 3. Pulmonary consultation with Dr. Angel Diaz. 4. Hypotension. dobutamine drip, Lasix IV. 5. Monitor laboratory. Code status is Full Code. DVT prophylaxis, heparin subcutaneous. Dario Meza MD Jun 06, 2019 14:15
--- NOTE | 2019-06-06 16:34 | NUR ---
NURSE NOTES: Received orders to transfer patient to [facility] per Dr. Schumacher.
[2019-06-06] MEDS ORDERED: MILK OF MA400 MG/51 ORAL (17:49)
[2019-06-06] MEDS ORDERED: DULCOLAX10 MG RC (17:51)
--- NOTE | 2019-06-06 17:51 | NUR ---
FUR NAILERCLINICAL TECH 44 Y/O MALE FROM HOME CAME TO [facility] ER CC:GENERAL COMPLAINT SI:DEHYDRATION . HYPOTENSION VS: BP: 75/44, P 91, T 97.6, RR 20M, SpO2 91 3.0L NC CR 1.8 IS;NSx1L IV DOPAMINE HCI/D5 ADMITTED TO MED/SURG DCP: RETURN HOME
[2019-06-06] MEDS ORDERED: FLEET ENEMA133 ML RECTAL (17:53)
[2019-06-06] MEDS ORDERED: ACETAMINOPHEN325 M1 ORAL (17:55)
[2019-06-06] MEDS ORDERED: Lisinopril 10mg tab ORAL SCH (18:00)
[2019-06-06] MEDS ORDERED: CATAPRES0.2 MG ORAL (18:04)
[2019-06-06] MEDS ORDERED: CATAPRES0.3 MG ORAL (18:06)
[2019-06-06] MEDS ORDERED: FUROSEMIDE20 M1 ORAL (18:11)
[2019-06-06] MEDS ORDERED: HYDRALAZINE HC100 MG ORAL (18:12)
[2019-06-06] MEDS ORDERED: HUMALOG100 UNIT/4 SUBQ (18:15)
[2019-06-06] MEDS ORDERED: DUONEB 0.5-3(2.53 ML HHN (18:18)
[2019-06-06] MEDS ORDERED: ISOSORBIDE DINI40 MG ORAL (18:20)
[2019-06-06] MEDS ORDERED: LORATADINE10 M2 PO (18:24)
[2019-06-06] MEDS ORDERED: MULTIVITAMINS1 EAC8 ORAL (18:31)
--- NOTE | 2019-06-06 19:33 | NUR ---
HAND-OFF: Report given to ROMI Fitzpatrick.
--- NOTE | 2019-06-06 19:35 | NUR ---
NURSE NOTES: Received report from ROMI Padilla. Patient is alert and oriented x3. No acute distress/SOB noted. Patient denies any pain/discomfort at this time. SR on the monitor. O2 2L/min via NC. Right femoral TLC intact and clean. Call light placed in easy reach. Will continue plan of care.
[2019-06-06] MEDS ORDERED: Dyna-Hex 2% Top Sol 2oz TOPIC SCH (20:00)
--- NOTE | 2019-06-06 20:30 | Consultation ---
DATE OF CONSULTATION: 06/06/2019 CARDIOLOGY CONSULTATION CONSULTING PHYSICIAN: Uvaldo Syed M.D. REFERRING PHYSICIANS: 1. Mejia Hidalgo M.D. 2. Angel Diaz M.D. REASON FOR REFERRAL: Cardiomyopathy and dizziness. HISTORY OF PRESENT ILLNESS: This is a 44-year-old gentleman with history of multiple medical problems and a lot of cardiac issues including known history of acute and chronic systolic and diastolic heart failure secondary to nonischemic cardiomyopathy, hypertension, diabetes mellitus, known illicit drug use, history of intracardiac defibrillator placement, who presented to the hospital because of dizziness and lightheadedness at this time. He has a history of multiple hospitalizations previously because of congestive heart failure. Apparently, he was admitted to another facility recently and was transferred to [facility] where he was at and was discharged approximately 2 days earlier, but presented to the hospital because he felt like he was going to faint after leaving the facility and his blood pressure was low and he states he was compliant with all the medication that was given to him at the time of discharge. In either case, the patient was brought to the emergency room. He feels better at the present time. He does not have any chest pain now. There is 2-pillow usage. There are possible episodes of PND although he indicates he has sleep apnea. He has lightheadedness on standing especially yesterday. No palpitation and no swelling of his legs. PAST MEDICAL HISTORY: Positive for history of nonischemic cardiomyopathy, history of systolic heart failure and diastolic heart failure, history of hypertension, diabetes mellitus, history of asthma, arthritis. No HIV or AIDS. Questionable history of heart attack previously although that is not completely clear. No cancer and no stroke and he does have COPD as well as emphysema. ALLERGIES: He has no known drug allergies. SOCIAL HISTORY: He smokes half a pack a day. He does use alcohol on a regular basis and PCP. REVIEW OF SYSTEMS: GASTROINTESTINAL: Denies any nausea, vomiting, diarrhea, or constipation. GENITOURINARY: He denies. CONSTITUTIONAL: He denies except for the episode of weakness. NEUROLOGICAL: He denies. PHYSICAL EXAMINATION: GENERAL: Shows to be a young gentleman, in no respiratory distress. Awake, alert, responsive. NECK: Supple. There is no jugular venous distention. LUNGS: Clear to auscultation and percussion. CARDIAC: S1 is normal. S2 is normal. Regular rate and rhythm. No heaves, thrills, or gallops noted. ABDOMEN: Soft, nontender. Positive bowel sounds. EXTREMITIES: There is no clubbing, cyanosis, or edema. NEUROLOGICAL: He is awake, alert, responsive. LABORATORY AND DIAGNOSTIC DATA: White count 7.3, hemoglobin 14.4, and platelet count of 236,000. Blood gas with pH of 7.36, pCO2 of 34, pO2 of 92, and bicarb 19. Sodium is 140, potassium 3.6, chloride 103, bicarb 25, BUN 17, creatinine 1.3, and glucose of 101. His lactic acid of 1.2. His troponin 0.022 and 0.045 yesterday and his proBNP yesterday was 6580 up from 970 that he has had on prior occasions. His chest x-ray performed yesterday shows lungs and pleural spaces to be clear, cardiac silhouette to be enlarged, left bipolar ICD is in place. He did have a CT scan of his head as well and that was read as negative. He had a repeat echocardiogram, preliminary report shows 25% to 30% ejection fraction. His EKG shows sinus with T-wave inversions in all the leads basically and in direct comparison with the EKGs performed in August 2018, that is unchanged. ASSESSMENT AND PLAN: 1. Lightheadedness. 2. Hypotension. 3. History of nonischemic cardiomyopathy. 4. History of chronic congestive heart failure. 5. History of chronic diastolic heart failure. 6. Tobacco and alcohol and substance use disorder. Dr. Diaz and Dr. Hidalgo, this patient was seen in cardiac consultation. The patient's blood pressure was very low at the time of presentation. At the present time, the patient has subsequently increased blood pressure in the 120s over 70s and 80s. He was given some dobutamine at some point during this hospitalization stay, but I suspect that he may have been less volume overloaded than usually and that is the cause of his blood pressure or related to his medications that he was taking once released from the convalescent facility. His medications reportedly include amlodipine 10 mg as well as Coreg 12.5 mg and clonidine 0.1 mg twice a day. Coreg was 12.5 mg twice daily, Lasix 40 mg daily, hydralazine 50 mg every 8 hours, and Isordil 20 mg 3 times a day as well as lisinopril 20 mg a day for his blood pressure as well as Aldactone. I think he should be started back on his cardiomyopathy medications including his PATRIZIA inhibitors as well as Coreg as well as his diuretics. He does not seem to be any short of breath at this time, so diuretics may be resumed tomorrow and a dose of his medications for blood pressure gradually be increased as become necessary. I have warned about the side effects of using any alcohol as it may be direct toxic effect on the myocardium as well as deleterious effects of any tobacco as well as proarrhythmic effects of any stimulant drugs and risk of sudden cardiac . He has a defibrillator. Dr. Schumacher will follow from the ICU for followup for his intracardiac defibrillator . Uvaldo Syed M.D. DR: Maisha JOB#: [id number] CC:
[2019-06-06] MEDS ORDERED: Atorvastatin 20mg tab ORAL SCH (21:00)
--- NOTE | 2019-06-06 21:00 | Consultation ---
DATE OF CONSULTATION: 06/06/2019 CARDIAC ELECTROPHYSIOLOGY CONSULTATION CONSULTING PHYSICIAN: Stanley Schumacher M.D. REFERRING PHYSICIAN: Mejia Hidalgo M.D. REASON FOR CONSULTATION: Evaluation of the patient's defibrillator. HISTORY OF PRESENT ILLNESS: The patient is a 44-year-old gentleman under my Cardiac Electrophysiology care with history of severe nonischemic dilated cardiomyopathy with ejection fraction of only 15% to 20%. The patient underwent a [employer] defibrillator implantation by me in 07/2018. The patient also has history of chronic obstructive pulmonary disease and presented to the hospital with increasing shortness of breath and weakness. The patient was recently discharged from [place], [place] and was on medication, however, he was found very weak and more altered than usual. In the emergency room, the patient is hypotensive with blood present above 44, was admitted to intensive care unit and started on a dobutamine drip. At the time of my evaluation, he is feeling better and much improved. REVIEW OF SYSTEMS: Negative other than what was mentioned in the history of present illness. PAST MEDICAL HISTORY: As mentioned above. FAMILY HISTORY: Noncontributory. ALLERGIES: He has no known drug allergies. SOCIAL HISTORY: He is disabled. Smokes one and half pack a day and drinks two alcoholic drinks twice a week. Denies using any substance abuse. PHYSICAL EXAMINATION: VITAL SIGNS: Show blood pressure of 112/84, pulse is 84, respirations 19. HEAD AND NECK: Shows positive JVD. LUNGS: Decreased breath sounds. CARDIOVASCULAR: Shows regular S1 and S2 with no gallop. ABDOMEN: Soft. EXTREMITIES: There is 1+ pitting edema. The defibrillator in the left subclavian is intact. LABORATORY DATA: Labs show white count 7.2, hemoglobin 14.4, hematocrit 44.7, and platelets 236. Sodium 140, potassium 3.6, BUN of 17, and creatinine 1.3. Troponin is negative. BNP is 6580. ASSESSMENT AND PLAN: 1. Hypotension in this patient with history of severe cardiomyopathy with ejection fraction of only 20%. The patient was on dobutamine drip that was discontinued. The patient the patient's Coreg 3.125 mg b.i.d., lisinopril 10 mg b.i.d., Lasix 40 mg daily, and Aldactone 25 mg daily. 2. Status post [employer] defibrillator implantation by me. Defibrillator will be interrogated for further evaluation. 3. Hypertension. Continue current heart failure therapy. 4. to be discontinued. His echocardiogram showed ejection fraction of 25% to 30%. Thank you very much for letting me to participate in the care of this patient. Please do not hesitate to contact me if you have for any questions regarding my evaluation. Stanley Schumacher M.D. DR: [place] JOB#: [id number] CC:
--- NOTE | 2019-06-06 21:20 | NUR ---
NURSE NOTES: All due meds given. Patient denies any pain/discomfort at this time. Will continue plan of care.
--- NOTE | 2019-06-06 23:15 | NUR ---
NURSE NOTES: Patient is transferred to [facility] and report given to [facility]I [facility]. Inventory check done. Endorsed plan of care.
[2019-06-07] VITALS: BP 114/77
[2019-06-07] MEDS ORDERED: Miralax 17gm pkt ORAL PRN
[2019-06-07] MEDS ORDERED: Promethazine/Codeine 5ml UD ORAL PRN
--- NOTE | 2019-06-07 | NUR ---
NURSE NOTES: Pt transferred to the unit via hospital bed. VS WNL. No signs of acute distress noted. Belonging checked with RN. 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 A/O x4, c/o pain at chest, 8/10, aching, radiating to back. Will give PRN pain med. On O2 2L with no signs of sob. IV on L AC 20G, intact and patent. R Femoral central line, intact and patent. Abd soft, round, and non-tender. Bed in the lowest position. Side rails up x3. Will continue to monitor.
[2019-06-07] MEDS ORDERED: Albuterol/Ipratropium 3ml neb HHN PRN (00:30)
[2019-06-07] MEDS: Morphine Sulfate 2mg/ml Inj(IV/IM USE ONLY) IVP PRN ×4 (00:30→20:35)
[2019-06-07 03:51] VITALS: BP 102/74
[2019-06-07 06:10] LABS: BASOPHILS % (AUTO) 1.2 % (0.0-2.0); HEMATOCRIT 44.6 % (42.0-52.0); HEMOGLOBIN 14.2 G/DL (14.2-18.0); MEAN CORPUSCULAR VOLUME 83 FL (80-99); MONOCYTES % (AUTO) 10.5 % (1.0-10.0); NEUTROPHILS % (AUTO) 61.3 % (45.0-75.0); PLATELET COUNT 210 K/UL (150-450); RED BLOOD COUNT 5.37 M/UL (4.70-6.10); RED CELL DISTRIBUTION WIDTH 16.2 % (11.6-14.8); WHITE BLOOD COUNT 4.8 K/UL (4.8-10.8)
[2019-06-07] MEDS: NovoLOG Insulin Flexpen SUBQ SCH ×4 (06:30→20:26)
[2019-06-07 06:38] LABS: ANION GAP 6 mmol/L (5-15); BLOOD UREA NITROGEN 13 mg/dL (7-18); CALCIUM 9.5 MG/DL (8.5-10.1); CARBON DIOXIDE 29 MMOL/L (21-32); CHLORIDE 103 MMOL/L (98-107); POTASSIUM 3.5 MMOL/L (3.5-5.1); SODIUM 138 MMOL/L (136-145)
--- NOTE | 2019-06-07 06:41 | NUR ---
NURSE NOTES: Pt C/O chest pain, aching, non-radiating. EKG done and SR noted, result on chart. PRN med given and O2 2L applied. Will continue to monitor.
--- NOTE | 2019-06-07 07:31 | NUR ---
HAND-OFF: Report given to Akosua Feldman RN. No distress noted at this time.
--- NOTE | 2019-06-07 07:35 | NUR ---
NURSE NOTES: Report received from Sree Saucedo RN.Pt awake,alert sitting up on bed eating breakfast ,noted,no resp distress,denies any c/o chest pain or discomfort,SR on the monitor,Skin warm and dry,IV sites x2 PIV to LAC and RT Femoral TLC intact,SR up x2 HOB elevated,bed lock in lowest positon,will continue with plans of care.
--- NOTE | 2019-06-07 07:59 | Pulmonology Progress Note ---
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 Non-ischemic cardiomyopathy (EF 29235%) Status post AICD placement in 2018 COPD/asthma CAD, history of CT Acute kidney injury-resolved Lactic acidosis Acute toxic metabolic encephalopathy- resolved DM Morbid obesity Presumed ALMAZ Substance abuse /PCP PLAN OF CARE [facility] off Dobutamine gtt, Closely monitor hemodynamic status Diuresis with IV Lasix, with close monitoring of volumes and cardiorenal parameters O2 titrate as needed, HHN Venous duplex DVT prophylaxis Cardio eval appreciated serial troponin negative, ECG revealed no acute ischemic changes, this pt ruled out for acute CT CP was likely due to acute CHF last ECHO in 04/05 with rEF 20-25%, grade 3 diastolic dysfunction, moderate LVH and moderate to severe mitral regurgitation guideline directed medical therapy for CHF- with BB, PATRIZIA and diuretics: lasix and Aldactone ECHO with EF 25-30% CT head negative AMS resolved, likely due to shock and probably PCP Monitor renal parameters, lytes , correct electrolytes as needed. SARAH resolved Urine toxicology screen positive for phencyclidine Counseled on abstinence from illicit street drugs GI prophylaxis BS management with Januvia and SSI Supportive care case discussed and evaluated by supervising physician Elizabeth Crowder NP Subjective Allergies: Coded Allergies: Cultivated Oat Pollen (Unverified Allergy, Unknown, 06/06/19) Dust (Unverified Allergy, Unknown, 06/06/19) PINEAPPLE (Unverified Allergy, Unknown, 06/06/19) WOOL (Unverified Allergy, Unknown, 06/06/19) Subjective BP stabilized, off Dobutamine gtt transferred to [facility] no CP, no SOB pulse ox stable on RA Objective Last 24 Hour Vital Signs Date Time Temp Pulse Resp B/P (MAP) Pulse Ox O2 Delivery O2 Flow Rate FiO2 06/07/19 04:00 76 06/07/19 04:00 Nasal Cannula 2.0 06/07/19 03:51 97.6 82 18 102/74 (83) 96 06/07/19 00:00 Nasal Cannula 2.0 06/07/19 00:00 97.7 84 16 114/77 (89) 97 06/07/19 00:00 80 06/06/19 23:00 85 16 122/85 (97) 98 06/06/19 22:00 83 16 126/86 (99) 98 06/06/19 21:00 84 16 129/86 (100) 99 06/06/19 20:30 98 Nasal Cannula 2.0 28 06/06/19 20:30 84 18 98 Nasal Cannula 2.0 28 06/06/19 20:13 95 136/90 06/06/19 20:00 Nasal Cannula 2.0 06/06/19 20:00 86 06/06/19 20:00 98.5 86 16 136/90 (105) 98 06/06/19 19:00 88 19 113/94 (100) 97 06/06/19 18:00 89 19 131/93 (106) 98 06/06/19 17:34 133/77 06/06/19 17:00 77 19 133/77 (95) 98 06/06/19 16:00 98.6 78 19 130/82 (98) 98 06/06/19 16:00 75 06/06/19 16:00 Nasal Cannula 2.0 06/06/19 15:00 79 19 107/87 (94) 98 06/06/19 14:00 82 19 110/80 (90) 98 06/06/19 13:30 84 19 112/84 (93) 98 06/06/19 13:00 85 19 116/89 (98) 96 06/06/19 12:30 77 19 128/83 (98) 97 06/06/19 12:15 77 19 125/77 (93) 97 06/06/19 12:00 Nasal Cannula 2.0 06/06/19 12:00 98.9 78 19 122/74 (90) 97 06/06/19 12:00 80 06/06/19 11:45 77 19 124/74 (91) 97 06/06/19 11:30 77 19 121/80 (94) 97 06/06/19 11:15 81 19 121/80 (94) 97 19 11:15 112/74 06/06/19 11:00 83 19 114/80 (91) 97 06/06/19 10:30 81 19 112/74 (87) 98 06/06/19 10:00 83 19 119/72 (88) 99 06/06/19 09:30 89 19 114/82 (93) 100 06/06/19 09:17 98.0 06/06/19 09:00 86 19 123/79 (94) 100 06/06/19 08:40 81 105/85 06/06/19 08:30 88 18 128/82 (97) 100 06/06/19 08:00 81 06/06/19 08:00 88 19 107/79 (88) 100 06/06/19 08:00 Nasal Cannula 2.0 Intake and Output 06/06/19 06/07/19 18:59 06:59 Intake Total 629.042 ml 100 ml Output Total 2200 ml Balance -1570.958 ml 100 ml Intake Oral 260 ml 100 ml IV Total 369.042 ml Output Urine Total 2200 ml Objective General Appearance: no apparent distress, A/A/O obese AA male Lines, tubes and drains: peripheral HEENT: normocephalic, atraumatic, anicteric, mucous membranes moist, PERRL Neck: non-tender, supple , thick, trachea midline Respiratory/Chest: chest wall non-tender, no respiratory distress, no accessory muscle use, few scattered bibasilar crackles Cardiovascular/Chest: normal rate, regular rhythm, pacemaker/AICD - Left sided AICD Abdomen: normal bowel sounds, non tender - obese, soft Extremities: normal range of motion, non-tender, no calf tenderness, normal capillary refill Skin Exam: warm/dry Neurologic: no motor/sensory deficits, alert, oriented x 3, responsive, normal mood/affect Musculoskeletal: normal muscle bulk Microbiology Date/Time Source Procedure Growth Status 06/05/19 15:30 Blood Blood Culture - Preliminary NO GROWTH AFTER 24 HOURS Resulted 06/05/19 15:15 Blood Blood Culture - Preliminary NO GROWTH AFTER 24 HOURS Resulted 06/05/19 15:45 Nasal Nares MRSA Culture - Final NO METHICILLIN RESISTANT STAPH AUREUS... Complete 06/05/19 15:45 Rectum VRE Culture - Final NO VANCOMYCIN RESISTANT ENTEROCOCCUS ... Complete 06/05/19 15:45 Rectum - Final NO CARBAPENEM-RESISTANT ENTEROBACTERI... Complete Laboratory Tests 06/07/19 05:07: White Blood Count 4.8, Red Blood Count 5.37, Hemoglobin 14.2, Hematocrit 44.6, Mean Corpuscular Volume 83, Mean Corpuscular Hemoglobin 26.5L, Mean Corpuscular Hemoglobin Concent 31.9L, Red Cell Distribution Width 16.2H, Platelet Count 210 , Mean Platelet Volume 5.7L, Neutrophils (%) (Auto) 61.3, Lymphocytes (%) (Auto ) 24.0, Monocytes (%) (Auto) 10.5H, Eosinophils (%) (Auto) 3.0, Basophils (%) ( Auto) 1.2, Sodium Level 138, Potassium Level 3.5, Chloride Level 103, Carbon Dioxide Level 29, Anion Gap 6, Blood Urea Nitrogen 13, Creatinine 1.0, Estimat Glomerular Filtration Rate > 60, Glucose Level 93, Calcium Level 9.5, Troponin I 0.033, Pro-B-Type Natriuretic Peptide 140H Current Medications Medications (Trade) Dose Ordered Sig/Andree Route PRN Reason Start Time Stop Time Status Last Admin Dose Admin Acetaminophen (Tylenol) 650 mg Q4H PRN ORAL Fever 06/07/19 00:30 07/05/19 16:29 Albuterol/ Ipratropium (Albuterol/ Ipratropium) 3 ml Q4H PRN HHN Shortness of Breath 06/07/19 00:30 06/10/19 16:29 Allopurinol (Allopurinol) 300 mg DAILY ORAL 06/07/19 09:00 07/06/19 08:59 Atorvastatin Calcium (Lipitor) 40 mg BEDTIME ORAL 06/07/19 21:00 07/06/19 20:59 Carvedilol (Coreg) 3.125 mg EVERY 12 HOURS ORAL 06/07/19 09:00 07/05/19 20:59 Chlorhexidine Gluconate (Luz-Hex 2%) 1 applic DAILY@2000 TOPIC 06/07/19 20:00 07/06/19 19:59 Dextrose (Dextrose 50%) 25 ml Q30M PRN IV Hypoglycemia 06/07/19 00:00 07/05/19 16:29 Dextrose (Dextrose 50%) 50 ml Q30M PRN IV Hypoglycemia 06/07/19 00:00 07/05/19 16:29 Furosemide (Lasix) 40 mg DAILY ORAL 06/07/19 09:00 07/07/19 08:59 Heparin Sodium (Porcine) (Heparin 5000 units/ml) 5,000 units EVERY 12 HOURS SUBQ 06/07/19 09:00 07/05/19 20:59 Insulin Aspart (NovoLOG) BEFORE MEALS AND HS SUBQ 06/07/19 06:30 07/05/19 20:59 Lisinopril (Zestril) 10 mg TWICE A DAY ORAL 06/07/19 09:00 07/06/19 17:59 Morphine Sulfate (Morphine Sulfate) 2 mg Q4H PRN IVP For Pain 06/07/19 00:00 06/12/19 00:00 06/07/19 06:36 Ondansetron HCl (Zofran) 4 mg Q6H PRN IVP Nausea & Vomiting 06/07/19 00:00 07/05/19 00:00 Pantoprazole (Protonix) 40 mg DAILY IVP 06/07/19 09:00 07/06/19 08:59 Polyethylene Glycol (Miralax) 17 gm DAILYPRN PRN ORAL Constipation 06/07/19 00:00 07/05/19 00:00 Promethazine HCl/ Codeine (Phenergan with Codeine) 5 ml Q6H PRN ORAL For Cough 06/07/19 00:00 07/05/19 00:00 Sitagliptin Phosphate (Januvia) 100 mg DAILY ORAL 06/07/19 09:00 07/06/19 08:59 Spironolactone (Aldactone) 25 mg DAILY ORAL 06/07/19 09:00 07/07/19 08:59 Temazepam (Restoril) 15 mg HSPRN PRN ORAL Insomnia 06/07/19 00:00 06/12/19 00:00 Elizabeth Crowder NP Jun 07, 2019 07:59
[2019-06-07 08:00] VITALS: BP 125/84
[2019-06-07] MEDS ORDERED: Furosemide 40mg tab ORAL SCH ×3 (09:00→21:00)
[2019-06-07] MEDS ORDERED: Pantoprazole Inj IVP SCH (09:00)
[2019-06-07] MEDS ORDERED: Spironolactone 25mg tab ORAL SCH ×2 (09:00)
[2019-06-07] MEDS: Lisinopril 10mg tab ORAL SCH ×2 (09:04→18:05)
[2019-06-07] MEDS: Heparin 5000 units/ml inj SUBQ SCH ×2 (09:06→20:29)
--- NOTE | 2019-06-07 11:00 | NUR ---
NURSE NOTES: Pt resting in bed watching TV program,c/o chest pain on a scale of 9,morphine Sulfate 2 mg iv given earlier,verbalized feeling better at this time.
[2019-06-07 12:00] VITALS: BP 148/93
--- NOTE | 2019-06-07 12:12 | Cardiology Progress Note ---
Assessment/Plan Assessment/Plan 1. Lightheadedness. 2. Hypotension relted to [facility] . 3. History of nonischemic cardiomyopathy. 4. History of chronic congestive heart failure. 5. History of chronic diastolic heart failure. 6. Tobacco and alcohol and substance use disorder. bp is better nto hig today acei , bb , lasix , aldactone watch for need to increase acie aasix bid ambulate Objective Last 24 Hour Vital Signs Date Time Temp Pulse Resp B/P (MAP) Pulse Ox O2 Delivery O2 Flow Rate FiO2 06/07/19 09:05 84 125/84 06/07/19 09:04 125/84 06/07/19 08:00 88 06/07/19 08:00 Nasal Cannula 2.0 06/07/19 08:00 98.7 84 21 125/84 (98) 96 06/07/19 04:00 76 06/07/19 04:00 Nasal Cannula 2.0 06/07/19 03:51 97.6 82 18 102/74 (83) 96 06/07/19 00:00 Nasal Cannula 2.0 06/07/19 00:00 97.7 84 16 114/77 (89) 97 06/07/19 00:00 80 06/06/19 23:00 85 16 122/85 (97) 98 06/06/19 22:00 83 16 126/86 (99) 98 06/06/19 21:00 84 16 129/86 (100) 99 06/06/19 20:30 98 Nasal Cannula 2.0 28 06/06/19 20:30 84 18 98 Nasal Cannula 2.0 28 06/06/19 20:13 95 136/90 06/06/19 20:00 Nasal Cannula 2.0 06/06/19 20:00 86 06/06/19 20:00 98.5 86 16 136/90 (105) 98 06/06/19 19:00 88 19 113/94 (100) 97 06/06/19 18:00 89 19 131/93 (106) 98 06/06/19 17:34 133/77 06/06/19 17:00 77 19 133/77 (95) 98 06/06/19 16:00 98.6 78 19 130/82 (98) 98 06/06/19 16:00 75 06/06/19 16:00 Nasal Cannula 2.0 06/06/19 15:00 79 19 107/87 (94) 98 06/06/19 14:00 82 19 110/80 (90) 98 06/06/19 13:30 84 19 112/84 (93) 98 06/06/19 13:00 85 19 116/89 (98) 96 06/06/19 12:30 77 19 128/83 (98) 97 06/06/19 12:15 77 19 125/77 (93) 97 General Appearance: no apparent distress, alert Neck: supple Cardiovascular: normal rate Respiratory/Chest: lungs clear, normal breath sounds Abdomen: non tender, soft Extremities: no swelling Intake and Output 06/06/19 06/07/19 19:00 07:00 Intake Total 604.439 ml 100 ml Output Total 1200 ml Balance -595.561 ml 100 ml Intake Oral 260 ml 100 ml IV Total 344.439 ml Output Urine Total 1200 ml Laboratory Tests Test 06/07/19 05:07 White Blood Count 4.8 K/UL (4.8-10.8) Red Blood Count 5.37 M/UL (4.70-6.10) Hemoglobin 14.2 G/DL (14.2-18.0) Hematocrit 44.6 % (42.0-52.0) Mean Corpuscular Volume 83 FL (80-99) Mean Corpuscular Hemoglobin 26.5 PG (27.0-31.0) L Mean Corpuscular Hemoglobin Concent 31.9 G/DL (32.0-36.0) L Red Cell Distribution Width 16.2 % (11.6-14.8) H Platelet Count 210 K/UL (150-450) Mean Platelet Volume 5.7 FL (6.5-10.1) L Neutrophils (%) (Auto) 61.3 % (45.0-75.0) Lymphocytes (%) (Auto) 24.0 % (20.0-45.0) Monocytes (%) (Auto) 10.5 % (1.0-10.0) H Eosinophils (%) (Auto) 3.0 % (0.0-3.0) Basophils (%) (Auto) 1.2 % (0.0-2.0) Sodium Level 138 MMOL/L (136-145) Potassium Level 3.5 MMOL/L (3.5-5.1) Chloride Level 103 MMOL/L (98-107) Carbon Dioxide Level 29 MMOL/L (21-32) Anion Gap 6 mmol/L (5-15) Blood Urea Nitrogen 13 mg/dL (7-18) Creatinine 1.0 MG/DL (0.55-1.30) Estimat Glomerular Filtration Rate > 60 mL/min (>60) Glucose Level 93 MG/DL (74-106) Calcium Level 9.5 MG/DL (8.5-10.1) Troponin I 0.033 ng/mL (0.000-0.056) Pro-B-Type Natriuretic Peptide 140 pg/mL (0-125) H Microbiology Date/Time Source Procedure Growth Status 06/05/19 15:30 Blood Blood Culture - Preliminary NO GROWTH AFTER 24 HOURS Resulted 06/05/19 15:15 Blood Blood Culture - Preliminary NO GROWTH AFTER 24 HOURS Resulted 06/05/19 15:45 Nasal Nares MRSA Culture - Final NO METHICILLIN RESISTANT STAPH AUREUS... Complete 06/05/19 15:45 Rectum VRE Culture - Final NO VANCOMYCIN RESISTANT ENTEROCOCCUS ... Complete 06/05/19 15:45 Rectum - Final NO CARBAPENEM-RESISTANT ENTEROBACTERI... Complete Uvaldo Syed MD Jun 07, 2019 12:12
--- NOTE | 2019-06-07 13:04 | Cardiac Electrophysiology PN ---
Assessment/Plan Assessment/Plan 1. Status post [facility] [facility] defibrillator implantation by me. Defibrillator was interrogated and showed Nl Fx 2. Severe cardiomyopathy with ejection fraction of only 20%. Dobutamine drip discontinued. On Coreg 3.125 mg b.i.d., lisinopril 10 mg b.i.d., Lasix 40 daily, and Aldactone 25 daily. 3. Hypertension. Continue current heart failure therapy. 4. Tobacco and alcohol and substance use disorder. Subjective Subjective Transferred out of ICU. Alert in NAD. ICD interrogated and showed nL Fx Objective Last 24 Hour Vital Signs Date Time Temp Pulse Resp B/P (MAP) Pulse Ox O2 Delivery O2 Flow Rate FiO2 06/07/19 09:05 84 125/84 06/07/19 09:04 125/84 06/07/19 08:00 88 06/07/19 08:00 Nasal Cannula 2.0 06/07/19 08:00 98.7 84 21 125/84 (98) 96 06/07/19 04:00 76 06/07/19 04:00 Nasal Cannula 2.0 06/07/19 03:51 97.6 82 18 102/74 (83) 96 06/07/19 00:00 Nasal Cannula 2.0 06/07/19 00:00 97.7 84 16 114/77 (89) 97 06/07/19 00:00 80 06/06/19 23:00 85 16 122/85 (97) 98 06/06/19 22:00 83 16 126/86 (99) 98 06/06/19 21:00 84 16 129/86 (100) 99 06/06/19 20:30 98 Nasal Cannula 2.0 28 06/06/19 20:30 84 18 98 Nasal Cannula 2.0 28 06/06/19 20:13 95 136/90 06/06/19 20:00 Nasal Cannula 2.0 06/06/19 20:00 86 06/06/19 20:00 98.5 86 16 136/90 (105) 98 06/06/19 19:00 88 19 113/94 (100) 97 06/06/19 18:00 89 19 131/93 (106) 98 06/06/19 17:34 133/77 06/06/19 17:00 77 19 133/77 (95) 98 06/06/19 16:00 98.6 78 19 130/82 (98) 98 06/06/19 16:00 75 06/06/19 16:00 Nasal Cannula 2.0 06/06/19 15:00 79 19 107/87 (94) 98 06/06/19 14:00 82 19 110/80 (90) 98 06/06/19 13:30 84 19 112/84 (93) 98 Intake and Output 06/06/19 06/07/19 19:00 07:00 Intake Total 604.439 ml 100 ml Output Total 1200 ml Balance -595.561 ml 100 ml Intake Oral 260 ml 100 ml IV Total 344.439 ml Output Urine Total 1200 ml Laboratory Tests Test 06/07/19 05:07 White Blood Count 4.8 K/UL (4.8-10.8) Red Blood Count 5.37 M/UL (4.70-6.10) Hemoglobin 14.2 G/DL (14.2-18.0) Hematocrit 44.6 % (42.0-52.0) Mean Corpuscular Volume 83 FL (80-99) Mean Corpuscular Hemoglobin 26.5 PG (27.0-31.0) L Mean Corpuscular Hemoglobin Concent 31.9 G/DL (32.0-36.0) L Red Cell Distribution Width 16.2 % (11.6-14.8) H Platelet Count 210 K/UL (150-450) Mean Platelet Volume 5.7 FL (6.5-10.1) L Neutrophils (%) (Auto) 61.3 % (45.0-75.0) Lymphocytes (%) (Auto) 24.0 % (20.0-45.0) Monocytes (%) (Auto) 10.5 % (1.0-10.0) H Eosinophils (%) (Auto) 3.0 % (0.0-3.0) Basophils (%) (Auto) 1.2 % (0.0-2.0) Sodium Level 138 MMOL/L (136-145) Potassium Level 3.5 MMOL/L (3.5-5.1) Chloride Level 103 MMOL/L (98-107) Carbon Dioxide Level 29 MMOL/L (21-32) Anion Gap 6 mmol/L (5-15) Blood Urea Nitrogen 13 mg/dL (7-18) Creatinine 1.0 MG/DL (0.55-1.30) Estimat Glomerular Filtration Rate > 60 mL/min (>60) Glucose Level 93 MG/DL (74-106) Calcium Level 9.5 MG/DL (8.5-10.1) Troponin I 0.033 ng/mL (0.000-0.056) Pro-B-Type Natriuretic Peptide 140 pg/mL (0-125) H Microbiology Date/Time Source Procedure Growth Status 06/05/19 15:30 Blood Blood Culture - Preliminary NO GROWTH AFTER 24 HOURS Resulted 06/05/19 15:15 Blood Blood Culture - Preliminary NO GROWTH AFTER 24 HOURS Resulted 06/05/19 15:45 Nasal Nares MRSA Culture - Final NO METHICILLIN RESISTANT STAPH AUREUS... Complete 06/05/19 15:45 Rectum VRE Culture - Final NO VANCOMYCIN RESISTANT ENTEROCOCCUS ... Complete 06/05/19 15:45 Rectum - Final NO CARBAPENEM-RESISTANT ENTEROBACTERI... Complete Objective HEAD AND NECK: Shows positive JVD. LUNGS: Decreased breath sounds. CARDIOVASCULAR: Shows regular S1 and S2 with no gallop. ABDOMEN: Soft. EXTREMITIES: There is 1+ pitting edema. The defibrillator in the left subclavian is intact. Stanley Schumacher MD Jun 07, 2019 13:04
--- NOTE | 2019-06-07 13:07 | Cardiology Report ---
APPROVED REPORT EKG Measurement Heart [id number] Normal sinus rhythm Possible Left atrial enlargement Left ventricular hypertrophy Prolonged QT Abnormal ECG
--- NOTE | 2019-06-07 14:38 | Internal Med Progress Note ---
Subjective Date of Service: Jun 07, 2019 Physician Name Dario Meza Attending Physician Mejia Hidalgo MD Current Medications Medications (Trade) Dose Ordered Sig/Andree Route PRN Reason Start Time Stop Time Status Last Admin Dose Admin Acetaminophen (Tylenol) 650 mg Q4H PRN ORAL Fever 06/07/19 00:30 07/05/19 16:29 Albuterol/ Ipratropium (Albuterol/ Ipratropium) 3 ml Q4H PRN HHN Shortness of Breath 06/07/19 00:30 06/10/19 16:29 Allopurinol (Allopurinol) 300 mg DAILY ORAL 06/07/19 09:00 07/06/19 08:59 06/07/19 09:04 Atorvastatin Calcium (Lipitor) 40 mg BEDTIME ORAL 06/07/19 21:00 07/06/19 20:59 Carvedilol (Coreg) 3.125 mg EVERY 12 HOURS ORAL 06/07/19 09:00 07/05/19 20:59 06/07/19 09:05 Chlorhexidine Gluconate (Luz-Hex 2%) 1 applic DAILY@2000 TOPIC 06/07/19 20:00 07/06/19 19:59 Dextrose (Dextrose 50%) 25 ml Q30M PRN IV Hypoglycemia 06/07/19 00:00 07/05/19 16:29 Dextrose (Dextrose 50%) 50 ml Q30M PRN IV Hypoglycemia 06/07/19 00:00 07/05/19 16:29 Furosemide (Lasix) 40 mg Q12HR ORAL 06/07/19 21:00 07/07/19 20:59 Heparin Sodium (Porcine) (Heparin 5000 units/ml) 5,000 units EVERY 12 HOURS SUBQ 06/07/19 09:00 07/05/19 20:59 06/07/19 09:06 Insulin Aspart (NovoLOG) BEFORE MEALS AND HS SUBQ 06/07/19 06:30 07/05/19 20:59 Lisinopril (Zestril) 10 mg TWICE A DAY ORAL 06/07/19 09:00 07/06/19 17:59 06/07/19 09:04 Morphine Sulfate (Morphine Sulfate) 2 mg Q4H PRN IVP For Pain 06/07/19 00:00 06/12/19 00:00 06/07/19 10:43 Ondansetron HCl (Zofran) 4 mg Q6H PRN IVP Nausea & Vomiting 06/07/19 00:00 07/05/19 00:00 Pantoprazole (Protonix) 40 mg DAILY IVP 06/07/19 09:00 07/06/19 08:59 06/07/19 09:03 Polyethylene Glycol (Miralax) 17 gm DAILYPRN PRN ORAL Constipation 06/07/19 00:00 07/05/19 00:00 Promethazine HCl/ Codeine (Phenergan with Codeine) 5 ml Q6H PRN ORAL For Cough 06/07/19 00:00 07/05/19 00:00 Sitagliptin Phosphate (Januvia) 100 mg DAILY ORAL 06/07/19 09:00 07/06/19 08:59 06/07/19 09:04 Spironolactone (Aldactone) 25 mg DAILY ORAL 06/07/19 09:00 07/07/19 08:59 06/07/19 09:03 Temazepam (Restoril) 15 mg HSPRN PRN ORAL Insomnia 06/07/19 00:00 06/12/19 00:00 Allergies: Coded Allergies: Cultivated Oat Pollen (Unverified Allergy, Unknown, 06/06/19) Dust (Unverified Allergy, Unknown, 06/06/19) PINEAPPLE (Unverified Allergy, Unknown, 06/06/19) WOOL (Unverified Allergy, Unknown, 06/06/19) ROS Limited/Unobtainable: No Constitutional: Reports: no symptoms HEENT: Reports: no symptoms Cardiovascular: Reports: no symptoms Respiratory: Reports: shortness of breath Gastrointestinal/Abdominal: Reports: no symptoms Genitourinary: Reports: no symptoms Neurologic/Psychiatric: Reports: no symptoms Subjective 44 YO M admitted with shortness of breath. Now CHF. Cover for Int Willy-Dr Hidalgo. PROSPER Objective Last Vital Signs Date Time Temp Pulse Resp B/P (MAP) Pulse Ox O2 Delivery O2 Flow Rate FiO2 06/07/19 12:00 Nasal Cannula 2.0 06/07/19 12:00 98.0 83 23 148/93 (111) 98 06/06/19 20:30 28 Laboratory Tests Test 06/07/19 05:07 White Blood Count 4.8 K/UL (4.8-10.8) Red Blood Count 5.37 M/UL (4.70-6.10) Hemoglobin 14.2 G/DL (14.2-18.0) Hematocrit 44.6 % (42.0-52.0) Mean Corpuscular Volume 83 FL (80-99) Mean Corpuscular Hemoglobin 26.5 PG (27.0-31.0) L Mean Corpuscular Hemoglobin Concent 31.9 G/DL (32.0-36.0) L Red Cell Distribution Width 16.2 % (11.6-14.8) H Platelet Count 210 K/UL (150-450) Mean Platelet Volume 5.7 FL (6.5-10.1) L Neutrophils (%) (Auto) 61.3 % (45.0-75.0) Lymphocytes (%) (Auto) 24.0 % (20.0-45.0) Monocytes (%) (Auto) 10.5 % (1.0-10.0) H Eosinophils (%) (Auto) 3.0 % (0.0-3.0) Basophils (%) (Auto) 1.2 % (0.0-2.0) Sodium Level 138 MMOL/L (136-145) Potassium Level 3.5 MMOL/L (3.5-5.1) Chloride Level 103 MMOL/L (98-107) Carbon Dioxide Level 29 MMOL/L (21-32) Anion Gap 6 mmol/L (5-15) Blood Urea Nitrogen 13 mg/dL (7-18) Creatinine 1.0 MG/DL (0.55-1.30) Estimat Glomerular Filtration Rate > 60 mL/min (>60) Glucose Level 93 MG/DL (74-106) Calcium Level 9.5 MG/DL (8.5-10.1) Troponin I 0.033 ng/mL (0.000-0.056) Pro-B-Type Natriuretic Peptide 140 pg/mL (0-125) H Microbiology Date/Time Source Procedure Growth Status 06/05/19 15:30 Blood Blood Culture - Preliminary NO GROWTH AFTER 24 HOURS Resulted 06/05/19 15:15 Blood Blood Culture - Preliminary NO GROWTH AFTER 24 HOURS Resulted 06/05/19 15:45 Nasal Nares MRSA Culture - Final NO METHICILLIN RESISTANT STAPH AUREUS... Complete 06/05/19 15:45 Rectum VRE Culture - Final NO VANCOMYCIN RESISTANT ENTEROCOCCUS ... Complete 06/05/19 15:45 Rectum - Final NO CARBAPENEM-RESISTANT ENTEROBACTERI... Complete Intake and Output 06/06/19 06/07/19 19:00 07:00 Intake Total 604.439 ml 100 ml Output Total 1200 ml Balance -595.561 ml 100 ml Intake Oral 260 ml 100 ml IV Total 344.439 ml Output Urine Total 1200 ml Objective PHYSICAL EXAMINATION: GENERAL: The patient awake, responsive, but lethargic and sleepy. HEAD AND NECK: Pupils are reactive to light. Extraocular movements intact. Neck was supple. No JVD. LUNGS: Good air entry with no wheezing or rales. HEART: S1, S2. Regular rhythm. Distant heart sounds. AICD was noted in left-sided chest wall. ABDOMEN: Soft, nondistended, nontender. Morbidly obese. EXTREMITIES: No cyanosis, clubbing, edema. NEUROLOGIC: Cranial nerves II through XII grossly intact. Motor is 5/5 in all extremities. Gait is intact. RECTAL: Refused and deferred. GENITOURINARY: Refused and deferred. PSYCHIATRIC: Mood and affect is intact. Assessment/Plan Assessment/Plan ASSESSMENT: 1. Hypotension, most likely secondary to acute heart failure. 2. Ischemic cardiomyopathy. 3. Acute on chronic congestive heart failure with systolic dysfunction with a reduced ejection fraction. 4. Status post AICD. 5. History of hypertension, presently hypotensive. 6. COPD. 7. Diabetes type 2. 8. Coronary artery disease with prior history of myocardial infarction. 9. Morbid obesity. 10. Presumed obstructive sleep apnea. PLAN: 1. PROSPER. 2. Cardiology consultation with Dr. Stanley Schumacher 3. Pulmonary consultation with Dr. Angel Diaz. 4. Hypotension. dobutamine drip, Lasix IV. 5. Monitor laboratory. Code status is Full Code. DVT prophylaxis, heparin subcutaneous. Dario Meza MD Jun 07, 2019 14:38
--- NOTE | 2019-06-07 15:26 | Diagnostic Imaging Report ---
APPROVED REPORT CPT Code: 48543 Present Symptoms Comments: BILATERAL LEGS PAIN. BILATERAL: Imaging reveals a patent deep venous system bilaterally. There is no evidence of thrombus within the femoral, popliteal or tibial segments. The greater saphenous veins are also within normal limits. Doppler indicates normal spontaneous flow within these segments.
[2019-06-07 16:00] VITALS: BP 134/102
--- NOTE | 2019-06-07 17:00 | NUR ---
NURSE NOTES: Pt stable,no further c/o chest pain presented.
--- NOTE | 2019-06-07 19:20 | NUR ---
NURSE NOTES: Received patient from ISABELL ACUÑA RN. Will continue plan of care.
--- NOTE | 2019-06-07 19:25 | NUR ---
HAND-OFF: Report given to Latha Alvares.ROMI.
[2019-06-07 20:00] VITALS: BP 146/100
[2019-06-07] MEDS ORDERED: Dyna-Hex 2% Top Sol 2oz TOPIC SCH (20:00)
[2019-06-07] MEDS ORDERED: Atorvastatin 20mg tab ORAL SCH (21:00)
[2019-06-08] VITALS: BP 134/94
[2019-06-08 04:00] VITALS: BP 135/103
[2019-06-08 04:50] LABS: BASOPHILS % (AUTO) 2.8 % (0.0-2.0); EOSINOPHILS % (AUTO) 2.3 % (0.0-3.0); HEMATOCRIT 49.5 % (42.0-52.0); HEMOGLOBIN 15.5 G/DL (14.2-18.0); LYMPHOCYTES % (AUTO) 19.4 % (20.0-45.0); MEAN CORPUSCULAR VOLUME 83 FL (80-99); MONOCYTES % (AUTO) 15.2 % (1.0-10.0); NEUTROPHILS % (AUTO) 60.3 % (45.0-75.0); PLATELET COUNT 230 K/UL (150-450); RED BLOOD COUNT 5.99 M/UL (4.70-6.10); WHITE BLOOD COUNT 5.1 K/UL (4.8-10.8)
[2019-06-08 05:06] LABS: ANION GAP 9 mmol/L (5-15); BLOOD UREA NITROGEN 14 mg/dL (7-18); CALCIUM 10.4 MG/DL (8.5-10.1); CARBON DIOXIDE 30 MMOL/L (21-32); CHLORIDE 101 MMOL/L (98-107); POTASSIUM 3.7 MMOL/L (3.5-5.1); SODIUM 140 MMOL/L (136-145)
--- NOTE | 2019-06-08 05:10 | NUR ---
NURSE NOTES: Transferred patient to 3E, placed in room 320-2. Belongings are accounted for at bedside. Report given to ROMI Limon. Orders transferred.
[2019-06-08] MEDS ORDERED: Promethazine/Codeine 5ml UD ORAL PRN (06:00)
--- NOTE | 2019-06-08 06:00 | NUR ---
NURSE NOTES: Received patient from SDU via hospital bed. VSS. Patient AOx4. Belongings checked and list signed. Patient oriented to room, fall and safety precautions taken.
[2019-06-08] MEDS: NovoLOG Insulin Flexpen SUBQ SCH ×3 (06:30→16:30)
--- NOTE | 2019-06-08 07:46 | NUR ---
HAND-OFF: Report given to ROMI Prescott.
--- NOTE | 2019-06-08 07:50 | NUR ---
NURSE NOTES: Patient lying in bed awake. No complain of pain or distress at this time. Skin intact and dry. IV dressing intact and dry. Bed lowest position. Call light within reach. Will continue to monitor.
[2019-06-08 08:00] VITALS: BP 136/98
[2019-06-08] MEDS ORDERED: Morphine Sulfate 2mg/ml Inj(IV/IM USE ONLY) IVP PRN (08:00)
[2019-06-08] MEDS ORDERED: Albuterol/Ipratropium 3ml neb HHN PRN (08:30)
[2019-06-08] MEDS ORDERED: Spironolactone 25mg tab ORAL SCH (09:00)
[2019-06-08] MEDS ORDERED: Furosemide 40mg tab ORAL SCH (09:00)
[2019-06-08] MEDS ORDERED: Heparin 5000 units/ml inj SUBQ SCH (09:00)
[2019-06-08] MEDS ORDERED: Pantoprazole Inj IVP SCH (09:00)
[2019-06-08] MEDS: Lisinopril 10mg tab ORAL SCH ×2 (10:03→17:46)
[2019-06-08 12:00] VITALS: BP 140/95
--- NOTE | 2019-06-08 12:51 | Diagnostic Imaging Report ---
Indication: Shortness of breath Technique: One view of the chest Comparison: 06/05/2019 Findings: Left chest AICD again demonstrated. The heart size is normal. The lungs and pleural spaces are clear. There is no significant interim change Impression: No acute process
--- NOTE | 2019-06-08 14:04 | Pulmonology Progress Note ---
Assessment/Plan Problems: (1) ICD (implantable cardioverter-defibrillator) in place (2) Renal failure (ARF), acute on chronic (3) COPD (chronic obstructive pulmonary disease) (4) CAD (coronary artery disease) (5) HTN (hypertension) (6) EF 15% Assessment/Plan improving bp more stable renal function improved f/u cariology recommendations dc planning Subjective ROS Limited/Unobtainable: No Constitutional: Reports: no symptoms HEENT: Repors: no symptoms Respiratory: Reports: no symptoms Allergies: Coded Allergies: Cultivated Oat Pollen (Unverified Allergy, Unknown, 06/06/19) Dust (Unverified Allergy, Unknown, 06/06/19) PINEAPPLE (Unverified Allergy, Unknown, 06/06/19) WOOL (Unverified Allergy, Unknown, 06/06/19) Objective Last 24 Hour Vital Signs Date Time Temp Pulse Resp B/P (MAP) Pulse Ox O2 Delivery O2 Flow Rate FiO2 06/08/19 12:00 98.5 87 20 140/95 (110) 96 06/08/19 10:03 136/98 06/08/19 10:02 86 136/98 06/08/19 08:53 97 Room Air 21 06/08/19 08:52 85 20 97 Room Air 21 06/08/19 08:00 97.7 86 20 136/98 (111) 95 06/08/19 04:00 97.9 100 20 135/103 (114) 95 06/08/19 04:00 Nasal Cannula 2.0 06/08/19 03:49 92 06/08/19 00:00 Nasal Cannula 2.0 06/08/19 00:00 97.5 81 18 134/94 (107) 96 06/07/19 23:25 102 06/07/19 21:15 98 Nasal Cannula 2.0 28 06/07/19 21:15 87 16 95 Nasal Cannula 1.0 24 06/07/19 20:27 96 146/100 06/07/19 20:00 Nasal Cannula 2.0 06/07/19 20:00 98.2 96 20 146/100 (115) 95 06/07/19 19:24 99 06/07/19 18:05 134/102 06/07/19 16:00 97.7 87 23 134/102 (113) 97 06/07/19 16:00 Nasal Cannula 2.0 Intake and Output 06/07/19 06/08/19 19:00 07:00 Intake Total 980 ml Output Total 600 ml Balance 380 ml Intake Oral 980 ml Output Urine Total 600 ml # Bowel Movements 2 General Appearance: WD/WN HEENT: normocephalic, atraumatic Respiratory/Chest: chest wall non-tender, lungs clear Cardiovascular: normal peripheral pulses, normal rate Abdomen: soft, non tender, non distended Extremities: no cyanosis Skin: no lesions Microbiology Date/Time Source Procedure Growth Status 06/05/19 15:30 Blood Blood Culture - Preliminary NO GROWTH AFTER 48 HOURS Resulted 06/05/19 15:15 Blood Blood Culture - Preliminary NO GROWTH AFTER 48 HOURS Resulted 06/05/19 15:45 Nasal Nares MRSA Culture - Final NO METHICILLIN RESISTANT STAPH AUREUS... Complete 06/05/19 15:45 Rectum VRE Culture - Final NO VANCOMYCIN RESISTANT ENTEROCOCCUS ... Complete 06/05/19 15:45 Rectum - Final NO CARBAPENEM-RESISTANT ENTEROBACTERI... Complete Laboratory Tests 06/08/19 03:15: White Blood Count 5.1, Red Blood Count 5.99, Hemoglobin 15.5, Hematocrit 49.5, Mean Corpuscular Volume 83, Mean Corpuscular Hemoglobin 25.9L, Mean Corpuscular Hemoglobin Concent 31.3L, Red Cell Distribution Width 16.0H, Platelet Count 230 , Mean Platelet Volume 6.3L, Neutrophils (%) (Auto) 60.3, Lymphocytes (%) (Auto ) 19.4L, Monocytes (%) (Auto) 15.2H, Eosinophils (%) (Auto) 2.3, Basophils (%) ( Auto) 2.8H, Sodium Level 140, Potassium Level 3.7, Chloride Level 101, Carbon Dioxide Level 30, Anion Gap 9, Blood Urea Nitrogen 14, Creatinine 1.0, Estimat Glomerular Filtration Rate > 60, Glucose Level 98, Calcium Level 10.4H, Pro-B- Type Natriuretic Peptide 335H Current Medications Medications (Trade) Dose Ordered Sig/Andree Route PRN Reason Start Time Stop Time Status Last Admin Dose Admin Acetaminophen (Tylenol) 650 mg Q4H PRN ORAL Fever 06/08/19 08:30 07/05/19 16:29 Albuterol/ Ipratropium (Albuterol/ Ipratropium) 3 ml Q4H PRN HHN Shortness of Breath 06/08/19 08:30 06/10/19 16:29 Allopurinol (Allopurinol) 300 mg DAILY ORAL 06/08/19 09:00 07/06/19 08:59 06/08/19 10:01 Atorvastatin Calcium (Lipitor) 40 mg BEDTIME ORAL 06/08/19 21:00 07/06/19 20:59 Carvedilol (Coreg) 3.125 mg EVERY 12 HOURS ORAL 06/08/19 09:00 07/05/19 20:59 06/08/19 10:02 Chlorhexidine Gluconate (Luz-Hex 2%) 1 applic DAILY@2000 TOPIC 06/08/19 20:00 07/06/19 19:59 Dextrose (Dextrose 50%) 25 ml Q30M PRN IV Hypoglycemia 06/08/19 05:30 07/05/19 16:29 Dextrose (Dextrose 50%) 50 ml Q30M PRN IV Hypoglycemia 06/08/19 05:30 07/05/19 16:29 Furosemide (Lasix) 40 mg Q12HR ORAL 06/08/19 09:00 07/07/19 20:59 06/08/19 10:03 Heparin Sodium (Porcine) (Heparin 5000 units/ml) 5,000 units EVERY 12 HOURS SUBQ 06/08/19 09:00 07/05/19 20:59 06/08/19 10:09 Insulin Aspart (NovoLOG) BEFORE MEALS AND HS SUBQ 06/08/19 06:30 07/05/19 20:59 Lisinopril (Zestril) 10 mg TWICE A DAY ORAL 06/08/19 09:00 07/06/19 17:59 06/08/19 10:03 Morphine Sulfate (Morphine Sulfate) 2 mg Q4H PRN IVP For Pain 06/08/19 08:00 06/12/19 00:00 06/08/19 10:17 Ondansetron HCl (Zofran) 4 mg Q6H PRN IVP Nausea & Vomiting 06/08/19 06:00 07/05/19 00:00 Pantoprazole (Protonix) 40 mg DAILY IVP 06/08/19 09:00 07/06/19 08:59 06/08/19 10:01 Polyethylene Glycol (Miralax) 17 gm DAILYPRN PRN ORAL Constipation 06/09/19 00:00 07/05/19 00:00 Promethazine HCl/ Codeine (Phenergan with Codeine) 5 ml Q6H PRN ORAL For Cough 06/08/19 06:00 07/05/19 00:00 Sitagliptin Phosphate (Januvia) 100 mg DAILY ORAL 06/08/19 09:00 07/06/19 08:59 06/08/19 10:02 Spironolactone (Aldactone) 25 mg DAILY ORAL 06/08/19 09:00 07/07/19 08:59 06/08/19 10:02 Temazepam (Restoril) 15 mg HSPRN PRN ORAL Insomnia 06/09/19 00:00 06/12/19 00:00 Angel Diaz MD Jun 08, 2019 14:04
[2019-06-08] MEDS ORDERED: FUROSEMIDE40 MG ORAL (14:07)
[2019-06-08] MEDS ORDERED: SPIRONOLACTONE25 MG ORAL (14:07)
[2019-06-08] MEDS ORDERED: NOVOLOG100 UNITS1 SUBQ (14:07)
[2019-06-08] MEDS ORDERED: ALLOPURINOL100 M1 ORAL (14:07)
[2019-06-08] MEDS ORDERED: ZESTRIL10 M1 ORAL (14:07)
[2019-06-08] MEDS ORDERED: JANUVIA100 MG ORAL (14:07)
[2019-06-08 16:00] VITALS: BP 141/98
[2019-06-08 17:46] VITALS: BP 141/98
--- NOTE | 2019-06-08 18:30 | NUR ---
NURSE NOTES: Patient discharged in stable condition. Discharge instruction given to patient and verbalized understanding. Prescribed medication and belonging given to patient. Instructed to take medication that MD prescribed only and verbalized understanding. IV and ID removed. Patient ambulated out with all personal belongings with steady gait.
--- NOTE | 2019-06-08 18:52 | Internal Med Progress Note ---
Subjective Date of Service: Jun 08, 2019 Physician Name Dario Meza Attending Physician Mejia Hidalgo MD Allergies: Coded Allergies: Cultivated Oat Pollen (Unverified Allergy, Unknown, 06/06/19) Dust (Unverified Allergy, Unknown, 06/06/19) PINEAPPLE (Unverified Allergy, Unknown, 06/06/19) WOOL (Unverified Allergy, Unknown, 06/06/19) ROS Limited/Unobtainable: No Constitutional: Reports: no symptoms HEENT: Reports: no symptoms Cardiovascular: Reports: chest pain Respiratory: Reports: shortness of breath Gastrointestinal/Abdominal: Reports: no symptoms Genitourinary: Reports: no symptoms Neurologic/Psychiatric: Reports: no symptoms Subjective 44 YO M admitted with shortness of breath. Now CHF. Cover for Int Med-Dr Hidalgo. Objective Last Vital Signs Date Time Temp Pulse Resp B/P (MAP) Pulse Ox O2 Delivery O2 Flow Rate FiO2 06/08/19 17:46 141/98 06/08/19 16:00 98.7 86 18 100 06/08/19 09:00 Room Air 06/08/19 08:53 21 06/08/19 04:00 2.0 Laboratory Tests Test 06/08/19 03:15 White Blood Count 5.1 K/UL (4.8-10.8) Red Blood Count 5.99 M/UL (4.70-6.10) Hemoglobin 15.5 G/DL (14.2-18.0) Hematocrit 49.5 % (42.0-52.0) Mean Corpuscular Volume 83 FL (80-99) Mean Corpuscular Hemoglobin 25.9 PG (27.0-31.0) L Mean Corpuscular Hemoglobin Concent 31.3 G/DL (32.0-36.0) L Red Cell Distribution Width 16.0 % (11.6-14.8) H Platelet Count 230 K/UL (150-450) Mean Platelet Volume 6.3 FL (6.5-10.1) L Neutrophils (%) (Auto) 60.3 % (45.0-75.0) Lymphocytes (%) (Auto) 19.4 % (20.0-45.0) L Monocytes (%) (Auto) 15.2 % (1.0-10.0) H Eosinophils (%) (Auto) 2.3 % (0.0-3.0) Basophils (%) (Auto) 2.8 % (0.0-2.0) H Sodium Level 140 MMOL/L (136-145) Potassium Level 3.7 MMOL/L (3.5-5.1) Chloride Level 101 MMOL/L (98-107) Carbon Dioxide Level 30 MMOL/L (21-32) Anion Gap 9 mmol/L (5-15) Blood Urea Nitrogen 14 mg/dL (7-18) Creatinine 1.0 MG/DL (0.55-1.30) Estimat Glomerular Filtration Rate > 60 mL/min (>60) Glucose Level 98 MG/DL (74-106) Calcium Level 10.4 MG/DL (8.5-10.1) H Pro-B-Type Natriuretic Peptide 335 pg/mL (0-125) H Intake and Output 06/07/19 06/08/19 18:59 06:59 Intake Total 980 ml Output Total 600 ml Balance 380 ml Intake Oral 980 ml Output Urine Total 600 ml # Bowel Movements 2 Objective PHYSICAL EXAMINATION: GENERAL: The patient awake, responsive, but lethargic and sleepy. HEAD AND NECK: Pupils are reactive to light. Extraocular movements intact. Neck was supple. No JVD. LUNGS: Good air entry with no wheezing or rales. HEART: S1, S2. Regular rhythm. Distant heart sounds. AICD was noted in left-sided chest wall. ABDOMEN: Soft, nondistended, nontender. Morbidly obese. EXTREMITIES: No cyanosis, clubbing, edema. NEUROLOGIC: Cranial nerves II through XII grossly intact. Motor is 5/5 in all extremities. Gait is intact. RECTAL: Refused and deferred. GENITOURINARY: Refused and deferred. PSYCHIATRIC: Mood and affect is intact. Assessment/Plan Assessment/Plan ASSESSMENT: 1. Hypotension, most likely secondary to acute heart failure. 2. Ischemic cardiomyopathy. 3. Acute on chronic congestive heart failure with systolic dysfunction with a reduced ejection fraction. 4. Status post AICD. 5. History of hypertension, presently hypotensive. 6. COPD. 7. Diabetes type 2. 8. Coronary artery disease with prior history of myocardial infarction. 9. Morbid obesity. 10. Presumed obstructive sleep apnea. PLAN: 1. Med/surg 2. Cardiology consultation with Dr. Stanley Schumacher 3. Pulmonary consultation with Dr. Angel Diaz. 4. Hypotension. dobutamine drip, Lasix IV. 5. Monitor laboratory. Code status is Full Code. DVT prophylaxis, heparin subcutaneous. 6. Discharge home today Dario Meza MD Jun 08, 2019 18:52
--- NOTE | 2019-06-08 19:53 | Cardiology Report ---
APPROVED REPORT EXAM: Two-dimensional and M-mode echocardiogram with Doppler and color Doppler. INDICATION CVA/TIA Left ventricular function M-Mode DIMENSIONS IVSd1.4 (0.7-1.1cm)Left Atrium (MM)4.7 (1.6-4.0cm) LVDd5.5 (3.5-5.6cm)Aortic Root4.0 (2.0-3.7cm) PWd1.6 (0.7-1.1cm)Aortic Cusp Exc.2.4 (1.5-2.0cm) LVDs4.7 (2.5-4.0cm) PWs1.9 cm Normal left ventricular chamber size. Anteroseptal wall hypokinesia, overall left ventricular ejection fraction is estimated to be 35-40%. Ischemic cardiomyopathy cannot be excluded. Mild left ventricular hypertrophy. No evidence of pericardial effusion. Mild left atrial enlargement. Right cardiac chamber sizes are within normal limits. Mild aortic root dilatation. Focal aortic valve sclerosis with adequate cusp excursion. Thickened mitral valve leaflets with normal excursion. Mitral annulus and aortic root calcification. Normal pulmonic valve structure. Normal tricuspid valve structure. IVC is normal in size with physiological collapse. A color flow and spectral Doppler study was performed and revealed: No aortic regurgitation. No mitral regurgitation. Mitral diastolic velocities suggest mild left ventricular diastolic dysfunction (Grade I). No tricuspid regurgitation. Tricuspid systolic velocities suggests peak right ventricular systolic pressure of 5 mmHg. pulmonic regurgitation present.
[2019-06-08] MEDS ORDERED: Dyna-Hex 2% Top Sol 2oz TOPIC SCH (20:00)
[2019-06-08] MEDS ORDERED: Atorvastatin 20mg tab ORAL SCH (21:00)
--- NOTE | 2019-06-08 21:06 | Cardiology Report ---
APPROVED REPORT EKG Measurement Heart [id number] Normal sinus rhythm Left ventricular hypertrophy with QRS widening and repolarization abnormality, consider ischemia Abnormal ECG
[2019-06-09] MEDS ORDERED: Miralax 17gm pkt ORAL PRN
--- NOTE | 2019-06-10 13:14 | Discharge Summary ---
Discharge Summary Discharge Summary _ DATE OF ADMISSION: 06/05/2019 DATE OF DISCHARGE: 06/08/2019 DISCHARGED BY: Dr. Hidalgo REASON FOR ADMISSION: 44 years old male with past medical history of severe cardiomyopathy, congestive heart failure, status post AICD 2018, COPD/asthma, hypertension, coronary artery disease, status post UT at age of 22, presented to the hospital complaining of shortness of breath, weakness and fatigue. Patient was recently discharged from [facility]. Upon presentation patient was noted to have altered mental status. He had a difficult time providing history. He reported lightheadedness. Upon evaluation vital signs revealed hypotension with blood pressure 75/44. Pulse oximetry was 91% on room air. Laboratory work-up revealed no leukocytosis, stable hemoglobin and hematocrit. Lactic acid 2.9. BUN 15, creatinine 1.8. Stable electrolytes. Troponin 0.022. Pro BNP 6580. ECG revealed normal sinus rhythm. Left ventricular hypertrophy with QRS widening and repolarization abnormality. Urine toxicology screen was positive for phencyclidine. Urinalysis revealed no evidence of UTI. Chest x-ray revealed no acute cardiopulmonary pathology. Evidence of bifocal AICD in the left chest noted. CT of the head revealed no acute intracranial pathology. Patient started on dobutamine drip and admitted to ICU for further management. CONSULTANTS: non garment sewing machine operator Dr. Syed cardiac electrophysiology Dr. Jalloh pulmonary/critical care Dr. Diaz [facility] COURSE: Patient admitted to [facility]. Patient initially started on dobutamine drip to keep mean arterial blood pressure above 65. Hemodynamic status was closely monitored. Patient started on diuresis with IV Lasix with close monitoring of volumes and cardiorenal parameters. Supplemental oxygen provided and titrated to keep pulse oximetry above 92%. Pulmonary toilet via handheld nebulizing therapy with bronchodilator provided as needed. Venous duplex bilateral lower extremity reveal no evidence of acute DVT. DVT prophylaxis provided. Echocardiogram revealed anteroseptal wall hypokinesia, overall left ventricular ejection fraction estimated to be 35 to 40%. Mild left ventricular hypertrophy. Right ventricular systolic pressure of 5. Patient was able soon to be weaned from the pressors. Serial troponin were negative. Altered mental status resolved, likely was due to shock and PCP. Patient was transferred to direct observational unit. Restaurant Bartender closely followed. Guideline directed medical therapy for severe cardiomyopathy provided with beta- tatyana, PATRIZIA inhibitor, Lasix and Aldactone. Defibrillator was interrogated and showed normal functioning. Per non garment sewing machine operator Dr. Syed patient had nonischemic cardiomyopathy. Follow-up chest x-ray revealed no evidence of CHF. Pro BNP from 6580 down to 335. IV Lasix changed to oral maintenance dose. Renal parameters and electrolytes were closely monitored. Electrolytes corrected further as needed and nephrotoxins were avoided. Creatinine from 1.8 down to 1.0. Acute kidney injury resolved. GI prophylaxis provided. Blood sugar was managed with Januvia and sliding scale of insulin as needed. Supportive care provided. Patient was counseled on abstinence from illicit street drugs and alcohol. Patient was encouraged to have sleep study as outpatient for presumed obstructive sleep apnea. Patient clinically stabilized and was ready for discharge home. Reinforced compliance with medication regimen. FINAL DIAGNOSES: Acute on chronic systolic and diastolic CHF exacerbation Nonischemic cardiomyopathy with ejection fraction 25 to 30% Status post [employer] defibrillator implantation in 2018 COPD/asthma Coronary artery disease, history of UT Acute kidney injury - resolved Lactic acidosis Acute toxic metabolic encephalopathy -resolved History of hypertension Diabetes mellitus Morbid obesity Presumed ALMAZ Substance abuse/PCP DISCHARGE MEDICATIONS: See Medication Reconciliation list. DISCHARGE INSTRUCTIONS: Patient was discharged home . Follow up with primary care provider in one week. I have been assigned to dictate discharge summary for this account. I was not involved in the patient's management. Elizabeth Crowder NP Jun 10, 2019 13:14
== END 2019-06-08 18:39 | disposition home or self-care (01) | DRG 291 ==
LOC: EMR 15:30 → ICU 15:41 → EDBEDREQ 16:03 → EDBEDREQSVC 16:03 → EDBEDREQ 17:00 → 2W 06-06 23:28 → 3E 06-08 05:13
PROC: 06HM33Z Insertion of Infusion Device into Right Femoral Vein, Percutaneous Approach (ICD-10-PCS; principal; 2019-06-05)
DX: I11.0 Hypertensive heart disease with heart failure (principal); G92 Toxic encephalopathy; E87.2 Acidosis; R57.9 Shock, unspecified; N17.9 Acute kidney failure, unspecified; I50.43 Acute on chronic combined systolic (congestive) and diastolic (congestive) heart failure; I42.8 Other cardiomyopathies; I95.9 Hypotension, unspecified; F16.10 Hallucinogen abuse, uncomplicated; G47.33 Obstructive sleep apnea (adult) (pediatric); J44.9 Chronic obstructive pulmonary disease, unspecified; Z95.810 Presence of automatic (implantable) cardiac defibrillator; I42.0 Dilated cardiomyopathy; F17.200 Nicotine dependence, unspecified, uncomplicated; E11.9 Type 2 diabetes mellitus without complications; I25.10 Atherosclerotic heart disease of native coronary artery without angina pectoris; I25.2 Old myocardial infarction; E66.01 Morbid (severe) obesity due to excess calories; F10.10 Alcohol abuse, uncomplicated; Z68.31 Body mass index [BMI] 31.0-31.9, adult
CPT/HCPCS: 36415; 36600; 70450; 71045; 80048; 80053; 80307; 81003; 82550; 82553; 82803; 82962; 83605; 83690; 83880; 84484; 85025; 87040; 87081; 93005; 93306; 93925; 93970; 94664; 96360; 99291; J1815

== ENCOUNTER 2019-07-04 06:32 | Emergency (ER) | payer MEDICARE, MEDICAID ==
[~2019-07-04] VITALS: Ht 177.8 cm; Wt 106.6 kg
[~2019-07-04 06:32] MED LIST changes: +ACETAMINOPHEN325 M1 ORAL; +ALLOPURINOL100 M1 ORAL; +AMLODIPINE BESY10 MG ORAL; +CATAPRES0.2 MG ORAL; +CATAPRES0.3 MG ORAL; +DULCOLAX10 MG RC; +DUONEB 0.5-3(2.53 ML HHN; +FAMOTIDINE40 MG ORAL; +FLEET ENEMA133 ML RECTAL; +GABAPENTIN300 MG ORAL; +HUMALOG100 UNIT/4 SUBQ; +HYDRALAZINE HC100 MG ORAL; +ISOSORBIDE DINI40 MG ORAL; +JANUVIA100 MG ORAL; +LORATADINE10 M2 PO; +LORAZEPAM2 MG ORAL; +METFORMIN HCL1000 M1 ORAL; +MILK OF MA400 MG/51 ORAL; +MULTIVITAMINS1 EAC8 ORAL; +NOVOLOG100 UNITS1 SUBQ; +TRADJENTA5 MG PO; +TRAMADOL HCL50 MG ORAL; +ZESTRIL10 M1 ORAL
[2019-07-04 06:51] VITALS: BP 155/106
--- NOTE | 2019-07-04 06:53 | NUR ---
ER Nurse Note: Pt walked in c/o RT arm pain, 10/10 sharp pain since 07/03. Pt stated pain was sudden onset. Pt denies trauma on RT arm, no chest pain, no shortness of breath. Pt has ICD on LT chest.BP 155/106 at bedside. Will continue to montior.
--- NOTE | 2019-07-04 07:07 | NUR ---
ER Nurse Note: Pt stated he hit his RT arm while he was cleaning a few days ago and said "my arm might be hurting because I hit it". Pt moved to bed 3. All safety measures met; will endorse to oncoming shift for continutiy of care.
--- NOTE | 2019-07-04 07:07 | Emergency Room Report ---
History of Present Illness General Chief Complaint: Upper Extremity Injury Source: Patient Present Illness HPI Patient presents with complaints of right upper arm pain reports that he has problems with his memory and initially did not recall why his arm was hurting however now he remembers that while moving yesterday he did hit the arm against a door Denies any headache denies any chest pain denies any shortness of breath he reports that he has been taking all his medications and feels otherwise well Denies any focal weakness Denies any vomiting or diarrhea denies any head injury pain was 3 out of 10 localized to the humerus area Denies any elbow pain Allergies: Coded Allergies: Cultivated Oat Pollen (Unverified Allergy, Unknown, 06/06/19) Dust (Unverified Allergy, Unknown, 06/06/19) PINEAPPLE (Unverified Allergy, Unknown, 06/06/19) WOOL (Unverified Allergy, Unknown, 06/06/19) Patient History Past Medical History: see triage record Reviewed Nursing Documentation: PMH: Agreed; PSxH: Agreed Nursing Documentation-PMH Hx Cardiac Problems: Yes - CHF Hx Hypertension: Yes Hx Pacemaker: Yes - DEFIBRILATOR EMBEDDED Hx Asthma: Yes Hx COPD: Yes Hx Cancer: No Hx Neurological Problems: Yes Hx Cerebrovascular Accident: Yes Hx Transient Ischemic Attacks: Yes Hx Head Trauma: Yes Hx Memory Loss: Yes Hx Concentration Difficulty: Yes Hx Tremors: Yes Hx Dizziness: Yes Hx Headaches: Yes Hx Fatigue: Yes Review of Systems All Other Systems: negative except mentioned in HPI Physical Exam Vital Signs Date Time Temp Pulse Resp B/P (MAP) Pulse Ox O2 Delivery O2 Flow Rate FiO2 07/04/19 06:38 98.1 87 18 93/61 (72) 94 Room Air Sp02 EP Interpretation: reviewed, normal General Appearance: well appearing, no apparent distress Head: normocephalic, atraumatic Eyes: bilateral eye PERRL, bilateral eye EOMI ENT: hearing grossly normal, normal pharynx, TMs + canals normal, uvula midline Neck: full range of motion, supple, no meningismus, no bony tend Respiratory: lungs clear, normal breath sounds, no rhonchi, no respiratory distress, no retraction, no accessory muscle use Cardiovascular #1: normal peripheral pulses, regular rate, rhythm, no edema, no gallop, no JVD, no murmur Gastrointestinal: normal bowel sounds, non tender, soft, no mass, no organomegaly, non-distended, no guarding, no hernia, no pulsatile mass, no rebound Genitourinary: no CVA tenderness Musculoskeletal: other - Some minimal reproducible discomfort to the right bicep upper arm area no obvious ecchymosis full range of motion intact Neurologic: oriented x3, responsive, patents examiner III-XII nml as tested, motor strength/ tone normal, sensory intact Psychiatric: mood/affect normal Skin: no rash Lymphatic: normal inspection, no adenopathy Medical Decision Making Diagnostic Impression: Primary Impression: Contusion ER Course Multiple differentials and consideration initially prior to the patient recalling the traumatic injury other referred type pathology of injury such as cardiac cardiopulmonary also entertained patient does have multiple risk factors and comorbidities with poor Ejection fraction However at this time remains hemodynamically stable has very localized discomfort to the upper arm bicep area And will have initial conservative outpatient follow-up Rhythm Strip Diag. Results EP Interpretation: yes Rate: 80 Rhythm: NSR, no PVC's, no ectopy Last Vital Signs Date Time Temp Pulse Resp B/P (MAP) Pulse Ox O2 Delivery O2 Flow Rate FiO2 07/04/19 06:51 98.1 87 18 155/106 94 Room Air Status: unchanged Disposition: HOME, SELF-CARE Condition: Stable Referrals: Mejia Hidalgo MD (PCP) Additional Instructions: Patient is provided with the discharge instructions notified to follow up with primary doctor in the next 2-3 days otherwise return to the er with any worsening symptoms. Please note that this report is being documented using DRAGON technology. This can lead to erroneous entry secondary to incorrect interpretation by the dictating instrument. Petr Lee DO Jul 04, 2019 07:07
[2019-07-04 07:25] VITALS: BP 152/99
--- NOTE | 2019-07-04 07:25 | NUR ---
ER DISCHARGE NOTE: Patient is cleared to be discharged per ERMD, pt is aox4, on room air, with stable vital signs. pt was given dc instructions, pt was able to verbalize understanding, pt id band removed without complications. pt is able to ambulate with steady gait. pt took all belongings.
== END 2019-07-04 07:25 | disposition home or self-care (01) ==
LOC: EMR 07:01
DX: S40.021A Contusion of right upper arm, initial encounter (principal); Z91.018 Allergy to other foods; Z91.048 Other nonmedicinal substance allergy status; I11.0 Hypertensive heart disease with heart failure; I50.9 Heart failure, unspecified; J45.909 Unspecified asthma, uncomplicated; J44.9 Chronic obstructive pulmonary disease, unspecified; Z86.73 Personal history of transient ischemic attack (TIA), and cerebral infarction without residual deficits; Z95.810 Presence of automatic (implantable) cardiac defibrillator; W22.09XA Striking against other stationary object, initial encounter; Y92.9 Unspecified place or not applicable
CPT/HCPCS: 99282